=== PATIENT | female | born 1985 | race Caucasian/White ===

== ENCOUNTER → 2017-08-15 07:27 | Outpatient (CLI) | payer BC, SELFPAY ==
[2017-08-15 08:11] LABS: Hemoglobin A1c 5.4 % (4.2-6.3)
[2017-08-15 08:13] LABS: Free T3 2.7 pg/mL (2.18-3.98); T4 Free Direct 1.02 ng/dL (0.76-1.46); Thyroid Stim Hormone (TSH) 2.05 uIU/mL (0.358-3.74)
== END ==
PROVIDERS: Family Provider Preventive Medicine Occupational Medicine; PCP Preventive Medicine Occupational Medicine; Visit Provider Nurse Practitioner
DX: E03.9 Hypothyroidism, unspecified (principal); R53.81 Other malaise; R53.83 Other fatigue
CPT/HCPCS: 36415; 83036; 84439; 84443; 84481

== ENCOUNTER → 2018-05-14 12:39 | Outpatient (CLI) | payer BC, SELFPAY ==
[2018-05-14 12:25] VITALS: BMI 42.2
--- NOTE | 2018-05-14 13:08 | EKG12_ITS ---
Test Reason : HTN Blood Pressure : / mmHG Vent. Rate : 094 BPM Atrial Rate : 094 BPM P-R Int : 152 ms QRS Dur : 078 ms QT Int : 356 ms P-R-T Axes : 079 038 058 degrees QTc Int : 445 ms Normal sinus rhythm Normal ECG Confirmed by RANJITH FIGUEROA, SHAYE ([id number]), industrial editor RONNELL MORRISON ([id number] on 05/15/2018 4:02:26 PM Referred By: Agustina Roberts Confirmed By:SHAYE KASPER MD
[2018-05-14 13:29] LABS: Absolute Lymphocyte Count 1.79 X10^3/ul (0.83-4.51); Absolute Neutrophil Count 8.4 X10^3/uL (2.0-7.7); Basophil# 0.02 X10^3/uL; Basophil% 0.2 % (0-1); Eosinophil# 0.12 X10^3/uL; Eosinophils% 1.1 % (0-5); Hematocrit 38.2 % (37-47); Hemoglobin 12.2 g/dl (12.0-15.0); Lymphocyte # 1.79 X10^3/ul (4.0); Mean Corp Hgb Conc 31.9 g/gl (32-36); Mean Corpuscular Hgb 29.5 pg (27.0-32.0); Mean Corpuscular Volume 92.5 fL (81-99); Mean Platelet Vol. 10.6 fl (6.2-12.0); Neutrophil # 8.36 X10^3/uL (2.7-7.7); Neutrophil % 74.5 % (47-70); POSITIVE COUNT NO; POSITIVE DIFFERENTIAL NO; POSITIVE MORPHOLOGY NO; Platelet Count 303 K/mm3 (150-450); RBC Distribution Width CV 13.6 % (11.6-14.6); RBC Distribution Width SD 46.1 fl (35.1-43.9); Red Blood Count 4.13 M/mm3 (4.2-5.4); White Blood Count 11.2 K/mm3 (4.4-11.0)
[2018-05-14 14:05] LABS: ALB/GLOB Ratio 0.8 RATIO (0.9-2.4); AST(SGOT) 12 U/L (15-37); Alanine Aminotransfer ALT/SGPT 20 U/L (13-56); Albumin, Serum 3.1 g/dL (3.2-5.0); Alkaline Phosphatase 52 U/L (45-117); Anion Gap 10 (5-15); BUN 10 mg/dL (7-18); Calcium,Total 8.7 mg/dL (8.5-10.1); Chloride 106 mmol/L (98-107); Creatinine, Serum 0.56 mg/dL (0.55-1.02); EST Glomerular Filtration Rate 132 mL/min (>60); Est Glom Filt Rate - Afr Amer 160 mL/min (>60); Globulin 3.9 g/dL (2.2-4.2); Glucose 86 mg/dL (74-106); Potassium 3.7 mmol/L (3.5-5.1); Sodium Level 138 mmol/L (136-145); Thyroid Stim Hormone (TSH) 1.11 uIU/mL (0.358-3.74)
[2018-05-17 04:08] LABS: AFP Value-EIA 30.2 ng/mL (.); Comment Report (.); DIA Value-EIA 364.58 pg/mL (.); DSR (By Age) 298 (.); DSR (Second Trimester) 97 (.); Gestat. Age Based On As provided (.); Insulin Dep Diabetes No (.); hCG MoM 1.51 (.); hCG Value 32098 mIU/mL (.)
--- OUTSIDE RECORDS SUMMARY | 2018-07-19 08:50 | XMS RPT_ITS ---
:1985 Author Organization [facility] Care Team Providers Name Role Phone ADILIA FIGUEROA, AISHA Attending Unavailable ADILIA FIGUEROA, AISHA Consulting Unavailable FINESSE WARNER, BRAXTON Monroy Consulting Unavailable JAIME PATEL Consulting Unavailable ADILIA FIGUEROA, AISHA Attending Unavailable ANGELICA WARNER, SANDRO Consulting Unavailable ADILIA FIGUEROA, AISHA Consulting Unavailable Tung Angulo Attending Unavailable Agustina Roberts Attending Unavailable Tung Angulo Referring Unavailable Jamiony, Agustina Attending Unavailable Jamiony, Agustina Referring Unavailable Tung Angulo Primary Care Unavailable Brody Kasper Attending Unavailable Alejandra, Agustina Referring Unavailable Adele, Tung Primary Care Unavailable Jamiony, Agustina Consulting Unavailable Varsha Vargas DRIVER TRAINEE-C Attending Unavailable Varsha Vargas DRIVER TRAINEE-C Referring Unavailable Tung Angulo Primary Care Unavailable Varsha Vargas DRIVER TRAINEE-C Attending Unavailable Tung Angulo Referring Unavailable Tung Angulo Primary Care Unavailable PROBLEMS PROBLEMS DATE TYPE CONDITION / CODE ATTENDING STATUS SOURCE 05/15/2018 Unknown O10.919 - MiltonaxelBrody Active [place] [facility]specified [facility]existing [facility] hypertension Repository complicating , unspecified trimester / O10.919(ICD-10) 05/15/2018 Unknown E03.9 - MiltoncarlosBrody duran Active [place] Hypothyroidism, [facility] unspecified / Hospital E03.9(ICD-10) Repository 05/15/2018 Unknown Z34.90 - Encounter MiltoncarlosBrody duran Active [place] for supervision of [facility] normal , Hospital unspecified, Repository unspecified trimester / Z34.90(ICD-10) 05/15/2018 Unknown O99.210 - Obesity MiltonaxelBrody Active [place] complicating [facility] , Hospital unspecified Repository trimester / O99.210(ICD-10) 05/14/2018 Unknown Z31.83 - Encounter Marcanthveronique, Active [place] for assisted [facility] fertility Repository procedure cycle / Z31.83(ICD-10) 05/14/2018 Unknown O99.212 - Obesity Marcanthony, Active [place] complicating [facility] , second Hospital trimester / Repository O99.212(ICD-10) 05/14/2018 Unknown Z3A.17 - 17 weeks Marcanthony, Active [place] gestation of [facility] / Hospital Z3A.17(ICD-10) Repository 05/14/2018 Unknown O09.90 - Alejandra, Active [place] Supervision of [facility] , Repository unspecified, unspecified trimester / O09.90(ICD-10) PROCEDURES PROCEDURES No Procedure Records FoundRESULTS RESULTS 12 LEAD ELECTROCARDIOGRAM Observed: 05/15/2018 Status: F Source: [place] 4:02 PM [facility] [place] [facility] Cardiovascular Services [address] [place] [address] 12 Lead EKG 05/14/18 1319 MR#: [id number] Acct: [id number] Name: DEREK MARIN Rep #: [id number] : 1985 32 From: Brody Kasper MD Attending Dr: Agustina Roberts MD Status: REG CLI Ordering Dr: Agustina Roberts MD Date: 05/14/18 Location: LAB Sex: F C Admitted: Test Reason : HTN Blood Pressure : / mmHG Vent. Rate : 094 BPM Atrial Rate : 094 BPM P-R Int : 152 ms QRS Dur : 078 ms QT Int : 356 ms P-R-T Axes : 079 038 058 degrees QTc Int : 445 ms Normal sinus rhythm Normal ECG Confirmed by RANJITH FIGUEROA, BRODY ([id number]), purchase request editor RONNELL MORRISON ([id number]) on 05/15/2018 4:02:26 PM Referred By: Agustina Roberts Confirmed By:BRODY KASPER MD 05/15/18 1602 Date Brody Kasper MD CC: Tung Angulo DO; Agustina Roberts MD Signed AFP TETRA QUAD Collected: 05/14/2018 Status: F Source: [facility] SCREEN 12:46 PM [facility] [place] Order Comment: 2 TIGER TOPS Is Patient ? Y Enter Completed Weeks of Gestation: 17.0 Patient's Weight (LBS.): 288 Race: / White Number of Fetuses: 1 Is Patient Insulin-Dependent Diabetic?: N TYPE CODE TESTS RESULT OUT OF REFERENCE UNITS RANGE LAB L3290.110 . 0 TEST RESULTS: High *Screen Positive* LAB L3290.120 . WEEKS 0 GESTATIONAL AGE Normal 17.0 LAB L3290.130 . 0 GEST AGE FROM As Normal provided LAB L3290.140 . yr 1 MATRNL AGE @CARTER Normal 33.0 LAB L3290.150 . 0 RACE Normal LAB L3290.160 . lbs 0 WEIGHT Normal 288 LAB L3290.170 . 0 INS DEP DIABETE No Normal LAB L3290.180 . 0 MULT GESTATION No Normal LAB L3290.190 . ng/mL 0 AFP VALUE-EIA Normal 30.2 LAB L3290.200 . 0 AFP MOM VALUE Normal 1.20 LAB L3290.210 . mIU/mL 0 HCG VALUE Normal 66837 LAB L3290.220 . 0 HCG MOM Normal 1.51 LAB L3290.230 . ng/mL 0 UE3 VALUE Normal 0.79 LAB L3290.240 . 0 UE3 MOM Normal 0.89 LAB L3290.250 . pg/mL 0 MARGARET VALUE-EIA Normal 364.58 LAB L3290.260 . 0 MARGARET MOM VALUE Normal 3.10 LAB L3290.270 . 0 OSBR RISK Normal 6499 LAB L3290.280 . 0 DSR 2ND TRIMEST 97 Normal LAB L3290.290 . 0 DSR (BY AGE) Normal 298 LAB L3290.310 . 0 T18 RISK Normal Not increased LAB L3290.320 . 0 T18 (BY AGE) Normal 1:1162 LAB L3290.330 . 0 INTERPRETATION Normal Comment Result Comment: Interpretation: Screen Positive for Down Syndrome This patient is at increased risk to have a baby with Down Syndrome. The Down Syndrome risk was calculated using the gestational age provided, maternal age, AFP, hCG, uE3 and MARGARET values. Approximately 75-80% of Down Syndrome can be detected by this test. This result is screen negative for open spina bifida. This test can identify up to 80% of open neural tube defects. Closed neural tube defects and some open defects may not be detected by this test. This test can identify approximately 60% of Trisomy 18. Recommendations: 1. Targeted ultrasound to confirm gestational age and rule out anomalies. 2. Do not repeat test. Repeating the test can result in false negatives. 3. Genetic counseling and amniocentesis are appropriate options. Recalculations are not recommended when gestational dating by LMP and ultrasound are within 10 days. Performed By: #### L3290.0100 #### [facility] (refer to report for specific site) refer to report for address and phone number [facility] W/DIFF, AUTOMATED Collected: 05/14/2018 Status: F Source: [place] 12:44 PM [facility] [place] TYPE CODE TESTS RESULT OUT OF RANGE REFERENCE UNITS LAB L100.1000 4.4-11.0 K/mm3 High WBC 11.2 LAB L100.1200 4.2-5.4 M/mm3 Low RBC 4.13 LAB L100.1300 12.0-15.0 g/dl Normal HGB 12.2 LAB L100.1400 37-47 % Normal HCT 38.2 LAB L100.1500 81-99 fL Normal MCV 92.5 LAB L100.1600 27.0-32.0 pg Normal MCH 29.5 LAB L100.1700 32-36 g/gl Low MCHC 31.9 LAB L100.1810 11.6-14.6 % Normal RDW CV 13.6 LAB L100.1820 35.1-43.9 fl High RDW SD 46.1 LAB L100.1900 150-450 K/mm3 Normal PLT 303 LAB L100.2000 6.2-12.0 fl Normal MPV 10.6 LAB L100.2100 47-70 % High NEUT% 74.5 LAB L100.2200 19-41 % Low LY% 16.0 LAB L100.2300 0-10 % Normal MONO% 8.0 LAB L100.2400 0-5 % Normal EO% 1.1 LAB L100.2500 0-1 % Normal BASO% 0.2 LAB L100.2550 0.0-0.9 % Normal IM GRAN % 0.200 Result Comment: IG% - Immature Granulocytes (promyelocytes, myelocytes and metamyelocytes) > 1% indicates that a LEFT SHIFT is Present. LAB L100.2620 2.0-7.7 X10 3/uL High Absolute Neut 8.4 LAB L100.2720 0.83-4.51 X10 3/ul Normal Absolute Lymph 1.79 Performed By: #### L100.0100 #### [facility] [address] [place], [place], [address] COMPREHENSIVE METABOLIC Collected: 05/14/2018 Status: F Source: [facility] 12:44 PM [facility] TYPE CODE TESTS RESULT OUT OF RANGE REFERENCE UNITS LAB L501.0100 74-106 mg/dL Normal GLU 86 Result Comment: Please note revised GLUCOSE reference range effective 2017. LAB L501.1000 7-18 mg/dL Normal BUN 10 LAB L501.1100 0.55-1.02 mg/dL Normal CREAT,SERUM 0.56 Result Comment: The validity of the calculated GFR AND GFRAA in patients over 70 years has not been determined. Clinical correlation is essential. LAB L501.1110 >60 mL/min Normal EST GFR 132 Result Comment: Non- GFR Calc LAB L501.1115 >60 mL/min Normal EST GFR - AA 160 Result Comment: GFR Calc LAB L501.1300 10-20 RATIO Normal BUN/CRE 18.0 LAB L501.1500 6.4-8.2 g/dL T Normal PROT 7.0 LAB L501.1800 3.2-5.0 g/dL Low ALB 3.1 LAB L501.1950 2.2-4.2 g/dL Normal GLOB 3.9 LAB L501.2000 0.9-2.4 RATIO Low A/G 0.8 LAB L501.2200 8.5-10.1 mg/dL CA Normal 8.7 LAB L501.4100 15-37 U/L Low AST 12 LAB L501.4305 45-117 U/L Normal ALK P 52 LAB L501.4405 13-56 U/L Normal ALT 20 LAB L501.4600 0.20-1.00 mg/dL T Normal BILI 0.20 LAB L501.5300 136-145 mmol/L NA Normal 138 LAB L501.5600 3.5-5.1 mmol/L K Normal 3.7 LAB L501.5900 98-107 mmol/L CL Normal 106 LAB L501.6100 21.0-32.0 mmol/L Normal CO2 22.0 LAB L501.6200 5-15 Normal GAP 10 Performed By: #### L500.4050, L501.9520, L506.0400 #### [facility] [address] [place], [address] THYROID STIM HORMONE Collected: 05/14/2018 Status: F Source: SARA (TSH) 12:44 PM [facility] [place] TYPE CODE TESTS RESULT OUT OF RANGE REFERENCE UNITS LAB L501.9520 0.358-3.74 uIU/mL Normal TSH 1.11 Performed By: #### L500.4050, L501.9520, L506.0400 #### [facility] [address] [place], [address] T4 FREE DIRECT Collected: 05/14/2018 Status: F Source: [place] 12:44 PM [facility] TYPE CODE TESTS RESULT OUT OF RANGE REFERENCE UNITS LAB L506.0400 0.76-1.46 ng/dL Normal T4 FREE 1.00 DIRECT Performed By: #### L500.4050, L501.9520, L506.0400 #### [facility] [address] [place], [address] SPIRAL TUBE WINDER OFFICE VISIT Observed: 05/14/2018 Status: F Source: [place] REPORT 12:25 PM [facility] [place] [facility] 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 Required: No Is patient in pain?: No Allergies prednisone Allergy (Mild, Verified 05/14/18 12:00) Other Medications ferrous sulfate 325 mg (65 mg iron) tablet 325 mg PO TID tab 09/18/17 [History Confirmed 05/14/18] loratadine 10 mg tablet 10 mg PO QDAY 09/18/17 [History Confirmed 05/14/18] vitamin,calcium,oartcsoj-sclu-jhfxv acid tablet 1 tab PO QDAY 09/18/17 [History Confirmed 05/14/18] promethazine 12.5 mg tablet 12.5 mg PO QDAY tab 09/18/17 [History Confirmed 05/14/18] aspirin 81 mg chewable tablet 81 mg PO QDAY 09/25/17 [History Confirmed 05/14/18] levothyroxine 75 mcg tablet See Rx Instructions PO .COMPLEX #96 tab 02/11/18 [Rx Confirmed 05/14/18] acetaminophen 325 mg capsule 325 mg PO Q6H PRN 05/14/18 [History Confirmed 05/14/18] diphenhydramine 25 mg capsule 25 mg PO QHS PRN 05/14/18 [History Confirmed 05/14/18] famotidine 40 mg tablet 40 mg PO BID 05/14/18 [History Confirmed 05/14/18] Last Menstral Period: 01/15/18 Zika: Zika virus screening: Negative : No PFSH PFSH Medical History History of hysteroscopy (Acute) History of infertility (Acute) Anemia (Acute) Anxiety disorder (Acute) Back problem (Acute) Chronic headaches (Acute) Depression (Acute) GERD (gastroesophageal reflux disease) (Acute) GI problem (Acute) Gallstones (Acute) IBS (irritable bowel syndrome) (Acute) Polycystic ovarian disease (Acute) Seasonal allergies (Acute) Thyroid disease (Acute) Vision problem (Acute) Surgical History H/O dilation and curettage (Acute) H/O colonoscopy (Acute) Hx of cholecystectomy (Acute) S/P ERCP (Acute) S/P foot surgery, left (Acute) S/P foot surgery, right (Acute) ovarian surgery (Acute) Family History Sister Arthritis Asthma Thyroid disorder Mother Arthritis Heart disease Thyroid disorder Grandfather Diabetes Heart disease Thyroid disorder Cancer Social History Smoking Status: Never smoker second hand exposure: No alcohol intake: never substance use type: does not use caffeine: Yes what type of physical activity do you participate in: walking seatbelt use: always do you feel safe at home: Yes additional social history: [place]- 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 OB Visit CARTER Calculator Estimated Delivery Date 10/22/18 Based on LMP (certain) 01/15/18 Current WG 17w 0d Number 1 Expected Delivery Route/Plan Specific Issue/Plans flu vaccine: declined tdap vaccine: [] rhogam: [] LARC form signed: [] labor support person: [] pain management: [] cut cord/dad catch: [] : [] PP control planned: [] discussed possible routes of delivery and associated risks: [] special requests: [] Initial Weight: Not Recorded Date Weight BP Urine PrFHR FuHt Pres MoCTX DilationFetal StVisit NoProviderComments E ot v te GA G Effac lucose ed Visit Notes Visit Date: 05/14/18 no vb lof some cramping. elevated bps - suspect chronic hypertension Agustina Roberts MD on 05/14/18 Diagnostics Diagnostics Labs Blood Type O POSITIVE 11/26/16 Hct 38.1 % (37-47) 11/26/16 Hgb 12.4 g/dl (12.0-15.0) 11/26/16 VZV IgG Antibody 2887 index (Immune >165) 11/26/16 Rubella IgG Antibody 82.3 IU/mL 11/26/16 Miscellaneous Test 05/31/15 Details: HIV: Urine Culture: Sequential Screen: NIPT Screen: Assessment AND Plan Problems 1. In vitro fertilization Z31.83 boy. nl NIPT. discussed echo if desired. 2. Obesity affecting in second trimester O99.212 nutrition consult 3. Chronic hypertension affecting O10.919 baseline labs, baby asa, labetalol 100mg BID, weekly nsts and growth us q 4 weeks after 32 weeks, deliver at 38 4. 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 AFP ordered. anatomy scan ordered. 5. Supervision of high risk , antepartum O09.90 CARTER 10/22/18 boy Daren 6. Hypothyroidism (acquired) E03.9 check every trimester, mgd by BJ. TSH needs to remain in low normal for . Patient will check her TSH every 6 weeks and continue to adjust as required to keep at 1.00 range. Plan ACOG trimester education reviewed and updated. see problem list details for updated plan management information and see below for orders placed at this visit. GA appropriate handout given. Orders Orders: Coding Level of Care Code OB Routine Diagnoses In vitro fertilization Z31.83 Obesity affecting in second trimester O99.212 Trimester: second trimester Chronic hypertension affecting O10.919 17 weeks gestation of Z3A.17 Weeks of gestation: 17 weeks Supervision of high risk , antepartum O09.90 Hypothyroidism (acquired) E03.9 05/14/18 1225 <Electronically signed by Agustina Roberts MD> Date Agustina Roberts MD Cosigner Signature: Date (if applicable) CC: FINAL SURGICAL Observed: 11/15/2017 Status: F Source: [facility] PATHOLOGY REPORT 3:04 PM FOUNDATION REPOSITORY . Pathology Reports Accession: Collected Date/Time: Received Date/Time: Pathologist: [id number] 11/15/2017 15:04 EDT 11/18/2017 10:20 EDT MD DORA SQUIRES Final Surgical Pathology Report DIAGNOSIS: UTERINE CONTENTS: - FRAGMENTS OF DECIDUALIZED ENDOMETRIUM AND PLACENTAL VILLI DIAGNOSTIC OF PRODUCTS OF CONCEPTION. CLINICAL INFORMATION: _ PROCEDURE: SUCTION DILATION AND CURETTAGE PRE-OP DIAGNOSIS: MISSED POST-OP DIAGNOSIS: SAME SPECIMEN: A POC - PRODUCTS OF CONCEPTION GROSS DESCRIPTION: _Received fresh labeled products of conception is a 3.5 x 3 x 1 cm aggregate of red soft tissue. A statement services representative portion is submitted in transport media for cytogenetics and the remainder is submitted for permanent sections in one cassette. Dictated by Lara HUIZAR (ASCP) MICROSCOPIC DESCRIPTION: Slides reviewed. Electronically Signed by Pathology Report verified by [facility] Electronically signed by DORA SQUIRES MD Sign out Date: 11/19/2017 12:28 Performing Lab: [facility], [address] [place] [address] Performed By: #### SPFR #### [address] [address] MISCNB Collected: 11/15/2017 Status: F Source: [facility] 3:00 PM [facility] REPOSITORY Order Comment: cytogenetics for POC TYPE CODE TESTS RESULT OUT OF REFERENCE UNITS RANGE LAB [id number](LOINC) Misc. lab See Comments Send Out (Non Blood) Result Comment: Complete reference lab report scanned to EMR. Performed By: #### MISCNB #### [place] [address] CBC Collected: 11/15/2017 Status: F Source: [facility] 12:46 PM [facility] REPOSITORY TYPE CODE TESTS RESULT OUT OF REFERENCE UNITS RANGE LAB WBC(LOINC) 4.50-10.80 10 3/mcL WBC 9.10 LAB RBCCT(LOINC 4.10-5.30 10 6/mcL ) RBC 4.14 LAB HGB(LOINC) 12.0-16.0 G/dL Hgb 12.6 LAB HCT(LOINC) 34.0-46.0 % Hct 37.1 LAB MCV(LOINC) 80.0-99.0 fL MCV 89.8 LAB MCH(LOINC) 27.0-33.0 pg MCH 30.5 LAB MCHC(LOINC) 32.0-36.0 G/dL MCHC 33.9 LAB RDW(LOINC) 11.5-15.5 % RDW 13.1 LAB PLT(LOINC) 150-450 10 3/mcL Platelet 292 LAB MPV(LOINC) 6.6-10.5 fL MPV 8.2 Performed By: #### CBC, ADIFF, ANEU, ABORH, ANTIS #### [address] [address] .AUTO DIFF Collected: 11/15/2017 Status: F Source: [facility] 12:46 [facility] REPOSITORY TYPE CODE TESTS RESULT OUT OF REFERENCE UNITS RANGE LAB SAMANTHA(LOINC) 50.0-75.0 % Neutrophil % 61.8 LAB LYM(LOINC) 20.0-40.0 % Lymphocyte % 26.9 LAB MON(LOINC) 2.0-13.0 % Monocyte % 6.3 LAB EO(LOINC) 0.0-6.0 % Eosinophil % 4.0 LAB BAS(LOINC) 0.0-2.5 % Basophil % 1.0 LAB ABLYM(LOIN 0.90-4.32 10 3/mcL C) Lymphocyte, 2.50 Absolute LAB LANRE(LOINC 0.09-1.40 10 3/mcL ) Monocyte, 0.60 Absolute LAB AEOS(LOINC 0.00-0.65 10 3/mcL ) Eosinophil, 0.40 Absolute LAB ABAS(LOINC 0.00-0.27 10 3/mcL ) Basophil, 0.10 Absolute Performed By: #### CBC, ADIFF, ANEU, ABORH, ANTIS #### [place] [address] .NEUABS Collected: 11/15/2017 Status: F Source: [facility] 12:46 PM [facility] REPOSITORY TYPE CODE TESTS RESULT OUT OF REFERENCE UNITS RANGE LAB ANEU(LOINC) 2.25-8.10 10 3/mcL Neutrophil, 5.60 Absolute Performed By: #### CBC, ADIFF, ANEU, ABORH, ANTIS #### [place] [address] TABO Collected: 11/15/2017 Status: F Source: [facility] 12:46 PM [facility] REPOSITORY TYPE CODE TESTS RESULT OUT OF RANGE REFERENCE UNITS LAB ABORH(LOINC ) Unknown ABO/Rh O POS Interp Performed By: #### CBC, ADIFF, ANEU, ABORH, ANTIS #### [place] [address] TABS Collected: 11/15/2017 Status: F Source: [facility] 12:46 PM [facility] REPOSITORY TYPE CODE TESTS RESULT OUT OF REFERENCE UNITS RANGE LAB ANST(LOINC ) Antibody Negative ABSC Screen Tango Performed By: #### CBC, ADIFF, ANEU, ABORH, ANTIS #### [place] [address] OFFICE VISIT REPORT Observed: 11/03/2017 Status: F Source: [place] 8:38 AM [facility] [place] [facility] [place] [address] OFFICE VISIT Date of Service: 09/25/17 MR#: [id number] Acct: [id number] Patient: DEREK MARIN Rep #: [id number] : 1985 Provider: Varsha Vargas NP Age/Sex: 31/F Location: [facility] Status: Signed Intake Vital Signs09/25/17 Height 5 ft 7 in 09/25/17 Weight: 269 lb 8 oz 09/25/17 Body Mass Index (BMI) 42.2 09/25/17 Blood Pressure 146/94 09/25/17 Blood Pressure Location Lt popliteal 09/25/17 Blood Pressure Position Sitting Intake Visit Reasons: 6 M Rough And Truing Machine Operator Required: No Accompanied by: Self Is patient in pain?: No Allergies No Known Allergies Allergy (Unverified 09/25/17 15:27) Medications cholecalciferol (vitamin D3) 2,000 unit capsule 2,000 unit PO QDAY 09/18/17 [History Confirmed 09/18/17] diphenoxylate-atropine 2.5 mg-0.025 mg tablet 1 tab PO Q6H PRN tab 09/18/17 [History Confirmed 09/18/17] ferrous sulfate 325 mg (65 mg iron) tablet 325 mg PO TID tab 09/18/17 [History Confirmed 09/18/17] loratadine 10 mg tablet 10 mg PO QDAY 09/18/17 [History Confirmed 09/18/17] magnesium 30 mg tablet 30 mg PO QDAY 09/18/17 [History Confirmed 09/18/17] milnacipran 100 mg tablet 100 mg PO BID tab 09/18/17 [History Confirmed 09/18/17] naproxen 250 mg tablet 250 mg PO BID-TID PRN 09/18/17 [History Confirmed 09/18/17] naratriptan 2.5 mg tablet 2.5 mg PO ONCE PRN 09/18/17 [History Confirmed 09/18/17] omeprazole magnesium 20 mg tablet,delayed release 20 mg PO QDAY 09/18/17 [History Confirmed 09/18/17] vitamin,calcium,uxlnhojz-cawr-swvhn acid tablet 1 tab PO QDAY 09/18/17 [History Confirmed 09/18/17] promethazine 12.5 mg tablet 12.5 mg PO QDAY tab 09/18/17 [History Confirmed 09/18/17] vitamin B complex tablet 1 tab PO QDAY 09/18/17 [History Confirmed 09/18/17] aspirin 81 mg chewable tablet 81 mg PO QDAY 09/25/17 [History Confirmed 09/25/17] levothyroxine 75 mcg tablet See Label Instructions PO .COMPLEX #96 tab 09/25/17 [Rx Confirmed 09/25/17] Is last menstrual period known: No Post menopausal: No Patient : No PFSH Medical History Anemia (Acute) Anxiety disorder (Acute) Back problem (Acute) Chronic headaches (Acute) Depression (Acute) GERD (gastroesophageal reflux disease) (Acute) GI problem (Acute) Gallstones (Acute) IBS (irritable bowel syndrome) (Acute) Polycystic ovarian disease (Acute) Seasonal allergies (Acute) Thyroid disease (Acute) Vision problem (Acute) Surgical History H/O colonoscopy (Acute) Hx of cholecystectomy (Acute) S/P ERCP (Acute) S/P foot surgery, left (Acute) S/P foot surgery, right (Acute) ovarian surgery (Acute) Family History Sister Arthritis Asthma Thyroid disorder Mother Arthritis Heart disease Thyroid disorder Grandfather Diabetes Heart disease Thyroid disorder Cancer Social History Smoking Status: Never smoker second hand exposure: No alcohol intake: never substance use type: does not use HPI HPI Details: DEREK MARIN, is a 32 F who presents to the office today for follow up of hypothyroidism. She continues on levothyroxine 75 mcg and overall feels fairly good. Is currently doing IVF for . Taking medication as directed. Does not miss any of her doses and knows not to take medication within 4 hours of calcium, iron, vitamins and other medications. Severity, modifying factors, context, and associated signs and symptoms are as follows: Thyroid pain: No Energy: Reasonable Sleep: awakened refreshed Temp: No intolerance GI: Normal bowel Weight: Flucuates Eyes: No change in vision Memory: unchanged Diaphoresis: Not significant Skin: Dry Hair : Unchanged Neuro: No numbness, tingling or tremors At time of visit: -Pt denies symptoms of hypertensive emergency (CP,SOB,JAMES, or blurred vision) and hypotension(dizziness or lightheadedness) -Pt denies symptoms of hypoglycemia ( sweaty, confusion, anxiety, tremor, hunger, palpitations) and hyperglycemia ( polydipsia, polyuria) -Pt denies potential medication adverse effect. Diet 3 meals active ROS Const Constitutional: Positive for chills, fatigue, fever(s) and night sweats; no anorexia, body ache, frequent falls, decreased energy, malaise, weakness, weight change, sleep problems, abnormal sleep pattern, change in appetite, other, headache(s), snoring or excessive sweating Eyes Eyes: No blurry vision, change in vision, double vision, discharge, dry eyes, bulging eyes, floaters, visual disturbances, eye pain, light sensitivity, spots in vision, tunnel vision or other ENT ENT: Positive for nasal congestion and nasal discharge; no abnormal hearing, ear pain, ear discharge, ear pressure, hearing loss, tinnitus, dizziness/vertigo, balance problems, nosebleed/epistaxis, nasal obstruction, nose pain, sinus pressure, sinus pain, post nasal drip, headache(s), facial pain, dental pain, dry mouth, bad breath, hoarseness, lip swelling, mouth lesions, mouth pain, sore throat, tongue swelling, throat swelling, other, difficulty swallowing or neck pain Resp Respiratory: Positive for shortness of breath; no cough, change in phlegm color, chest congestion, excessive phlegm production, hemoptysis, pain on inspiration, pain with cough, snoring, stridor, wheezing or other Cardio Cardiology: No chest pain at rest, chest pain with exertion, leg pain with exertion, excessive sweating, shortness of breath, dyspnea on exertion, generalized swelling, irregular heart rhythm, lightheadedness, orthopnea, radiating jaw, neck or arm pain, fast heart rate, slow heart rate, palpitations or other Gastro GI: Positive for nausea/dyspepsia; no abdominal pain, belching, bloating, change in bowel habits, change in stool character, coffee ground emesis, constipation, cramping, diarrhea, heartburn, difficulty swallowing, feeling full early, excessive flatus, incontinent of stools, Vomiting blood/hematemesis, blood in stool, loose stools, Black,tarry stools, pain with swallowing, vomiting or other Genitourinary-Female: No difficulty urinating, burning urination, painful urination, urinary incontinence, urinary frequency, urinary urgency, urinary hesitancy, urinary retention, blood in urine, Frequent nighttime urination/ nocturia, post void dribbling, suprapubic fullness, side pain, sexual problems, genital lesions, genital itching, hot flashes, abnormal periods, abnormal vaginal bleeding, absent period, painful periods, light periods, heavy periods, difficulty getting , painful intercourse, pelvic pain, vaginal dryness, vaginal odor, Vaginal Itching or other Musc Musculoskeletal: Positive for body aches (bilateral legs); no abnormal walking, joint pain, back pain, deformity, joint swelling, limited range of motion, loss of height, muscle cramps, muscle weakness, decreased muscle mass, neck pain, numbness, radiating pain into limb, stiffness, tingling or other Skin Skin: Positive for hair loss; no acne, change in hair, nail changes, boil, change in skin color, dry skin, redness, excessive hair growth, yellowing of the skin, lesions, itching, rash, skin pain, skin ulcer, sores, skin swelling, wounds or other Breast Breast: No other Neuro Neurology: No frequent falls, weakness, visual disturbances, abnormal hearing, headache(s), abnormal walking, numbness or tingling Psych Psychiatric: No abnormal sleep pattern, No change in appetite Endo Endocrine: Positive for fatigue; no other or excessive sweating Aller/Imm Allergy/Immunologic: No lip swelling, tongue swelling, throat swelling, wheezing or itchy eyes Exam Const General: comfortable, well groomed Nutritional Appearance: well nourished, overweight Orientation: oriented x3 [facility] Head: normal to inspection, atraumatic Ears: hearing grossly normal bilaterally Face and sinus: normal facial exam Mouth: oral mucosae normal, moist mucous membranes Teeth and gingiva: dentition normal Eyes General: appearance normal, both eyes and all related structures Eyelids: eyelids normal Conjunctivae: conjunctivae normal Sclera: sclerae normal Pupils: PERRL Neck Neck: normal visual inspection Neck mass: No Thyroid: thyroid normal Resp Effort AND Inspection: normal respiratory effort, able to speak in complete sentences, symmetric chest movement Auscultation: Bilateral: Clear to Auscultation Cardio Rate: regular rate Rhythm: regular rhythm Heart Sounds: S1 normal, S2 normal, no murmurs GI Inspection: normal to inspection Auscultation: normal bowel sounds Palpation: soft, no guarding Musc Musculoskeletal: No muscle weakness, joint tenderness or joint redness Skin General: no rashes or lesions noted Wounds: no wounds Hair: normal Neuro General: oriented x3 Cranial Nerves: CN's II-XI intact bilaterally Extrem General: full ROM, normal capillary refill Psych Appearance: well kempt Mental Status: mental status grossly normal Mood: congruent mood Affect: normal affect Speech and Movement: speech and movement normal Attitude: cooperative Thought Process: normal Thought Content: normal Judgment: judgment good Assessment AND Plan Problems 1. Hypothyroidism (acquired) E03.9 Plan Labs every 6 weeks and call for reults 2 days after labs done. Orders Orders: Medications New: Coding Level of Care Code Off vis,est,level 3 Diagnoses Hypothyroidism (acquired) E03.9 11/03/17 0838 <Electronically signed by Varsha TUTTLE> Date Varsha TUTTLE Cosigner Signature: Date (if applicable) CC: FINAL SURGICAL Observed: 08/16/2017 Status: F Source: [facility] PATHOLOGY REPORT 1:06 PM FOUNDATION REPOSITORY . Pathology Reports Accession: Collected Date/Time: Received Date/Time: Pathologist: [id number] 08/16/2017 13:06 EDT 08/16/2017 14:24 EDT MD ROBBIN TRAN Final Surgical Pathology Report DIAGNOSIS: ENDOMETRIUM, CURETTAGE: - FRAGMENTS OF ENDOMETRIAL TISSUE WITH GLANDULAR ATROPHY AND STROMAL DECIDUALIZATION SUGGESTING EXOGENOUS HORMONAL EFFECT AND FRAGMENTS OF SUPERFICIAL MYOMETRIUM IDENTIFIED. CLINICAL INFORMATION: Procedure: HYSTEROSCOPY, DILATION AND CURETTAGE Preoperative diagnosis: ENDOMETRIAL HYPERPLASIA Postoperative diagnosis: ENDOMETRIAL HYPERPLASIA SPECIMEN: A EMBX - ENDOMETRIAL CURETTINGS GROSS DESCRIPTION: Received in formalin labeled endometrial curettings is about 0.75 cc of hicks tissue fragments. TS -1 Dictated by LARA HUIZAR ([facility]) MICROSCOPIC DESCRIPTION: Slides reviewed. Electronically Signed by Pathology Report verified by [facility] Electronically signed by ROBBIN TRAN MD Sign out Date: 08/19/2017 14:30 Performing Lab: [facility], [address] [place] [address] States Performed By: #### SPFR #### [place] [address] BMP Collected: 08/16/2017 Status: F Source: [facility] 10:23 AM [facility] REPOSITORY TYPE CODE TESTS RESULT OUT OF REFERENCE UNITS RANGE LAB GLU(LOINC) 70-110 mg/dL Glucose Level 85 LAB NA(LOINC) 136-145 mEq/L Sodium Level 143 LAB K(LOINC) 3.5-5.0 mEq/L Potassium Level 4.2 LAB CL(LOINC) 98-110 mEq/L Chloride 109 LAB CO2(LOINC) 22-32 mEq/L CO2 23 LAB EBAL(LOINC 4.0-15.0 mEq/L ) Electrolyte Balance 11.0 LAB BUN(LOINC) 8.0-22.0 mg/dL BUN 17.0 LAB CRE(LOINC) 0.50-1.20 mg/dL Creatinine Lvl (s) 0.72 LAB BC(LOINC) 10.0-22.0 ratio High BUN/Creatinine 23.6 Ratio LAB CA(LOINC) 8.4-10.1 mg/dL Calcium Lvl 8.9 Performed By: #### BMP, GFR #### [place] [address] .GFR Collected: 08/16/2017 Status: F Source: [facility] 10:23 AM [facility] REPOSITORY TYPE CODE TESTS RESULT OUT OF REFERENCE UNITS RANGE LAB GFRAA(LOINC ml/min/1.73 ) sqm GFR >60 Armenian Result Comment: GFR Population mean for , Non- Americans Ages 20-29 = 116 mL/min/1.73 sq.m. Ages 30-39 = 107 mL/min/1.73 sq.m. Ages 40-49 = 99 mL/min/1.73 sq.m. Ages 50-59 = 93 mL/min/1.73 sq.m. Ages 60-69 = 85 mL/min/1.73 sq.m. Ages 70+ = 75 mL/min/1.73 sq.m. Chronic Kidney Disease: Less than 60 mL/min/1.73 square meters End Stage Renal Disease: Less than 15 mL/min/1.73 square meters LAB GFRNO(LOINC) ml/min/1.73sqm GFR Non- >60 Result Comment: GFR Population mean for , Non- Americans Ages 20-29 = 116 mL/min/1.73 sq.m. Ages 30-39 = 107 mL/min/1.73 sq.m. Ages 40-49 = 99 mL/min/1.73 sq.m. Ages 50-59 = 93 mL/min/1.73 sq.m. Ages 60-69 = 85 mL/min/1.73 sq.m. Ages 70+ = 75 mL/min/1.73 sq.m. Chronic Kidney Disease: Less than 60 mL/min/1.73 square meters End Stage Renal Disease: Less than 15 mL/min/1.73 square meters Performed By: #### BMP, GFR #### [address] [address] HEMOGLOBIN A1C Collected: 08/15/2017 Status: F Source: [place] 7[place] [facility] [place] CODE TESTS RESULT OUT OF RANGE REFERENCE UNITS LAB L501.9985 4.2-6.3 % Normal HGB A1C 5.4 Performed By: #### L501.9985, L501.53489, L501.9520, L506.0400 #### [facility] [address] [facility]. [place], [place], [id number] FREE T3 Collected: 08/15/2017 Status: F Source: [place] 7:[place] [facility] [place] TYPE CODE TESTS RESULT OUT OF RANGE REFERENCE UNITS LAB L501.17966 2.18-3.98 pg/mL Normal FREE T3 2.7 Performed By: #### L501.9985, L501.99589, L501.9520, L506.0400 #### [facility] [address] [facility], [address] THYROID STIM HORMONE Collected: 08/15/2017 Status: F Source: [place] (TSH) 7:[place] [facility] [place] CODE TESTS RESULT OUT OF RANGE REFERENCE UNITS LAB L501.9520 0.358-3.74 uIU/mL Normal TSH 2.05 Performed By: #### L501.9985, L501.44233, L501.9520, L506.0400 #### [facility] [address] [place], [address] T4 FREE DIRECT Collected: 08/15/2017 Status: F Source: [place] 7:[place] [facility] [place] CODE TESTS RESULT OUT OF RANGE REFERENCE UNITS LAB L506.0400 0.76-1.46 ng/dL Normal T4 FREE 1.02 DIRECT Performed By: #### L501.9985, L501.82288, L501.9520, L506.0400 #### [facility] [address] [place], [address] ALLERGIES ALLERGIES DATE TYPE / CODE NAME / CODE REACTION SEVERITY SOURCE 05/14/2018 Drug prednisone/F0 Other MT [facility]4160 [id number] [address] Rep[facility] CT) 09/25/2017 Drug No Known Unknown [facility] Allergy/4160 Allergies/F00 [place] [address](SNOMED [id number](RXNOR Repository CT) M) ENCOUNTERS ENCOUNTERS ADMIT/DISCHARGE ACCOUNT NUMBER ADMITTING ENCOUNTER LOCATION SOURCE CLASS 05/14/2018 [id number] Ambulatory BMSBuilding: [place] BMS..[facility] Repository 05/14/2018 [id number] Ambulatory [facility] ding:LAB Repository 05/14/2018/05/14/19 [id number] Ambulatory BMSBuilding: [place] [address] Repository 04/01/2018 [id number] Ambulatory BMSBuilding: [place] BMS.[facility] Repository 11/15/2017/11/16/19 [id number] Ambulatory ABuilding:[place] 18 URoom: Health 0115Bed: A [facility] Repository 09/25/2017/09/26/19 [id number] Ambulatory BMSBuilding: [place] 18 BMS.[facility] Repository 08/16/2017/08/17/19 [id number] Ambulatory ABuilding:[place] 18 URoom: Health 0104Bed: A [facility] Repository 08/15/2017 [id number] Ambulatory [facility] ding:LAB Repository PAYERS PAYERS ENCOUNTER GUARANTOR PAYER SUBSCRIBER SOURCE 05/14/2018 DAREN Ruiz [id number] Insurance:ANTHEMPolicy LESTERDOB: Community WALKER [place]: [id number] [id number] Repository [address]Wjg: (330) Date:7793-92-98CR [phone] () [id number], [place] [address]QZ: 05/14/2018 Secondary NOT GIVENUNK [place] Insurance:SELF PAY [facility] Number: Effective Repository Date:2018-05-14 05/14/2018 DAREN [id number] Insurance:ANTHEMPolicy LESTERDOB: [facility] Number: [id number], [place] [id number] Repository [address]Aqr: ([phone]) Date:3001-64-73QK [phone] () [id number], [place] [address]JA: 05/14/2018 Secondary NOT GIVENUNK [place] Insurance:SELF PAY [facility] Number: Effective Repository Date:2018-05-14 05/14/2018 DAREN Ruiz [id number] Insurance:ANTHEMPolicy LESTERDOB: [facility] Number: [id number] [place] [id number] Repository [address]Mjf: ([phone]) Date:0086-24-52LL [phone] () [id number], [place] [address]VW: 05/14/2018 Secondary NOT GIVENUNK [place] Insurance:SELF PAY [facility] Number: Effective Repository Date:2018-05-14 04/01/2018 DAREN Ruiz [id number] Insurance:ANTHEMPolicy LESTERDOB: [facility] Number: [id number] [place] [id number] Repository [address]Oct: (330) Date:8171-59-80AK [phone] () [id number] [place] [address]RQ: 04/01/2018 Secondary NOT GIVENUNK [place] Insurance:SELF PAY [facility] Effective Repository Date:2018-04-01 11/15/2017 DEREK Brooks [facility] LESTERDOB: Insurance:ANTHEM BLUE LESTERDOB: [facility] [id number] Repository WALKER Number: DENISE CHURCH [place] [id number] [place], [place] [address]Pxy: (330) Date:2017-11-1214912Flr: (HP) [id number] [phone] Name:[address] BOX ()Tel: [phone]) [phone], [place] 000[address] () [address]DN: 09/25/2017 Daren [facility] Daren [place] [address] Insurance:ANTHEMPolicy LesterDOB: [facility] Number: [id number] [place] [id number] Repository [address]Nol: (330) Date:1735-99-36EN [phone] () [address] [place] [address] [place] [address]XT: 09/25/2017 Secondary NOT GIVENUNK [place] Insurance:SELF PAY [facility]: Effective Repository Date:2017-09-25 08/16/2017 [facility]:ANTHEM BLUE LESTERDOB: [facility] [id number] Repository WALKER Number: DENISE CHURCH [place] [id number] [place], [place] [address]Fxr: ([phone]) Date:2017-05-17 319[address]Swu: (HP) [id number] [phone] Name:BP BOX ()Tel: [phone], [place] [phone] (WP) [address]SV: 08/15/2017 Daren [id number] Insurance:ANTHEMPolicy LesterDOB: [facility] Number: [id number] [place] [id number] Repository [address]Ucn: ([phone]) Date:5353-58-07IY [phone] () [id number], [place] [address]NW: 08/15/2017 Secondary NOT GIVENFEMI Ruiz Insurance:SELF PAY [facility] Number: Effective Repository Date:2017-08-15
== END ==
PROVIDERS: Family Provider Preventive Medicine Occupational Medicine; PCP Preventive Medicine Occupational Medicine; Referring Provider Obstetrics & Gynecology; Visit Provider Obstetrics & Gynecology
DX: O10.919 Unspecified pre-existing hypertension complicating pregnancy, unspecified trimester (principal); O99.280 Endocrine, nutritional and metabolic diseases complicating pregnancy, unspecified trimester; E03.9 Hypothyroidism, unspecified; O99.210 Obesity complicating pregnancy, unspecified trimester; Z3A.00 Weeks of gestation of pregnancy not specified
CPT/HCPCS: 36415; 80053; 82105; 82570; 82677; 84156; 84439; 84443; 84702; 85025; 86336; 93005

== ENCOUNTER → 2018-06-10 18:13 | Outpatient (CLI) | payer BC, SELFPAY ==
[2018-06-10 17:05] VITALS: BMI 42.2
[2018-06-10 19:15] LABS: Protein, Urine (Random) < 6.0 mg/dL (<11.9)
== END ==
PROVIDERS: Family Provider Preventive Medicine Occupational Medicine; PCP Preventive Medicine Occupational Medicine; Referring Provider Obstetrics & Gynecology; Visit Provider Obstetrics & Gynecology
DX: O10.919 Unspecified pre-existing hypertension complicating pregnancy, unspecified trimester (principal); Z3A.00 Weeks of gestation of pregnancy not specified
CPT/HCPCS: 82570; 84156

== ENCOUNTER → 2018-08-02 09:45 | Outpatient (CLI) | payer BC, SELFPAY ==
[2018-07-29 08:44] VITALS: BMI 46.6
[2018-08-02 11:06] LABS: Absolute Lymphocyte Count 1.23 X10^3/ul (0.83-4.51); Absolute Neutrophil Count 8.9 X10^3/uL (2.0-7.7); Basophil# 0.01 X10^3/uL; Basophil% 0.1 % (0-1); Eosinophil# 0.14 X10^3/uL; Eosinophils% 1.3 % (0-5); Hematocrit 32.8 % (37-47); Hemoglobin 10.8 g/dl (12.0-15.0); Lymphocyte # 1.23 X10^3/ul (4.0); Lymphocyte % 11.3 % (19-41); Mean Corp Hgb Conc 32.9 g/gl (32-36); Mean Corpuscular Hgb 29.7 pg (27.0-32.0); Mean Corpuscular Volume 90.1 fL (81-99); Mean Platelet Vol. 10.1 fl (6.2-12.0); Monocyte# 0.64 X10^3/uL; Monocyte% 5.9 % (0-10); Neutrophil # 8.87 X10^3/uL (2.7-7.7); Neutrophil % 81.1 % (47-70); Platelet Count 310 K/mm3 (150-450); RBC Distribution Width SD 44.5 fl (35.1-43.9); Red Blood Count 3.64 M/mm3 (4.2-5.4); White Blood Count 10.9 K/mm3 (4.4-11.0)
[2018-08-02 11:07] LABS: POSITIVE COUNT NO; POSITIVE DIFFERENTIAL NO; POSITIVE MORPHOLOGY NO
[2018-08-02 11:40] LABS: Glucose Challenge Gest 1H 50g 125 mg/dL (70-140); T4 Free Direct 0.82 ng/dL (0.76-1.46); Thyroid Stim Hormone (TSH) 1.17 uIU/mL (0.358-3.74)
== END ==
PROVIDERS: Family Provider Preventive Medicine Occupational Medicine; PCP Preventive Medicine Occupational Medicine; Referring Provider Obstetrics & Gynecology; Visit Provider Obstetrics & Gynecology
DX: O09.90 Supervision of high risk pregnancy, unspecified, unspecified trimester (principal); O99.280 Endocrine, nutritional and metabolic diseases complicating pregnancy, unspecified trimester; E03.9 Hypothyroidism, unspecified; Z3A.00 Weeks of gestation of pregnancy not specified
CPT/HCPCS: 82950; 84439; 84443; 85025; 86850; 86900

== ENCOUNTER → 2018-08-25 08:44 | Outpatient (CLI) | payer BC, SELFPAY ==
[2018-07-29 08:44] VITALS: BMI 46.6
[2018-08-25 08:41] VITALS: BMI 46.6
--- NOTE | 2018-08-25 08:45 | US_ITS ---
STUDY: SECOND AND THIRD TRIMESTER OBSTETRICAL ULTRASOUND - LIMITED REASON FOR EXAM: Female, 32 years old. Routine survey. LMP: January 15, 2018. PRIOR ULTRASOUND: None. TECHNIQUE: Transabdominal and Transvaginal TECHNICAL QUALITY: Adequate. FINDINGS: There is a single intrauterine fetus. The fetus is in a cephalic presentation. There is demonstrated cardiac activity with a heart rate of 152 bpm. There is a normal amniotic fluid volume. The largest amniotic fluid pocket measures 4.4 cm. The amniotic fluid index (JORGE) is 11.0 cm. The placenta is anterior in location and is not low lying. There are Grade 0 placental changes. The cervix measures 3 cm in length. BIOMETRY: BPD: 7.61 cm: 30 weeks, 4 days HC: 28.65 cm: 31 weeks, 4 days AC: 27.28 cm: 31 weeks, 3 days FL: 5.9 cm: 30 weeks, 6 days Age by LMP: 31 weeks, 5 days. CARTER by LMP: October 22, 2018. age by current US: 31 weeks, 1 days. CARTER by current US: October 26, 2018. Estimated weight: 1705 grams, +/- 249 grams, 22 percentile. Gender: Indeterminant US/OB Limited With Biometrics IMPRESSION: Single live intrauterine gestation with a mean gestational age of 31 weeks and 1 day. Electronically Signed: Len Landa, at 14:32 EDT , Service support ,
== END ==
PROVIDERS: Family Provider Preventive Medicine Occupational Medicine; PCP Preventive Medicine Occupational Medicine; Referring Provider Obstetrics & Gynecology; Visit Provider Obstetrics & Gynecology
DX: O09.90 Supervision of high risk pregnancy, unspecified, unspecified trimester (principal); Z3A.00 Weeks of gestation of pregnancy not specified
CPT/HCPCS: 76816

== ENCOUNTER → 2018-09-02 08:29 | Outpatient (CLI) | payer BC, SELFPAY ==
[2018-07-29 08:44] VITALS: BMI 46.6
[2018-09-02 07:54] VITALS: BMI 46.6
--- NOTE | 2018-09-02 08:32 | US_ITS ---
STUDY: SECOND AND THIRD TRIMESTER OBSTETRICAL ULTRASOUND - LIMITED REASON FOR EXAM: Female, 32 years old. Weekly fluid check. LMP: January 15, 2018. PRIOR ULTRASOUND: Comparison is made with prior study dated August 25, 2018. TECHNIQUE: Transabdominal TECHNICAL QUALITY: Adequate. FINDINGS: There is a single intrauterine fetus. The fetus is in a cephalic presentation. There is demonstrated cardiac activity with a heart rate of 145 bpm. There is a normal amniotic fluid volume. The largest amniotic fluid pocket measures 5.5 cm. The amniotic fluid index (JORGE) is 15.3 cm. The placenta is anterior in location and is not low lying. There are Grade 1 placental changes. The cervix measures 3.3 cm in length. Age by LMP: 32 weeks, 6 days. CARTER by LMP: October 22, 2018. age by prior US: 32 weeks, 2 days. CARTER by prior US: October 26, 2018. US/OB Limited (No Biometrics) IMPRESSION: Limited study demonstrating normal amniotic fluid index. Single live intrauterine gestation with a mean gestational age of 32 weeks and 2 days. Electronically Signed: Len Landa, at 15:46 EDT , Service support ,
== END ==
PROVIDERS: Family Provider Preventive Medicine Occupational Medicine; PCP Preventive Medicine Occupational Medicine; Referring Provider Obstetrics & Gynecology; Visit Provider Obstetrics & Gynecology
DX: O10.919 Unspecified pre-existing hypertension complicating pregnancy, unspecified trimester (principal); Z3A.00 Weeks of gestation of pregnancy not specified
CPT/HCPCS: 76815

== ENCOUNTER → 2018-09-09 09:26 | Outpatient (CLI) | payer BC, SELFPAY ==
[2018-07-29 08:44] VITALS: BMI 46.6
[2018-09-09 08:49] VITALS: BMI 46.6
[2018-09-09 10:22] LABS: Absolute Lymphocyte Count 1.32 X10^3/ul (0.83-4.51); Absolute Neutrophil Count 8.3 X10^3/uL (2.0-7.7); Basophil# 0.01 X10^3/uL; Basophil% 0.1 % (0-1); Eosinophil# 0.11 X10^3/uL; Eosinophils% 1.1 % (0-5); Hematocrit 34.6 % (37-47); Hemoglobin 11.1 g/dl (12.0-15.0); Lymphocyte # 1.32 X10^3/ul (4.0); Lymphocyte % 12.6 % (19-41); Mean Corp Hgb Conc 32.1 g/gl (32-36); Mean Corpuscular Hgb 29.1 pg (27.0-32.0); Mean Corpuscular Volume 90.8 fL (81-99); Mean Platelet Vol. 10.6 fl (6.2-12.0); Monocyte# 0.71 X10^3/uL; Monocyte% 6.8 % (0-10); Neutrophil # 8.29 X10^3/uL (2.7-7.7); Neutrophil % 79.2 % (47-70); Platelet Count 270 K/mm3 (150-450); RBC Distribution Width CV 14.1 % (11.6-14.6); RBC Distribution Width SD 45.6 fl (35.1-43.9); Red Blood Count 3.81 M/mm3 (4.2-5.4); White Blood Count 10.5 K/mm3 (4.4-11.0)
[2018-09-09 10:26] LABS: POSITIVE COUNT NO; POSITIVE DIFFERENTIAL NO; POSITIVE MORPHOLOGY NO
[2018-09-09 11:25] LABS: ALB/GLOB Ratio 0.7 RATIO (0.9-2.4); AST(SGOT) 15 U/L (15-37); Alanine Aminotransfer ALT/SGPT 16 U/L (13-56); Albumin, Serum 2.6 g/dL (3.2-5.0); Alkaline Phosphatase 68 U/L (45-117); Anion Gap 8 (5-15); BUN 11 mg/dL (7-18); BUN/Creat Ratio 17.6 RATIO (10-20); Calcium,Total 8.7 mg/dL (8.5-10.1); Chloride 108 mmol/L (98-107); Creatinine, Serum 0.62 mg/dL (0.55-1.02); EST Glomerular Filtration Rate 115 mL/min (>60); Est Glom Filt Rate - Afr Amer 140 mL/min (>60); Globulin 3.9 g/dL (2.2-4.2); Glucose 90 mg/dL (74-106); Potassium 4.2 mmol/L (3.5-5.1); Protein, Total 6.5 g/dL (6.4-8.2); Sodium Level 137 mmol/L (136-145); T4 Free Direct 0.77 ng/dL (0.76-1.46)
--- NOTE | 2018-09-09 12:16 | US_ITS ---
STUDY: SECOND AND THIRD TRIMESTER OBSTETRICAL ULTRASOUND - LIMITED REASON FOR EXAM: Female, 32 years old. Weekly amniotic fluid checks. LMP: January 15, 2018. PRIOR ULTRASOUND: Comparison is made with prior study dated September 02, 2018 and August 25, 2018. TECHNIQUE: Transabdominal TECHNICAL QUALITY: Adequate. FINDINGS: There is a single intrauterine fetus. The fetus is in a cephalic presentation. There is demonstrated cardiac activity with a heart rate of 135 bpm. There is a normal amniotic fluid volume. The largest amniotic fluid pocket measures 4.7 cm. The amniotic fluid index (JORGE) is 14.5 cm. The placenta is anterior in location and is not low lying. There are Grade 1 placental changes. The cervix measures 5.0 cm in length. BIOMETRY: Age by LMP: 33 weeks, 6 days. CARTER by LMP: October 22, 2018. age by prior US: 33 weeks, 2 days. CARTER by prior US: October 26, 2018. US/OB Limited (No Biometrics) IMPRESSION: Normal amniotic fluid. Electronically Signed: Len Landa, at 8:13 EDT , Service support ,
== END ==
PROVIDERS: Family Provider Preventive Medicine Occupational Medicine; PCP Preventive Medicine Occupational Medicine; Referring Provider Obstetrics & Gynecology; Visit Provider Obstetrics & Gynecology
DX: O10.919 Unspecified pre-existing hypertension complicating pregnancy, unspecified trimester (principal); O99.280 Endocrine, nutritional and metabolic diseases complicating pregnancy, unspecified trimester; E03.9 Hypothyroidism, unspecified; Z3A.00 Weeks of gestation of pregnancy not specified
CPT/HCPCS: 36415; 76815; 80053; 84439; 84443; 85025

== ENCOUNTER → 2018-09-16 08:50 | Outpatient (CLI) | payer BC, SELFPAY ==
[2018-07-29 08:44] VITALS: BMI 46.6
[2018-09-16 08:07] VITALS: BMI 46.6
--- NOTE | 2018-09-16 08:52 | US_ITS ---
STUDY: SECOND AND THIRD TRIMESTER OBSTETRICAL ULTRASOUND - LIMITED REASON FOR EXAM: Female, 32 years old. Weekly amniotic fluid check. LMP: January 15, 2018. PRIOR ULTRASOUND: Comparison is made with prior examination dated September 09, 2018 and September 02, 2018. TECHNIQUE: Transabdominal TECHNICAL QUALITY: Adequate. FINDINGS: There is a single intrauterine fetus. The fetus is in a cephalic presentation. There is demonstrated cardiac activity with a heart rate of 153 bpm. There is a normal amniotic fluid volume. The largest amniotic fluid pocket measures 4.8 cm. The amniotic fluid index (JORGE) is 12.8 cm. The placenta is anterior in location and is not low lying. There are Grade 1 placental changes. The cervix measures 4.1 cm in length. Age by LMP: 34 weeks, 6 days. CARTER by LMP: October 22, 2018. age by prior US: 34 weeks, 2 days. CARTER by prior US: October 26, 2018. US/OB Limited With Biometrics IMPRESSION: Normal amniotic fluid. Electronically Signed: Len Landa, at 8:11 EDT , Service support ,
== END ==
PROVIDERS: Family Provider Preventive Medicine Occupational Medicine; PCP Preventive Medicine Occupational Medicine; Referring Provider Obstetrics & Gynecology; Visit Provider Obstetrics & Gynecology
DX: O10.919 Unspecified pre-existing hypertension complicating pregnancy, unspecified trimester (principal); Z3A.00 Weeks of gestation of pregnancy not specified
CPT/HCPCS: 76816

== ENCOUNTER → 2018-09-23 | Outpatient (CLI) | payer BC, SELFPAY ==
[2018-07-29 08:44] VITALS: BMI 46.6
[2018-09-23 08:09] VITALS: BMI 46.6
--- NOTE | 2018-09-23 09:05 | US_ITS ---
STUDY: SECOND AND THIRD TRIMESTER OBSTETRICAL ULTRASOUND - LIMITED REASON FOR EXAM: Female, 32 years old. Routine survey. History of hypertension. LMP: January 15, 2018. PRIOR ULTRASOUND: Comparison is made with prior study September 16, 2018. TECHNIQUE: Transabdominal TECHNICAL QUALITY: Adequate. FINDINGS: There is a single intrauterine fetus. The fetus is in a cephalic presentation. There is demonstrated cardiac activity with a heart rate of 149 bpm. There is a normal amniotic fluid volume. The largest amniotic fluid pocket measures 4.8 cm. The amniotic fluid index (JORGE) is 11.9 cm. The placenta is anterior in location and is not low lying. There are Grade 1 placental changes. The cervix measures 3.4 cm in length. BIOMETRY: BPD: 8.25 cm: 33 weeks, 2 days HC: 31.09 cm: 34 weeks, 6 days AC: 31.57: 35 weeks, 4 days FL: 6.6 cm: 34 weeks, 0 days Age by LMP: 35 weeks, 6 days. CARTER by LMP: October 22, 2018. age by prior US: 35 weeks, 2 days. CARTER by prior US: October 26, 2018. age by current US: 34 weeks, 3 days. CARTER by current US: November 01, 2018. Estimated weight: 2513 grams, +/- 367 grams, 22 percentile. US/OB Limited With Biometrics IMPRESSION: Single live intrauterine gestation with mean gestational age of 35 weeks and 2 days. The measurements obtained today fall within normal expected range. Electronically Signed: Len Landa, at 11:14 EDT , Service support ,
[2018-09-23 10:07] LABS: Absolute Lymphocyte Count 1.33 X10^3/ul (0.83-4.51); Absolute Neutrophil Count 7.9 X10^3/uL (2.0-7.7); Basophil# 0.01 X10^3/uL; Basophil% 0.1 % (0-1); Eosinophil# 0.12 X10^3/uL; Eosinophils% 1.2 % (0-5); Hematocrit 34.4 % (37-47); Hemoglobin 11.3 g/dl (12.0-15.0); Lymphocyte # 1.33 X10^3/ul (4.0); Mean Corp Hgb Conc 32.8 g/gl (32-36); Mean Corpuscular Hgb 29.6 pg (27.0-32.0); Mean Corpuscular Volume 90.1 fL (81-99); Mean Platelet Vol. 10.8 fl (6.2-12.0); Monocyte# 0.85 X10^3/uL; Monocyte% 8.3 % (0-10); Neutrophil # 7.91 X10^3/uL (2.7-7.7); Neutrophil % 77.2 % (47-70); POSITIVE COUNT NO; POSITIVE DIFFERENTIAL NO; POSITIVE MORPHOLOGY NO; Platelet Count 266 K/mm3 (150-450); RBC Distribution Width CV 14.2 % (11.6-14.6); RBC Distribution Width SD 45.4 fl (35.1-43.9); Red Blood Count 3.82 M/mm3 (4.2-5.4); White Blood Count 10.2 K/mm3 (4.4-11.0)
[2018-09-23 10:44] LABS: ALB/GLOB Ratio 0.6 RATIO (0.9-2.4); AST(SGOT) 19 U/L (15-37); Alanine Aminotransfer ALT/SGPT 21 U/L (13-56); Albumin, Serum 2.6 g/dL (3.2-5.0); Alkaline Phosphatase 79 U/L (45-117); Anion Gap 8 (5-15); BUN 13 mg/dL (7-18); BUN/Creat Ratio 18.1 RATIO (10-20); Calcium,Total 9.4 mg/dL (8.5-10.1); Chloride 107 mmol/L (98-107); Creatinine, Serum 0.72 mg/dL (0.55-1.02); EST Glomerular Filtration Rate 99 mL/min (>60); Est Glom Filt Rate - Afr Amer 119 mL/min (>60); Globulin 4.2 g/dL (2.2-4.2); Glucose 86 mg/dL (74-106); Potassium 4.2 mmol/L (3.5-5.1); Protein, Total 6.8 g/dL (6.4-8.2); Sodium Level 139 mmol/L (136-145)
== END | disposition home or self-care (01) ==
PROVIDERS: Family Provider Preventive Medicine Occupational Medicine; PCP Preventive Medicine Occupational Medicine; Referring Provider Obstetrics & Gynecology; Visit Provider Obstetrics & Gynecology
DX: O10.919 Unspecified pre-existing hypertension complicating pregnancy, unspecified trimester (principal); Z3A.00 Weeks of gestation of pregnancy not specified
CPT/HCPCS: 36415; 76816; 80053; 82570; 84156; 85025

== ENCOUNTER 2018-09-29 08:25 | Outpatient (CLI) | payer BC, SELFPAY ==
[2018-09-29 07:58] VITALS: BMI 46.6
[2018-09-29 08:32] LABS: Absolute Lymphocyte Count 1.42 X10^3/ul (0.83-4.51); Absolute Neutrophil Count 8.4 X10^3/uL (2.0-7.7); Basophil# 0.01 X10^3/uL; Basophil% 0.1 % (0-1); Hematocrit 34.5 % (37-47); Hemoglobin 11.3 g/dl (12.0-15.0); Lymphocyte # 1.42 X10^3/ul (4.0); Lymphocyte % 13.5 % (19-41); Mean Corp Hgb Conc 32.8 g/gl (32-36); Mean Corpuscular Hgb 29.7 pg (27.0-32.0); Mean Corpuscular Volume 90.6 fL (81-99); Mean Platelet Vol. 10.5 fl (6.2-12.0); Monocyte# 0.55 X10^3/uL; Monocyte% 5.2 % (0-10); Neutrophil % 80.1 % (47-70); Platelet Count 270 K/mm3 (150-450); RBC Distribution Width CV 14.3 % (11.6-14.6); RBC Distribution Width SD 47.3 fl (35.1-43.9); Red Blood Count 3.81 M/mm3 (4.2-5.4); White Blood Count 10.5 K/mm3 (4.4-11.0)
[2018-09-29 08:36] VITALS: BMI 48.4
[2018-09-29 08:53] LABS: POSITIVE COUNT NO; POSITIVE DIFFERENTIAL NO; POSITIVE MORPHOLOGY NO
[2018-09-29 08:58] LABS: Protein, Urine (Random) 46.9 mg/dL (<11.9); Protein:Creat Ratio 128 mg/g CRE (0-200)
[2018-09-29 09:03] LABS: ALB/GLOB Ratio 0.6 RATIO (0.9-2.4); AST(SGOT) 18 U/L (15-37); Alanine Aminotransfer ALT/SGPT 20 U/L (13-56); Albumin, Serum 2.6 g/dL (3.2-5.0); Alkaline Phosphatase 81 U/L (45-117); Anion Gap 10 (5-15); BUN 15 mg/dL (7-18); BUN/Creat Ratio 20.4 RATIO (10-20); Calcium,Total 8.8 mg/dL (8.5-10.1); Chloride 107 mmol/L (98-107); Creatinine, Serum 0.74 mg/dL (0.55-1.02); EST Glomerular Filtration Rate 96 mL/min (>60); Est Glom Filt Rate - Afr Amer 116 mL/min (>60); Estimated Creatinine Clearance 104.17 ml/min; Glucose 106 mg/dL (74-106); Potassium 4.1 mmol/L (3.5-5.1); Protein, Total 6.6 g/dL (6.4-8.2); Sodium Level 138 mmol/L (136-145)
--- NOTE | 2018-09-30 06:44 | OB.TRI.PN_ITS ---
Progress Notes Date of Service: 09/29/18 Progress Note: pree labs done and monitored fht 140 moderate variability reactive no decelerations category I tracing [place]: regular normal labs normal bps dc home CHTN Laboratory Studies: Laboratory Tests 09/29/18 09/29/18 09/29/18 Range/Units 08:21 08:20 08:20 WBC 10.5 (4.4-11.0) K/mm3 RBC 3.81 L (4.2-5.4) M/mm3 Hgb 11.3 L (12.0-15.0) g/dl Hct 34.5 L (37-47) % MCV 90.6 (81-99) fL MCH 29.7 (27.0-32.0) pg MCHC 32.8 (32-36) g/gl RDW 14.3 (11.6-14.6) % RDW Differential 47.3 H (35.1-43.9) fl Plt Count 270 (150-450) K/mm3 MPV 10.5 (6.2-12.0) fl Immature Gran % (Auto) 0.100 (0.0-0.9) % Neut % (Auto) 80.1 H (47-70) % Lymph % (Auto) 13.5 L (19-41) % Glenn % (Auto) 5.2 (0-10) % Eos % (Auto) 1.0 (0-5) % Baso % (Auto) 0.1 (0-1) % Absolute Neuts (auto) 8.4 H (2.0-7.7) X10^3/uL Absolute Lymphs (auto) 1.42 (0.83-4.51) X10^3/ul Total Counted Not Reportable Sodium 138 (136-145) mmol/L Potassium 4.1 (3.5-5.1) mmol/L Chloride 107 (98-107) mmol/L Carbon Dioxide 21.0 (21.0-32.0) mmol/L Anion Gap 10 (5-15) BUN 15 (7-18) mg/dL Creatinine 0.74 (0.55-1.02) mg/dL Estim Creat Clear Calc 104.17 ml/min Est GFR (MDRD) Af Amer 116 (>60) mL/min Est GFR (MDRD) Non-Af 96 (>60) mL/min BUN/Creatinine Ratio 20.4 H (10-20) RATIO Glucose 106 (74-106) mg/dL Calcium 8.8 (8.5-10.1) mg/dL Total Bilirubin 0.20 (0.20-1.00) mg/dL AST 18 (15-37) U/L ALT 20 (13-56) U/L Alkaline Phosphatase 81 (45-117) U/L Total Protein 6.6 (6.4-8.2) g/dL Albumin 2.6 L (3.2-5.0) g/dL Globulin 4.0 (2.2-4.2) g/dL Albumin/Globulin Ratio 0.6 L (0.9-2.4) RATIO U Random Total Protein 46.9 H (<11.9) mg/dL Urine Creatinine 366.00 (NO RANGE EST.) mg/dL Protein/Creatinin Ratio 128 (0-200) mg/g CRE
== END 2018-09-29 09:40 | disposition home or self-care (01) ==
LOC: LAB 08:28 → WPOUT 08:30 → OBT 08:30
PROVIDERS: Nurse Practitioner Women's Health; Family Provider Preventive Medicine Occupational Medicine; PCP Preventive Medicine Occupational Medicine; Referring Provider Obstetrics & Gynecology; Visit Provider Obstetrics & Gynecology
DX: O10.919 Unspecified pre-existing hypertension complicating pregnancy, unspecified trimester (principal); Z3A.00 Weeks of gestation of pregnancy not specified
CPT/HCPCS: 36415; 59025; 59050; 80053; 82570; 84156; 85025; 87077; 87081; 87186; 99218; G0378

== ENCOUNTER → 2018-09-30 08:43 | Outpatient (CLI) | payer BC, SELFPAY ==
[2018-07-29 08:44] VITALS: BMI 46.6
[2018-09-29 08:36] VITALS: BMI 48.4
--- NOTE | 2018-09-30 08:44 | US_ITS ---
STUDY: SECOND AND THIRD TRIMESTER OBSTETRICAL ULTRASOUND - LIMITED REASON FOR EXAM: Female, 33 years old. Amniotic fluid index. Hypertension. LMP: 01/15/2018. PRIOR ULTRASOUND: 09/23/2018. TECHNIQUE: Transabdominal. TECHNICAL QUALITY: Adequate. FINDINGS: There is a single intrauterine fetus. The fetus is in a cephalic presentation. There is demonstrated cardiac activity with a heart rate of 155 bpm. There is a normal amniotic fluid volume. The largest amniotic fluid pocket measures 5.0 cm. The amniotic fluid index (JORGE) is 12.9 cm. The placenta is anterior not low lying. There are Grade 2 placental changes. BIOMETRY: BPD: 8.5 cm: 34 weeks, 2 days HC: 31.7 cm: 35 weeks, 5 days AC: 32.0 cm: 36 weeks, 0 days FL: 6.9 cm: 35 weeks, 3 days Four calculated biometric ratios are within normal limits. Age by LMP: 36 weeks, 6 days. CARTER by LMP: 10/22/2018. CARTER by prior US: 11/01/2018. age by current US: 35 weeks, 3 days. CARTER by current US: 11/01/2018. Estimated weight: 2706 grams, +/- 395 grams, 22 percentile. US/OB Limited (No Biometrics) IMPRESSION: Single living intrauterine gestation with an estimated gestational age by ultrasound of 35 weeks 3 days. Estimated date of delivery 11/01/2018. Normal amniotic fluid index. Electronically Signed: Víctor Mobley MD at 4:12 EDT , Service support ,
== END ==
PROVIDERS: Family Provider Preventive Medicine Occupational Medicine; PCP Preventive Medicine Occupational Medicine; Referring Provider Obstetrics & Gynecology; Visit Provider Obstetrics & Gynecology
DX: O09.90 Supervision of high risk pregnancy, unspecified, unspecified trimester (principal); Z3A.00 Weeks of gestation of pregnancy not specified
CPT/HCPCS: 76815; 76816

== ENCOUNTER 2018-10-08 19:00 | Inpatient (IN) | payer BC, SELFPAY ==
[2018-09-23 08:09] VITALS: BMI 46.6
[2018-10-07 08:19] VITALS: BMI 48.4
[2018-10-08] MEDS: Lactated Ringers 1,000 ML 50 ML IV (19:40)
[2018-10-08 19:54] LABS: Absolute Neutrophil Count 8.1 X10^3/uL (2.0-7.7); Basophil# 0.02 X10^3/uL; Basophil% 0.2 % (0-1); Hemoglobin 10.5 g/dl (12.0-15.0); Lymphocyte % 13.4 % (19-41); Mean Corp Hgb Conc 32.8 g/gl (32-36); Mean Corpuscular Hgb 29.6 pg (27.0-32.0); Mean Corpuscular Volume 90.1 fL (81-99); Mean Platelet Vol. 10.5 fl (6.2-12.0); Monocyte# 0.78 X10^3/uL; Monocyte% 7.5 % (0-10); Neutrophil % 77.7 % (47-70); POSITIVE COUNT NO; POSITIVE DIFFERENTIAL NO; POSITIVE MORPHOLOGY NO; Platelet Count 254 K/mm3 (150-450); RBC Distribution Width CV 14.1 % (11.6-14.6); RBC Distribution Width SD 46.4 fl (35.1-43.9); Red Blood Count 3.55 M/mm3 (4.2-5.4); White Blood Count 10.4 K/mm3 (4.4-11.0)
[2018-10-08 20:00] VITALS: BMI 48.5
[2018-10-08] MEDS: 0.9% Normal Saline 100 ML IV.SOLN. INTRA-UTER (20:01)
[2018-10-08] MEDS: Oxytocin 30 units/NS 500 ml 30 UNITS/500 ML IV.SOLN IV (20:39)
[2018-10-08] MEDS: Labetalol 200 MG Tablet PO (21:36)
[2018-10-08] MEDS: Citalopram 20 MG Tablet PO (21:44)
[2018-10-08] MEDS: Magnesium Sulfate 20 GM/500 ML BAG IV (22:53)
[2018-10-09] MEDS: Lactated Ringers 1,000 ML 50 ML IV ×2 (01:22→14:06)
[2018-10-09] MEDS: Acetaminophen 325 MG Tablet PO ×4 (02:10→23:17)
[2018-10-09] MEDS: fentaNYL-bupivacaine (epidural) 100 ML BAG EPIDURAL ×4 (05:15→19:47)
[2018-10-09] MEDS: Ondansetron 4 MG/2 ML Vial IV ×3 (05:53→20:14)
--- NOTE | 2018-10-09 07:02 | HP.PCM_ITS ---
- Problem List (1) GBS (group B Streptococcus carrier), +RV culture, currently Status: Acute Comment: treat in labor (2) Depression affecting in third trimester, antepartum Status: Acute Comment: celexa (3) In vitro fertilization Status: Acute Comment: boy. nl NIPT. echo scheduled. Normal echo results (4) Obesity affecting Status: Acute Qualifiers: Comment: nutrition consult (5) Chronic hypertension affecting Status: Chronic Comment: baseline labs, baby asa, labetalol 200mg BID, weekly nsts and growth us q 4 weeks after 32 weeks, deliver at 38 (6) Status: Acute Qualifiers: Comment: carrier and NIPT nl. AFP ordered. anatomy scan ordered. (7) Supervision of high risk , antepartum Status: Acute Comment: CARTER 10/22/18 boy Jonathan (8) Hypothyroidism (acquired) Status: Chronic Comment: check every trimester. TSH needs to remain in low normal for . Patient will check her TSH every 6 weeks and continue to adjust as required to keep at 1.00 range. History Date of Admission: 10/08/18 Final CARTER: 10/22/18 Gestational age: 38 Weeks and 1 Days History of this : This is a 33 year-old, , at 38 weeks gestational age presents at 38 weeks for induction of labor secondary to chronic hypertension. Patient has a history of well-controlled hypertension on 20 mg labetalol twice daily. Upon admission patient had normal to mildly elevated blood pressures in the developed more in the severe range and therefore magnesium was started and IV labetalol was given. Patient remained asymptomatic. Medical History: Medical History (Last Reviewed 10/07/18 @ 08:18 by Liana Galan) Anemia D64.9 Anxiety disorder F41.9 Back problem M53.9 Chronic headaches R51 Depression F32.9 GERD (gastroesophageal reflux disease) K21.9 GI problem R19.8 Gallstones K80.20 History of hysteroscopy Z98.890 History of infertility Z87.42 IBS (irritable bowel syndrome) K58.9 Polycystic ovarian disease E28.2 Seasonal allergies J30.2 Thyroid disease E07.9 Vision problem H54.7 Surgical History: Surgical History (Last Reviewed 10/07/18 @ 08:18 by Liana Galan) H/O colonoscopy Z98.890 H/O dilation and curettage Z98.890 Hx of cholecystectomy Z90.49 S/P ERCP Z98.890 S/P foot surgery, left Z98.890 S/P foot surgery, right Z98.890 ovarian surgery Allergies prednisone Allergy (Mild, Verified 10/08/18 19:52) Other Home Medications: Home Medications ferrous sulfate 325 mg (65 mg iron) tablet 325 mg PO TID tab 09/18/17 loratadine 10 mg tablet 10 mg PO QDAY 09/18/17 vitamin,calcium,vasnmzct-tgpu-admbu acid tablet 1 tab PO QDAY 09/18/17 aspirin 81 mg chewable tablet 81 mg PO QDAY 09/25/17 acetaminophen 325 mg capsule 325 mg PO Q6H PRN 05/14/18 diphenhydramine 25 mg capsule 25 mg PO QHS PRN 05/14/18 promethazine 12.5 mg tablet 12.5 mg PO QDAY 09/29/18 Citalopram [Celexa] 20 mg PO DAILY 10/08/18 Labetalol HCl 200 mg PO BID 10/08/18 Levothyroxine Sodium [Synthroid] See Rx Instructions PO .COMPLEX 10/08/18 Ranitidine HCl 150 mg PO BID 10/08/18 Smoking Status: Never smoker Alcohol: None Number of Fetus(es): 1 Heart Tracin moderate variability reactive no decelerations category I tracing [place]: no regular History Past Pregnancies: Past Pregnancies miscarriage 8 weeks Delivery Date Name GA/Weeks Outcome Route Weight Infant Gender Labor Length Anesthesia Delivery Location Provider FOB Labs: Mom's Labs & Results 10/08/18 10/08/18 19:38 19:38 WBC 10.4 RBC 3.55 L Hgb 10.5 L Hct 32.0 L MCV 90.1 MCH 29.6 MCHC 32.8 RDW 14.1 RDW Differential 46.4 H Plt Count 254 MPV 10.5 Immature Gran % (Auto) 0.200 Neut % (Auto) 77.7 H Lymph % (Auto) 13.4 L Towns % (Auto) 7.5 Eos % (Auto) 1.0 Baso % (Auto) 0.2 Absolute Neuts (auto) 8.1 H Absolute Lymphs (auto) 1.40 Total Counted Not Reportable Blood Type O POSITIVE Antibody Screen NEGATIVE Course Did the patient receive Yes care? Labs Blood Type: O RH: POSITIVE RPR/VDRL/Syphilis Nonreactive Rubella status Immune HbSAg Negative Date Done: 04/01/18 Chlamydia Negative Gonorrhea Negative HIV/AIDS Non-Reactive Group B Strep: Positive Current Obstetrical History Gestational Diabetes No Incompetent Cervix No Infertility Yes IUGR No Macrosomia No Hypertension/Pre-eclampsia Yes: Chronic HTN Placenta Previa/Abruption No PTL/PROM No Uterine anomaly No Oligohydramnios No Polyhydramnios No Multiple gestation No Past Medical History Asthma No Diabetes No Hypertension Yes Heart disease No Mitral valve prolapse No Neurologic/Seizure disorder/ Yes: migraines Migraines Kidney disease No Liver disease No Varicosities No Clotting disorders/Hx of DVT No Thyroid Dysfunction Yes: hypothyroidism Other medical diseases Yes: tachycardia Psychiatric disorders Yes: depression, anxiety Major trauma No Abnormal PAP smear Yes: f/u WNL Sleep apnea No Mammogram in the last 2 years No Medications Taken During Dose/Freq.: [Estradiol] daily Dose/Freq.: [Progesterone] daily Reason for taking medication [ stopped at 12 wks gestation Estradiol] Reason for taking medication [ stopped at 12 wks Progesterone] Social History Marital Status: Alleged father Jonathan Guardado Hx Smoking No Smoking Status Never smoker Expected Delivery Method: Spontaneous Vaginal Review of Systems Constitutional: Denies: Fever, Malaise Eyes: Denies: Blurred vision, Vision Change HEENT: Denies: Head Aches, Visual Changes Cardiovascular: Denies: Chest Pain, Palpitations Respiratory: Denies: Cough, Shortness of Breath, Wheezing Gastrointestinal: Denies: Abdominal Pain, Diarrhea, Nausea, Vomiting Genitourinary: Denies: Dysuria, Hematuria Musculoskeletal: Denies: Joint Pain, Muscle pain Skin: Denies: Lesions, Rash Neurological: Denies: Blurred vision, Focal weakness, Headaches Psychiatric: Denies: Anxiety, Depression Endocrine: Denies: Heat/ Cold Intolerance Hematologic/ Lymphatic: Denies: Easy Bruising, Easy Bleeding Physical Exam General: Alert, Cooperative, No apparent distress HEENT: Atraumatic, Normocephalic. Negative for: Thyromegaly, Lymphadenopathy Cardiovascular: Regular rate Lungs: Normal air movement Abdomen: Soft, Non Tender, Gravid Neurological: Deep Tendon Reflexes 2+/4 and Symmetrical, Neuro grossly intact. Negative for: Clonus PASTE THINNER: Normal external genitalia. Negative for: Vulvar lesions Estimated gestational size: Appropriate for gestational size Presentation: Cephalic Cervix Dilation (cm): 1.5 Station: -2 Effacement (%): 70 Assessment/Plan All Active Problems (Last Reviewed 10/07/18 @ 08:18 by Liana Galan) GBS (group B Streptococcus carrier), +RV culture, currently (Acute) Depression affecting in third trimester, antepartum (Acute) In vitro fertilization (Acute) Obesity affecting (Acute) (Acute) Supervision of high risk , antepartum (Acute) This is a 33 year-old, at 38 weeks gestational age iol chtn Patient presents IOL, plan management for , pitocin/AROM after [place] bulb Pain management: [plans epidural]. GBS positive give penicillin. Management of any complications: Chronic hypertension with superimposed preeclampsia with severe features. Start magnesium and IV labetalol given I have reviewed the PFSH and made any clinically relevant updates.
--- NOTE | 2018-10-09 07:08 | PN_ITS ---
Progress Note fht 120 moderate variability reactive no decelerations category I tracing [place]: regular had decel after epidural but reassuring now resolved and now cat I tracing. continue pit per protocol, check cbc and cmp, may hold morning labetalol if low pressure.
[2018-10-09 08:09] LABS: Hematocrit 35.3 % (37-47); Hemoglobin 11.5 g/dl (12.0-15.0); Mean Corp Hgb Conc 32.6 g/gl (32-36); Mean Corpuscular Hgb 29.4 pg (27.0-32.0); Mean Corpuscular Volume 90.3 fL (81-99); Platelet Count 241 K/mm3 (150-450); RBC Distribution Width CV 14.2 % (11.6-14.6); RBC Distribution Width SD 46.5 fl (35.1-43.9); Red Blood Count 3.91 M/mm3 (4.2-5.4); White Blood Count 14.5 K/mm3 (4.4-11.0)
[2018-10-09 08:11] LABS: Scan Indicated on CBC? Y/N NO
[2018-10-09 08:14] LABS: ALB/GLOB Ratio 0.7 RATIO (0.9-2.4); AST(SGOT) 22 U/L (15-37); Alanine Aminotransfer ALT/SGPT 24 U/L (13-56); Albumin, Serum 2.9 g/dL (3.2-5.0); Alkaline Phosphatase 97 U/L (45-117); Anion Gap 6 (5-15); BUN 13 mg/dL (7-18); BUN/Creat Ratio 17.2 RATIO (10-20); Calcium,Total 8.5 mg/dL (8.5-10.1); Chloride 105 mmol/L (98-107); Creatinine, Serum 0.76 mg/dL (0.55-1.02); EST Glomerular Filtration Rate 93 mL/min (>60); Est Glom Filt Rate - Afr Amer 112 mL/min (>60); Estimated Creatinine Clearance 100.47 ml/min; Globulin 4.2 g/dL (2.2-4.2); Glucose 94 mg/dL (74-106); Potassium 4.2 mmol/L (3.5-5.1); Protein, Total 7.1 g/dL (6.4-8.2); Sodium Level 133 mmol/L (136-145)
[2018-10-09 09:02] LABS: Protein, Urine (Random) 24.8 mg/dL (<11.9); Protein:Creat Ratio 200 mg/g CRE (0-200)
[2018-10-09] MEDS: Labetalol 200 MG Tablet PO ×2 (10:10→18:42)
[2018-10-09] MEDS: Magnesium Sulfate 20 GM/500 ML BAG IV ×2 (10:22→20:14)
[2018-10-09] MEDS: Levothyroxine 75 MCG Tablet PO (10:35)
[2018-10-09] MEDS: Levothyroxine 75 MCG Tablet 37.5 MCG PO (10:35)
[2018-10-09] MEDS: 0.9% Saline Lock 10 ML Syringe IV (12:07)
[2018-10-09] MEDS: Acetaminophen/Butalbital/Caffe 1 Tablet PO (17:33)
[2018-10-09] MEDS: Labetalol 100 MG Tablet PO (18:42)
[2018-10-09] MEDS: Citalopram 20 MG Tablet PO (21:14)
[2018-10-10] VITALS (19 sets, daily range): BP systolic 118–151; BP diastolic 55–75; PULSE 74–96; RESP 14–20; TEMP 36.5–36.9; O2SAT 95–99
[2018-10-10] MEDS: Oxytocin 30 units/NS 500 ml 30 UNITS/500 ML IV.SOLN 334 UNITS IV (00:33)
--- NOTE | 2018-10-10 01:00 | PCM.OPRPT ---
Problem List (1) GBS (group B Streptococcus carrier), +RV culture, currently Status: Acute Comment: treat in labor (2) Depression affecting in third trimester, antepartum Status: Acute Comment: celexa (3) In vitro fertilization Status: Acute Comment: boy. nl NIPT. echo scheduled. Normal echo results (4) Obesity affecting Status: Acute Qualifiers: Comment: nutrition consult (5) Chronic hypertension affecting Status: Chronic Comment: baseline labs, baby asa, labetalol 200mg BID, weekly nsts and growth us q 4 weeks after 32 weeks, deliver at 38 (6) Status: Acute Qualifiers: Comment: carrier and NIPT nl. AFP ordered. anatomy scan ordered. (7) Supervision of high risk , antepartum Status: Acute Comment: CARTER 10/22/18 boy Jonathan (8) Hypothyroidism (acquired) Status: Chronic Comment: check every trimester. TSH needs to remain in low normal for . Patient will check her TSH every 6 weeks and continue to adjust as required to keep at 1.00 range. Vaginal Delivery Maternal Presentation: Active Labor iol chtn Method of Induction: Pitocin, [place] Bulb Amniotic Membrane Rupture Type: Spontaneous Amniotic Fluid Description: Clear Final CARTER: 10/22/18 Gestational age: 38 Weeks and 2 Days Date of Procedure: 10/10/18 Pre-Operative Diagnosis: iol chtn with SI severe preeclampsia Post-Operative Diagnosis: same Surgery/ Procedure Performed: Spontaneous Vaginal Delivery Type of Anesthesia: Epidural Description of Procedure: Patient began pushing and delivered the head in the SHADY presentation. The head was delivered atraumatically. The anterior and posterior shoulders delivered without complication followed by the rest of the infant and the infant was placed on the maternal abdomen. Delayed cord clamping was employed for approximately 60 seconds. Cord was clamped and cut and gentle traction was applied to the cord and the placenta delivered spontaneously immediately following it was noted to be intact with three-vessel cord. The perineum and vagina were inspected and noted to have a first-degree perineal laceration that was repaired in the usual fashion with 3-0 Vicryl repeat. EBL was 300 cc. Patient and tolerated delivery well. Presentation: SHADY Placental Delivery Description: Spontaneous Placenta Disposition: [facility] Cord Vessel Description: 3 Vessels Cord Entanglement: None Estimated Blood Loss: 300 A gender: Male Episiotomy Description: None Laceration: Perineal Extension/lac, 1st degree Medications given after delivery: IV Pitocin Complications: None
[2018-10-10] MEDS: Lactated Ringers 1,000 ML 15 ML IV (01:05)
[2018-10-10] MEDS: Oxytocin 30 units/NS 500 ml 30 UNITS/500 ML IV.SOLN 167 UNITS IV (01:05)
[2018-10-10] MEDS: Levothyroxine 75 MCG Tablet PO (06:33)
[2018-10-10] MEDS: Magnesium Sulfate 20 GM/500 ML BAG IV ×2 (07:07→16:05)
[2018-10-10 07:18] LABS: Hematocrit 29.8 % (37-47); Hemoglobin 9.8 g/dl (12.0-15.0); Mean Corp Hgb Conc 32.9 g/gl (32-36); Mean Corpuscular Hgb 29.6 pg (27.0-32.0); Mean Platelet Vol. 10.5 fl (6.2-12.0); Platelet Count 215 K/mm3 (150-450); RBC Distribution Width CV 14.4 % (11.6-14.6); RBC Distribution Width SD 47.8 fl (35.1-43.9); Red Blood Count 3.31 M/mm3 (4.2-5.4); White Blood Count 17.5 K/mm3 (4.4-11.0)
[2018-10-10 07:25] LABS: International Normalized Ratio 1.1; Prothrombin Time (Protime)PT. 13.8 SECONDS (11.7-14.9)
[2018-10-10 07:26] LABS: Partial Thromboplast Time 31.8 Seconds (24.1-36.2)
[2018-10-10 07:36] LABS: AST(SGOT) 21 U/L (15-37); Alanine Aminotransfer ALT/SGPT 19 U/L (13-56); Creatinine, Serum 0.81 mg/dL (0.55-1.02); EST Glomerular Filtration Rate 85 mL/min (>60); Est Glom Filt Rate - Afr Amer 103 mL/min (>60); Estimated Creatinine Clearance 94.27 ml/min; Uric Acid 6.9 mg/dL (2.6-6.0)
[2018-10-10 07:41] LABS: Scan Indicated on CBC? Y/N NO
[2018-10-10] MEDS: Acetaminophen 500 MG Tablet 1000 MG PO ×2 (09:17→22:25)
[2018-10-10] MEDS: Labetalol 200 MG Tablet PO ×2 (09:21→22:22)
[2018-10-10] MEDS: Naproxen 250 MG Tablet 500 MG PO (16:06)
[2018-10-10] MEDS: Citalopram 20 MG Tablet PO (22:12)
--- NOTE | 2018-10-10 22:41 | NURSING ---
this RN received report from luci at 2200 to take over care of mag pt at this time. will begin assessment as soon as possible.
[2018-10-11] VITALS (9 sets, daily range): BP systolic 104–149; BP diastolic 48–79; PULSE 66–78; RESP 14–18; TEMP 36.3–36.9; O2SAT 95–97
[2018-10-11] MEDS: 0.9% Saline Lock 10 ML Syringe IV (02:43)
--- NOTE | 2018-10-11 03:22 | NURSING ---
this RN encouraged pt to pump multiple times, if this was something she desired to do. hand expression reviewed with mother after she voiced concern with not getting any colostrum with pumping. this RN states that hand expression can be just as effective and swabs can be used to give to . [facility] RN aware of pt not pumping up to this point and states that we will continue to encourage the mother to do so, but will not try to persuade her one way or another. plan at this point is for [facility] RN to have fed the infant at 0200 hour and for mother to go to [facility] at 0500 to feed the baby. will continue to educate mother as needed on pumping and hand expression and encourage her with whatever she chooses to perform.
[2018-10-11] MEDS: Levothyroxine 75 MCG Tablet PO (06:59)
--- NOTE | 2018-10-11 09:16 | PCM.PN.OB ---
Subjective: doing well no complaints pain controlled no CP SOB N V ambulating well tolerating po lochia moderate, going well - Physical Exam General: Alert, Oriented x3 Vital Signs Temp Pulse Resp BP Pulse Ox 97.3 F L 72 16 104/48 L 98 10/11/18 04:41 10/11/18 04:41 10/11/18 04:41 10/11/18 04:41 10/10/18 23:00 Oxygen Delivery Method Room Air Weight: 310 lb Body Mass Index (BMI) 48.5 Intake and Output for Last 24 Hours 10/09/18 10/10/18 10/11/18 23:59 23:59 23:59 Intake Total 1895 / 1895 3043 / 3043 253 / 253 Output Total 425 / 425 3633 / 3633 900 / 900 Balance 1470 / 1470 -590 / -590 -647 / -647 Medical Necessity - Tobacco Use Smoking Status: Never smoker Assessment/Plan All Active Problems (Last Reviewed 10/07/18 @ 08:18 by Liana Galan) GBS (group B Streptococcus carrier), +RV culture, currently (Acute) Depression affecting in third trimester, antepartum (Acute) In vitro fertilization (Acute) Obesity affecting (Acute) (Acute) Supervision of high risk , antepartum (Acute) s/p PPD # 1 1. routine post delivery care 2. breast feeding- support given 3. rh positive 4. rubella immune
[2018-10-11] MEDS: Naproxen 250 MG Tablet 500 MG PO ×2 (10:30→19:43)
[2018-10-11] MEDS: Loratadine 10 MG Tablet PO (10:31)
[2018-10-11] MEDS: Labetalol 200 MG Tablet PO ×2 (10:31→21:27)
--- NOTE | 2018-10-11 18:33 | NURSING ---
1000 Up to the bathroom, voids 500ml clear yellow urine. Lewis care with lewis bottle per pt. Tolerated well and returns to bed. 1045- showered, stacy well. To [facility] ambultaory. States she feels good. 1200 voids 300ml plus (missed speci hat). States she feels like she is emptying her bladder. Instructed she no longer needs to keep track or urinary output. 1400 IV discontinued.
[2018-10-11] MEDS: Citalopram 20 MG Tablet PO (21:27)
[2018-10-12 01:23] VITALS: BP 122/53; PULSE 83; RESP 16; TEMP 36.5; O2SAT 97
[2018-10-12] MEDS: Naproxen 250 MG Tablet 500 MG PO (06:09)
[2018-10-12] MEDS: Levothyroxine 75 MCG Tablet 112.5 MCG PO (06:09)
--- NOTE | 2018-10-12 06:16 | PCM.PN.OB ---
Subjective: doing well no complaints pain controlled no CP SOB N V ambulating well tolerating po lochia moderate, going well but infant not latching well, so also supplementing - Physical Exam General: Alert, Oriented x3 Vital Signs Temp Pulse Resp BP Pulse Ox 97.7 F L 83 16 122/53 H 97 10/12/18 01:23 10/12/18 01:23 10/12/18 01:23 10/12/18 01:23 10/12/18 01:23 Oxygen Delivery Method Room Air Weight: 310 lb Body Mass Index (BMI) 48.5 Intake and Output for Last 24 Hours 10/10/18 10/11/18 10/12/18 23:59 23:59 23:59 Intake Total 3043 / 3043 253 / 253 Output Total 3633 / 3633 1400 / 1400 Balance -590 / -590 -1147 / -1147 Medical Necessity - Tobacco Use Smoking Status: Never smoker Assessment/Plan All Active Problems (Last Reviewed 10/07/18 @ 08:18 by Liana Galan) GBS (group B Streptococcus carrier), +RV culture, currently (Acute) Depression affecting in third trimester, antepartum (Acute) In vitro fertilization (Acute) Obesity affecting (Acute) (Acute) Supervision of high risk , antepartum (Acute) s/p PPD # 2 1. routine post delivery care 2. breast feeding- support given 3. rh positive 4. rubella immune
--- NOTE | 2018-10-12 06:18 | DCINST_ITS ---
Discharge Diet: No Restrictions Discharge Activity: Return to Normal Activity, May not drive while taking narcotic pain medications., May Shower May resume sexual activity in: 4-6 weeks Call your doctor if your incision/area has: Continuous Slow Oozing, Sudden Increased Bleeding, Increased Pain/ Swelling, Increased Redness, Foul Smelling Discharge Additional Instructions: If you experience any of the following, contact your healthcare provider. * Bleeding that soaks a pad every hour for 2 hours * Fever 100.4 or higher * Unrelieved incision or abdominal pain * Swelling, redness, discharge or bleeding from your incision or episiotomy site * Your incision begins to separate * Problems urinating (including inability to urinate or burning while urinating). * Visual changes * Severe headache * Flu-like symptoms * Pain or redness in one of both of your breasts * Pain, warmth, tenderness or swelling in your legs, especially the calf area * Frequent nausea and vomiting * Symptoms of depression or anxiety If you experience any of the following, call 911 or go to the nearest Emergency Room. * Chest pain * Problems breathing * Seizure activity * Partial or complete paralysis of a body part, slurred speech, weakness or drooping of the face, or a sudden inability to walk or hold your balance Allergies/Adverse Reactions: Allergies prednisone Allergy (Mild, Verified 10/08/18 19:52) Other Medications to take at Discharge ferrous sulfate 325 mg (65 mg iron) tablet 325 mg PO TID tab 09/18/17 loratadine 10 mg tablet 10 mg PO QDAY 09/18/17 vitamin,calcium,bmmqibre-twox-omuyc acid tablet 1 tab PO QDAY 09/18/17 aspirin 81 mg chewable tablet 81 mg PO QDAY 09/25/17 acetaminophen 325 mg capsule 325 mg PO Q6H PRN 05/14/18 diphenhydramine 25 mg capsule 25 mg PO QHS PRN 05/14/18 promethazine 12.5 mg tablet 12.5 mg PO QDAY 09/29/18 Citalopram [Celexa] 20 mg PO DAILY 10/08/18 Labetalol HCl 200 mg PO BID 10/08/18 Levothyroxine Sodium [Synthroid] See Rx Instructions PO .COMPLEX 10/08/18 Ranitidine HCl 150 mg PO BID 10/08/18 Please Follow Up With: Agustina Roberts MD - [phone] When: Call to make an appointment with your doctor in 6 weeks. If you had elevated Blood pressure or 4th degree laceration you will need to be seen in 2 weeks. Primary Care Physician: Tung Angulo DO [Primary Care Provider] - Test Results: Test results from this visit will be discussed in further detail at your follow- up appointment, if applicable.
[2018-10-12 08:00] VITALS: BP 152/78; PULSE 63; RESP 16; TEMP 36.6
[2018-10-12] MEDS: Labetalol 200 MG Tablet PO (08:02)
[2018-10-12 14:00] VITALS: BP 153/74; PULSE 71; RESP 16; TEMP 36.9
[2018-10-12 18:00] VITALS: BP 152/74; PULSE 70; RESP 16; TEMP 36.8
[2018-10-12] MEDS: Acetaminophen 500 MG Tablet 1000 MG PO (19:07)
[2018-10-12 19:09] VITALS: BP 152/74; PULSE 70; RESP 16; TEMP 36.8
== END 2018-10-12 19:30 | disposition home or self-care (01) | DRG 807 ==
PROVIDERS: Admitting Provider Obstetrics & Gynecology; Family Provider Preventive Medicine Occupational Medicine; PCP Preventive Medicine Occupational Medicine; Referring Provider Obstetrics & Gynecology; Visit Provider Obstetrics & Gynecology
DX: O11.4 Pre-existing hypertension with pre-eclampsia, complicating childbirth (principal); Z37.0 Single live birth; O99.413 Diseases of the circulatory system complicating pregnancy, third trimester; R00.0 Tachycardia, unspecified; O99.824 Streptococcus B carrier state complicating childbirth; O99.013 Anemia complicating pregnancy, third trimester; D64.9 Anemia, unspecified; O99.213 Obesity complicating pregnancy, third trimester; E66.9 Obesity, unspecified; O70.0 First degree perineal laceration during delivery; O99.613 Diseases of the digestive system complicating pregnancy, third trimester; K21.9 Gastro-esophageal reflux disease without esophagitis; O99.343 Other mental disorders complicating pregnancy, third trimester; F32.9 Major depressive disorder, single episode, unspecified; F41.9 Anxiety disorder, unspecified; O99.353 Diseases of the nervous system complicating pregnancy, third trimester; G43.909 Migraine, unspecified, not intractable, without status migrainosus; O99.283 Endocrine, nutritional and metabolic diseases complicating pregnancy, third trimester; E03.9 Hypothyroidism, unspecified; Z79.82 Long term (current) use of aspirin; Z79.899 Other long term (current) drug therapy; Z3A.38 38 weeks gestation of pregnancy
CPT/HCPCS: 59050; 80053; 82565; 82570; 84156; 84450; 84460; 84550; 85025; 85027; 85610; 85730; 86850; 86900; 99218; J7120; A4216; G0378; J2405

== ENCOUNTER → 2018-11-24 11:49 | Outpatient (CLI) | payer BC, SELFPAY ==
[2018-10-07 08:19] VITALS: BMI 48.4
[2018-11-24 11:49] VITALS: BMI 44.9
[2018-11-24 13:03] LABS: T4 Free Direct 0.88 ng/dL (0.76-1.46); Thyroid Stim Hormone (TSH) 0.82 uIU/mL (0.358-3.74)
== END ==
PROVIDERS: Family Provider Preventive Medicine Occupational Medicine; PCP Preventive Medicine Occupational Medicine; Referring Provider Nurse Practitioner; Visit Provider Nurse Practitioner
DX: E03.9 Hypothyroidism, unspecified (principal)
CPT/HCPCS: 36415; 84439; 84443

== ENCOUNTER → 2019-01-17 08:11 | Outpatient (CLI) | payer BC, SELFPAY ==
[2018-11-24 11:49] VITALS: BMI 44.9
[2019-01-17 10:42] LABS: Free T3 2.6 pg/mL (2.18-3.98); T4 Free Direct 0.98 ng/dL (0.76-1.46); Thyroid Stim Hormone (TSH) 1.65 uIU/mL (0.358-3.74)
== END ==
PROVIDERS: Family Provider Preventive Medicine Occupational Medicine; PCP Preventive Medicine Occupational Medicine; Referring Provider Nurse Practitioner; Visit Provider Nurse Practitioner
DX: E03.9 Hypothyroidism, unspecified (principal)
CPT/HCPCS: 36415; 84439; 84443; 84481

== ENCOUNTER → 2019-02-21 08:03 | Outpatient (CLI) | payer BC, SELFPAY ==
[2018-11-24 11:49] VITALS: BMI 44.9
[2019-02-21 09:26] LABS: Follicle Stimulating Hormone 5.7 mIU/mL
== END ==
PROVIDERS: Family Provider Preventive Medicine Occupational Medicine; PCP Preventive Medicine Occupational Medicine; Referring Provider Obstetrics & Gynecology; Visit Provider Obstetrics & Gynecology
DX: R23.2 Flushing (principal)
CPT/HCPCS: 36415; 82670; 83001

== ENCOUNTER → 2019-03-07 09:57 | Outpatient (CLI) | payer BC, SELFPAY ==
[2018-11-24 11:49] VITALS: BMI 44.9
--- NOTE | 2019-03-07 10:03 | RAD_ITS ---
STUDY: X-RAY - LUMBAR SPINE REASON FOR EXAM: Female, 33 years old. Back pain TECHNIQUE: 4 view(s) of the lumbar spine were obtained. COMPARISON: None FINDINGS: Normal lumbar lordosis. There is no substantial scoliosis. There is a normal alignment of the vertebrae on flexion, extension and neutral views. There is multilevel endplate spondylosis of the lumbar vertebrae. There is loss of disc space at L5-S1 as well as at the thoracolumbar junction. There is no demonstrated fracture. Mild facet arthropathy in the lower lumbar levels. The soft tissue structures are unremarkable. RAD/L/S Spine Bending Flex/Ext IMPRESSION: Mild degenerative disc disease and facet arthropathy. Electronically Signed: Bronson Rosa MD ([place]) at 15:51 EST , Service support ,
== END ==
PROVIDERS: Family Provider Preventive Medicine Occupational Medicine; PCP Preventive Medicine Occupational Medicine; Referring Provider Preventive Medicine Occupational Medicine; Visit Provider Preventive Medicine Occupational Medicine
DX: M51.36 Other intervertebral disc degeneration, lumbar region (principal); M46.96 Unspecified inflammatory spondylopathy, lumbar region
CPT/HCPCS: 72120

== ENCOUNTER → 2019-06-18 07:47 | Outpatient (CLI) | payer BC, SELFPAY ==
[2018-11-24 11:49] VITALS: BMI 44.9
[2019-06-18 08:23] LABS: Absolute Lymphocyte Count 1.99 X10^3/uL (0.83-4.51); Absolute Neutrophil Count 6.9 X10^3/uL (2.0-7.7); Basophil# 0.08 X10^3/uL; Basophil% 0.8 % (0-1); Eosinophil# 0.63 X10^3/uL; Eosinophils% 6.1 % (0-5); Hematocrit 39.7 % (37-47); Hemoglobin 12.8 g/dL (12.0-15.0); Lymphocyte # 1.99 X10^3/ul (4.0); Lymphocyte % 19.3 % (19-41); Mean Corp Hgb Conc 32.2 g/dL (32-36); Mean Corpuscular Hgb 29.8 pg (27.0-32.0); Mean Corpuscular Volume 92.5 fL (81-99); Mean Platelet Vol. 9.6 fl (6.2-12.0); Monocyte# 0.63 X10^3/uL; Monocyte% 6.1 % (0-10); NRBC Flagged by Analyzer 0 % (0-5); Neutrophil # 6.93 X10^3/uL (2.7-7.7); Neutrophil % 67.4 % (47-70); Platelet Count 356 K/mm3 (150-450); RBC Distribution Width CV 12.6 % (11.6-14.6); RBC Distribution Width SD 43.1 fl (35.1-43.9); Red Blood Count 4.29 M/mm3 (4.2-5.4); White Blood Count 10.3 K/mm3 (4.4-11.0)
[2019-06-18 08:40] LABS: hCG Titer Quant., Serum 2 mIU/mL (1-3)
[2019-06-18 08:57] LABS: Ferritin 234 ng/mL (8-252); Free T3 2.3 pg/mL (2.18-3.98); Iron 74 ug/dL (50-170); Iron Binding Capacity,Total 349 ug/dL (250-450); PERCENT IRON SATURATION 21.2 % (15.0-55.0); T4 Free Direct 0.86 ng/dL (0.76-1.46); Thyroid Stim Hormone (TSH) 3.31 uIU/mL (0.358-3.74)
[2019-06-19 12:01] LABS: Transferrin 278 mg/dL (200-370)
== END ==
PROVIDERS: Obstetrics & Gynecology; PCP Preventive Medicine Occupational Medicine; Referring Provider Obstetrics & Gynecology Reproductive Endocrinology; Visit Provider Obstetrics & Gynecology Reproductive Endocrinology
DX: I10 Essential (primary) hypertension (principal); M54.5 Low back pain; M62.830 Muscle spasm of back; R53.83 Other fatigue
CPT/HCPCS: 36415; 82652; 82728; 83540; 83550; 84439; 84443; 84466; 84481; 84702; 85025

== ENCOUNTER → 2019-12-12 09:28 | Outpatient (CLI) | payer BC, SELFPAY ==
[2019-12-07 08:44] VITALS: BMI 44.9
[2019-12-12 10:09] LABS: Cholesterol 180 mg/dL (200); Glucose 104 mg/dL (74-106); High Density Lipoprotein 41 mg/dL; Triglycerides 195 mg/dL; Very Low Density Lipoprotein 39 mg/dL (5-40)
[2019-12-12 10:28] LABS: Vitamin D,25 Hydroxy 38.2 ng/mL
== END ==
PROVIDERS: PCP Preventive Medicine Occupational Medicine; Referring Provider Obstetrics & Gynecology; Visit Provider Obstetrics & Gynecology
DX: Z13.1 Encounter for screening for diabetes mellitus (principal); Z13.220 Encounter for screening for lipoid disorders; Z13.21 Encounter for screening for nutritional disorder
CPT/HCPCS: 36415; 80061; 82306; 82947

== ENCOUNTER → 2020-03-16 10:05 | Outpatient (CLI) | payer BC, SELFPAY ==
[2019-12-07 08:44] VITALS: BMI 44.9
[2020-03-16 17:50] LABS: Free T3 2.2 pg/mL (2.18-3.98); T4 Free Direct 1.12 ng/dL (0.76-1.46); Thyroid Stim Hormone (TSH) 2.13 uIU/mL (0.358-3.74)
== END ==
PROVIDERS: PCP Preventive Medicine Occupational Medicine; Visit Provider Preventive Medicine Occupational Medicine
DX: E03.9 Hypothyroidism, unspecified (principal)
CPT/HCPCS: 36415; 84439; 84443; 84481

== ENCOUNTER → 2020-06-11 08:52 | Outpatient (CLI) | payer BC, SELFPAY ==
[2019-12-07 08:44] VITALS: BMI 44.9
[2020-06-11 10:17] LABS: Microalbumin,Random Urine 64.6 mg/L (NO RANGE EST.); Microalbumin:Creatinine Ratio 15.5 mg/g CRE (<30 mg/g CRE)
[2020-06-11 10:33] LABS: Anion Gap 5 (5-15); BUN 11 mg/dL (7-18); BUN/Creat Ratio 14.4 RATIO (10-20); Calcium,Total 8.6 mg/dL (8.5-10.1); Chloride 107 mmol/L (98-107); Creatinine, Serum 0.76 mg/dL (0.55-1.02); EST Glomerular Filtration Rate 91 mL/min (>60); Est Glom Filt Rate - Afr Amer 110 mL/min (>60); Free T3 2.4 pg/mL (2.18-3.98); Glucose 107 mg/dL (74-106); Potassium 3.8 mmol/L (3.5-5.1); Sodium Level 139 mmol/L (136-145); T4 Free Direct 0.99 ng/dL (0.76-1.46)
== END ==
PROVIDERS: PCP Preventive Medicine Occupational Medicine; Referring Provider Preventive Medicine Occupational Medicine; Visit Provider Preventive Medicine Occupational Medicine
DX: I10 Essential (primary) hypertension (principal); E03.9 Hypothyroidism, unspecified
CPT/HCPCS: 36415; 80048; 82043; 82570; 84439; 84443; 84481

== ENCOUNTER → 2020-10-15 09:38 | Outpatient (CLI) | payer BC, SELFPAY ==
[2019-12-07 08:44] VITALS: BMI 44.9
[2020-10-15 11:00] LABS: Hematocrit 40.5 % (37-47); Hemoglobin 13.1 g/dL (12.0-15.0); Mean Corp Hgb Conc 32.3 g/dL (32-36); Mean Corpuscular Volume 92.7 fL (81-99); Platelet Count 338 K/mm3 (150-450); RBC Distribution Width CV 12.3 % (11.6-14.6); RBC Distribution Width SD 41.8 fl (35.1-43.9); Red Blood Count 4.37 M/mm3 (4.2-5.4); White Blood Count 8.4 K/mm3 (4.4-11.0)
[2020-10-15 11:26] LABS: International Normalized Ratio 1.1; Prothrombin Time (Protime)PT. 13.6 SECONDS (11.7-14.9)
[2020-10-15 11:39] LABS: AST(SGOT) 18 U/L (15-37); Alanine Aminotransfer ALT/SGPT 33 U/L (13-56); Albumin, Serum 3.6 g/dL (3.2-5.0); Alkaline Phosphatase 64 U/L (45-117); Anion Gap 6 (5-15); BUN 12 mg/dL (7-18); BUN/Creat Ratio 14.7 RATIO (10-20); Calcium,Total 8.6 mg/dL (8.5-10.1); Chloride 103 mmol/L (98-107); Creatinine, Serum 0.82 mg/dL (0.55-1.02); EST Glomerular Filtration Rate 84 mL/min (>60); Est Glom Filt Rate - Afr Amer 101 mL/min (>60); Free T3 2.4 pg/mL (2.18-3.98); Globulin 3.7 g/dL (2.2-4.2); Glucose 96 mg/dL (74-106); Iron 78 ug/dL (50-170); Potassium 3.8 mmol/L (3.5-5.1); Protein, Total 7.3 g/dL (6.4-8.2); Sodium Level 139 mmol/L (136-145); T4 Free Direct 1.17 ng/dL (0.76-1.46); Thyroid Stim Hormone (TSH) 0.96 uIU/mL (0.358-3.74)
== END ==
PROVIDERS: PCP Preventive Medicine Occupational Medicine; Referring Provider Preventive Medicine Occupational Medicine; Visit Provider Preventive Medicine Occupational Medicine
DX: I10 Essential (primary) hypertension (principal); D50.9 Iron deficiency anemia, unspecified; R23.8 Other skin changes; E03.9 Hypothyroidism, unspecified
CPT/HCPCS: 36415; 80053; 83540; 84439; 84443; 84481; 85027; 85610

== ENCOUNTER → 2020-12-12 | Outpatient (CLI) | payer BC, SELFPAY ==
[2020-12-12 08:40] VITALS: BMI 44.9
[2020-12-15 14:57] LABS: HPV APTIMA, High Risk Negative (Negative)
== END | disposition home or self-care (01) ==
PROVIDERS: PCP Preventive Medicine Occupational Medicine; Visit Provider Obstetrics & Gynecology
DX: Z12.4 Encounter for screening for malignant neoplasm of cervix (principal)
CPT/HCPCS: 87624; 88175; G0145

== ENCOUNTER → 2020-12-17 08:45 | Outpatient (CLI) | payer BC, SELFPAY ==
[2020-12-12 08:40] VITALS: BMI 44.9
--- NOTE | 2020-12-17 08:46 | US_ITS ---
STUDY: THYROID ULTRASOUND REASON FOR EXAM: Female, 35 years old. Thyromegaly TECHNIQUE: Ultrasound evaluation of the thyroid was performed with real-time and static rodriguez-scale imaging. COMPARISON: None. FINDINGS: RIGHT LOBE: The right lobe of the thyroid gland measures 4.6 x 1.1 x 1.3 cm. There is a homogeneous echotexture. There are no demonstrated solid, cystic or complex lesions. LEFT LOBE: The left lobe of the thyroid gland measures 4.1 x 1.2 x 1.3 cm. There is a homogeneous echotexture. There are no demonstrated solid, cystic or complex lesions. ISTHMUS: The isthmus measures 3 mm . The regional lymph nodes are normal. US/Thyroid IMPRESSION: Normal ultrasound examination of the thyroid. Electronically Signed: Enrike Espinoza MD at 15:58 EDT Tel , Service support ,
== END ==
PROVIDERS: PCP Preventive Medicine Occupational Medicine; Referring Provider Obstetrics & Gynecology; Visit Provider Obstetrics & Gynecology
DX: E01.0 Iodine-deficiency related diffuse (endemic) goiter (principal)
CPT/HCPCS: 76536

== ENCOUNTER → 2021-03-04 10:39 | Outpatient (CLI) | payer BC, SELFPAY ==
[2021-03-12 13:59] LABS: Opiates, Urine Negative (Cutoff=200)
== END ==
PROVIDERS: PCP Preventive Medicine Occupational Medicine
DX: G43.711 Chronic migraine without aura, intractable, with status migrainosus (principal)
CPT/HCPCS: 80307; 80346

== ENCOUNTER 2021-06-03 09:57 | Outpatient (CLI) | payer BC, SELFPAY ==
[2021-06-03 10:46] LABS: T4 Free Direct 0.96 ng/dL (0.76-1.46); Thyroid Stim Hormone (TSH) 1.53 uIU/mL (0.358-3.74)
== END 2021-06-03 23:59 | disposition home or self-care (01) ==
PROVIDERS: PCP Preventive Medicine Occupational Medicine; Referring Provider Obstetrics & Gynecology; Visit Provider Obstetrics & Gynecology
DX: E01.0 Iodine-deficiency related diffuse (endemic) goiter (principal)
CPT/HCPCS: 36415; 84439; 84443

== ENCOUNTER 2021-07-29 09:10 | Outpatient (CLI) | payer BC, SELFPAY ==
[2021-07-29 10:49] LABS: Free T3 2.7 pg/mL (2.18-3.98); T4 Free Direct 0.99 ng/dL (0.76-1.46); Thyroid Stim Hormone (TSH) 1.58 uIU/mL (0.358-3.74)
== END 2021-07-29 23:59 | disposition home or self-care (01) ==
PROVIDERS: PCP Preventive Medicine Occupational Medicine; Referring Provider Preventive Medicine Occupational Medicine; Visit Provider Preventive Medicine Occupational Medicine
DX: E03.9 Hypothyroidism, unspecified (principal)
CPT/HCPCS: 36415; 84439; 84443; 84481

== ENCOUNTER → 2021-10-07 | Outpatient (CLI) | payer BC, SELFPAY ==
[2021-10-07 11:00] LABS: Free T3 2.9 pg/mL (2.18-3.98); T4 Free Direct 1.04 ng/dL (0.76-1.46); Thyroid Stim Hormone (TSH) 1.22 uIU/mL (0.358-3.74)
== END | disposition home or self-care (01) ==
PROVIDERS: PCP Preventive Medicine Occupational Medicine; Visit Provider Preventive Medicine Occupational Medicine
DX: E03.9 Hypothyroidism, unspecified (principal)
CPT/HCPCS: 36415; 84439; 84443; 84481

== ENCOUNTER → 2021-12-18 | Outpatient (CLI) | payer BC, SELFPAY ==
[2021-12-18 10:47] LABS: ALB/GLOB Ratio 0.9 RATIO (0.9-2.4); AST(SGOT) 19 U/L (15-37); Alanine Aminotransfer ALT/SGPT 36 U/L (13-56); Albumin, Serum 3.5 g/dL (3.2-5.0); Alkaline Phosphatase 67 U/L (45-117); Anion Gap 6 (5-15); BUN 13 mg/dL (7-18); BUN/Creat Ratio 15.9 RATIO (10-20); Calcium,Total 9.1 mg/dL (8.5-10.1); Chloride 105 mmol/L (98-107); Cholesterol 188 mg/dL (200); Creatinine, Serum 0.82 mg/dL (0.55-1.02); EST Glomerular Filtration Rate 83 mL/min (>60); Est Glom Filt Rate - Afr Amer 101 mL/min (>60); Globulin 3.8 g/dL (2.2-4.2); Glucose 94 mg/dL (74-106); High Density Lipoprotein 41 mg/dL; Potassium 3.9 mmol/L (3.5-5.1); Protein, Total 7.3 g/dL (6.4-8.2); Sodium Level 139 mmol/L (136-145); T4 Free Direct 1.11 ng/dL (0.76-1.46); Thyroid Stim Hormone (TSH) 1.48 uIU/mL (0.358-3.74); Triglycerides 189 mg/dL; Very Low Density Lipoprotein 38 mg/dL (5-40)
== END | disposition home or self-care (01) ==
LOC: LAB 09:30
PROVIDERS: PCP Preventive Medicine Occupational Medicine; Referring Provider Obstetrics & Gynecology; Visit Provider Obstetrics & Gynecology
DX: E01.0 Iodine-deficiency related diffuse (endemic) goiter (principal); E28.2 Polycystic ovarian syndrome
CPT/HCPCS: 36415; 80053; 80061; 83036; 84439; 84443

== ENCOUNTER → 2022-03-24 | Outpatient (CLI) | payer BC, SELFPAY ==
[2022-03-24 10:09] LABS: Hematocrit 38.6 % (37-47); Hemoglobin 12.7 g/dL (12.0-15.0); Mean Corp Hgb Conc 32.9 g/dL (32-36); Mean Corpuscular Hgb 31.2 pg (27.0-32.0); Mean Corpuscular Volume 94.8 fL (81-99); Platelet Count 292 K/mm3 (150-450); RBC Distribution Width CV 12.5 % (11.6-14.6); RBC Distribution Width SD 43.7 fl (35.1-43.9); Red Blood Count 4.07 M/mm3 (4.2-5.4); White Blood Count 7.4 K/mm3 (4.4-11.0)
[2022-03-24 11:04] LABS: Free T3 2.5 pg/mL (2.18-3.98); Iron 84 ug/dL (50-170); T4 Free Direct 1.11 ng/dL (0.76-1.46); Thyroid Stim Hormone (TSH) 1.48 uIU/mL (0.358-3.74)
== END | disposition home or self-care (01) ==
LOC: LAB 09:29
PROVIDERS: PCP Preventive Medicine Occupational Medicine; Visit Provider Preventive Medicine Occupational Medicine
DX: D50.9 Iron deficiency anemia, unspecified (principal); E03.9 Hypothyroidism, unspecified
CPT/HCPCS: 36415; 83540; 84439; 84443; 84481; 85027

== ENCOUNTER → 2022-07-21 | Outpatient (CLI) | payer BC, SELFPAY ==
[2022-07-21 10:30] LABS: Free T3 2.5 pg/mL (2.18-3.98); T4 Free Direct 1.05 ng/dL (0.76-1.46); Thyroid Stim Hormone (TSH) 1.41 uIU/mL (0.358-3.74)
== END | disposition home or self-care (01) ==
LOC: LAB 09:36
PROVIDERS: PCP Preventive Medicine Occupational Medicine; Visit Provider Preventive Medicine Occupational Medicine
DX: E03.8 Other specified hypothyroidism (principal)
CPT/HCPCS: 36415; 84439; 84443; 84481

== ENCOUNTER 2022-08-01 22:16 | Emergency (ER) | payer BC, SELFPAY ==
[2022-08-01 22:17] VITALS: BP 174/109; PULSE 93; RESP 18; TEMP 36.7; O2SAT 100; BMI 43.8
[2022-08-01 22:58] LABS: Absolute Lymphocyte Count 2.24 X10^3/uL (0.83-4.51); Absolute Neutrophil Count 9.5 X10^3/uL (2.0-7.7); Basophil# 0.04 X10^3/uL; Basophil% 0.3 % (0-1); Eosinophil# 0.61 X10^3/uL; Eosinophils% 4.5 % (0-5); Hematocrit 43.8 % (37-47); Lymphocyte # 2.24 X10^3/ul (0.83-4.51); Lymphocyte % 16.7 % (19-41); Mean Corpuscular Hgb 30.2 pg (27.0-32.0); Mean Corpuscular Volume 94.4 fL (81-99); Mean Platelet Vol. 9.9 fl (6.2-12.0); Monocyte# 0.99 X10^3/uL; Monocyte% 7.4 % (0-10); NRBC Flagged by Analyzer 0 % (0-5); Neutrophil # 9.51 X10^3/uL (2.7-7.7); Neutrophil % 70.7 % (47-70); Platelet Count 300 K/mm3 (150-450); RBC Distribution Width CV 12.5 % (11.6-14.6); RBC Distribution Width SD 43.2 fl (35.1-43.9); Red Blood Count 4.64 M/mm3 (4.2-5.4); White Blood Count 13.4 K/mm3 (4.4-11.0)
[2022-08-01] MEDS: Ondansetron 4 MG/2 ML Vial IM (23:06)
[2022-08-01] MEDS: 0.9% Normal Saline 1,000 ML 999 ML IV (23:06)
[2022-08-01 23:08] LABS: Internal QC Validated? YES +Cl - CLEAR BKGD; Pregnancy, Serum, hCG Quali. NEGATIVE Negative
[2022-08-01 23:16] LABS: ALB/GLOB Ratio 0.9 RATIO (0.9-2.4); AST(SGOT) 16 U/L (15-37); Alanine Aminotransfer ALT/SGPT 35 U/L (13-56); Albumin, Serum 3.7 g/dL (3.2-5.0); Alkaline Phosphatase 60 U/L (45-117); Anion Gap 5 (5-15); BUN 21 mg/dL (7-18); BUN/Creat Ratio 25.5 RATIO (10-20); Calcium,Total 8.9 mg/dL (8.5-10.1); Chloride 105 mmol/L (98-107); Creatinine, Serum 0.82 mg/dL (0.55-1.02); EST Glomerular Filtration Rate 82 mL/min (>60); Est Glom Filt Rate - Afr Amer 99 mL/min (>60); Estimated Creatinine Clearance 90.46 ml/min; Glucose 101 mg/dL (74-106); Lipase 63 U/L (73-393); Potassium 3.6 mmol/L (3.5-5.1); Protein, Total 7.7 g/dL (6.4-8.2); Sodium Level 137 mmol/L (136-145)
--- NOTE | 2022-08-02 00:21 | EDS_ITS ---
HPI HPI - GI History of Present Illness Chief Complaint: Abd Pain Informant: patient Narrative Narrative: Patient is a 36-year-old female presenting with abdominal pain and diarrhea. She states it started in her epigastric region yesterday and then radiates down to her umbilicus area and then around to her lower back. She has had multiple episodes of profuse diarrhea associated with this. She had 1 small episode of vomiting prior to arrival. She is currently on her menstrual cycles is not currently started has had any black or blood in her stool. She has had a prior cholecystectomy and ERCP for suspected choledocholithiasis. She saw GI in May of this year and was prescribed Carafate on top of her Prilosec. She follows with GI through [facility]. Patient is concerned because she cannot really keep anything in and will immediately have diarrhea. She denies any recent antibiotics. Does not currently work in a healthcare setting. Denies any history of C. difficile. No other complaints at this time. [facility] Medical History Anemia Anxiety disorder Back problem Chronic headaches Depression Fibromyalgia Gallstones GERD (gastroesophageal reflux disease) GI problem History of infertility IBS (irritable bowel syndrome) Polycystic ovarian disease Seasonal allergies Thyroid disease Vision problem Home Medications famotidine 40 mg tablet (Pepcid) 40 mg PO BID 12/07/19 [History Last Taken Unknown] labetalol 200 mg tablet 200 mg PO BID 12/07/19 [History Last Taken Unknown] levothyroxine 100 mcg tablet 100 mcg PO DAILY 12/12/20 [History Last Taken Unknown] lorazepam 0.5 mg tablet (Ativan) 0.5 mg PO QD-BID PRN anxiety #30 tabs 12/13/20 [Rx Last Taken Unknown] bupropion HCl 150 mg 24 hr tablet, extended release (Wellbutrin XL) 150 mg PO QAM #90 tabs 12/18/21 [Rx Last Taken Unknown] bupropion HCl 300 mg 24 hr tablet, extended release (Wellbutrin XL) 300 mg PO QAM #90 tabs 12/18/21 [Rx Last Taken Unknown] multivitamin 1 tab PO DAILY 12/18/21 [History Last Taken Unknown] fluconazole 150 mg tablet 150 mg PO ONCE #1 TAB 02/08/22 [Rx Last Taken Unknown] dicyclomine 20 mg tablet 20 mg PO TID PRN abdominal discomfort #20 tabs 08/02/22 [Rx Last Taken Unknown] ondansetron 4 mg disintegrating tablet 4 mg PO Q6H PRN nausea and vomiting #14 tabs 08/02/22 [Rx Last Taken Unknown] Allergy/AdvReac Type Severity Reaction Status Date / Time prednisone Allergy Mild Other Verified 08/01/22 22:19 Family History Sister Arthritis Asthma Thyroid disorder Mother Arthritis Heart disease Thyroid disorder Grandfather Diabetes Heart disease Thyroid disorder Cancer Surgical History H/O colonoscopy H/O dilation and curettage History of hysteroscopy Hx of cholecystectomy ovarian surgery S/P ERCP S/P foot surgery, left S/P foot surgery, right Social History Smoking Status: Never smoker second hand exposure: No alcohol intake: never substance use type: does not use caffeine: Yes what type of physical activity do you participate in: walking seatbelt use: always do you feel safe at home: Yes additional social history: [employer]- Self 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[employer] [facility] ED Constitutional Constitutional ED: Denies chills or fever(s) Cardiovascular Cardiovascular: Denies chest pain Respiratory/Chest Respiratory/Chest: Denies cough or dyspnea Gastrointestinal Gastrointestinal: Reports abdominal pain, diarrhea, nausea and vomiting Genitourinary Genitourinary ED: Denies dysuria or hematuria Musculoskeletal Musculoskeletal: Reports back pain; Denies arthralgias Integumentary Denies rash Neurologic Neurologic: Denies headache(s) or weakness Psychiatric Psychiatric: Denies anxiety Hematologic/Lymphatic Hematologic/Lymphatic: Denies easy bleeding or easy bruising EXAM Physical Exam Const Vital Signs: 08/01/22 22:17 08/02/22 00:33 Temperature 98.0 F Temperature Source Temporal Pulse Rate 93 80 Respiratory Rate 18 17 Blood Pressure 174/109 H 150/85 H Blood Pressure Mean 130 106 Pulse Ox 100 98 Oxygen Delivery Method Room Air Room Air Positive well nourished and well developed General Appearance ED: well developed and NAD HEENT Reports moist mucous membranes normocephalic and atraumatic Eyes PERRL and EOMs intact bilaterally Neck supple and no JVD Resp normal respiratory effort and clear to auscultation bilaterally Cardio regular rate, regular rhythm and no murmurs GI non-tender and non-distended Palpation: soft; Negative for tender, guarding or rigid Extremity full ROM Neuro moves all extremities Sensorium / Orientation: alert Motor Exam: Negative for general weakness Psych mental status grossly normal and thought process normal Skin no wounds Rashes: no rashes MDM MDM MDM Narrative Medical decision making narrative: Patient evaluated for diarrhea. She has diffuse abdominal pain which started in her epigastric region. Abdomen is soft and nontender. She is afebrile. She is a mild leukocytosis 13.4 which is nonspecific. No significant electrolyte abnormalities. We will attempt to obtain a stool sample. Patient is given IV fluids and Zofran in the emergency room. She is given a p.o. challenge and she states that her stomach is rumbling however she is tolerating it so far. We will give a dose of Bentyl. Will start on Zofran and Bentyl. Given the short duration of her symptoms and benign abdominal exam suspect more than likely this is enteritis. Will defer imaging at this time. Patient counseled that if her symptoms persist, worsen or she develops a fever she should return and we will likely order CT at that scan. She verbalizes good understand this plan. Encouraged to call her primary care doctor for further outpatient follow-up. Lab Data Attestation: I reviewed the patient's lab results. Labs: Laboratory Results - last 24 hr 08/01/22 08/01/22 08/01/22 22:41 22:41 22:41 WBC 13.4 H RBC 4.64 Hgb 14.0 Hct 43.8 MCV 94.4 MCH 30.2 MCHC 32.0 RDW Std Deviation 43.2 RDW Coeff of Tatiana 12.5 Plt Count 300 MPV 9.9 Immature Gran % (Auto) 0.400 Neut % (Auto) 70.7 H Lymph % (Auto) 16.7 L [place] % (Auto) 7.4 Eos % (Auto) 4.5 Baso % (Auto) 0.3 Absolute Neuts (auto) 9.5 H Absolute Lymphs (auto) 2.24 Nucleated RBC % 0 Sodium 137 Potassium 3.6 Chloride 105 Carbon Dioxide 27.0 Anion Gap 5 BUN 21 H Creatinine 0.82 Estim Creat Clear Calc 90.46 Est GFR (MDRD) Af Amer 99 Est GFR (MDRD) Non-Af 82 BUN/Creatinine Ratio 25.5 H Glucose 101 Calcium 8.9 Total Bilirubin 0.40 AST 16 ALT 35 Alkaline Phosphatase 60 Total Protein 7.7 Albumin 3.7 Globulin 4.0 Albumin/Globulin Ratio 0.9 Lipase 63 L Serum , Qual NEGATIVE Urine Color Urine Clarity Urine pH Ur Specific [place] Urine Protein Urine Glucose (UA) Urine Ketones Urine Occult Blood Urine Nitrite Urine Bilirubin Urine Urobilinogen Ur Leukocyte Esterase Urine RBC Urine WBC Ur Squamous Epith Cells Urine Bacteria Urine Mucus 08/02/22 00:24 WBC RBC Hgb Hct MCV MCH MCHC RDW Std Deviation RDW Coeff of Tatiana Plt Count MPV Immature Gran % (Auto) Neut % (Auto) Lymph % (Auto) [place] % (Auto) Eos % (Auto) Baso % (Auto) Absolute Neuts (auto) Absolute Lymphs (auto) Nucleated RBC % Sodium Potassium Chloride Carbon Dioxide Anion Gap BUN Creatinine Estim Creat Clear Calc Est GFR (MDRD) Af Amer Est GFR (MDRD) Non-Af BUN/Creatinine Ratio Glucose Calcium Total Bilirubin AST ALT Alkaline Phosphatase Total Protein Albumin Globulin Albumin/Globulin Ratio Lipase Serum , Qual Urine Color Yellow Urine Clarity Clear Urine pH 6.0 Ur Specific [place] 1.010 Urine Protein 15 H Urine Glucose (UA) Normal Urine Ketones Negative Urine Occult Blood 50 H Urine Nitrite Negative Urine Bilirubin Negative Urine Urobilinogen Normal Ur Leukocyte Esterase Negative Urine RBC 0 SEEN Urine WBC 0 SEEN Ur Squamous Epith Cells 0 SEEN Urine Bacteria 1+ Urine Mucus 0 SEEN Discharge Plan Triage Chief Complaint: Abd Pain ED Provider: Lali García Dx/Rx/DC Orders Clinical Impression: Diarrhea, Abdominal pain Instructions: ED Vomiting and Diarrhea ... Prescriptions: New dicyclomine 20 mg tablet 20 mg PO TID PRN (Reason: abdominal discomfort) Qty: 20 0RF ondansetron 4 mg tablet,disintegrating 4 mg PO Q6H PRN (Reason: nausea and vomiting) Qty: 14 0RF No Action labetalol 200 mg tablet 200 mg PO BID famotidine [Pepcid] 40 mg tablet 40 mg PO BID levothyroxine 100 mcg tablet 100 mcg PO DAILY lorazepam [Ativan] 0.5 mg tablet 0.5 mg PO QD-BID PRN (Reason: anxiety) Qty: 30 0RF multivitamin Tablet 1 tab PO DAILY bupropion HCl [Wellbutrin XL] 150 mg tablet extended release 24 hr 150 mg PO QAM Qty: 90 4RF bupropion HCl [Wellbutrin XL] 300 mg tablet extended release 24 hr 300 mg PO QAM Qty: 90 4RF fluconazole 150 mg tablet 150 mg PO ONCE Qty: 1 0RF Rx Instructions: as a single dose Primary Care Provider: Tung Angulo Referrals: Tung Angulo DO [Primary Care Provider] - Disposition Disposition: Home, Self Care Discharge Date/Time: 08/02/22 00:17
[2022-08-02 00:28] LABS: Mucous, Urine 0 SEEN /hpf (<or=2+); Red Blood Cells-Urine 0 SEEN /hpf (0-5); Squamous Epithelial Cells - UA 0 SEEN /hpf (5-10); White Blood Cells 0 SEEN /hpf (0-5)
[2022-08-02 00:29] LABS: Color, Urine Yellow (Yellow); Glucose, Dipstick Normal (Normal); Ketone-Dipstick Negative (Negative); Leukocyte Esterase-Dipstick Negative /ul (Negative); Nitrite-Dipstick Negative (Negative); Occult Blood-Urine 50 /ul (Negative); Protein-Dipstick 15 mg/dl (Negative); Urine Bilirubin Dipstick Negative (Negative); Urine Clarity Clear (Clear); Urine Urobilinogen Normal (Normal)
[2022-08-02 00:33] VITALS: BP 150/85; PULSE 80; RESP 17; O2SAT 98
[2022-08-02 00:34] LABS: Bacteria 1+ /hpf (None Seen)
--- NOTE | 2022-08-02 06:13 | ED.RN ---
Pt d/c during scheduled downtime. See downtime charting.
== END 2022-08-02 00:17 | disposition home or self-care (01) ==
PROVIDERS: Emergency Provider Emergency Medicine; PCP Preventive Medicine Occupational Medicine; Visit Provider Emergency Medicine
DX: R19.7 Diarrhea, unspecified (principal); R10.9 Unspecified abdominal pain
CPT/HCPCS: 80053; 81001; 83690; 84703; 85025; 96372; 99284; J7030; A4216; J2405

== ENCOUNTER → 2022-08-13 | Outpatient (CLI) | payer BC, SELFPAY ==
--- NOTE | 2022-08-13 08:10 | US_ITS ---
INDICATION: Abdominal PAIN EXAMINATION: Ultrasound US Abdomen Limited (quadrant) TECHNIQUE: Alford scale and color doppler imaging was performed of the right upper quadrant. COMPARISON: None. FINDINGS: LIVER: There is mild increased echogenicity. No focal hepatic lesion. There is no free fluid. GALLBLADDER AND BILIARY TREE: The gallbladder is surgically absent. The proximal common bile duct measures 10.2 millimeters. PANCREAS: No focal abnormality is demonstrated in the pancreas. No pancreatic ductal dilatation. RIGHT KIDNEY: There is no hydronephrosis. No discrete mass is visualized. No stones are identified. US/Abdomen Limited IMPRESSION: Fatty infiltration of the liver. Dilated common bile duct. Electronically Signed: Melissa Moctezuma MD at 10:29 EDT ,
== END | disposition home or self-care (01) ==
LOC: US 08:00
PROVIDERS: PCP Preventive Medicine Occupational Medicine; Visit Provider Preventive Medicine Occupational Medicine
DX: K76.0 Fatty (change of) liver, not elsewhere classified (principal); K83.8 Other specified diseases of biliary tract; Z90.49 Acquired absence of other specified parts of digestive tract
CPT/HCPCS: 76705

== ENCOUNTER → 2022-09-13 | Outpatient (CLI) | payer BC, SELFPAY ==
--- NOTE | 2022-09-13 17:33 | MRI_ITS ---
INDICATION: DIALATED BILE DUCT, CHOLEDOCOLITHIASIS -- H/O PRIOR ERCP X 2 EXAMINATION: MRI - MR MRCP and Abdomen W/O Contrast TECHNIQUE: Multiplanar and multisequence MR images of the abdomen were obtained with MRCP sequence. Three-dimensional post-processing reconstructions were performed. IV Contrast Dosage and Agent: None. COMPARISON: Abdominal ultrasound August 13, 2022. FINDINGS: LIVER: Homogeneous parenchyma without discrete mass. Normal morphology. GALLBLADDER AND BILIARY TREE: Absent gallbladder. The CBD measures 8 mm with distal tapering to the ampulla. No choledochal filling defect. PANCREAS: No mass. No pancreatic duct dilation. SPLEEN: Non-enlarged. ADRENAL GLANDS: No nodules. KIDNEYS: Normal renal size and position. No hydronephrosis. No mass. LYMPH NODES: No enlarged periportal or retroperitoneal lymph nodes. PERITONEUM: No ascites or fluid collection. VESSELS: Aorta is non-dilated. LOWER CHEST: No pleural effusion. MUSCULOSKELETAL: Right upper abdominal wall postsurgical changes. No acute osseous finding. MRI/MRCP Abdomen without Contrast IMPRESSION: Common duct within normal limits in size postcholecystectomy with distal tapering. No evidence of choledocholithiasis.. Electronically Signed: Darryn Altman MD at 6:46 EDT ,
== END | disposition home or self-care (01) ==
PROVIDERS: PCP Preventive Medicine Occupational Medicine; Referring Provider Internal Medicine; Visit Provider Internal Medicine
DX: K83.8 Other specified diseases of biliary tract (principal)
CPT/HCPCS: 74181

== ENCOUNTER → 2022-09-25 | Outpatient (CLI) | payer BC, SELFPAY ==
[2022-09-25 09:12] LABS: Thyroid Stim Hormone (TSH) 1.29 uIU/mL (0.358-3.74)
== END | disposition home or self-care (01) ==
LOC: LAB 08:02
PROVIDERS: PCP Preventive Medicine Occupational Medicine; Visit Provider Preventive Medicine Occupational Medicine
DX: E03.8 Other specified hypothyroidism (principal)
CPT/HCPCS: 36415; 84443

== ENCOUNTER → 2022-11-05 | Outpatient (CLI) | payer BC, SELFPAY ==
[2022-11-05 17:04] LABS: Absolute Lymphocyte Count 1.79 X10^3/uL (0.83-4.51); Absolute Neutrophil Count 5.9 X10^3/uL (2.0-7.7); Basophil# 0.05 X10^3/uL; Basophil% 0.6 % (0-1); Eosinophil# 0.12 X10^3/uL; Eosinophils% 1.4 % (0-5); Hematocrit 37.4 % (37-47); Hemoglobin 12.2 g/dL (12.0-15.0); Lymphocyte # 1.79 X10^3/ul (0.83-4.51); Lymphocyte % 21.3 % (19-41); Mean Corp Hgb Conc 32.6 g/dL (32-36); Mean Corpuscular Hgb 30.3 pg (27.0-32.0); Mean Corpuscular Volume 92.8 fL (81-99); Monocyte# 0.55 X10^3/uL; Monocyte% 6.6 % (0-10); NRBC Flagged by Analyzer 0 % (0-5); Neutrophil # 5.85 X10^3/uL (2.7-7.7); Neutrophil % 69.7 % (47-70); Platelet Count 338 K/mm3 (150-450); RBC Distribution Width CV 12.4 % (11.6-14.6); RBC Distribution Width SD 42.5 fl (35.1-43.9); Red Blood Count 4.03 M/mm3 (4.2-5.4); White Blood Count 8.4 K/mm3 (4.4-11.0)
[2022-11-05 17:54] LABS: Estradiol 47.3 pg/mL; Follicle Stimulating Hormone 0.8 mIU/mL
[2022-11-10 15:07] LABS: DHEA Sulfate 76.8 ug/dL (57.3-279.2); Testosterone, % Free 1.62 % (0.50-2.80); Testosterone, Free 0.45 ng/dL (0.10-0.85); Testosterone, Total 28 ng/dL (8-60)
== END | disposition home or self-care (01) ==
LOC: LAB 15:45
PROVIDERS: PCP Preventive Medicine Occupational Medicine; Referring Provider Obstetrics & Gynecology; Visit Provider Obstetrics & Gynecology
DX: N97.8 Female infertility of other origin (principal); E28.2 Polycystic ovarian syndrome; N85.00 Endometrial hyperplasia, unspecified; E01.0 Iodine-deficiency related diffuse (endemic) goiter
CPT/HCPCS: 36415; 82627; 82670; 83001; 84402; 84403; 85025; 82626

== ENCOUNTER → 2022-11-16 | Outpatient (CLI) | payer BC, SELFPAY ==
--- NOTE | 2022-11-16 08:23 | US_ITS ---
STUDY: ULTRASOUND OF THE FEMALE PELVIS - COMPLETE REASON FOR EXAM: Female, 37 years old. Abnormal uterine bleeding LMP: 10/17/2022 TECHNIQUE: Transabdominal and Transvaginal TECHNICAL QUALITY: Adequate. COMPARISON: None. FINDINGS: The uterus is anteverted and is tilted to the left side of the pelvis. The uterus measures 7.2 x 4.5 x 3.8 cm. Normal uterine cervix. The endometrium measures 13 mm in thickness, and is heterogeneous (striated) with associated cysts.. There is no demonstrated endometrial mass. There is no demonstrated myometrial mass. I.U.D. - The patient does not have an I.U.D. The right ovary is visualized. The right ovary measures 3.4 x 3.2 x 2.5 cm. There is no right ovarian cyst or ovarian mass. There is no visualized right adnexal mass or complex lesion. There is normal arterial and normal venous vascularity. The left ovary is visualized. The left ovary measures 4.3 x 4.5 x 3.1 cm. There is a simple 4.3 cm cyst in There is normal arterial and normal venous vascularity. There is no fluid in the cul-de-sac. The bladder is incompletely distended US/Pelvic (Non ) IMPRESSION: Heterogeneous endometrium with tiny cysts, hyperplasia suspected. Simple left ovarian cyst, no specific follow-up needed Electronically Signed: Felix Johnson MD at 14:30 EDT ,
== END | disposition home or self-care (01) ==
LOC: OPUS 08:21
PROVIDERS: PCP Preventive Medicine Occupational Medicine; Referring Provider Obstetrics & Gynecology; Visit Provider Obstetrics & Gynecology
DX: N97.8 Female infertility of other origin (principal); E28.2 Polycystic ovarian syndrome; N85.00 Endometrial hyperplasia, unspecified; E01.0 Iodine-deficiency related diffuse (endemic) goiter
CPT/HCPCS: 76830; 76856

== ENCOUNTER 2022-11-27 13:49 | Day surgery (SDC) | payer BC, SELFPAY ==
[2022-11-27] VITALS (11 sets, daily range): BP systolic 158–179; BP diastolic 79–105; PULSE 82–89; RESP 16–17; TEMP 36.6–36.7; O2SAT 96–99; BMI 42.7
--- NOTE | 2022-11-27 07:17 | HP.PCM_ITS ---
HPI - General HPI Narrative DEREK MARIN, is a 37 F who presents wit persistent AUB history of endometrial hyperplasia, signifciantly thickened lining on US suspcious of hyperplasia again. [facility] Medical History (Updated 11/26/22 @ 08:58 by Eryn Cain) Anemia Anxiety Anxiety disorder Arthritis Back problem Chronic headaches Depression Fibromyalgia Gallstones GERD (gastroesophageal reflux disease) GI problem History of IBS History of infertility History of ulceration Hypertension IBS (irritable bowel syndrome) Polycystic ovarian disease Seasonal allergies Thyroid disease Vision problem Wears glasses Home Medications famotidine 40 mg tablet (Pepcid) 40 mg PO BID PRN acid reflux 12/07/19 [History Last Taken Unknown] labetalol 200 mg tablet 200 mg PO BID 12/07/19 [History Last Taken Unknown] lorazepam 0.5 mg tablet (Ativan) 0.5 mg PO QD-BID PRN anxiety #30 tabs 12/13/20 [Rx Last Taken Unknown] multivitamin 1 tab PO DAILY 12/18/21 [History Last Taken Unknown] dicyclomine 20 mg tablet 20 mg PO TID PRN abdominal discomfort #20 tabs 08/02/22 [Rx Last Taken Unknown] norethindrone acetate 5 mg tablet (Aygestin) 5 mg PO DAILY #45 tabs 11/02/22 [Rx Last Taken Unknown] levothyroxine 100 mcg tablet 150 mcg PO DAILY 11/16/22 [History Last Taken Unknown] meloxicam 15 mg tablet 15 mg PO DAILY 11/16/22 [History Last Taken Unknown] bupropion HCl 300 mg 24 hr tablet, extended release (Wellbutrin XL) 450 mg PO QAM 11/26/22 [History Last Taken Unknown] ferrous sulfate 325 mg (65 mg iron) tablet (Feosol) 975 mg PO DAILY 11/26/22 [History Last Taken Unknown] fexofenadine 180 mg tablet (Anika Allergy) 180 mg PO DAILY 11/26/22 [History Last Taken Unknown] levothyroxine 75 mcg capsule 75 mcg PO .OTHER 11/26/22 [History Last Taken Unknown] milnacipran 50 mg tablet (Savella) 50 mg PO BID 11/26/22 [History Last Taken Unknown] naltrexone 4.5 mg capsule (Naltrex) 8 mg PO BID 11/26/22 [History Last Taken Unknown] omeprazole 20 mg capsule,delayed release 40 mg PO BID 11/26/22 [History Last Taken Unknown] Allergy/AdvReac Type Severity Reaction Status Date / Time prednisone Allergy Mild Other Verified 11/26/22 08:41 Family History (Updated 11/16/22 @ 11:33 by Sanjuana Jurado) Sister Arthritis Asthma Thyroid disorder Mother Arthritis Heart disease Thyroid disorder Grandfather Diabetes Heart disease Thyroid disorder Cancer Hypertension Other Obesity Surgical History H/O colonoscopy H/O dilation and curettage History of hysteroscopy Hx of cholecystectomy ovarian surgery S/P ERCP S/P foot surgery, left S/P foot surgery, right Social History Smoking Status: Never smoker second hand exposure: No alcohol intake: never substance use type: does not use caffeine: Yes what type of physical activity do you participate in: walking seatbelt use: always do you feel safe at home: Yes additional social history: [employer]- Self 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 [employer] Constitutional Constitutional: Reports systems reviewed and no addt'l complaints, except as documented; Denies as per HPI, change in weight, fatigue, fever(s), malaise, weakness or other Eyes Eyes: Reports systems reviewed and no addt'l complaints, except as documented; Denies as per HPI, change in vision or other ENT HEENT: Reports systems reviewed and no addt'l complaints, except as documented Respiratory/Chest Respiratory/Chest: Reports systems reviewed and no addt'l complaints, except as documented Gastrointestinal Gastrointestinal: Reports systems reviewed and no addt'l complaints, except as documented and as per HPI Genitourinary Genitourinary: Reports as per HPI Musculoskeletal Musculoskeletal: Reports systems reviewed and no addt'l complaints, except as documented Neurologic Neurologic: Reports systems reviewed and no addt'l complaints, except as documented Psychiatric Psychiatric: Reports systems reviewed and no addt'l complaints, except as documented Endocrine Endocrinology: Reports systems reviewed and no addt'l complaints, except as documented Hematologic/Lymphatic Hematologic/Lymphatic: Reports systems reviewed and no addt'l complaints, except as documented Physical Exam Const alert, oriented x3 and no apparent distress HEENT normocephalic Head and Scalp: atraumatic Eyes EOMs intact bilaterally and conjunctivae normal Neck full ROM, no lymphadenopathy, supple and thyroid normal General: trachea midline Lymph Lymphatic: no lymphadenopathy noted Resp normal respiratory effort, no retractions, no use of accessory muscles and clear to auscultation bilaterally Cardio regular rhythm GI normal to inspection, nondistended, normoactive bowel sounds, soft to palpation, non-distended and no masses Inspection: Negative for abdominal distention Back/Spine no CVA tenderness Extremity normal to inspection Skin no rashes or lesions noted Neuro moves all extremities and deep tendon reflexes 2+ bilaterally Psych mental status grossly normal Assessment & Plan Assessment/Plan (1) Abnormal uterine bleeding: (2) Endometrial hyperplasia: PLAN: Plan After discussing the patient's diagnosis and treatment plan options, patient wishes to proceed with surgical management. I have discussed with the patient the risks, benefits, and alternatives of the procedure which include but are not limited to risks of anesthesia, bleeding, infection, possible damage to bowel, bladder, or surrounding vasculature which could lead to additional surgery to evaluate any complications. Patient agrees to procedure and wishes to proceed. ACOG/uptodate references given for additional information regarding procedure.
[2022-11-27] MEDS: Lactated Ringers 1,000 ML 15 ML IV (14:45)
[2022-11-27 14:56] LABS: Internal QC Validated? YES +Cl - CLEAR BKGD; Pregnancy, Urine Negative Negative
--- NOTE | 2022-11-27 14:58 | PCM.OPRPT ---
Problems Associated Problem List Diagnoses (1) Endometrial hyperplasia: (2) Abnormal uterine bleeding: Report of Operation Date of Procedure: 11/27/22 Pre-Operative Diagnosis: see problem list Post-Operative Diagnosis: same polyp also Surgery/Procedure Performed:: D&C hysteroscopy polypectomy using symphion Description of Surgical Findings:: thickened lining and polyp on fundal aspect Surgeon: Agustina Roberts card tender: None Type of Anesthesia: Local MAC Special Medications: none Specimen's removed: EMC, polyp Drains: none Estimated Blood Loss (mL): 50 Fluids Replaced: crystalloid Description of Procedure: Patient was prepped and draped in a normal sterile fashion under MAC anesthesia. A weighted speculum was placed in the vagina and the anterior lip of the cervix was grasped with a single-tooth tenaculum. A paracervical block was placed with 1% lidocaine. Cervix was progressively dilated to allow passage of a 5 mm hysteroscope. The lining was fully visualized and noted to have thickened lining with polyp at fundus . Uterine sounded to 8 cm. Using the symphion device, the polyp was progressively removed without complications. Direct visual curettage was performed using the device , and all specimens were sent to pathology. floseal placed inside the uterus after to aid in additional hemostasis All instruments were removed from the vagina and excellent hemostasis was noted. Patient was awoken and taken to recovery in stable condition. Grafts/Implants Used: none Complications none Admit VTE Documentation VTE Present on Admission: No VTE Mechan Device Prophylaxis: SCD's Multi Select Codes Urinary/Genital Urinary/Genital CPT Codes: 78651 Hysteroscopy,EMC, Polypectomy
--- NOTE | 2022-11-27 14:59 | DCINST_ITS ---
Discharge Instructions Diet Discharge Diet: No restrictions Activity Discharge Activity: Return to Normal Activity, May Shower and May Take a Tub Bath (after 1 week) May resume sexual activity in: 1-2 weeks Weight Bearing Status: Weight bearing as tolerated Lifting Restrictions: none Dressing / Incision Call your doctor if you observe: Fever of 101 or Higher, Using more than 1 pad per hour, Shortness of breath and Uncontrolled pain Follow Up Care Please Follow Up With: Agustina Roberts MD When: Call [phone] to schedule appointment. Test Results: Test results from this visit will be discussed in further detail at your follow- up appointment, if applicable. Discharge Plan Admission Attending Provider: Agustina Roberts Primary Care Provider: Tung Angulo Discharge Orders/Prescriptions Prescriptions: No Action labetalol 200 mg tablet 200 mg PO BID famotidine [Pepcid] 40 mg tablet 40 mg PO BID PRN (Reason: acid reflux) lorazepam [Ativan] 0.5 mg tablet 0.5 mg PO QD-BID PRN (Reason: anxiety) Qty: 30 0RF levothyroxine 100 mcg tablet 150 mcg PO DAILY multivitamin Tablet 1 tab PO DAILY meloxicam 15 mg tablet 15 mg PO DAILY dicyclomine 20 mg tablet 20 mg PO TID PRN (Reason: abdominal discomfort) Qty: 20 0RF levothyroxine 75 mcg capsule 75 mcg PO .OTHER Rx Instructions: TAKE IN ADDITION WITH DAILY 150 MCG DOSE ON SATURDAY AND SATURDAY omeprazole 20 mg capsule,delayed release(DR/EC) 40 mg PO BID fexofenadine [Anika Allergy] 180 mg tablet 180 mg PO DAILY Savella 50 mg tablet 50 mg PO BID Naltrex 4.5 mg capsule 8 mg PO BID bupropion HCl [Wellbutrin XL] 300 mg tablet extended release 24 hr 450 mg PO QAM ferrous sulfate [Feosol] 325 mg (65 mg iron) tablet 975 mg PO DAILY norethindrone acetate [Aygestin] 5 mg tablet 5 mg PO DAILY Qty: 45 0RF Rx Instructions: take bid until bleeding stops for at least 3 days then take once daily until gone. Referrals / Follow Up: Tung Angulo DO [Primary Care Provider] - Disposition Disposition (needs filled in before D/C Order can be placed): Home, Self Care
--- NOTE | 2022-11-27 15:25 | EMB_PTH ---
PATIENT: DEREK MARIN LOC: [facility] [place] U#:[id number] AGE/SX: 37/F ROOM: RE11/27/[address]: Dr. Agustina Roberts MD : [id number] BED: DIS: 11/27/2022 SPEC #: [id number] RECD: 11/27/22 16:31 STATUS: [facility]OR #: [id number] [place]: 11/27/22 15:[address]: Agustina Roberts DEPT: SURGICAL PATHOLOGY RECD BY: Traci Kan ENTERED: 11/28/22 09:40 SP TYPE: ENDOM BX/C OTHR DR: Dr. Tung Angulo DO Tissues: Endometrium, NOS Procedures: Surgery Specimen Level IV HEADER OPERATION: Hysteroscopy, D & C Symphion, polypectomy PRE-OP DIAGNOSIS: Abnormal uterine bleeding, endometrial hyperplasia TISSUE SUBMITTED: Endometrial curettings with polyp MICROSCOPIC DIAGNOSIS Endometrial curettings and polyp, biopsy: Polypoid fragments of transition endometrium. Chronic endometritis. Rare fragments of benign superficial endocervix. Benign fragments of myometrial tissue. AM:frances 11/29/2022 MICROSCOPIC DESCRIPTION Slides are reviewed. GROSS DESCRIPTION Received in fixative is one container labeled with the patient's name and designated endometrial curettings. The specimen consists of multiple irregular fragments of hicks soft tissue that in aggregate measure 3.0 x 2.5 x 0.3 cm. The specimen is totally submitted in one cassette. / SJ:frances 11/28/2022 TC:3 CPT: 04231
[2022-11-27] MEDS: Lidocaine 1% (20 ml mdv) 20 ML Vial (15:41)
[2022-11-27 16:46] LABS: Vitamin B12 649 pg/mL (211-911)
[2022-11-27] MEDS: Oxycodone/Apap 5/325 Tablet PO (16:57)
[2022-11-27 17:23] LABS: Ferritin 551 ng/mL (8-252); Iron 52 ug/dL (50-170); Iron Binding Capacity,Total 325 ug/dL (250-450)
== END 2022-11-27 17:55 | disposition home or self-care (01) ==
LOC: SDC 13:53 → AC 13:53
PROVIDERS: PCP Preventive Medicine Occupational Medicine; Referring Provider Obstetrics & Gynecology; Visit Provider Obstetrics & Gynecology
PROC: 0UDB8ZZ Extraction of Endometrium, Via Natural or Artificial Opening Endoscopic (ICD-10-PCS; CPT 58558; principal; 2022-11-27 15:15)
DX: N85.00 Endometrial hyperplasia, unspecified (principal); N93.9 Abnormal uterine and vaginal bleeding, unspecified; D64.9 Anemia, unspecified; I10 Essential (primary) hypertension; E03.9 Hypothyroidism, unspecified; K21.9 Gastro-esophageal reflux disease without esophagitis; Z79.890 Hormone replacement therapy; Z79.899 Other long term (current) drug therapy
CPT/HCPCS: 58558; 00952; 81025; 82607; 82728; 82746; 83540; 83550; 86850; 86900; 86901; 88305; J7120; J2405

== ENCOUNTER → 2023-02-09 | Outpatient (CLI) | payer BC, SELFPAY ==
--- NOTE | 2023-02-09 09:00 | MRI_ITS ---
INDICATION: CALCANEAL NAVICULAR COALITION, SEVERE PAIN IN LEFT FOOT TOP AND SIDE X2YRS, SHARP, THROBBING, BURNING, PREV SX 2011 EXAMINATION: MRI - LEFT MR LE Non Joint W/O Contrast TECHNIQUE: Multiplanar and multisequence MR images of the ankle. IV Contrast Dosage and Agent: None. COMPARISON: None. FINDINGS: BONE: Edema proximal second and third metatarsals consistent with stress fracture less likely bone contusion. JOINT: Articular cartilage intact. Small first MTP joint effusion. Superior medial to the articulation of the navicula with the medial cuneiform there is a fluid collection visualized. This likely represents fluid within the synovial recess or synovial cyst 2.57 cm AP by 1.06 cm craniocaudal by 1.65 cm transverse. LIGAMENTS: The syndesmotic ligaments, lateral collateral ligaments, and medial collateral ligaments are intact. TENDONS: The peroneal tendons, flexor tendons, and extensor tendons are intact. Achilles tendon intact. MUSCLES: Normal bulk and signal. MISCELLANEOUS: Plantar fascia intact. Normal fat in the sinus tarsi. OTHER SOFT TISSUES: Unremarkable. MRI/Lower Ext/No Jt/w/o IMPRESSION: Small first MTP joint effusion. Fluid collection extending superior medially from the articulation of the navicular with the medial cuneiform. This could represent fluid and synovial recess or could represent synovial cyst. Marrow edema base of the second and third metatarsals suspicious for stress fracture. Electronically Signed: Farhat Tony MD at 15:10 EDT ,
--- NOTE | 2023-02-09 09:00 | MRI_ITS ---
INDICATION: SUBTALAR OA, SEVERE PAIN IN LEFT FOOT- TOP AND SIDE X2YRS, SHARP, THROBBING AND BURNING, SURGERY 2011 EXAMINATION: MRI - LEFT MR LE Joint W/O Contrast TECHNIQUE: Multiplanar and multisequence MR images of the ankle. IV Contrast Dosage and Agent: None. COMPARISON: None. FINDINGS: BONE: Talar dome intact. The proximal second metatarsal demonstrates moderate marrow edema. This could represent bone contusion or stress fracture.. No osteochondral lesion. JOINT: Minimal osteoarthritis tibiotalar and subtalar joints. LIGAMENTS: The syndesmotic ligaments, lateral collateral ligaments, and medial collateral ligaments are intact. TENDONS: The distal tibialis posterior demonstrates thickening with intermediate signal intensity on T1-weighted imaging consistent with tendinopathy. The distal flexor digitorum and flexor hallucis tendons are intact. Achilles tendon intact. Mild retrocalcaneal bursitis. The peroneal tendons, and extensor tendons are intact. MUSCLES: Normal bulk and signal. MISCELLANEOUS: Plantar fascia mild proximal plantar fasciitis. Normal fat in the sinus tarsi. OTHER SOFT TISSUES: Unremarkable. MRI/Lower Ext Joint Only (Routine) IMPRESSION: Marrow edema base of second metatarsal which could represent stress fracture or bone contusion. Minimal osteoarthritis tibiotalar and subtalar joints. Tendinopathy of the distal the os posterior. Mild retrocalcaneal bursitis. Proximal plantar fascia height''s. Electronically Signed: Farhat Tony MD at 14:42 EDT ,
== END | disposition home or self-care (01) ==
LOC: MRI 08:59
PROVIDERS: PCP Preventive Medicine Occupational Medicine; Referring Provider Podiatrist Foot & Ankle Surgery; Visit Provider Podiatrist Foot & Ankle Surgery
DX: M89.8X7 Other specified disorders of bone, ankle and foot (principal); M19.072 Primary osteoarthritis, left ankle and foot
CPT/HCPCS: 73718; 73721

== ENCOUNTER → 2023-04-12 | Outpatient (CLI) | payer BC, SELFPAY ==
--- NOTE | 2023-04-12 14:48 | CT_ITS ---
INDICATION: Primary osteoarthritis left foot EXAMINATION: CT Lower Extremity W/O Contrast Injection - Left Foot TECHNIQUE: Helically acquired images were obtained of the left foot. 2D reformatted images were reviewed. A radiation dose optimization technique was used for this scan. IV Contrast dosage and agent: None. COMPARISON: MRI of left foot from 02/09/2023 FINDINGS: There is mild degenerative spurring dorsum of cuneiforms. Small 1 cm fluid collection abutting dorsal articulation of navicular bone and medial cuneiform. Degenerative joint space narrowing and subchondral cysts involving proximal articulation of 2nd and 3rd metatarsal bones. No acute fracture, dislocation or subluxation. Plantar fascial scarring and punctate chronic appearing soft tissue calcification. Small posterior and plantar calcaneal enthesophytes. CT/Extremity Lower without Contra IMPRESSION: 1. Osteoarthritic changes midfoot most prominent at proximal articulation of 2nd and 3rd metatarsal bones. 2. Small synovial fluid collection at navicular cuneiform articulation. 3. Calcaneal spurring with plantar fascial scarring and chronic punctate calcification. Electronically Signed: Farhat Manzano MD at 2:32 EST ,
== END | disposition home or self-care (01) ==
LOC: CT 14:44
PROVIDERS: PCP Preventive Medicine Occupational Medicine; Referring Provider Podiatrist Foot & Ankle Surgery; Visit Provider Podiatrist Foot & Ankle Surgery
DX: M79.672 Pain in left foot (principal); M19.072 Primary osteoarthritis, left ankle and foot; Q66.89 Other specified congenital deformities of feet
CPT/HCPCS: 73700

== ENCOUNTER → 2023-04-23 | Outpatient (CLI) | payer BC, SELFPAY ==
[2023-04-23 08:10] LABS: Hematocrit 36.9 % (37-47); Mean Corp Hgb Conc 32.5 g/dL (32-36); Mean Corpuscular Hgb 30.5 pg (27.0-32.0); Mean Corpuscular Volume 93.9 fL (81-99); Mean Platelet Vol. 10.1 fl (6.2-12.0); Platelet Count 292 K/mm3 (150-450); RBC Distribution Width CV 12.4 % (11.6-14.6); RBC Distribution Width SD 43.2 fl (35.1-43.9); Red Blood Count 3.93 M/mm3 (4.2-5.4); White Blood Count 9.8 K/mm3 (4.4-11.0)
[2023-04-23 08:51] LABS: AST(SGOT) 15 U/L (15-37); Alanine Aminotransfer ALT/SGPT 26 U/L (13-56); Albumin, Serum 3.4 g/dL (3.2-5.0); Alkaline Phosphatase 59 U/L (45-117); Free T3 2.7 pg/mL (2.18-3.98); Globulin 3.2 g/dL (2.2-4.2); Protein, Total 6.6 g/dL (6.4-8.2); T4 Free Direct 1.15 ng/dL (0.76-1.46); Thyroid Stim Hormone (TSH) 0.93 uIU/mL (0.358-3.74)
--- OUTSIDE RECORDS SUMMARY | 2023-04-24 19:23 | XMS RPT_ITS | CCD ---
Author Name Unknown Address [id number] [place] [address] Organization [facility] Care Team Providers [employer] Producer Name Role Phone AISHA PAT Unavailable Unavailable SHARONDA ANGULO Unavailable Unavailable ADILIA, AISHA Unavailable Unavailable RACHEL RÍOS Unavailable Unavailable CHANDRAKANT BANGURA Unavailable Unavailable PAT, AISHA Unavailable Unavailable PAT, AISHA Unavailable Unavailable BRAXTON KILPATRICK Unavailable UnavailJAIME Coleman Unavailable Unavailable PAT, AISHA Unavailable Unavailable SANDRO DOMINGUEZ Unavailable Unavailable PAT, AISHA Unavailable Unavailable JAUN LIU Referring Unavailnahum VOGEL PRIMARY CAREMD Primary Care Unavailable AISHA CHRISTIANSON Attending Unavailable Unavailable Primary Care Provider UnavailYARELI Jones Attending Unavailable SHARONDA ANGULO Primary Care Unavailable Sharonda Angulo DO Primary Care Provider Sharonda Angulo Unavailable Unavailable Unavailable PROVIDER, UNKNOWN Admitting Unavailable PROVIDER, UNKNOWN Attending Unavailable PATIENT, SELF Referring Unavailable Sharonda Angulo DO Primary Care Provider [phone] Marcella Galicia MD Unavailable Unavailable Unavailable Marcella Galicia MD Unavailable Sharonda Angulo DO Primary Care Provider ITZ BHATTI Attending Unavailable SHARONDA ANGULO Primary Care Unavailable DO AXEL COREY Attending Unavailable Dr. Sharonda Angulo Primary Care Unavailable Dr. Sharonda Angulo Referring Unavailable DO AXEL COREY Attending Unavailable Dr. Sharonda Angulo Primary Care Unavailable Dr. Sharonda Angulo Referring Unavailable Dr. Sharonda Angulo Primary Care Unavailable Axel Corey Referring Unavailable Axel Corey Attending Unavailable Sharonda Angulo MD Primary Care Provider AXEL COREY Attending Unavailable SHARONDA ANGULO Primary Care Unavailable Allergies Allergy Classification Reported Allergen(s) Allergy Type Date of Onset Reaction(s) Facility Corticosteroids (3 sources) prednisoLONE; Translations: [PREDNISOLONE] Drug Allergy Unknown [facility] (4 sources) Environmental allergy; Translations: [ENVIRONMENTAL] Propensity to adverse reactions (disorder) 05-23-19 07 [facility] (10 sources) predniSONE; Translations: [PREDNISONE] Drug Allergy 03-12-20 Other: See Comments, Unknown [facility] (1 source) prednisoLONE Drug Allergy Unknown [facility] (1 source) environmental [Other] Propensity to adverse reactions 05-23-19 [facility] Work Phone: (1 source) OTHER; Translations: [OTHER] Propensity to adverse reactions (disorder) 05-23-[address] [place] [address] Repository Medications Current Medications Medication Drug Class(es) Dates Sig (Normalized) Sig (Original) Acetaminophen (3 sources) ACETAMINOPHEN OR AL Take by mouth . 0 Active acetaminophen 300 mg / codeine phosphate 30 mg oral tablet (4 sources) Opioid Agonist Start: 02-22-2021 take 1-2 tablets by mouth every six hours as needed acetaminophen-code ine (Tylenol w/ Codeine #3) 300-30 mg tablet Take 1-2 tablets by mouth every 6 hours if needed. 0 02/22/2021 Active atropine sulfate 0.025 mg / diphenoxylate hydrochloride 2.5 mg oral tablet (4 sources) Anticholinergic, Cholinergic Muscarinic Antagonist, Antidiarrheal take 1 tablet by mouth four times daily as needed for diarrhea diphenoxylate-atro pine (LomotiL) 2.5-0.025 mg tablet Take 1 tablet by mouth 4 times a day as needed for diarrhea. 0 Active 24 hr buPROPion hydrochloride 450 mg extended release oral tablet (17 sources) Aminoketone Start: 02-11-2023 buPROPion XL (Forfivo XL) 450 mg 24 hr tablet Completed/Discontinued Medications Medication Drug Class(es) Dates Sig (Normalized) Sig (Original) amoxicillin 875 mg / clavulanate 125 mg oral tablet (3 sources) Penicillin-class Antibacterial Start: 10-21-2020 take 1 tablet by mouth every twelve hours Amoxicillin-Pot Clavulanate 875-125 MG Oral Tablet take 1 tablet by mouth every 12 hours Quantity: 14 Refills: 0 Ordered: 21-Oct-2020 DO Start : 21-Oct-2020 Complete Bupivacaine (4 sources) Amide Local Anesthetic Start: 12-12-2021 End: 12-12-2021 bupivacaine HCl (MARCAINE) 0.5 % (5 mg/mL) injection 1 mL Problems Active Problems Problem Classification Problem Date Documented Da te Episodic/Chronic Abdominal pain (4 sources) Indigestion; Translations: [Dyspepsia and other specified disorders of function of stomach] Onset: 03-07-2023 Episodic Anxiety disorders (5 sources) Anxiety; Translations: [Anxiety state, unspecified] Chronic Biliary tract disease (8 sources) Cholangiectasis; Translations: [Other specified disorders of biliary tract] Onset: 09-03-2022 Chronic Essential hypertension (6 sources) Hypertensive disorder; Translations: [Essential (primary) hypertension] Onset: 02-14-2021 10-16-2020 Chronic Female infertility (4 sources) Anovulation; Translations: [Female infertility associated with anovulation] Onset: 12-05-2011 02-14-2021 Chronic Gastritis and duodenitis (3 sources) Bile-induced gastritis; Translations: [Other specified gastritis, without mention of hemorrhage] Onset: 03-07-2023 03-07-2023 Episodic Headache; including migraine (10 sources) Refractory migraine without aura; Translations: [Chronic migraine without aura, with intractable migraine, so stated, with status migrainosus] Onset: 03-11-2007 02-14-2021 Chronic Mood disorders (6 sources) Reactive depression (situational); Translations: [Dysthymic disorder] Onset: 03-07-2023 03-07-2023 Chronic Nausea and vomiting (5 sources) Nausea; Translations: [Nausea alone] Episodic Osteoarthritis (9 sources) Arthritis; Translations: [Unspecified osteoarthritis, unspecified site] Onset: 02-14-2021 Chronic Other circulatory disease (5 sources) History of cerebrovascular accident; Translations: [Personal history of transient ischemic attack (TIA), and cerebral infarction without residual deficits] Episodic Other connective tissue disease (2 sources) Pain in left foot; Translations: [Pain in left foot] Episodic Other connective tissue disease (5 sources) H/O: arthritis; Translations: [Personal history of arthritis] Episodic Other endocrine disorders (8 sources) Polycystic ovary syndrome; Translations: [Polycystic ovarian syndrome] Onset: 12-05-2011 Chronic Other gastrointestinal disorders (4 sources) Irritable bowel syndrome; Translations: [Irritable bowel syndrome without diarrhea] Onset: 01-04-2007 02-14-2021 Chronic Other gastrointestinal disorders (1 source) Diarrhea; Translations: [Diarrhea, unspecified] Episodic Other nutritional; endocrine; and metabolic disorders (5 sources) H/O: thyroid disorder; Translations: [Personal history of other endocrine, metabolic, and immunity disorders] Episodic Other screening for suspected conditions (not mental disorders or infectious disease) (1 source) Ultrasonography of abdomen abnormal; Translations: [Abnormal findings on diagnostic imaging of other abdominal regions, including retroperitoneum] Episodic Other upper respiratory disease (4 sources) Allergic rhinitis; Translations: [Allergic rhinitis, unspecified] Onset: 11-26-2006 02-14-2021 Chronic Screening and history of mental health and substance abuse codes (5 sources) H/O: depression; Translations: [Personal history of other mental disorders] Episodic Thyroid disorders (4 sources) Acquired hypothyroidism; Translations: [Hypothyroidism, unspecified] Onset: 10-10-2015 02-14-2021 Chronic Past or Other Problems Problem Classification Problem Date Documented Date Episodic/Chronic Cancer of cervix (4 sources) Low grade squamous intraepithelial lesion on cervical Papanicolaou smear; Translations: [Low grade squamous intraepithelial lesion on cytologic smear of cervix (LGSIL)] Onset: 10-28-2015 02-14-2021 Episodic Deficiency and other anemia (6 sources) Anemia; Translations: [Anemia, unspecified] Onset: 02-14-2021 10-16-2020 Episodic Headache; including migraine (6 sources) Headache; Translations: [Headache] Onset: 02-14-2021 10-16-2020 Episodic Spondylosis; intervertebral disc disorders; other back problems (17 sources) Back problem; Translations: [Dorsopathy, unspecified] Onset: 02-14-2021 Episodic Thyroid disorders (7 sources) Disorder of thyroid gland; Translations: [Disorder of thyroid, unspecified] Onset: 02-14-2021 Episodic Varicose veins of lower extremity (6 sources) Varicose veins of lower extremity; Translations: [Asymptomatic varicose veins of unspecified lower extremity] Onset: 02-14-2021 10-16-2020 Episodic Results Test Name Value Interpretation Reference Range Facil ity Vital Signs Date Time Vital Sign Value Performing Clinician Facility 03-07-2023 14:04-0500 Body mass index (BMI) [Ratio] 41.97 kg/m2 Axel Corey DO Work Phone: [facility] 03-07-2023 14:04-0500 Body weight 121.56 kg Axel Corey DO Work Phone: [facility] 03-07-2023 14:04-0500 Diastolic blood pressure 80 mm[Hg] Axel Corey DO Work Phone: [facility] 03-07-2023 14:04-0500 Systolic blood pressure 136 mm[Hg] Axel Corey DO Work Phone: [facility] 08-27-2022 13:47-0400 Body height 170.18 cm Sharonda Angulo Work Phone: [facility] Work Phone: 08-27-2022 13:47-0400 Body mass index (BMI) [Ratio] 44.25 kg/m2 Sharonda Clementey Work Phone: [facility] Work Phone: 08-27-2022 13:47-0400 Body surface area Derived from formula 2.34 m2 Sharonda Clementey Work Phone: [facility] Work Phone: 08-27-2022 13:47-0400 Body weight 128.14 kg Sharonda Aldanasay Work Phone: [facility] Work Phone: 08-20-2022 14:14-0400 Body height 170.2 cm Itz Bhatti MD Work Phone: [facility] 08-20-2022 14:14-0400 Body temperature 97.81 [degF] Itz Bhatti MD Work Phone: [facility] 08-20-2022 14:14-0400 Body weight 129.37 kg Itz Bhatti MD Work Phone: [facility] 08-20-2022 14:14-0400 Diastolic blood pressure 84 mm[Hg] Itz Bhatti MD Work Phone: [facility] 08-20-2022 14:14-0400 Heart rate 95 /min Itz Bhatti MD Work Phone: [facility] 08-20-2022 14:14-0400 SaO2% (BldA) [Mass fraction] 97 % Itz Bhatti MD Work Phone: [facility] 08-20-2022 14:14-0400 Systolic blood pressure 138 mm[Hg] Itz Bhatti MD Work Phone: [facility] 06-18-2022 09:43-0500 Body height 170.18 cm Sharonda Angulo Work Phone: [facility] Work Phone: 06-18-2022 09:43-0500 Body mass index (BMI) [Ratio] 43.85 kg/m2 Sharonda Angulo Work Phone: [facility] Work Phone: 06-18-2022 09:43-0500 Body surface area Derived from formula 2.33 m2 Sharonda Angulo Work Phone: [facility] Work Phone: 06-18-2022 09:43-0500 Body weight 127.01 kg Sharonda Clementey Work Phone: [facility] Work Phone: 06-18-2022 09:43-0500 Diastolic blood pressure 70 mm[Hg] Sharonda Angulo Work Phone: [facility] Work Phone: 06-18-2022 09:43-0500 Systolic blood pressure 130 mm[Hg] Sharonda Angulo Work Phone: [facility] Work Phone: 12-12-2021 08:52-0400 Body temperature 98.2 [degF] Yareli Houck DPM Work Phone: [facility] 12-12-2021 08:52-0400 Diastolic blood pressure 74 mm[Hg] Yareli Houck DPM Work Phone: [facility] 12-12-2021 08:52-0400 Heart rate 82 /min Yareli Houck DPM Work Phone: [facility] 12-12-2021 08:52-0400 Systolic blood pressure 110 mm[Hg] Yareli Houck DPM Work Phone: [facility] 02-22-2021 11:27-0400 Body temperature 96.4 [degF] Sharonda Angulo Work Phone: [facility] DO Work Phone: 02-22-2021 11:27-0400 Diastolic blood pressure 94 mm[Hg] Sharonda Angulo Work Phone: [facility] DO Work Phone: 02-22-2021 11:27-0400 Heart rate 88 /min Sharonda Angulo Work Phone: [facility] DO Work Phone: 02-22-2021 11:27-0400 Respiratory rate 16 /min Sharonda Angulo Work Phone: [facility] DO Work Phone: 02-22-2021 11:27-0400 Systolic blood pressure 160 mm[Hg] Sharonda Angulo Work Phone: [facility] DO Work Phone: 10-24-2020 08:40-0400 Body height 170.2 cm Yareli Houck DPM Work Phone: [facility] 10-24-2020 08:40-0400 Body mass index (BMI) [Ratio] 43.07 kg/m2 Yareli Houck DPM Work Phone: [facility] 10-24-2020 08:40-0400 Body temperature 97 [degF] Yareli Houck DPM Work Phone: [facility] 10-24-2020 08:40-0400 Body weight 124.74 kg Yareli Houck DPM Work Phone: [facility] 10-24-2020 08:40-0400 Diastolic blood pressure 101 mm[Hg] Yareli Corie DPM Work Phone: [facility] 10-24-2020 08:40-0400 Heart rate 104 /min Yareli Houck DPM Work Phone: [facility] 10-24-2020 08:40-0400 Systolic blood pressure 159 mm[Hg] Yareli Houck DPM Work Phone: [facility] 07-25-2020 15:24-0400 Body height 170.2 cm Yareli Houck DPM Work Phone: [facility] 07-25-2020 15:24-0400 Body mass index (BMI) [Ratio] 43.07 kg/m2 Yareli Houck DPM Work Phone: [facility] 07-25-2020 15:24-0400 Body weight 124.74 kg Yareli Houck DPM Work Phone: [facility] 01-25-2020 15:25-0400 Diastolic blood pressure 86 mm[Hg] Yareli Houck DPM Work Phone: [facility] 01-25-2020 15:25-0400 Systolic blood pressure 141 mm[Hg] Yareli Corie DPM Work Phone: [facility] Encounters Encounter Date Encounter Type Care Provider Facility Start: 04-14-2023 Letter encounter Marcella goldberg MD Work Phone: [facility] Start: 03-07-2023 End: 03-07-2023 ambulatory AXEL Pringle WARDADOLFO [facility] Start: 03-07-2023 End: 03-07-2023 Office outpatient visit 25 minutes Axel Corey DO Work Phone: [facility] Procedures Date Procedure Procedure Detail Performing Clinician Cholecystectomy Sharonda allen Work Phone: Plan of Treatment Date Care Activity Detail Author Start: 10-01-2033 Shingles (RZV) Vacci ne (1 of 2) Shingles (RZV) Vaccine (1 of 2) [facility] Start: 10-01-2033 Zoster Vaccines (1 of 2) Zoste r Vaccines (1 of 2) [facility] Start: 07-29-2028 DTaP/Tdap/Td Vaccine s (3 - Td or Tdap) DTaP/Tdap/Td Vaccines (3 - Td or Tdap) [facility] Start: 07-29-2028 Tetanus vaccination [facility] Start: 03-07-2023 End: 03-07-2024 CBC panel - Blood by Automated count CBC Lab Routine Dilated bile duct Expected: 03/07/2023 (Approximate), Expires: 03/07/2024 [facility] Work Phone: Immunizations Immunization Date Immunization Notes Care Provider Fa cility 07-29-2018 diphtheria, tetanus toxoids and acellular pertussis vaccine, unspecified formulation Marcella Galicia MD Work Phone: [facility] 07-29-2018 tetanus toxoid, redu ozzie diphtheria toxoid, and acellular pertussis vaccine, adsorbed Marcella Galicia MD Work Phone: [facility] 04-29-2000 diphtheria and tetan us toxoids, adsorbed for pediatric use Marcella Galicia MD Work Phone: [facility] Payers Date Payer Category Payer Unknown [id number] 2018 Unknown [employer] AGUSTIN/PRAMOD/HMO/PPO [id number] 2018-Present [id number] 2018 Unknown 2016 Unknown [id number] 1983 Unknown [id number] 1983 Unknown [id number] 1983 Unknown [id number] 1983 Unknown [id number] 1983 Unknown [id number] 1983 Unknown [id number] 1983 Unknown [id number] Social History Date Type Detail Facility Start: 10-16-2020 End: 02-14-2021 Tobacco smoking status WAIS Never smoker [facility] Start: 10-16-2020 End: 03-07-2023 Alcohol intake Lifetime non-drinker (finding) [facility] Start: 1985 [facility] Start: 10-24-2020 End: 02-14-2021 Tobacco use and exposure Never used [facility] Start: 12-01-2021 End: 03-07-2023 Exposure to SARS-CoV-2 (event) Not sure [facility] Start: 03-07-2023 No alcohol use No alcohol use Darian Santiago 170 DO Work Phone: Start: 04-24-2023 Alcohol intake Current drinke r of alcohol (finding) [facility] Start: 1985 Sex Assigned At Female C [facility] Start: 03-07-2023 Tobacco use panel [facility] Work Phone: Clinical Notes 10-24-2020 to 03-07-2023 Citlalli Enriquez LPN - 03/07/2023 1:45 PM Lynnette Corey DO - 03/07/2023 1:45 PM Dora Bhatti MD - 08/20/2022 2:35 PM Aleja Hutton LPN - 08/20/2022 2:21 PM EDT Note Date & Type Note Facility 03-07-2023 History of Present illness Narrative foll Subjective Patient ID: Larisa Guardado is a 37 y.o. female who presents for Follow-up (6 MO FUV). HPI Larisa is seen today in follow-up. Continues to have intermittent right upper quadrant pain reminiscent of gallstones. Patient did have remote cholecystectomy appendectomy 1996 did have gallstones and ERCP with stent in 2010 for choledocholithiasis. She admits she continues to have intermittent pain in her right upper quadrant feels crampy radiates to her right shoulder cannot identify no particular food trigger. We reviewed her MRI that was done back in September revealing smooth tapering to the distal common bile duct. Common bile duct itself is markedly dilated. 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 She was unable to have lab work done with last episode to track transaminases. We discussed therapeutic sphincterotomy and ERCP at this time she is considering it. Would prefer to have done in [place]. I did contact [facility], they do not perform ERCP at this time. Recommend [place] or [place]. Review of Systems Constitutional: Negative. HENT: Negative. Eyes: Negative. Respiratory: Negative. Cardiovascular: Negative. Endocrine: Negative. Genitourinary: Negative. Neurological: Negative. Hematological: Negative. Objective Physical Exam Vitals and nursing note reviewed. Constitutional: Appearance: Normal appearance. HENT: Head: Normocephalic. Mouth/Throat: Mouth: Mucous membranes are moist. Pharynx: Oropharynx is clear. Eyes: Conjunctiva/sclera: Conjunctivae normal. Pupils: Pupils are equal, round, and reactive to light. Cardiovascular: Pulses: Normal pulses. Heart sounds: Normal heart sounds. Pulmonary: Effort: Pulmonary effort is normal. Breath sounds: Normal breath sounds. Abdominal: General: Abdomen is flat. Bowel sounds are normal. Palpations: Abdomen is soft. Musculoskeletal: Cervical back: Normal range of motion and neck supple. Skin: General: Skin is warm and dry. Neurological: General: No focal deficit present. Mental Status: She is alert and oriented to person, place, and time. Psychiatric: Behavior: Behavior normal. 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 Author Type: Physician Type: Progress Notes Filed: 08/20/2022 2:45 PM Note Text: HISTORY AND PHYSICAL Larisa Guardado 1985 REFERRING PHYSICIAN: Sharonda Angulo DO CHIEF COMPLAINT: Consult (Abdominal pain) HPI: The patient is a 36 year old female with a complaint of Abnormal ultrasound of abdomen (primary encounter diagnosis) Diarrhea, unspecified type Epigastric pain . Patient was seen in [facility] emergency department on 08/02/2022. She was having epigastric abdominal pain and diarrhea. Stated that the pain radiated down to her umbilicus and went through her to her back. She had multiple episodes of her profuse diarrhea associated with this. And she had 1 episode of vomiting. Patient states that she had a cholecystectomy at age 9 and then had recurrent choledocholithiasis at age 23. She had an ERCP with a sphincterotomy and stent placement. She has had chronic indigestion since that time taking Prilosec 20 mg twice daily and Pepcid as needed for breakthrough heartburn. Actually saw her network project manager in May of this year with similar complaints. The patient is being seen by me today at the request of Dr. Sharonda Angulo DO for my opinion and advice regarding Abnormal ultrasound of abdomen (primary encounter diagnosis) Diarrhea, unspecified type Epigastric pain. PAST MEDICAL HISTORY Diagnosis Date Abdominal pain, unspecified site Abnormal glandular Papanicolaou smear of cervix Abn. Pap smear (cervix) Enteritis due to Hawthorne virus 08/25/06 Esophageal reflux Gastroesophageal reflux PMH - PAST MEDICAL HISTORY OF HEAVY LONG PERIODS Tachycardia - pulse PAST SURGICAL HISTORY Procedure Laterality Date CHOLECYSTECTOMY 1995 Cholecystectomy COLPOSCOPY CERVIX UPPER/ADJACENT VAGINA 08/09/2006 Colposcopy COLPOSCOPY CERVIX UPPER/ADJACENT VAGINA 10/22/2007 Colposcopy ERCP 03/2011, 05/2011 x 2 - [facility], ERUPTED TOOTH OR EXPOSED ROOT (ELEVATION AND/OR FORCEPS REMOVAL) wisdom teeth x 3 FASCIECTOMY PLANTAR FASCIA; RADICAL 08/31/2011 PAST SURGICAL HISTORY OF sinus surgery PAST SURGICAL HISTORY OF 12/2011 ovarian drilling for PCOS - Dr Hector Alcaraz Current Outpatient Medications Medication Sig fexofenadine (PAZ) 180 mg tablet Take 180 mg by mouth once daily. buPROPion SR (ZYBAN SR; WELLBUTRIN SR) 150 mg 12 hr tablet Take 450 mg by mouth once daily. progesterone micronized (PROMETRIUM) 200 mg capsule Take 1 capsule by mouth daily at bedtime. letrozole (FEMARA) 2.5 mg tablet Take 2 tablets by mouth once daily. letrozole (FEMARA) 2.5 mg tablet Take 2 tablets by mouth once daily for 5 days. doxycycline (VIBRA-TABS) 100 mg tablet Take as directed estradiol (ESTRACE) 2 mg tablet Take 3 tablets (6mg) as directed famotidine (PEPCID) 40 mg tablet Take 40 mg by mouth twice daily. labetalol (TRANDATE) 100 mg tablet Take 100 mg by mouth once daily. labetalol (TRANDATE) 200 mg tablet Take 200 mg by mouth twice daily. LORazepam (ATIVAN) 0.5 mg tab Take 0.5 mg by mouth as needed. levothyroxine (SYNTHROID) 75 mcg tablet 100 mcg. Additional 1/2 tablet on 4x weekly naproxen-diphenhydramine 220-25 mg tab Take by mouth. loratadine (CLARITIN) 10 mg tablet Take 10 mg by mouth once daily. naratriptan (AMERGE) 2.5 mg tablet Take 2.5 mg by mouth as needed. 2.5 mg at onset of headache, may repeat in 4 hours if needed FERROUS SULFATE ORAL Take by mouth three times daily. vitamins/fe sulf/fa( MULTIVITAMIN WITH IRON 27 MG-0.8 MG TAB) Take one(1) tablet daily. No current facility-administered medications for this visit. ALLERGIES: Environmental [Other] and Prednisone PERSONAL HISTORY: Social History Tobacco Use Smoking status: Never Smokeless tobacco: Never Vaping Use Vaping Use: Never used Substance Use Topics Alcohol use: Yes Comment: rarely Drug use: No FAMILY HISTORY: FAMILY HISTORY Problem Relation Age of Onset Arthritis Mother other (Hypothyroidism) Mother Cancer Maternal Grandmother lung-SMOKER Colon Cancer Maternal Grandfather Diabetes Paternal Grandfather Heart Paternal Grandfather CHF Diabetes Sister Cervical Cancer Sister paternal cousin other (excessive menstruaton) Sister hysterectomy @ 24yrs of age REVIEW OF SYMPTOMS: The review of systems data was entered by the nurse and reviewed by mn Nursing Notes: Mariah Hutton LPN 08/20/2022 2:27 PM Signed REVIEW OF SYSTEMS: General: The patient NOTES fatigue, denies weight loss, NOTES weight gain, NOTES feeling hot, and NOTES feelings of cold. Eyes: The patient denies glaucoma, denies eye injury/surgery, wears glasses or contacts. Ear/Nose/Throat: The patient NOTES allergies, denies hayfever, denies ear infections, and denies bloody noses. Cardiovascular: The patient denies chest pain, denies heart disease, NOTES high blood pressure,denies cardiac sten (more content not included)... [facility] 08-20-2022 History of Present illness Narrative HISTORY AND PHYSICAL Larisa Guardado 1985 REFERRING PHYSICIAN: Sharonda Angulo DO CHIEF COMPLAINT: Consult (Abdominal pain) HPI: The patient is a 36 year old female with a complaint of Abnormal ultrasound of abdomen (primary encounter diagnosis) Diarrhea, unspecified type Epigastric pain . Patient was seen in [facility] emergency department on 08/02/2022. She was having epigastric abdominal pain and diarrhea. Stated that the pain radiated down to her umbilicus and went through her to her back. She had multiple episodes of her profuse diarrhea associated with this. And she had 1 episode of vomiting. Patient states that she had a cholecystectomy at age 9 and then had recurrent choledocholithiasis at age 23. She had an ERCP with a sphincterotomy and stent placement. She has had chronic indigestion since that time taking Prilosec 20 mg twice daily and Pepcid as needed for breakthrough heartburn. Actually saw her network project manager in May of this year with similar complaints. The patient is being seen by me today at the request of Dr. Sharonda Angulo DO for my opinion and advice regarding Abnormal ultrasound of abdomen (primary encounter diagnosis) Diarrhea, unspecified type Epigastric pain. PAST MEDICAL HISTORY Diagnosis Date Abdominal pain, unspecified site Abnormal glandular Papanicolaou smear of cervix Abn. Pap smear (cervix) Enteritis due to Hawthorne virus 08/25/06 Esophageal reflux Gastroesophageal reflux PMH - PAST MEDICAL HISTORY OF HEAVY LONG PERIODS Tachycardia - pulse PAST SURGICAL HISTORY Procedure Laterality Date CHOLECYSTECTOMY 1995 Cholecystectomy COLPOSCOPY CERVIX UPPER/ADJACENT VAGINA 08/09/2006 Colposcopy COLPOSCOPY CERVIX UPPER/ADJACENT VAGINA 10/22/2007 Colposcopy ERCP 03/2011, 05/2011 x 2 - [facility], ERUPTED TOOTH OR EXPOSED ROOT (ELEVATION AND/OR FORCEPS REMOVAL) wisdom teeth x 3 FASCIECTOMY PLANTAR FASCIA; RADICAL 08/31/2011 PAST SURGICAL HISTORY OF sinus surgery PAST SURGICAL HISTORY OF 12/2011 ovarian drilling for PCOS - Dr Hector Alcaraz Current Outpatient Medications Medication Sig fexofenadine (PAZ) 180 mg tablet Take 180 mg by mouth once daily. buPROPion SR (ZYBAN SR; WELLBUTRIN SR) 150 mg 12 hr tablet Take 450 mg by mouth once daily. progesterone micronized (PROMETRIUM) 200 mg capsule Take 1 capsule by mouth daily at bedtime. letrozole (FEMARA) 2.5 mg tablet Take 2 tablets by mouth once daily. letrozole (FEMARA) 2.5 mg tablet Take 2 tablets by mouth once daily for 5 days. doxycycline (VIBRA-TABS) 100 mg tablet Take as directed estradiol (ESTRACE) 2 mg tablet Take 3 tablets (6mg) as directed famotidine (PEPCID) 40 mg tablet Take 40 mg by mouth twice daily. labetalol (TRANDATE) 100 mg tablet Take 100 mg by mouth once daily. labetalol (TRANDATE) 200 mg tablet Take 200 mg by mouth twice daily. LORazepam (ATIVAN) 0.5 mg tab Take 0.5 mg by mouth as needed. levothyroxine (SYNTHROID) 75 mcg tablet 100 mcg. Additional 1/2 tablet on 4x weekly naproxen-diphenhydramine 220-25 mg tab Take by mouth. loratadine (CLARITIN) 10 mg tablet Take 10 mg by mouth once daily. naratriptan (AMERGE) 2.5 mg tablet Take 2.5 mg by mouth as needed. 2.5 mg at onset of headache, may repeat in 4 hours if needed FERROUS SULFATE ORAL Take by mouth three times daily. vitamins/fe sulf/fa( MULTIVITAMIN WITH IRON 27 MG-0.8 MG TAB) Take one(1) tablet daily. No current facility-administered medications for this visit. ALLERGIES: Environmental [Other] and Prednisone PERSONAL HISTORY: Social History Tobacco Use Smoking status: Never Smokeless tobacco: Never Vaping Use Vaping Use: Never used Substance Use Topics Alcohol use: Yes Comment: rarely Drug use: No FAMILY HISTORY: FAMILY HISTORY Problem Relation Age of Onset Arthritis Mother other (Hypothyroidism) Mother Cancer Maternal Grandmother lung-SMOKER Colon Cancer Maternal Grandfather Diabetes Paternal Grandfather Heart Paternal Grandfather CHF Diabetes Sister Cervical Cancer Sister paternal cousin other (excessive menstruaton) Sister hysterectomy @ 24yrs of age REVIEW OF SYMPTOMS: The review of systems data was entered by the nurse and reviewed by mn Nursing Notes: Mariah Hutton LPN 08/20/2022 2:27 PM Signed REVIEW OF SYSTEMS: General: The patient NOTES fatigue, denies weight loss, NOTES weight gain, NOTES feeling hot, and NOTES feelings of cold. Eyes: The patient denies glaucoma, denies eye injury/surgery, wears glasses or contacts. Ear/Nose/Throat: The patient NOTES allergies, denies hayfever, denies ear infections, and denies bloody noses. Cardiovascular: The patient denies chest pain, denies heart disease, NOTES high blood pressure,denies cardiac stent, denies prior heart attack, denies irregular heart beat, denies high cholesterol, denies poor circulation, denies heart failure, other cardiac issues, denies claudication, denies cold feet, denies peripheral arterial stent. Respiratory: The patient denies tuberculosis, denies pneumonia, denies frequent cough, denies pulmonary embolism, denies shortness of breath, and denies coughing up blood. Gastrointestinal: The patient denies difficulty swallowing, NOTES acid reflux, NOTES ulcers, denies vomiting, denies jaundice/hepatitis, NOTES gallbladder problems, denies black or tarry stools, denies hemorrhoids, denies bleeding from rectum, denies diverticulitis, denies constipation, NOTES diarrhea, denies loss of stool control, and denies hernias. Kidney/Bladder: The patient denies kidney stones, denies urine infections, and denies bloody urine. Skin: The patient denies a history of skin cancer, denies bleeding/changing moles, and denies a history of skin rash. Neurologic: The patient denies a history of epilepsy/convulsions, NOTES headaches, denies head/spinal injuries, and denies stroke/TIA. Psychiatric: The patient denies psychiatric medications, NOTES depression, and denies voices, denies substance abuse. Endocrine: The patient NOTES thyroid disorders, denies diabetes, and NOTES hormonal problems. Hematologic: The patient denies a history of bruising, denies bleeding, and denies anemia, denies blood clots. Infections: The patient denies a history of measles and mumps, denies rheumatic fever, and denies sexually transmitted diseases. Musculoskeletal: The patient NOTES back pain/injury, denies back problems, denies sciatica, NOTES knee/foot trouble, NOTES arthritis, or denies gout. When was patient's last Mammogram screening? N/A Last Colonoscopy: 01/2016 Mariah Hutton LPN PHYSICAL EXAMINATION: General: The patient is 36 year old female, well nourished, well hydrated in no acute distress. The patient is oriented to time, place, and person. VITALS: Blood pressure 138/84, pulse 95, temperature 36.6 C (97.8 F), height 170.2 cm (5' 7 ), weight 129.4 kg (285 lb 3.2 oz), last menstrual period 02/17/2021, SpO2 97 %. HEENT: Normal cephalic, ataumatic, pupils are equally round, sclera are anicteric, mucous membranes are moist, oropharynx is clear. Neck has no masses, asymmetry or lymphadenopathy. Thyroid is unremarkable. Respiratory: Clear to auscultation and percussion. Normal respiratory excursion and pattern. Cardiac: Examination is regular rate and rhythm. Abdominal exam: Soft, nontender, with no palpable masses. No hepatosplenomegaly. No palpable hernias. Rectal exam: exam deferred Extremities: no clubbing, cyanosis or edema. No adenopathy. Other: LABORATORY VALUES: As Noted RADIOLOGIC STUDIES: As Noted Assessment IMPRESSION: Abnormal ultrasound of abdomen (primary encounter diagnosis) Diarrhea, unspecified type Epigastric pain PLAN: At this point reviewing the data from the emergency department I do not think were missing an obvious blockage in her common bile duct. 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 I do not think there is anything surgical for me to do here at this time. Diagnoses: (R93.5) Abnormal ultrasound of abdomen (primary encounter diagnosis) (R19.7) Diarrhea, unspecified type (R10.13) Epigastric pain A letter was sent to Dr. Sharonda Angulo DO indicating the above finding for this patient. Return to Clinic: The patient is instructed to follow-up with me as needed. Itz Bhatti III, MD documented in this encounter [facility] 08-20-2022 Nurse Note REVIEW OF SYSTEMS: General: The patient NOTES fatigue, denies weight loss, NOTES weight gain, NOTES feeling hot, and NOTES feelings of cold. Eyes: The patient denies glaucoma, denies eye injury/surgery, wears glasses or contacts. Ear/Nose/Throat: The patient NOTES allergies, denies hayfever, denies ear infections, and denies bloody noses. Cardiovascular: The patient denies chest pain, denies heart disease, NOTES high blood pressure,denies cardiac stent, denies prior heart attack, denies irregular heart beat, denies high cholesterol, denies poor circulation, denies heart failure, other cardiac issues, denies claudication, denies cold feet, denies peripheral arterial stent. Respiratory: The patient denies tuberculosis, denies pneumonia, denies frequent cough, denies pulmonary embolism, denies shortness of breath, and denies coughing up blood. Gastrointestinal: The patient denies difficulty swallowing, NOTES acid reflux, NOTES ulcers, denies vomiting, denies jaundice/hepatitis, NOTES gallbladder problems, denies black or tarry stools, denies hemorrhoids, denies bleeding from rectum, denies diverticulitis, denies constipation, NOTES diarrhea, denies loss of stool control, and denies hernias. Kidney/Bladder: The patient denies kidney stones, denies urine infections, and denies bloody urine. Skin: The patient denies a history of skin cancer, denies bleeding/changing moles, and denies a history of skin rash. Neurologic: The patient denies a history of epilepsy/convulsions, NOTES headaches, denies head/spinal injuries, and denies stroke/TIA. Psychiatric: The patient denies psychiatric medications, NOTES depression, and denies voices, denies substance abuse. Endocrine: The patient NOTES thyroid disorders, denies diabetes, and NOTES hormonal problems. Hematologic: The patient denies a history of bruising, denies bleeding, and denies anemia, denies blood clots. Infections: The patient denies a history of measles and mumps, denies rheumatic fever, and denies sexually transmitted diseases. Musculoskeletal: The patient NOTES back pain/injury, denies back problems, denies sciatica, NOTES knee/foot trouble, NOTES arthritis, or denies gout. When was patient's last Mammogram screening? N/A Last Colonoscopy: 01/2016 Mariah Hutton LPN documented in this encounter [facility] 07-10-2022 History of Present illness Narrative Larisa is seen today in follow-up. Initially Carafate seem to help symptoms she was having less abdominal discomfort and no reflux. Several weeks ago developed severe epigastric pain beginning in her mid sternum radiating directly into her intrascapular region and around her gallbladder area. She became quite diaphoretic and dizzy with this then developed diarrhea followed by vomiting. She was taken that time to the ER where they diagnosed her with infectious gastroenteritis although no stool culture was done. She was told she had norovirus and went home on a soft diet for 3 days.She continues to feel epigastric discomfort which is not relieved by Carafate. An ultrasound her abdomen was done at that time revealing dilated common bile duct. She has had choledocholithiasis in the past which occurred 16 years after her cholecystectomy. She states these pains are similar in pattern to that event. [facility] [place] [address] Work Phone: 12-12-2021 History of Present illness Narrative Images from the original note were not included. Established Patient Visit Yareli Fontenot DPM Patient Name: Larisa Guardado. . Date of : 1985, 36 y.o.. Gender: female. Subjective: Patient is a pleasant 36-year-old female who presented to clinic for painful left foot pain at the dorsal aspect of the left foot. Patient received a steroid injection last year for arthritis of the tarsometatarsal joints. She states that the injection did help her. Patient states that she is going on vacation and would like another injection to help alleviate pain and discomfort with ambulation. No other pedal complaints at this time. Denies fevers, chills, nausea, vomiting, chest pain, shortness of breath, or any other constitutional symptoms. Physical Examination: BP 110/74 (BP Location: Left arm, Patient Position: Sitting, BP Cuff Size: Adult) Pulse 82 Temp 98.2 F (36.8 C) (Infrared) LMP 11/26/2021 (Exact Date) General Appearance: Alert, cooperative, no distress, appears stated age. Podiatric Exam Vascular: DP and PT pulses are palpable 2/4 bilaterally. Capillary refill time is brisk to distal digits. No appreciable edema noted bilaterally. Hair growth present. Skin temperature is warm to warm from proximal tibial tuberosity to distal digits. Neuro: Gross sensation intact to bilateral lower extremities. Dermatologic: Nails 1 through 10 are within normal limits. No open lesions or ulcerations noted. Interdigital spaces are clean dry and intact. Musculoskeletal: Pain on palpation over the dorsal aspect of the left foot at the second and third tarsometatarsal joints, left worse than right. Ankle joint range of motion is intact without pain or crepitus. Muscle strength is 5/5 to all plantar flexors, dorsiflexors, inverters and everters. Compartments are soft and compressible. No calf pain. Assessment: 1. Arthritis of left foot 2. Left foot pain Plan: Patient was seen and evaluated. Discussed all clinical and radiographic findings. Patient has arthritis of her midfoot joints, especially at the second and third tarsometatarsal joints, left worse than right. Patient understands to continue conservative measures including supportive stiff shoes, offloading, anti-inflammatories Recommended a steroid injection today to help alleviate pain and discomfort. Patient was agreeable to proceed accordingly. PROCEDURE: Verbal consent was obtained prior to injecting 2 cc of Kenalog 40 mg and 0.5% Marcaine plain into the second and third tarsometatarsal joints of the left foot. Patient expressed pain relief on the procedure. Discussed with patient that meloxicam should be taken once daily for 30 days and not as needed. If patient wishes to take medication as needed, I recommend that patient takes ibuprofen 600 mg. All questions were answered to patient satisfaction. Patient understands to call with any questions or concerns. Patient has elected to follow-up as needed. Yareli Fontenot DPM, MS Podiatric Physician & Surgeon documented in this encounter [facility] 06-01-2021 Note HNO ID: [id number] Author: Catrina Bob PA-C Service: ? Author Type: Physician Co Founder And Chairman Type: Progress Notes Filed: 06/01/2021 3:37 PM Note Text: AMBULATORY TELEPHONE VISIT Larisa Guardado has consented to this telephone encounter. Persons Present: patient Chief Complaint/Reason: next plan HPI: Without OI meds, pt's cycles are 21-24 days. While on Let 5, pt's cycle is 30 days. In February, she took Let 5#1 and had + OPK on cd 15. In April, she Let 5 #2 and had + OPK on cd 19 and then a 30 day cycle. Given the luteal phase is borderline length, offered Prometrium. Instructions provided. Data Reviewed: Most recent encounters Assessment: Fertility planning Plan: Let 5 #3/OPK/TI and Prometrium. Total Time Spent: 10 minutes Catrina Bob PA-C June 01, 2021 3:20 PM [facility] 02-23-2021 History of Present illness Narrative Experiencing 15-20 migraines per month. Will treat with naproxen or Tylenol many times. Not very effective.5-10 of these days are debiliating but pushes through and does not miss work.Migraines have been the worst they have been in her life since COVID infection . More intense and severe. coreg/bystolicMigraine occurs across forehead and behind eyes.Associate light and noise sensitivity. new nausea.Aura of visual disturbance- sees spots in field of vision.Triggers are weather and hormones.Nurtec and Rizatriptan both effective for migraine .Recently noted that Rizatriptan raises blood pressure. Last was 1-2 weeks ago. Guys weird and checked BP and was increased. Baseline HTN as well. Started adding Labetolol 100mg when BP elevated. Has been taking extra 100mg daily for last week.Sometimes takes 4-5 hours for Nurtec or Rizatriptan to work. Has not repeated Rizatriptan. Sometime will take both in same day if one or the other doesn't work.Not preventing currently. Would like another child. Did IVF for last child born 2018. felt better until covid.Sleeping well, 7-8 hours per night.Endorses depression.States not new. 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 [facility] 170 DO Work Phone: 10-24-2020 History of Present illness Narrative Images from the original note were not included. Established Patient Visit Yareli Fontenot DPM Patient Name: Larisa Guardado. . Date of : 1985, 35 y.o.. Gender: female. Subjective: Patient is a pleasant 34-year-old female who presented to clinic for follow-up on her left foot pain at the dorsal aspect of the left foot. Patient received a steroid injection at the last clinic visit for arthritis of the tarsometatarsal joints. She states that the injection did help for 2 months. She states that she continues to be in good supportive shoes. No other pedal complaints at this time. Denies fevers, chills, nausea, vomiting, chest pain, shortness of breath, or any other constitutional symptoms. Physical Examination: BP (!) 159/101 (BP Location: Right arm) Pulse (!) 104 Temp 97 F (36.1 C) (Infrared) Ht 5' 7 Wt 124.7 kg (275 lb) BMI 43.07 kg/m General Appearance: Alert, cooperative, no distress, appears stated age. Podiatric Exam Vascular: DP and PT pulses are palpable 2/4 bilaterally. Capillary refill time is brisk to distal digits. No appreciable edema noted bilaterally. Hair growth present. Skin temperature is warm to warm from proximal tibial tuberosity to distal digits. Neuro: Gross sensation intact to bilateral lower extremities. Dermatologic: Nails 1 through 10 are within normal limits. No open lesions or ulcerations noted. Interdigital spaces are clean dry and intact. Musculoskeletal: Pain on palpation over the dorsal aspect of the left foot at the second and third tarsometatarsal joints, left worse than right. Ankle joint range of motion is intact without pain or crepitus. Muscle strength is 5/5 to all plantar flexors, dorsiflexors, inverters and everters. Compartments are soft and compressible. No calf pain. Assessment: 1. Arthritis of left foot 2. Left foot pain Plan: Patient was seen and evaluated. Discussed all clinical and radiographic findings. Patient has arthritis of her midfoot joints, especially at the second and third tarsometatarsal joints, left worse than right. Patient understands to continue conservative measures including supportive stiff shoes, offloading, anti-inflammatories Recommended a steroid injection today to help alleviate pain and discomfort. Patient was agreeable to proceed accordingly. PROCEDURE: Verbal consent was obtained prior to injecting 2 cc of Kenalog 40 mg and 0.5% Marcaine plain into the second and third tarsometatarsal joints of the left foot. Patient expressed pain relief on the procedure. All questions were answered to patient satisfaction. Patient understands to call with any questions or concerns. Follow-up in 2 months for evaluation Yareli Fontenot DPM, MS Podiatric Physician & Surgeon documented in this encounter [facility] Chief complaint Narrative - Reported Neurologic Evaluation.Follow up migraine management [id number] 170 DO Work Phone: Chief complaint Narrative - Reported Neurologic Evaluation.Follow up migraine management [id number] 170 DO Work Phone: Chief complaint Narrative - Reported Neurologic Evaluation.Follow up migraine management [id number] 170 DO Work Phone: [facility] Arthritis of left foot- Primary Left foot pain Pain in soft tissues of limb [facility] Diagnosis Arthritis of left foot- Primary Left foot pain Pain in soft tissues of limb [facility] Diagnosis Abnormal ultrasound of abdomen- Primary Nonspecific (abnormal) findings on radiological and other examination of abdominal area, including retroperitoneum Diarrhea, unspecified type Epigastric pain Abdominal pain, epigastric [facility] Dilated bile duct- Primary 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 Will treat with naproxen or Tylenol many times. Not very effective. * 5-10 of these days are debiliating but pushes through and does not miss work. * Migraines have been the worst they have been in her life since COVID infection . More intense and severe. coreg/bystolic * Migraine occurs across forehead and behind eyes. * Associate light and noise sensitivity. new nausea. * Aura of visual disturbance- sees spots in field of vision. * Triggers are weather and hormones. * Nurtec and Rizatriptan both effective for migraine . * Recently noted that Rizatriptan raises blood pressure. Last was 1-2 weeks ago. Guys weird and checked BP and was increased. Baseline HTN as well. Started adding Labetolol 100mg when BP elevated. Has been taking extra 100mg daily for last week. * Sometimes takes 4-5 hours for Nurtec or Rizatriptan to work. Has not repeated Rizatriptan. Sometimewill take both in same day if one or the other doesn't work. * Not preventing currently. Would like another child. Did IVF for last child born 2019. felt better until covid. * Sleeping well, 7-8 hours per night. * Endorses depression.States not new. Most stress related. 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 [facility] 170 DO Work Phone: History of Present illness Narrative* Experiencing 15- 20 migraines per month. Will treat with naproxen or Tylenol many times. Not very effective. * 5-10 of these days are debiliating but pushes through and does not miss work. * Migraines have been the worst they have been in her life since COVID infection -2019. More intense and severe. coreg/bystolic * Migraine occurs across forehead and behind eyes. * Associate light and noise sensitivity. new nausea. * Aura of visual disturbance- sees spots in field of vision. * Triggers are weather and hormones. * Nurtec and Rizatriptan both effective for migraine . * Recently noted that Rizatriptan raises blood pressure. Last was 1-2 weeks ago. Guys weird and checked BP and was increased. Baseline HTN as well. Started adding Labetolol 100mg when BP elevated. Has been taking extra 100mg daily for last week. * Sometimes takes 4-5 hours for Nurtec or Rizatriptan to work. Has not repeated Rizatriptan. Sometimewill take both in same day if one or the other doesn't work. * Not preventing currently. Would like another child. Did IVF for last child born 2019. felt better until covid. * Sleeping well, 7-8 hours per night. * Endorses depression.States not new. Most stress related. 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 [facility] 170 DO Work Phone: History of Present illness NarrativeLarisa is a pleasant 36-year-old white female I have known for years. She had cholecystectomy at age9 and then had recurrent to choledocholithiasis age 23 had ERCP with sphincterotomy and stent placement. She has had chronic indigestion since that time currently taking Prilosec 20 mg twice daily and Pepcid as needed for breakthrough heartburn. She feels an uneasy feeling in her epigastrium radiating to her back is now better since taking Prilosec twice daily. She identified no particular food trigger denies any diarrhea pain is not reminiscent of her choledocholithiasis.[facility] [address] Work Phone: Reason for referral (narrative)* Consultation (Routine) - Authorized Specialty Diagnoses / Procedures Referred By Peng sykes Referred To Contact Gastroenterology Diagnoses Dilated bile duct Sphincter of Oddi dysfunction Axel Corey DO [address] [facility], [address] [place] [address] Gonzalo Sanderson DO [address] [facility] [address] [place] [address] Referral ID Status Reason Start Date Expiration Date Visits Requested Visits Authorized [id number] Authorized Specialty Services Required 03/07/2023 03/06/2024 1 1 [facility] Work Phone: Summary Purpose Family History Unknown Family Member Name Dates Details Family history of fibromyalg ia: Mother, Sister(V17.89, Z82.69) Status:Active Family history of rheumatoid arthritis: Mother(V17.7, Z82.61) Status:Active Family history of thyroid di sease: Mother, Sister, Paternal Grandfather(V18.19, Z83.49) Status:Active Family history of depression : Mother, Sister, Paternal Grandfather(V17.0, Z81.8) Status:Active Family history of migraine h eadaches: Mother, Sister(V17.2, Z82.0) Status:Active Unknown Family Member Name Dates Details Family history of fibromyalg ia: Mother, Sister(V17.89, Z82.69) Status:Active Family history of rheumatoid arthritis: Mother(V17.7, Z82.61) Status:Active Family history of thyroid di sease: Mother, Sister, Paternal Grandfather(V18.19, Z83.49) Status:Active Family history of depression : Mother, Sister, Paternal Grandfather(V17.0, Z81.8) Status:Active Family history of migraine h eadaches: Mother, Sister(V17.2, Z82.0) Status:Active Unknown Family Member Name Dates Details Family history of fibromyalg ia: Mother, Sister(V17.89, Z82.69) Status:Active Family history of rheumatoid arthritis: Mother(V17.7, Z82.61) Status:Active Family history of thyroid di sease: Mother, Sister, Paternal Grandfather(V18.19, Z83.49) Status:Active Family history of depression : Mother, Sister, Paternal Grandfather(V17.0, Z81.8) Status:Active Family history of migraine h eadaches: Mother, Sister(V17.2, Z82.0) Status:Active Unknown Family Member Name Dates Details Family history of fibromyalg ia: Mother, Sister(V17.89, Z82.69) Status:Active Family history of rheumatoid arthritis: Mother(V17.7, Z82.61) Status:Active Family history of thyroid di sease: Mother, Sister, Paternal Grandfather(V18.19, Z83.49) Status:Active Family history of depression : Mother, Sister, Paternal Grandfather(V17.0, Z81.8) Status:Active Family history of migraine h eadaches: Mother, Sister(V17.2, Z82.0) Status:Active Unknown Family Member Name Dates Details Family history of fibromyalg ia: Mother, Sister(V17.89, Z82.69) Status:Active Family history of rheumatoid arthritis: Mother(V17.7, Z82.61) Status:Active Family history of thyroid di sease: Mother, Sister, Paternal Grandfather(V18.19, Z83.49) Status:Active Family history of depression : Mother, Sister, Paternal Grandfather(V17.0, Z81.8) Status:Active Family history of migraine h eadaches: Mother, Sister(V17.2, Z82.0) Status:Active Advance Directives Documents on File Type Date Recorded Patient Kiln Stacker Expl anation Advance Directives and Livin g Will 10/08/2020 12:00 AM Documents on File Type Date Recorded Patient Kiln Stacker Expl anation Advance Directives and Living Will Chief Complaint NPV in office today for epigastric pain for awhile, is on a PPI has tried Pepcid and is now on Prilosec. Prior cholecystectomy. Prior ERCP for stones in common bile duct.[facility]UV in office today for dyspepsia. Carafate helped some, Beginning of July had some severe diarrhea, one episode of vomiting with epigastric pain- ended up in the ER- told norovirus. Patient had US done at [facility]- dilated bile duct. Additional Source Comments INFORMATION SOURCE (unrecogn ized section and content) DATE CREATED AUTHOR AUTHOR'S ORGANIZ ATION 06/18/2018 [facility] DATE CREATED AUTHOR AUTHOR'S ORGANIZ ATION 05/25/2019 [facility] DATE CREATED AUTHOR AUTHOR'S ORGANIZ ATION 10/24/2020 [facility] DATE CREATED AUTHOR AUTHOR'S ORGANIZ ATION 06/05/2021 [facility] DATE CREATED AUTHOR AUTHOR'S ORGANIZ ATION 06/06/2021 [facility] DATE CREATED AUTHOR AUTHOR'S ORGANIZ ATION 08/22/2022 [facility] DATE CREATED AUTHOR AUTHOR'S ORGANIZ ATION 08/28/2022 [facility] DATE CREATED AUTHOR AUTHOR'S ORGANIZ ATION 08/28/2022 [employer] DATE CREATED AUTHOR AUTHOR'S ORGANIZ ATION 09/01/2022 [facility] DATE CREATED AUTHOR AUTHOR'S ORGANIZ ATION 03/09/2023 [facility] Reason for Visit (unrecogniz ed section and content) Reason Comments Follow-up Follow up left foot arthritis. Taking meloxicam as needed. Has been worse over the last month. Has been a year since last cortisone injection. She will be going on vacation and would like to be able to walk. Calluses Right foot callus. Reason Comments Consult Abdominal pain Reason Comments Follow-up 6 MO [facility] Care Teams (unrecognized sec tion and content) [employer] Pro[employer] Relationship Specialty Start Date End Date Marcella Galicia MD [facility] [place] [address] Physician Rheumatology 03/03/21 [employer] Company Producer Relationship Specialty Start Date End Date Sharonda Angulo DO PCP - General Family Medicine 06/28/16 [employer] Pro[employer] Relationship Specialty Start Date End Date Sharonda Angulo MD [address] [place] [address] PCP - General 04/29/19 [employer] Company Producer Relationship Specialty Start Date End Date Marcella Galicia MD [address] [place] [address] Physician Rheumatology 03/03/21 Source Comments (unrecognize d section and content) In the event this informatio n is protected by the Federal Confidentiality of Alcohol and Drug Abuse Patient Records regulations: The Federal rules restrict any use of the information to criminally investigate or prosecute any alcohol or drug abuse patient.[facility] FOR RECORDS PERTAINING TO PATIENTS WHO ARE OR HAVE BEEN ENROLLED IN A CHEMICAL DEPENDENCY/SUBSTANCEABUSE PROGRAM, SOME INFORMATION MAY BE OMITTED. This clinical summary was aggregated from multiple sources. Caution should be exercised in using it in the provision of clinical care. This summary normalizes information from multiple sources, and as a consequence, information in this document may materially change the coding, format and clinical context of patient data. In addition, data may be omitted in some cases. CLINICAL DECISIONS SHOULD BE BASED ON THE PRIMARY CLINICAL RECORDS. [employer] provides no warranty or guarantee of the accuracy or completeness of information in this document.
== END | disposition home or self-care (01) ==
LOC: LAB 07:40
PROVIDERS: PCP Preventive Medicine Occupational Medicine; Referring Provider Preventive Medicine Occupational Medicine; Visit Provider Preventive Medicine Occupational Medicine
DX: E03.8 Other specified hypothyroidism (principal); K83.8 Other specified diseases of biliary tract
CPT/HCPCS: 36415; 80076; 84439; 84443; 84481; 85027

== ENCOUNTER → 2023-08-03 | Outpatient (CLI) | payer BC, SELFPAY ==
[2023-08-03 10:06] LABS: Absolute Lymphocyte Count 1.97 X10^3/uL (0.83-4.51); Absolute Neutrophil Count 4.1 X10^3/uL (2.0-7.7); Basophil# 0.05 X10^3/uL; Basophil% 0.7 % (0-1); Eosinophils% 2.9 % (0-5); Hemoglobin 11.8 g/dL (12.0-15.0); Lymphocyte # 1.97 X10^3/ul (0.83-4.51); Lymphocyte % 28.4 % (19-41); Mean Corp Hgb Conc 32.8 g/dL (32-36); Mean Corpuscular Hgb 30.2 pg (27.0-32.0); Mean Corpuscular Volume 92.1 fL (81-99); Mean Platelet Vol. 9.9 fl (6.2-12.0); Monocyte# 0.58 X10^3/uL; Monocyte% 8.4 % (0-10); NRBC Flagged by Analyzer 0 % (0-5); Neutrophil # 4.13 X10^3/uL (2.7-7.7); Neutrophil % 59.5 % (47-70); Platelet Count 266 K/mm3 (150-450); RBC Distribution Width CV 12.3 % (11.6-14.6); RBC Distribution Width SD 41.3 fl (35.1-43.9); Red Blood Count 3.91 M/mm3 (4.2-5.4); White Blood Count 6.9 K/mm3 (4.4-11.0)
[2023-08-03 10:40] LABS: Estradiol 151.5 pg/mL; Follicle Stimulating Hormone 3.5 mIU/mL; Thyroid Stim Hormone (TSH) 0.88 uIU/mL (0.358-3.74)
[2023-08-08 14:09] LABS: 17-Hydroxyprogesterone 34 ng/dL (.)
[2023-08-09 02:08] LABS: DHEA Sulfate 74.9 ug/dL (57.3-279.2); Testosterone Free 1.8 pg/mL (0.0-4.2)
== END | disposition home or self-care (01) ==
LOC: LAB 09:28
PROVIDERS: PCP Preventive Medicine Occupational Medicine; Referring Provider Obstetrics & Gynecology; Visit Provider Obstetrics & Gynecology
DX: E28.2 Polycystic ovarian syndrome (principal); E03.9 Hypothyroidism, unspecified; N93.9 Abnormal uterine and vaginal bleeding, unspecified; N97.8 Female infertility of other origin
CPT/HCPCS: 36415; 82627; 82670; 83001; 83498; 84402; 84443; 85025; 82626

== ENCOUNTER → 2023-08-08 | Outpatient (CLI) | payer BC, SELFPAY ==
[2023-08-08 16:06] LABS: Platelet Count 297 K/mm3 (150-450); RET-HE 34.6 pg (30-35); Reticulocyte Count 1.55 % (0.5-1.5)
[2023-08-08 16:43] LABS: Ferritin 470 ng/mL (8-252); Iron 73 ug/dL (50-170)
[2023-08-08 17:24] LABS: Vitamin B12 884 pg/mL (211-911)
== END | disposition home or self-care (01) ==
LOC: LAB 15:33
PROVIDERS: PCP Preventive Medicine Occupational Medicine; Visit Provider Preventive Medicine Occupational Medicine
DX: D50.9 Iron deficiency anemia, unspecified (principal)
CPT/HCPCS: 36415; 82607; 82728; 83540; 85045

== ENCOUNTER → 2023-08-13 | Outpatient (CLI) | payer BC, SELFPAY ==
--- NOTE | 2023-08-13 12:49 | US_ITS ---
HISTORY: amenorrhea, PCOS. TECHNIQUE: Transvaginal pelvic ultrasound was performed with rodriguez scale and color Doppler evaluation. 87 images. COMPARISON: None. FINDINGS: UTERUS: 7.1 x 4.7 x 4.4 cm. Anteverted and anteflexed. 3 mm submucosal echogenic focus. Nabothian cysts present. ENDOMETRIAL THICKNESS: 4 mm. RIGHT OVARY: 2.6 x 2.6 x 3.6 cm for a volume of 13 cc. No adnexal masses. LEFT OVARY: 2.9 x 4.8 x 4.7 cm for a volume of 35 cc. 2.5 x 3.7 x 3.8 cm cyst. No adnexal masses FREE FLUID: Trace. URINARY BLADDER: Nearly empty at 13 cc. US/Transvaginal Non- IMPRESSION: Possible small calcified submucosal leiomyoma. 3.8 cm left ovarian cyst. Trace free fluid in the pelvis. Increased ovarian volume bilaterally, compatible with the history of polycystic ovarian syndrome. Electronically Signed: Amy Brewer MD at 10:50 EDT ,
== END | disposition home or self-care (01) ==
LOC: US 12:48
PROVIDERS: PCP Preventive Medicine Occupational Medicine; Referring Provider Obstetrics & Gynecology; Visit Provider Obstetrics & Gynecology
DX: N91.2 Amenorrhea, unspecified (principal)
CPT/HCPCS: 76830

== ENCOUNTER → 2024-01-18 | Outpatient (CLI) | payer BC, SELFPAY ==
[2024-01-18 11:17] LABS: Free T3 2.4 pg/mL (2.18-3.98); T4 Free Direct 1.02 ng/dL (0.76-1.46); Thyroid Stim Hormone (TSH) 0.912 uIU/mL (0.358-3.740)
== END | disposition home or self-care (01) ==
LOC: LAB 09:40
PROVIDERS: PCP Preventive Medicine Occupational Medicine; Referring Provider Preventive Medicine Occupational Medicine; Visit Provider Preventive Medicine Occupational Medicine
DX: E03.9 Hypothyroidism, unspecified (principal)
CPT/HCPCS: 36415; 84439; 84443; 84481

== ENCOUNTER → 2024-02-24 | Outpatient (CLI) | payer BC, SELFPAY ==
[2024-02-24 13:37] LABS: Hematocrit 36.9 % (37-47); Mean Corp Hgb Conc 32.5 g/dL (32-36); Mean Corpuscular Hgb 30.3 pg (27.0-32.0); Mean Corpuscular Volume 93.2 fL (81-99); Mean Platelet Vol. 10.3 fl (6.2-12.0); Platelet Count 337 K/mm3 (150-450); RBC Distribution Width CV 12.5 % (11.6-14.6); RBC Distribution Width SD 43.1 fl (35.1-43.9); Red Blood Count 3.96 M/mm3 (4.2-5.4); White Blood Count 10.6 K/mm3 (4.4-11.0)
[2024-02-24 14:31] LABS: AST(SGOT) 16 U/L (15-37); Alanine Aminotransfer ALT/SGPT 27 U/L (13-56); Albumin, Serum 3.4 g/dL (3.2-5.0); Alkaline Phosphatase 64 U/L (45-117); Bilirubin, Direct 0.09 mg/dL (0.00-0.30); Globulin 3.7 g/dL (2.2-4.2); Protein, Total 7.1 g/dL (6.4-8.2)
--- OUTSIDE RECORDS SUMMARY | 2024-02-24 15:39 | XMS RPT_ITS | CCD ---
Author Organization [facility] Care Team Providers Care Lead Cook Name Role Phone AISHA PAT Unavailable Unavailable [...] Unavailable Sharonda Angulo DO Primary Care Provider [phone] Sharonda Angulo Unavailable Unavailable Unavailable PROVIDER, UNKNOWN Admitting Unavailable PROVIDER, UNKNOWN Attending Unavailable PATIENT, SELF Referring Unavailable Sharonda Angulo DO Primary Care Provider [phone] Marcella Galicia MD Unavailable Unavailable Unavailable Marcella Galicia MD Unavailable Sharonda Angulo DO Primary Care Provider DO SHELBY COREY Attending Unavailable Dr. Sharonda Angulo Primary Care Unavailable Dr. Sharonda Angulo Referring Unavailable DO SHELBY COREY Attending Unavailable Dr. Sharonda Angulo Primary Care Unavailable Dr. Sharonda Angulo Referring Unavailable Dr. Sharonda Angulo Primary Care Unavailable Shelby Corey Referring Unavailable Shelby Corey Attending Unavailable Sharonda Angulo MD Primary Care Provider [phone] Sharonda Angulo MD Primary Care Provider SHELBY COREY Attending Unavailable SHELBY COREY Referring Unavailable SHARONDA ANGULO Primary Care Unavailable SHELBY COREY Attending Unavailable SHARONDA ANGULO Primary Care Unavailable SHELBY COREY Attending Unavailable SHARONDA ANGULO Primary Care Unavailable ITZ BHATTI Attending Unavailable SHARONDA ANGULO Primary Care Unavailable Allergies Allergy Classification Reported Allergen(s) Allergy Type Date of Onset Reaction(s) Facility Corticosteroids (3 sources) prednisoLONE; Translations: [PREDNISOLONE] Drug Allergy Unknown [facility] (4 sources) Environmental allergy; Translations: [ENVIRONMENTAL] Propensity to adverse reactions (disorder) 05-23-19 [facility] (13 sources) predniSONE; Translations: [PREDNISONE] Drug Allergy 03-12-20 Other: See Comments, Unknown [facility] prednisoLONE Drug Allergy Unknown [facility] (1 source) environmental [Other] Propensity to adverse reactions 05-23-[address] [place] [address] Work Phone: (1 source) OTHER; Translations: [OTHER] Propensity to adverse reactions (disorder) 05-23-[address] [place] [address] Repository Medications Current Medications Medication Drug Class(es) Dates Sig (Normalized) Sig (Original) Acetaminophen (3 sources) ACETAMINOPHEN OR AL Take by mouth . 0 Active atropine sulfate 0.025 mg / diphenoxylate hydrochloride 2.5 mg oral tablet (6 sources) Anticholinergic, Cholinergic Muscarinic Antagonist, Antidiarrheal take 1 tablet by mouth four times daily as needed for diarrhea diphenoxylate-atro pine (LomotiL) 2.5-0.025 mg tablet Take 1 tablet by mouth 4 times a day as needed for diarrhea. Active 24 hr buPROPion hydrochloride 450 mg extended release oral tablet (20 sources) Aminoketone Start: 02-11-2023 buPROPion XL (Forfivo XL) 450 mg 24 hr tablet 02/11/2023 Active Start: 10-11-2022 End: 06-27-2023 buPROPion XL (Wellbutrin XL) 150 mg 24 hr tablet Start: 10-28-2014 End: 06-27-2023 take 1 tablet by mouth once daily buPROPion XL (Wellbutrin XL) 300 mg 24 hr tablet Take 1 tablet (300 mg) by mouth once daily. 0 10/28/2014 06/27/2023 Discontinued (Duplicate order) take 1 tablet by kristie th every twenty-four hours buPROPion HCl ER (XL) 150 MG Oral Tablet Extended Release 24 Hour Quantity: 0 Refills: 0 Ordered: 18-Jun-2022 DO Active take 1 tablet by kristie th once daily buPROPion SR (ZYBAN SR; WELLBUTRIN SR) 150 mg 12 hr tablet Take 450 mg by mouth once daily. 0 Active Comment on above: Take 450 mg by mouth once daily. cholecalciferol 0.05 mg oral capsule (8 sources) Vitamin D take 1 capsule by mouth once daily cholecalciferol (Vitamin D-3) 50 mcg (2,000 unit) capsule Take 1 capsule (50 mcg) by mouth once daily. Active take 1 capsule by mouth once david ly cholecalciferol (Vitamin D-3) 50 mcg (2,000 unit) capsule Take 1 capsule (2,000 Units) by mouth once daily. 0 Active dicyclomine hydrochloride 20 mg oral tablet (4 sources) Anticholinergic Start: 01-09-2023 dicyclomine (B entyl) 20 mg tablet 01/09/2023 Active Start: 08-10-2022 Dicyclomine HC l - 20 MG Oral Tablet Quantity: 90 Refills: 0 Ordered: 10-Aug-2022 DO Start : 10-Aug-2022 Active diphenhydrAMINE hydrochloride 25 mg / naproxen sodium 220 mg oral tablet (4 sources) Histamine-1 Receptor Antagonist, Nonsteroidal Anti-inflammatory Drug Naproxen Sod-diphenhydrAMINE 220-25 MG TABS Take by mouth. 0 Active Comment on above: Take by mouth. famotidine 40 mg oral tablet (12 sources) Histamine-2 Receptor Antagonist Start: 2018 take 1 tablet by mouth twice daily famotidine (Pepcid) 40 mg tablet Take 1 tablet (40 mg) by mouth 2 times a day. 02/22/2021 Active Comment on above: Take 40 mg by mouth twice daily. fexofenadine hydrochloride 180 mg oral tablet (3 sources) Histamine-1 Receptor Antagonist take 1 tablet by mouth once daily fexofenadine (Anika) 180 mg tablet Take 1 tablet (180 mg) by mouth once daily. Active Comment on above: Take 180 mg by mouth once daily. fluconazole 150 mg oral tablet (3 sources) Azole Antifungal Start: 2022 fluconazole (Diflucan) 150 mg tablet 12/20/2022 Active labetalol hydrochloride 300 mg oral tablet (20 sources) beta-Adrenergic Harshad Start: 2022 take 1 tablet by mouth twice daily labetalol (Normodyne) 300 mg tablet Take 1 tablet (300 mg) by mouth 2 times a day. 04/01/2023 Active Start: 03-03-2019 End: 06-27-2023 take 1 tablet by mouth once daily in the morning labetalol (Normodyne) 100 mg tablet Take 1 tablet (100 mg) by mouth once daily in the morning. 0 02/22/2021 06/27/2023 Discontinued (Duplicate order) Start: 01-26-2019 End: 06-27-2023 labetalol (NORMODYNE) 200 MG tablet Comment on above: Take 100 mg by mouth once daily. Take 200 mg by mouth twice daily. letrozole 2.5 mg oral tablet (5 sources) Aromatase Inhibitor Start: 07-27-2019 letrozole (FEMARA) 2.5 MG tablet Take 5 mg by mouth. 0 07/27/2019 Active Comment on above: Take 2 tablets by mo ut once daily for 5 days. Take 2 tablets by mo uth once daily. levothyroxine sodium 0.15 mg oral tablet (19 sources) l-Thyroxine Start: 01-08-2023 levothyroxine (Synthroid, Levoxyl) 150 mcg tablet 01/08/2023 Active Start: 07-17-2022 End: 06-27-2023 levothyroxine (Synthroid, Le voxyl) 112 mcg tablet Start: 11-13-2016 levothyroxine (SYNTHROID) 75 mcg tablet 100 mcg. Additional 1/2 tablet on 4x weekly 1 11/13/2016 Active Start: 04-11-2016 End: 07-10-2024 levothyroxine (Synthroid, Le voxyl) 100 mcg tablet Levothyroxine Sodium 100 MCG Oral Tablet Refills: 0 Start : 11-Apr-2016 Active 0 04/11/2016 06/27/2023 Discontinued (Duplicate order) Start: 04-11-2016 Levothyroxine Sodium 100 MCG Oral Tablet Quantity: 0 Refills: 0 Ordered: 10-May-2016 DO Start : 11-Apr-2016 Active Levothyroxine So dium 112 MCG Oral Tablet Quantity: 0 Refills: 0 Ordered: 18-Jun-2022 DO Active take 1 capsule by [facility] once daily levothyroxine 75 mcg cap Take 75 mcg by mouth daily . 0 Active Comment on above: 100 mcg. Additional 1/2 tablet on 4x weekly LORazepam 0.5 mg oral tablet (12 sources) Benzodiazepine Start: 12-13-2020 LORazepam 0.5 MG Oral Tablet Quantity: 30 Refills: 0 Ordered: 13-Dec-2020 DO Start : 13-Dec-2020 Active Start: 12-28-2018 LORazepam (Ati van) 0.5 mg tablet LORazepam 0.5 MG Oral Tablet Quantity: 30 Refills: 0 Start : 13-Dec-2020 Active 12/13/2020 Active Comment on above: Take 0.5 mg by mouth as needed. losartan potassium 50 mg oral tablet (2 sources) Angiotensin 2 Receptor Harshad take 1 tablet by mouth once daily losartan (Cozaar) 50 mg tablet Take 1 tablet (50 mg) by mouth once daily. Active medroxyPROGESTERone acetate 10 mg oral tablet (3 sources) Progestin Start : 05-11 medroxyPROGESTERone (PROVERA) 10 MG tablet Take 10 mg by mouth. 0 05/11/2019 Active meloxicam 15 mg oral tablet (14 sources) Nonsteroidal Anti-inflammatory Drug take 1 tablet by mouth once daily in the evening meloxicam (Mobic) 15 mg tablet Take 1 tablet (15 mg) by mouth once daily in the evening. Active milnacipran hydrochloride 50 mg oral tablet (11 sources) Serotonin and Norepinephrine Reuptake Inhibitor Start : 01-15 Savella 50 mg tablet 01/15/2023 Active Start: 02-22-2021 End: 02-23-2021 take 1 tablet by mouth twice daily Savella 100 MG Oral Tablet Take 1 tablet twice daily Quantity: 180 Refills: 0 Ordered: 22-Feb-2021 Lissette Mcdonald MD Start : 22-Feb-2021 End : 23-Feb-2021 Complete naltrexone hydrochloride 50 mg oral tablet (3 sources) Opioid Antagonist take 3 tablets by mouth once daily naltrexone (Depade) 50 mg tablet Take 8 mg by mouth once daily. 3 pills daily. Active naproxen sodium 220 mg oral tablet (11 sources) Nonsteroidal Anti-inflammatory Drug take 2 tablets by mouth every twelve hours naproxen sodium (Aleve) 220 mg tablet Take 2 tablets (440 mg) by mouth every 12 hours if needed. Active take 2 tablets by mo uth every twelve hours Aleve 220 MG Oral Tablet TAKE 2 TABLET Every twelve hours PRN Quantity: 0 Refills: 0 Ordered: 19-Dec-2015 DO Active NAPROXEN ORAL Ta ke by mouth . 0 Active omeprazole 20 mg delayed release oral capsule (5 sources) Proton Pump Inhibitor Start: 01-09-2023 omeprazo le (PriLOSEC) [address] capsule 01/09/2023 Active PriLOSEC 20 MG C PDR Quantity: 0 Refills: 0 Ordered: 18-Jun-2022 DO Active ondansetron 4 mg disintegrating oral tablet (3 sources) Serotonin-3 Receptor Antagonist Start: 08-02-2022 take 1 tablet by mouth every six hours as needed ondansetron ODT (Zofran-ODT) 4 mg disintegrating tablet Take 1 tablet (4 mg) by mouth every 6 hours if needed for nausea or vomiting. 08/02/2022 Active PNV no.95/ferrous fum/folic ac ( MULTIVITAMINS ORAL) (3 sources) take 1 tablet by mouth once daily before mealtime PNV no.95/ferrous fum/folic ac ( MULTIVITAMINS ORAL) Take 1 tablet by mouth daily . 0 Active Vit-Fe Fumarate-FA ( Vitamin) 27-0.8 MG TABS (3 sources) Vit-Fe Fumarate-FA ( Vitamin) 27-0.8 MG TABS Take by mouth. 0 Active vitamin, iron-folic, ( Vitamin) 27 mg iron-800 mcg folic acid tablet (3 sources) take 1 tablet by mouth once daily vitamin, iron-folic, ( Vitamin) 27 mg iron-800 mcg folic acid tablet Take 1 tablet by mouth once daily. Active take 1 tablet by mouth once brandi y vitamin, iron-folic, ( Vitamin) 27 mg iron-800 mcg folic acid tablet Take 1 tablet by mouth once daily. 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 60 capsule 0 06/01/2021 Active Comment on above: Take 1 capsule by mo uth daily at bedtime. rimegepant 75 mg disintegrating oral tablet (11 sources) Start: 07-21-19 21 take 1 tablet by mouth every twenty-four hours as needed rimegepant (Nurtec ODT) 75 mg tablet,disintegrating Take 1 tablet (75 mg) by mouth once daily as needed. 07/20/2020 Active tiZANidine 4 mg oral tablet (8 sources) Central alpha-2 Adrenergic Agonist Start: 10-03-19 17 tiZANidine (Zanaflex) 4 mg tablet Take by mouth. i pil at night increase by half a pill evry 3 days as needed until max of 3. 2016 Active vitamin b12 1 mg oral tablet (11 sources) Vitamin B12 take 1 tablet by mouth once daily cyanocobalamin (Vitamin B-12) 1,000 mcg tablet Take 1 tablet (1,000 mcg) by mouth once daily. Active Cyanocobalamin 1 000 MCG CAPS Take by mouth. 0 Active Completed/Discontinued Medications Medication Drug Class(es) Dates Sig (Normalized) Sig (Original) acetaminophen 300 mg / codeine phosphate 30 mg oral tablet (5 sources) Opioid Agonist Start: 02-22-2021 End: 06-27-2023 take 1-2 tablets by mouth every six hours as needed acetaminophen-code ine (Tylenol w/ Codeine #3) 300-30 mg tablet Take 1-2 tablets by mouth every 6 hours if needed. 0 02/22/2021 06/27/2023 Discontinued (Med List Cleanup) amoxicillin 875 mg / clavulanate 125 mg oral tablet (3 sources) Penicillin-class Antibacterial Start: 10-21-2020 take 1 tablet by mouth every twelve hours Amoxicillin-Pot Clavulanate 875-125 MG Oral Tablet take 1 tablet by mouth every 12 hours Quantity: 14 Refills: 0 Ordered: 21-Oct-2020 DO Start : 25-Carter-2021 Complete benzocaine 140 mg/ml / butamben 20 mg/ml / tetracaine 20 mg/ml mucosal spray (1 source) Fanny Local Anesthetic, Standardized Chemical Allergen Start: 07-02-2023 End: 07-02-2023 butamben-tetracain e-benzocaine (Cetacaine) spray Bupivacaine (4 sources) Amide Local Anesthetic Start: 12-12-2021 End: 12-12-2021 bupivacaine HCl (MARCAINE) 0.5 % (5 mg/mL) injection 1 mL Start: 10-24-2020 End: 10-24-2020 bupivacaine HCl (MARCAINE) 0 .5 % (5 mg/mL) injection 1 mL calcium chloride 0.0014 meq/ml / potassium chloride 0.004 meq/ml / sodium chloride 0.103 meq/ml / sodium lactate 0.028 meq/ml injectable solution (1 source) Start: 07-02-2023 End: 07-03-2023 lactated Ringer's infusion celecoxib 400 mg oral capsule (2 sources) Nonsteroidal Anti-inflammatory Drug Start: 03-04-2023 End: 06-27-2023 celecoxib (CeleBREX) 400 mg capsule doxycycline monohydrate 100 mg oral capsule (3 sources) Tetracycline-class Drug Start: 11-29-2022 End: 06-27-2023 take 1 capsule by mouth twice daily doxycycline (Monodox) 100 mg capsule Take 1 capsule (100 mg) by mouth 2 times a day. 0 11/29/2022 06/27/2023 Discontinued (Med List Cleanup) Start: 04-06-2019 doxycycline (V IBRA-TABS) 100 mg tablet Take as directed 8 tablet 1 04/06/2019 Active Comment on above: Take as directed estradiol 2 mg oral tablet (1 source) Estrogen Start: 04-06-2019 estradiol (ESTRACE) 2 mg tablet Take 3 tablets (6mg) as directed 90 tablet 3 04/06/2019 Active Comment on above: Take 3 tablets (6mg) as directed 1 ml fentaNYL 0.05 mg/ml injection (2 sources) Opioid Agonist Start: 07-02-2023 End: 07-02-2023 fentaNYL PF (Sublimaze) injection ferrous sulfate 325 mg oral tablet (16 sources) Start: 08-06-2014 End: 06-27-2023 take 3 tablets by mouth once daily ferrous sulfate 325 (65 Fe) MG tablet Take 3 tablets (975 mg) by mouth once daily. 0 08/06/2014 06/27/2023 Discontinued (Med List Cleanup) Start: 08-06-2014 take 3 tablets by [facility] once daily Ferrous Sulfate 325 (65 Fe) MG Oral Tablet TAKE 3 TABLET Daily Quantity: 90 Refills: 0 Ordered: 09-Feb-2015 DO Start : 06-Aug-2014 Active take 325 mg by mouth three times daily FERROUS SULFATE ORAL Take 325 mg by mouth 3 times a day. Active FERROUS SULFATE ORAL Take by mouth three times daily. 0 Active Comment on above: Take by mouth three times daily. hydroCHLOROthiazide 12.5 mg / lisinopril 10 mg oral tablet (5 sources) Thiazide Diuretic, Angiotensin Converting Enzyme Inhibitor Start: End: take 1 tablet by mouth once daily lisinopriL-hydrochl orothiazide 10-12.5 mg tablet Take 1 tablet by mouth once daily. 0 02/22/2021 06/27/2023 Discontinued (Med List Cleanup) ibuprofen 600 mg oral tablet (3 sources) Nonsteroidal Anti-inflammatory Drug Start: take 1 tablet by mouth four times daily as needed for pain Ibuprofen 600 MG Oral Tablet take 1 tablet by mouth four times a day NEEDED FOR PAIN Quantity: 20 Refills: 0 Ordered: 05-Jun-2020 DO Start : 04-Jun-2020 Complete loratadine 10 mg oral tablet (17 sources) Start: End: take 1 tablet by mouth once daily loratadine (Claritin) 10 mg tablet Take 1 tablet (10 mg) by mouth once daily. 0 06/04/2020 06/27/2023 Discontinued (Med List Cleanup) End: 02-22-2021 take 1 tablet by mouth once daily Claritin Reditabs 10 MG Oral Tablet Disintegrating TAKE 1 TABLET DAILY DIRECTED. Quantity: 0 Refills: 0 Ordered: 22-Feb-2021 DO End : 22-Feb-2021 Complete Comment on above: Take 10 mg by mouth once daily. 2 ml midazolam 5 mg/ml injection (5 sources) Benzodiazepine Start: 07-02-19 End: 07-02-19 midazolam PF (Versed) injection naratriptan 2.5 mg oral tablet (4 sources) Serotonin-1b and Serotonin-1d Receptor Agonist Start: 01-15-20 15 End: 02-23-20 21 take 1 tablet by mouth every four hours Naratriptan HCl - 2.5 MG Oral Tablet TAKE 1 TABLET AT ONSET OF HEADACHE, MAY REPEAT ONCE IN 4 HOURS Quantity: 9 Refills: 6 Ordered: 21-Jan-2015 DO Start : 14-Jan-2015 End : 22-Feb-2021 Complete Comment on above: Take 2.5 mg by mouth as needed. 2.5 mg at onset of headache, may repeat in 4 hours if needed norethindrone acetate 5 mg oral tablet (2 sources) Start: 12-16-19 End: 06-27-19 24 take 1 tablet by mouth twice daily norethindrone (Aygestin) 5 mg tablet Take 1 tablet (5 mg) by mouth 2 times a day. until bleeding stops for at le... (REFER TO PRESCRIPTION NOTES). 0 12/15/2022 06/27/2023 Discontinued (Med List Cleanup) Vitamins 28-0.8 MG Oral Tablet (5 sources) take 1 tablet by mouth once daily Vitamins 28-0.8 MG Oral Tablet TAKE 1 TABLET DAILY. Quantity: 0 Refills: 0 Ordered: 19-Dec-2015 DO Active vitamins/fe sulf/fa( MULTIVITAMIN WITH IRON 27 MG-0.8 MG TAB) (1 source) Start: 09-01-19 vitamins/fe sulf/fa( MULTIVITAMIN WITH IRON 27 MG-0.8 MG TAB) Take one(1) tablet daily. 0 08/31/2008 Active Comment on above: Take one(1) tablet d aily. promethazine hydrochloride 12.5 mg oral tablet (10 sources) Phenothiazine End: 06-27-19 take 1 tablet by mouth every four to six hours as needed for nausea promethazine (Phenergan) 12.5 mg tablet Take 1 tablet (12.5 mg) by mouth if needed for nausea (EVERY 4 TO 6 HOURS NEEDED). 0 06/27/2023 Discontinued (Med List Cleanup) rizatriptan 10 mg oral tablet (10 sources) Serotonin-1b and Serotonin-1d Receptor Agonist Start: 07-21-19 End: 06-27-19 24 rizatriptan (Maxalt) 10 mg tablet Take 1 tablet (10 mg) by mouth 1 time if needed (AT ONSET OF HEADACHE. MAY REPEAT EVERY 2 HOURS NEEDED. MAXIMUM 3 TABLETS IN 24 HOURS.). 0 07/20/2020 06/27/2023 Discontinued (Med List Cleanup) Start: 07-20-2020 take 1 tablet by kristie th every two hours as needed, then take 3 tablets by mouth every twenty-four hours as needed Rizatriptan Benzoate 10 MG Oral Tablet TAKE 1 TABLET AT ONSET OF HEADACHE. MAY REPEAT EVERY 2 HOURS NEEDED. MAXIMUM 3 TABLETS IN 24 HOURS. Quantity: 9 Refills: 5 Ordered: 20-Jul-2020 Sixto BED RUBBER-CHEMICAL HANDLER, Lung Start : 20-Jul-2020 Active take 1 tablet by kristie th every two hours as needed rizatriptan (Maxalt) 5 MG tablet Take 5 mg by mouth as needed for Migraine. May repeat in 2 hours in needed 0 Active sucralfate 1000 mg oral tablet (4 sources) Aluminum Complex Start: 06-18-2022 End: 06-27-2023 sucralfate (Carafate) 1 gram tablet tobramycin 3 mg/ml ophthalmic solution (2 sources) Aminoglycoside Antibacterial Start: 02-08-2023 End: 06-27-2023 tobramycin (Tobrex) 0.3 % ophthalmic solution 1 ml triamcinolone acetonide 40 mg/ml injection (4 sources) Corticosteroid Start: 12-12-2021 End: 12-12-2021 triamcinolone acetonide (KENALOG-40) injection 40 mg Start: 12-12-2021 End: 12-12-2021 triamcinolone acetonide (JACOB ALOG-40) injection 40 mg Start: 10-24-2020 End: 10-24-2020 triamcinolone acetonide (JACOB ALOG-40) injection 40 mg Start: 10-24-2020 End: 10-24-2020 triamcinolone acetonide (JACOB ALOG-40) injection 40 mg Problems Active Problems Problem Classification Problem Date Documented Da te Episodic/Chronic Anxiety disorders (5 sources) Anxiety; Translations: [Anxiety state, unspecified] Chronic Biliary tract disease (12 sources) Cholangiectasis; Translations: [Other specified disorders of biliary tract] Onset: 09-03-2022 Chronic Essential hypertension (6 sources) Hypertensive disorder; Translations: [Essential (primary) hypertension] Onset: 02-14-2021 10-16-2020 Chronic Female infertility (4 sources) Anovulation; Translations: [Female infertility associated with anovulation] Onset: 12-05-2011 02-14-2021 Chronic Gastritis and duodenitis (6 sources) Bile-induced gastritis; Translations: [Other specified gastritis, without mention of hemorrhage] Onset: 03-07-2023 03-07-2023 Episodic Headache; including migraine (12 sources) Refractory migraine without aura; Translations: [Chronic migraine without aura, with intractable migraine, so stated, with status migrainosus] Onset: 03-11-2007 02-14-2021 Chronic Mood disorders (8 sources) Reactive depression (situational); Translations: [Dysthymic disorder] Onset: 03-07-2023 03-07-2023 Chronic Nausea and vomiting (7 sources) Nausea; Translations: [Nausea alone] Onset: 08-29-2023 Episodic Osteoarthritis (9 sources) Arthritis; Translations: [Unspecified [...] endocrine, metabolic, and immunity disorders] Episodic Other upper respiratory disease (4 sources) Allergic rhinitis; Translations: [Allergic rhinitis, unspecified] Onset: 11-26-2006 02-14-2021 Chronic Screening and history of mental health and substance abuse codes (5 sources) H/O: depression; Translations: [Personal history of other mental disorders] Episodic Thyroid disorders (4 sources) Acquired hypothyroidism; Translations: [Hypothyroidism, unspecified] Onset: 10-10-2015 02-14-2021 Chronic Past or Other Problems Problem Classification Problem Date Documented Da te Episodic/Chronic Abdominal pain (11 sources) Indigestion; Translations: [Dyspepsia and other specified disorders of function of stomach] Onset: 08-20-2022 Episodic Cancer of cervix (4 sources) Low grade squamous intraepithelial lesion on cervical Papanicolaou smear; Translations: [Low grade squamous intraepithelial lesion on cytologic smear of cervix (LGSIL)] Onset: 10-28-2015 02-14-2021 Episodic Deficiency and other anemia (6 sources) Anemia; Translations: [Anemia, unspecified] Onset: 02-14-2021 10-16-2020 Episodic Headache; including migraine (6 sources) Headache; Translations: [Headache] Onset: 02-14-2021 10-16-2020 Episodic Other gastrointestinal disorders (1 source) Diarrhea, unspecified; Translations: [Diarrhea, unspecified type] Onset: 08-20-2022 Episodic Other screening for suspected conditions (not mental disorders or infectious disease) (2 sources) Ultrasonography of abdomen abnormal; Translations: [Abnormal findings on diagnostic imaging of other abdominal regions, including retroperitoneum] Onset: 08-20-2022 Episodic Spondylosis; intervertebral disc disorders; other back [...] Results Test Name Value Interpretation Reference Range [facility] Esophagogastroduodenosco py Table formatting from the original result was not included. [facility] EGD Study observation Narrat sandhya 07-02-2023 Table formatting fro m the original result was not included. Impression Mild abnormal mucosa, consistent with gastritis in the prepyloric region; performed cold forceps biopsy Performed forceps biopsies in the duodenal bulb and 2nd part of the duodenum to rule out celiac disease Normal. Performed random biopsy to rule out Thakkar's esophagus. Findings Mild, patchy edematous mucosa with erosion in the prepyloric region, consistent with gastritis; no bleeding was identified; performed cold forceps biopsy; Performed forceps biopsies in the duodenal bulb and 2nd part of the duodenum to rule out celiac disease Z-line Z-line is 38 cm from the incisors. Performed random biopsy using biopsy forceps to rule out Thakkar's esophagus. Recommendation Follow up with me in clinic Indication Dyspepsia, Epigastric abdominal pain Staff Staff Role No Staff Documented Medications oorapakq-ynjrxomuql-ggsi ocaine (Cetacaine) spray 2 spray midazolam PF (Versed) injection 10 mg fentaNYL PF (Sublimaze) injection 100 mcg (Totals for administrations occurring from 0746 to 0807 on 07/02/23) Preprocedure A history and physical has been performed, and patient medication allergies have been reviewed. The patient's tolerance of previous anesthesia has been reviewed. The risks and benefits of the procedure and the sedation options and risks were discussed with the patient. All questions were answered and informed consent obtained. Details of the Procedure The patient underwent moderate sedation, which was administered by the procedural nurse. The patient's blood pressure, ECG, ETCO2, heart rate, level of consciousness, oxygen and respirations were monitored throughout the procedure. The scope was introduced through the mouth and advanced to the second part of the duodenum. Retroflexion was performed in the cardia. The patient experienced no blood loss. The procedure was not difficult. The patient tolerated the procedure well. There were no apparent adverse events. Events Procedure Events Event Event Time ENDO SCOPE IN TIME 07/02/2023 7:57 AM ENDO SCOPE OUT TIME 07/02/2023 8:03 AM Specimens ID Type Source Tests Collected by Time 1 : BX DUODENUM Tissue DUODENUM SECOND PART BIOPSY SURGICAL PATHOLOGY EXAM Kalie Block MA 07/02/2023 0800 2 : BX ANTRUM Tissue STOMACH ANTRUM BIOPSY SURGICAL PATHOLOGY EXAM Kalie Block MA 07/02/2023 0801 3 : BX DISTAL ESOPHAGUS Tissue ESOPHAGUS DISTAL BIOPSY SURGICAL PATHOLOGY EXAM Kalie Block MA 07/02/2023 0801 Procedure Location [address] [address] Referring Provider Shelby Corey DO [address] [facility], [address] [place] [address] Procedure Provider Shelby Corey DO [facility] Work Phone: [facility] Work Phone: Radiology Study observation (narrative) [facility] Work Phone: Surgical pathology studyon 0 07-02-2023 Surgical pathology study Pathology repor t.total SEE COMMENT Surgical Pathology Case: [id number] Authorizing Provider: Shelby Corey DO Collected: 07/02/2023 0800 Ordering Location: [facility] Received: 07/02/[address] [place] [address] Pathologist: Joselin Sepulveda MD Specimens: A) - DUODENUM SECOND PART BIOPSY, BX DUODENUM B) - STOMACH ANTRUM BIOPSY, BX ANTRUM C) - ESOPHAGUS DISTAL BIOPSY, BX DISTAL ESOPHAGUS Path report.final diagnosis SEE COMMENT A. DUODENUM SECOND PART, BIOPSY: Duodenal mucosa with focal hemosiderin pigmented macrophages in the lamina propria. Comment: The mucosal villous architecture appears intact. There is focal lymphoid aggregate, and focal hemosiderin pigmented macrophages in the lamina propria suggestive of prior mucosal injury. No active inflammation or granulomas identified. B. STOMACH ANTRUM, BIOPSY: Gastric oxyntic type mucosa with mild chronic gastritis. Comment: No Helicobacter pylori-like organisms identified on routine H&E stained sections. No intestinal metaplasia or dysplasia identified. C. ESOPHAGUS DISTAL, BIOPSY: Squamous mucosa with no diagnostic changes seen. No intestinal metaplasia identified. No increased intraepithelial eosinophils identified. Laboratory comment By the signature on this report, the individual or group listed as making the Final Interpretation/Diagnosis certifies that they have reviewed this case. Path report.gross observation SEE COMMENT A: Received in formalin, labeled with the patient's name and hospital number and duodenum 2 BX , are multiple fragments of hicks, soft tissue aggregating to 0.5 x 0.2 x 0.2 cm. The specimen is submitted in toto in one cassette. LMP B: Received in formalin, labeled with the patient's name and hospital number and st an BX , is a fragment of hicks, soft tissue measuring 0.7 x 0.2 x 0.1 cm. The specimen is submitted in toto in one cassette. LMP C: Received in formalin, labeled with the patient's name and hospital number and esophagus distal BX , are 2 fragments of hicks, soft tissue aggregating to 0.5 x 0.2 x 0.1 cm. The specimen is submitted in toto in one cassette. [facility] CNPLeandra 05-10-2023 CNPN Telephone (AGGENS3) -------- LARISA MARIN ([id number]) 1985 F Date Time Provider Department 05/10/23 Yancy CURRIE AGGENS3 During your visit today, we recorded the following information about you: Vin Ortega 05/10/2023 2:56 PM Signed Referral received from Dr. Gipson for ERCP. Spoke with patient and she wishes to hold off on appointment until she makes a decision. She will call when she is ready to schedule. Vin Ortega Allergies As of Date: 05/10/2023 Noted Allergy Reaction environmental [Other] 05/23/2006 PREDNISONE 03/12/2019 14 - Other: See Comments Comments: migraines Date Reviewed: 08/20/2022 Reviewed by: Mariah Hutton LPN - Fully Assessed Reason for Visit: Referral Request [124] Prescriptions as of 05/10/2023 - fexofenadine (ANIKA) 180 mg tablet Take 180 mg by mouth once daily. - progesterone micronized (PROMETRIUM) 200 mg capsule Take 1 capsule by mouth daily at bedtime. - letrozole (FEMARA) 2.5 mg tablet Take 2 tablets by mouth once daily. - letrozole (FEMARA) 2.5 mg tablet Take 2 tablets by mouth once daily for 5 days. - doxycycline (VIBRA-TABS) 100 mg tablet Take as directed - estradiol (ESTRACE) 2 mg tablet Take 3 tablets (6mg) as directed - famotidine (PEPCID) 40 mg tablet Take 40 mg by mouth twice daily. - labetalol (TRANDATE) 100 mg tablet Take 100 mg by mouth once daily. - labetalol (TRANDATE) 200 mg tablet Take 200 mg by mouth twice daily. - LORazepam (ATIVAN) 0.5 mg tab Take 0.5 mg by mouth as needed. - levothyroxine (SYNTHROID) 75 mcg tablet 100 mcg. Additional 1/2 tablet on 4x weekly - naproxen-diphenhydramine 220-25 mg tab Take by mouth. - loratadine (CLARITIN) 10 mg tablet Take 10 mg by mouth once daily. - buPROPion SR (ZYBAN SR; WELLBUTRIN SR) 150 mg 12 hr tablet Take 450 mg by mouth once daily. - naratriptan (AMERGE) 2.5 mg tablet Take 2.5 mg by mouth as needed. 2.5 mg at onset of headache, may repeat in 4 hours if needed - FERROUS SULFATE ORAL Take by mouth three times daily. - vitamins/fe sulf/fa( MULTIVITAMIN WITH IRON 27 MG-0.8 MG TAB) Take one(1) tablet daily. Meds Comments as of 09/17/2007: All medications reviewed today/September 17, 2007 Amberly Wahl [facility] Problem List As Of Date 05/10/2023 Noted Resolved ALLERGIC RHINITIS NOS [J30.9] 11/26/2006 IRRITABLE COLON [K58.9] 01/04/2007 COMMON MIGRAINE W/O MENTN INTRACT [G43.009] 03/11/2007 PCOS (polycystic ovarian syndrome) [E28.2] 12/05/2011 Anovulation [N97.0] 12/05/2011 Acquired hypothyroidism [E03.9] 10/10/2015 Low grade squamous intraepithelial lesion (LGSI*10/28/2015 Encounter Status:Closed by VIN ORTEGA on 05/10/23 [facility] Established Visit (Gastroent erology)on 08-27-2022 Established Visit (Gastroenterology) Diagnoses/Problems Assessed 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 : No Is the patient or breast feeding? : No What are the patient's signs and symptoms? : Choledocolithiasis, Dilated Bile duct Provider Impressions Recommend MRCP given her history of choledocholithiasis and dilated common bile duct with symptoms being reminiscent of prior common impacted bile duct stone. Chief Complaint FUV in office today for dyspepsia. Carafate helped some, Beginning of July had some severe diarrhea, one episode of vomiting with epigastric pain- ended up in the ER- told norovirus. Patient had US done at [facility]- dilated bile duct. History of Present IllnessAmber is seen today in follow-up. Initially Carafate [...] home on a soft diet for 3 days. She continues to feel epigastric discomfort which is not relieved by Carafate. An ultrasound her abdomen was done at that time revealing dilated common bile duct. She has had choledocholithiasis in the past which occurred 16 years after her cholecystectomy. She states these pains are similar in pattern to that event. Review of Systems Constitutional: no fever, no chills, not feeling tired and no recent weight loss. ENT: no lymphadenopathy. Cardiovascular: no shortness of breath and no chest pain. Respiratory: no cough. Gastrointestinal: as noted in HPI. Musculoskeletal: no joint swelling. Integumentary: no rashes, no skin lesions and was no jaundiced. All other systems have been reviewed and are negative for complaint. 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) Cervical pain (neck) (723.1) (M54.2) Cervicalgia of vivzypiu-kjcqbym-tisfz region (723.1) (M54.2) Chronic migraine without aura, with intractable migraine, so stated, with status migrainosus (346.73) (G43.711) Depression, reactive (300.4) (F32.9) Dyspepsia (536.8) (R10.13) Nausea (787.02) (R11.0) Past Medical History Problems History of Anxiety (300.00) (F41.9) History of arthritis (V13.4) (Z87.39) History of depression (V11.8) (Z86.59) History of stroke (V12.54) (Z86.73) History of thyroid disease (V12.29) (Z86.39) Surgical History Problems History of Cholecystectomy 1995 History of Endoscopic Retrograde Cholangiopancreatography (ERCP) History of Foot Surgery Family History Mother Family history of depression (V17.0) (Z81.8) Family history of fibromyalgia (V17.89) (Z82.69) Family history of migraine headaches (V17.2) (Z82.0) Family history of rheumatoid arthritis (V17.7) (Z82.61) Family history of thyroid disease (V18.19) (Z83.49) Sister Family history of depression (V17.0) (Z81.8) Family history of fibromyalgia (V17.89) (Z82.69) Family history of migraine headaches (V17.2) (Z82.0) Family history of thyroid disease (V18.19) (Z83.49) Paternal Grandfather Family history of depression (V17.0) (Z81.8) Family history of thyroid disease (V18.19) (Z83.49) Social History Problems Daily caffeine consumption, 1 serving a day Never a smoker No alcohol use Non-smoker (V49.89) (Z78.9) Allergies Medication predniSONE Adverse Reaction; Recorded By: Amanda Leos; 06/18/2022 9:45:12 AM Current Meds Medication NameInstruction Aleve 220 MG Oral TabletTAKE 2 TABLET Every twelve hours PRN buPROPion HCl ER (XL) 150 MG Oral Tablet Extended Release 24 Hour buPROPion HCl ER (XL) 300 MG Oral Tablet Extended Release 24 HourTAKE 1 TABLET DAILY. Dicyclomine HCl - 20 MG Oral Tablet Ferrous Sulfate 325 (65 Fe) MG Oral TabletTAKE 3 TABLET Daily Labetalol HCl - 200 MG Oral TabletTAKE 1 TABLET Bedtime Levothyroxine Sodium 112 MCG Oral Tablet Loratadine 10 MG Oral Tablettake 1 tablet by mouth once daily LORazepam 0.5 MG Oral Tablet Meloxicam 15 MG Oral TabletTAKE 1 TABLET DAILY. prn Nurtec 75 MG Oral Tablet Disintegrating1 po qd prn Pepcid 40 MG Oral TabletTAKE 1 TABLET TWICE DAILY am and hs. Vitamins 28-0.8 MG Oral Ta (more content not included)... 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) Dyspepsia (536.8) (R10.13) Orders Bile reflux gastritis, Dyspepsia Start: Sucralfate 1 GM Oral Tablet; TAKE 1 TABLET EVERY 12 HOURS DAILY Rx By: Shelby Corey; Dispense: 30 Days ; #:60 Tablet; Refill: 5;For: Bile reflux gastritis, Dyspepsia; JANELLE = N; Verified Transmission to [facility]; Last Updated By: Benny Mendoza; 06/18/2022 10:14:13 AM Provider Impressions I have advised Larisa that this most likely is bile reflux gastritis we will begin Carafate 1 g twice daily continue Prilosec twice daily dosing if there is no improvement in the next 2 to 4 weeks would recommend endoscopy for further evaluation. Chief Complaint NPV in office today for epigastric pain for awhile, is on a PPI has tried Pepcid and is now on Prilosec. Prior cholecystectomy. Prior ERCP for stones in common bile duct. History of Present IllnessAmber is a pleasant 36-year-old white female I have known for years. She had cholecystectomy at age 9 and then had recurrent to choledocholithiasis age [...] diarrhea pain is not reminiscent of her choledocholithiasis. Review of Systems Constitutional: no fever, no chills, not feeling tired and no recent weight loss. ENT: no lymphadenopathy. Cardiovascular: no shortness of breath and no chest pain. Respiratory: no cough. Gastrointestinal: as noted in HPI. Musculoskeletal: no joint swelling. Integumentary: no rashes, no skin lesions and was no jaundiced. All other systems have been reviewed and are negative for complaint. Active Problems Problems Cervical pain (neck) (723.1) (M54.2) Cervicalgia of soqcjqyn-oagzawn-jamnb region (723.1) (M54.2) Chronic migraine without aura, with intractable migraine, so stated, with status migrainosus (346.73) (G43.711) Depression, reactive (300.4) (F32.9) Nausea (787.02) (R11.0) Past Medical History Problems History of Anxiety (300.00) (F41.9) History of arthritis (V13.4) (Z87.39) History of depression (V11.8) (Z86.59) History of stroke (V12.54) (Z86.73) History of thyroid disease (V12.29) (Z86.39) Surgical History Problems History of Cholecystectomy 1995 History of Endoscopic Retrograde Cholangiopancreatography (ERCP) 2010,1012 History of Foot Surgery 2000,2011 Family History Mother Family history of depression (V17.0) (Z81.8) Family history of fibromyalgia (V17.89) (Z82.69) Family history of migraine headaches (V17.2) (Z82.0) Family history of rheumatoid arthritis (V17.7) (Z82.61) Family history of thyroid disease (V18.19) (Z83.49) Sister Family history of depression (V17.0) (Z81.8) Family history of fibromyalgia (V17.89) (Z82.69) Family history of migraine headaches (V17.2) (Z82.0) Family history of thyroid disease (V18.19) (Z83.49) Paternal Grandfather Family history of depression (V17.0) (Z81.8) Family history of thyroid disease (V18.19) (Z83.49) Social History Problems Daily caffeine consumption, 1 serving a day Never a smoker No alcohol use Non-smoker (V49.89) (Z78.9) Allergies Medication predniSONE Adverse Reaction; Recorded By: Amanda Leos; 06/18/2022 9:45:12 AM Current Meds Medication NameInstruction Aleve 220 MG Oral TabletTAKE 2 TABLET Every twelve hours PRN buPROPion HCl ER (XL) 150 MG Oral Tablet Extended Release 24 Hour buPROPion HCl ER (XL) 300 MG Oral Tablet Extended Release 24 HourTAKE 1 TABLET DAILY. Ferrous Sulfate 325 (65 Fe) MG Oral TabletTAKE 3 TABLET Daily Labetalol HCl - 200 MG Oral TabletTAKE 1 TABLET Bedtime Levothyroxine Sodium 112 MCG Oral Tablet Loratadine 10 MG Oral Tablettake 1 tablet by mouth once daily LORazepam 0.5 MG Oral Tablet Meloxicam 15 MG Oral TabletTAKE 1 TABLET DAILY. prn Nurtec 75 MG Oral Tablet Disintegrating1 po qd prn Pepcid 40 MG Oral TabletTAKE 1 TABLET TWICE DAILY am and hs. Vitamins 28-0.8 MG Oral TabletTAKE 1 TABLET DAILY. PriLOSEC 20 MG CPDR Promethazine HCl - 12.5 MG Oral TabletTAKE 1 TABLET EVERY 4 TO 6 HOURS NEEDED FOR NAUSEA. Rizatriptan Benzoate 10 MG Oral TabletTAKE 1 TABLET AT ONSET OF HEADACHE. MAY REPEAT EVERY 2 HOURS NEEDED. MAXIMUM 3 TABLETS IN 24 HOURS. tiZANidine HCl - 4 MG Oral Tableti pil at night increase by half a pill evry 3 days as needed until max of 3. Vitamin B-12 1000 MCG Oral TabletTAKE 1 TABLET DAILY DIRECTED. Vitamin D3 50 MCG (1999 UT) Oral CapsuleTAKE 1 CAPSULE Daily Vitals Vital Signs Recorded: 18Jun2022 09:43AM Nwutejqu173 Pyokoeelc58 Height5 ft 7 in Akgpiv685 lb BMI Ihklbgnvaq52.85 kg/m2 BSA Calculated2.33 Physical Exam (more content not included)... Normal [facility] Respirationon 02-22-2021 Heart Rate Regular -Neurology -[place] [facility] DO Work Phone: Respiration Normal MP-Neurology -[place] [facility] DO Work Phone: CYCLIC CITRULLINATED PEPTIDE ,*on 02-14-2021 CYCLIC CITRULL. PEPTIDE AB, IGG 0.5 U/mL Normal <3.0 [employer] Comment on above: Order Comment: Refer ence Range: Negative: < 3.0 U/mL Positive: > or = 3.0 U/mL NOTE: New Reference Range and Unit of Measure in use effective 08/28/2017. Performed By: #### C CP #### [facility] [address] [place], [address] Progress Noteson 02-14-2021 [employer] Authentication Interface Message Text New Rheumatology Note CC: joint pains Referred by: Patient HPI: Larisa Marin is a 35 year old female here for evaluation of above complaint FMS x 10 years Lots of joint pains down legs- lateral hips. Walking a lot brings it on. +pain but no numbness/tingling. Side sleeper. Going to stand from sit feels it tenderness and stiffness. Left arm hurting since September. Running down the arm. On and off bad and good. RHD. Started in elbow and radiating up and down from elbow. 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 Not a lot swelling. Work day not bothersome. Reaching up and pulling may exacerbation. 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 Joint pain hands, knees; not very stiff on waking. Overdoing it exacbertes the pains. Pips are the worse. Thinks spares the mcps. Midfoot arthritis, plans for eventual fusion/plate. mobic prn, not daily. Daily migraines. Takes maxalt or nurtec. +aura. Seeing neuro next week FMS: on and off savella. Helps. Tizanadine helps but groggy in AM. Never on neris/lyrica. Was on tramadol in the past. Exercise: not schedule, active life. Sleeps for destress. Sleeps for fun. Anxiety/depression fairly well controlled, rare ativan. Had to do IVF bc of PCOS. Migraines improved w . Covid last fall, chronic headache since then, more intense since then. Dr [facility] [place] Actively planning second . Lower back pain- on and off over years. L5 was bad in the past. Laying on stomach too long can make it worse. During the day not too much of a problem. 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 * rizatriptan (Maxalt) 5 MG tablet Take 5 mg by mouth as needed for Migraine. May repeat in 2 hours in needed * promethazine (PHENERGAN) 12.5 MG tablet Take 12.5 mg by mouth every 6 hours as needed for Nausea. * Naproxen Sod-diphenhydrAMINE 220-25 MG TABS Take by mouth. * Vit-Fe Fumarate-FA ( Vitamin) 27-0.8 MG TABS Take by mouth. * Nurtec 75 MG TBDP * letrozole (FEMARA) 2.5 MG tablet Take 5 mg by mouth. * levothyroxine (SYNTHROID) 100 MCG tablet Take by mouth. * loratadine (CLARITIN) 10 MG tablet Take 10 mg by mouth. * LORazepam (ATIVAN) 0.5 MG tablet * meloxicam (MOBIC) 15 MG tablet Take 15 mg by mouth. * medroxyPROGESTERone (PROVERA) 10 MG tablet Take 10 mg by mouth. * Milnacipran HCl 100 MG TABS Take 100 mg by mouth. * buPROPion ER (WELLBUTRIN XL) 300 MG XL tablet Take 300 mg by mouth. * Cyanocobalamin 1000 MCG CAPS Take by mouth. * ferrous sulfate 325 (65 Fe) MG tablet Take 325 mg by mouth. * labetalol (NORMODYNE) 200 MG tablet * labetalol (NORMODYNE) 100 MG tablet Take 100 mg by mouth. No current facility-administered medications for this visit. ROS: all ten systems are reviewed and negative except for pertinent positive and negative stated in the HPI Physical Exam Constitutional: General: She is not in acute distress. HENT: Head: Normocephalic and atraumatic. Eyes: Conjunctiva/sclera: Conjunctivae normal. Cardiovascular: Rate and Rhythm: Normal rate and regular rhythm. Heart sounds: Normal heart sounds. No murmur heard. No friction rub. No gallop. Pulmonary: Effort: Pulmonary effort is normal. Breath sounds: Normal breath sounds. Abdominal: General: Bowel sounds are normal. Palpations: Abdomen is soft. Tenderness: There is no abdominal tenderness. Musculoskeletal: Right shoulder: Normal. Left shoulder: Normal. Right elbow: Normal range of motion. Tenderness present in lateral epicondyle. Left elbow: Normal. Right wrist: Normal. Left wrist: Normal. Right hand: Normal. Left hand: Normal. Cervical back: Normal range of motion. Lumbar back: Normal. Right hip: Normal. Left hip: Normal. Right knee: Normal. Left knee: Normal. Right ankle: Normal. Left ankle: Normal. Right foot: Normal. Left foot: Normal. Lymphadenopathy: Cervical: No cervical adenopathy. Skin: General: Skin is warm and dry. Findings: No rash. Neurological: Mental Status: She is alert and oriented to person, place, and time. Gait: Gait is intact. Psychiatric: Mood and Affect: Mood and affect normal. Cognition and Memory: Memory normal. Assessment/Plan: Larisa Marin is a 35 year old female with family history of deforming rheumatoid arthritis; also joint pains in hands (Pips) without inflammatory arthritis component; also elbow pain, hip pains, chronic back pain #FMS, family history of rheumatoid arthritis, PIP joint pains -doubt RA -check RF, CCP for completion -savella for now, consider adding topomax/gabapentin for pain if needed but currently actively trying to conceive #elbow left pain -ddx favor lateral ep (more content not included)... Normal [employer] Authentication Interface Message Text 10:58 AM Patient was identified by name and date of . Melissa Samanta Patient at risk for falls:No Falls Risk protocol implemented: No Normal [employer] [facility] RHEUMATOID FACTORon 02-15-20 21 RHEUMATOID FACTOR < 7 Normal <10 [employer] Comment on above: Performed By: #### R A #### [facility] [address] [place] [address], [phone] Estradiolon 05-11-2019 Estradiol 110.54 pg/ml Normal [facility] Comment on above: Result Comment: The drug fulvestrant(Faslodex) may cause FALSELY elevated estradiol results with this assay. If the patient is taking fulvestrant, confirmation by Liquid Chromatography-Mass Spectrometry(LC-MS)is required. Female: Follicular 19.5 to 144.2 Midcycle 63.9 to 356.7 Luteal 55.8 to 214.2 Postmenopausal None Detected to 32.2 Males: None Detected to 39.8 Performed By: #### E ST4 #### [place] [address] Progesteroneon 05-11-2019 Progesterone < 0.21 Normal [facility] Comment on above: Result Comment: Foll icular 0.15 to 1.40 Luteal 3.34 to 25.56 Mid Luteal 4.44 to 28.03 Postmenopausal 0.00 to 0.73 Males: 0.28 to 1.22 Performed By: #### P ROG3 #### [place] [address] Final Surgical Pathology Rep [facility] 11-19-2017 Final Surgical Pathology Report . Pathology ReportsAccession: Collected Date/Time: Received Date/Time: Pathologist:[id number] 11/15/2017 15:04 EDT 11/18/2017 10:20 EDT MD DORA SQUIRES Final Surgical Pathology ReportDIAGNOSIS:UTERINE CONTENTS: - FRAGMENTS OF DECIDUALIZED ENDOMETRIUM AND PLACENTAL VILLI DIAGNOSTIC OF PRODUCTS OF CONCEPTION.CLINICAL INFORMATION:_PROCEDURE: SUCTION DILATION AND CURETTAGEPRE-OP DIAGNOSIS: MISSED ABORTIONPOST-OP DIAGNOSIS: SAMESPECIMEN:A POC - PRODUCTS OF CONCEPTIONGROSS DESCRIPTION:_Received fresh labeled products of conception is a 3.5 x 3 x 1 cm aggregate of red soft tissue. A teleservices representative portion is submitted in transport media for cytogenetics and the remainder is submitted for permanent sections in one cassette.Dictated by Forest HUIZAR ([facility])MICROSCOPIC DESCRIPTION:Slides reviewed.Electronically Signed byPathology Report verified by [facility] HospitalElectronically signed by DORA JOHNSTONign out Date: 11/19/2017 12:28Performing Lab: [facility], [address] [place] [address] ([place]) Comment on above: Performed By: #### C BC, ADIFF, ANEU, BMP, GFR ####[place] [address] Discharge Summaryon 11-19-19 18 Discharge Summary Normal [facility] ([place]) Operative Noteon 11-18-2017 Operative Note Normal [facility] ([place] Procedure Noteon 11-16-2017 Procedure Note Normal [facility] ([place] .Auto Diffon 11-15-2017 Basophils Auto #/vol (Bld) 0.10 10 3/mcL Normal 0.00-0.27 [facility] ([place] Comment on above: Performed By: #### C BC, ADIFF, ANEU, BMP, GFR ####[address] [address] Basophils/100 WBC Auto (Bld) 1.0 % Normal 0.0-2.5 [facility] ([place] Comment on above: Performed By: #### C BC, ADIFF, ANEU, BMP, GFR ####[address] [address] Eosinophils 0.40 10 3/mcL Normal 0.00-0.65 [facility] ([place]) Comment on above: Performed By: #### C BC, ADIFF, ANEU, BMP, GFR ####[address] [address] Eosinophils/100 leukocytes 4.0 % Normal 0.0-6.0 [facility] ([place]) Comment on above: Performed By: #### C BC, ADIFF, ANEU, BMP, GFR ####[address] [address] Lymphocytes 2.50 10 3/mcL Normal 0.90-4.32 [facility] ([place]) Comment on above: Performed By: #### C BC, ADIFF, ANEU, BMP, GFR ####[address] [address] Lymphocytes/100 leukocytes 26.9 % Normal 20.0-40.0 [facility] ([place]) Comment on above: Performed By: #### C BC, ADIFF, ANEU, BMP, GFR ####[address] [address] Monocytes 0.60 10 3/mcL Normal 0.09-1.40 [facility] ([place]) Comment on above: Performed By: #### C BC, ADIFF, ANEU, BMP, GFR ####[address] [address] Monocytes/100 leukocytes 6.3 % Normal 2.0-13.0 [facility] ([place]) Comment on above: Performed By: #### C BC, ADIFF, ANEU, BMP, GFR ####[address] [address] Neutrophils/100 WBC Auto (Bld) 61.8 % Normal 50.0-75.0 [facility] ([place]) Comment on above: Performed By: #### C BC, ADIFF, ANEU, BMP, GFR ####[place] [address] .NEUABSon 11-15-2017 Neutrophil, Absolute 5.60 10 3/mcL Normal 2.25-8.10 [facility] ([place]) Comment on above: Performed By: #### C BC, ADIFF, ANEU, BMP, GFR ####[place] [address] Anesthesiology Consultationo n 11-15-2017 Anesthesiology Consultation Normal [facility] ([place]) Anesthesiology Consultation Normal [facility] ([place]) CBCon 11-15-2017 Erythrocyte distribution width Auto Ratio (RBC) 13.1 % Normal 11.5-15.5 [facility] ([place]) Comment on above: Performed By: #### C BC, ADIFF, ANEU, BMP, GFR ####[place] [address] Erythrocytes (RBC) 4.14 10 6/mcL Normal 4.10-5.30 [facility] ([place]) Comment on above: Performed By: #### C BC, ADIFF, ANEU, BMP, GFR ####[place] [address] Hematocrit (HCT) 37.1 % Normal 34.0-46.0 [facility] ([place] Comment on above: Performed By: #### C BC, ADIFF, ANEU, BMP, GFR ####[place] [address] Hemoglobin mass conc (Bld) 12.6 G/dL Normal 12.0-16.0 [facility] ([place]) Comment on above: Performed By: #### C BC, ADIFF, ANEU, BMP, GFR ####[address] [address] MCH 30.5 pg Normal 27.0-33.0 [facility] ([place]) Comment on above: Performed By: #### C BC, ADIFF, ANEU, BMP, GFR ####[place] [address] MCHC mass conc (RBC) 33.9 G/dL Normal 32.0-36.0 [facility] ([place]) Comment on above: Performed By: #### C BC, ADIFF, ANEU, BMP, GFR ####[place] [address] MCV 89.8 fL Normal 80.0-99.0 [facility] ([place]) Comment on above: Performed By: #### C BC, ADIFF, ANEU, BMP, GFR ####[place] [address] Platelet mean volume (PMV) 8.2 fL Normal 6.6-10.5 [facility] ([place]) Comment on above: Performed By: #### C BC, ADIFF, ANEU, BMP, GFR ####[address] [address] Platelets 292 10 3/mcL Normal 150-450 [facility] ([place]) Comment on above: Performed By: #### C BC, ADIFF, ANEU, BMP, GFR ####[place] [address] WBC (Leukocytes) 9.10 10 3/mcL Normal 4.50-10.80 [facility] ([place]) Comment on above: Performed By: #### C BC, ADIFF, ANEU, BMP, GFR ####[place] [address] Depart Summaryon 11-15-2017 Depart Summary Normal [facility] ([place]) Main OR Intraop Recordon Main OR Intraop Record Normal [facility] ([place]) Outpatient Patient Summaryon 11-15-2017 Outpatient Patient Summary Normal [facility] ([place]) TABOon 11-15-2017 ABO/Rh Interp Positive Invalid Interpretation Code [facility] ([place]) Comment on above: Performed By: #### C BC, ADIFF, ANEU, BMP, GFR ####[facility] [place] [address] TABSon 11-15-2017 Antibody Screen Tango Negative Normal [facility] ([place]) Comment on above: Performed By: #### C BC, ADIFF, ANEU, BMP, GFR ####[facility] [place] [address] Main Pretest Recordon 2017 Main Pretest Record Normal [facility] ([place]) Final Surgical Pathology Rep [facility] 08-19-2017 Final Surgical Pathology Report . Pathology ReportsAccession: Collected Date/Time: Received Date/Time: Pathologist:[id number] 08/16/2017 13:06 EDT 08/16/2017 14:24 EDT MD ITZ TRAN Final Surgical Pathology ReportDIAGNOSIS:ENDOMETR IUM, CURETTAGE: - FRAGMENTS OF ENDOMETRIAL TISSUE WITH GLANDULAR ATROPHY AND STROMAL DECIDUALIZATION SUGGESTING EXOGENOUS HORMONAL EFFECT AND FRAGMENTS OF SUPERFICIAL MYOMETRIUM IDENTIFIED.CLINICAL INFORMATION:Procedure: HYSTEROSCOPY, DILATION AND CURETTAGEPreoperative diagnosis: ENDOMETRIAL HYPERPLASIAPostoperative diagnosis: ENDOMETRIAL HYPERPLASIASPECIMEN:A EMBX - ENDOMETRIAL CURETTINGSGROSS DESCRIPTION:Received in formalin labeled endometrial curettings is about 0.75 cc of hicks tissue fragments. TS -1Dictated by FOREST HUIZAR ([facility])MICROSCOPIC DESCRIPTION:Slides reviewed.Electronically Signed byPathology Report verified by [facility] HospitalElectronically signed by ITZ TRAN MDSign out Date: 08/19/2017 14:30Performing Lab: [facility], [address] [place] [address] [facility] Normal [facility] ([place]) Comment on above: Performed By: #### C BC, ADIFF, ANEU, BMP, GFR ####[facility] [place] [address] .GFRon 08-16-2017 GFR >60 Normal [facility] ([place]) Comment on above: Result Comment: GFR Population mean for , Non- Americans Ages 20-29 = 116 mL/min/1.73 sq.m. Ages 30-39 = 107 mL/min/1.73 sq.m. Ages 40-49 = 99 mL/min/1.73 sq.m. Ages 50-59 = 93 mL/min/1.73 sq.m. Ages 60-69 = 85 mL/min/1.73 sq.m. Ages 70+ = 75 mL/min/1.73 sq.m.Chronic Kidney Disease: Less than 60 mL/min/1.73 square metersEnd Stage Renal Disease: Less than 15 mL/min/1.73 square meters Performed By: #### C BC, ADIFF, ANEU, BMP, GFR ####[address] [address] GFR Non- >60 Normal [facility] ([place]) Comment on above: Result Comment: GFR Population mean for , Non- Americans Ages 20-29 = 116 mL/min/1.73 sq.m. Ages 30-39 = 107 mL/min/1.73 sq.m. Ages 40-49 = 99 mL/min/1.73 sq.m. Ages 50-59 = 93 mL/min/1.73 sq.m. Ages 60-69 = 85 mL/min/1.73 sq.m. Ages 70+ = 75 mL/min/1.73 sq.m.Chronic Kidney Disease: Less than 60 mL/min/1.73 square metersEnd Stage Renal Disease: Less than 15 mL/min/1.73 square meters Performed By: #### C BC, ADIFF, ANEU, BMP, GFR ####[address] [address] Anesthesiology Consultationo n 08-16-2017 Anesthesiology Consultation Normal [facility] ([place]) BMPon 08-16-2017 BUN/Creatinine Ratio 23.6 ratio High 10.0-22.0 [facility] ([place]) Comment on above: Performed By: #### C BC, ADIFF, ANEU, BMP, GFR ####[address] [address] Calcium 8.9 mg/dL Normal 8.4-10.1 [facility] ([place]) Comment on above: Performed By: #### C BC, ADIFF, ANEU, BMP, GFR ####[place] [address] Chloride 109 mmol/L Normal 98-110 [facility] ([place]) Comment on above: Performed By: #### C BC, ADIFF, ANEU, BMP, GFR ####[address] [address] CO2 23 mmol/L Normal 22-32 [facility] ([place]) Comment on above: Performed By: #### C BC, ADIFF, ANEU, BMP, GFR ####[address] [address] Creatinine 0.72 mg/dL Normal 0.50-1.20 [facility] ([place]) Comment on above: Performed By: #### C BC, ADIFF, ANEU, BMP, GFR ####[place] [address] Electrolyte Balance 11.0 mEq/L Normal 4.0-15.0 [facility] ([place]) Comment on above: Performed By: #### C BC, ADIFF, ANEU, BMP, GFR ####[place] [address] Glucose mass conc 85 mg/dL Normal 70-110 [facility] ([place]) Comment on above: Performed By: #### C BC, ADIFF, ANEU, BMP, GFR ####[place] [address] Potassium molar conc 4.2 mmol/L Normal 3.5-5.0 [facility] ([place]) Comment on above: Performed By: #### C BC, ADIFF, ANEU, BMP, GFR ####[place] [address] Sodium 143 mmol/L Normal 136-145 [facility] ([place]) Comment on above: Performed By: #### C BC, ADIFF, ANEU, BMP, GFR ####[place] [address] Urea nitrogen 17.0 mg/dL Normal 8.0-22.0 [facility] ([place]) Comment on above: Performed By: #### C BC, ADIFF, ANEU, BMP, GFR ####[place] [address] [place] [address] Depart Summaryon 08-16-2017 Depart Summary Normal [facility] ([place]) Main OR Intraop Recordon Main OR Intraop Record Normal [facility] ([place]) Operative Noteon 08-16-2017 Operative Note Normal [facility] ([place]) Outpatient Patient Summaryon 08-16-2017 Outpatient Patient Summary Normal [facility] ([place]) Pat Eduon 08-16-2017 Pat Edu Normal [facility] ([place]) Procedure Noteon 08-16-2017 Procedure Note Normal [facility] ([place]) Main Pretest Recordon 2017 Main Pretest Record Normal [facility] ([place]) Operative Noteon 05-09-2017 Operative Note Normal [facility] ([place]) Final Surgical Pathology Rep bassam 05-07-2017 Final Surgical Pathology Report . Pathology ReportsAccession: Collected Date/Time: Received Date/Time: Pathologist:[id number] 05/03/2017 14:12 EST 05/06/2017 07:13 DO VIOLET BARRERA Final Surgical Pathology ReportDIAGNOSIS:ENDOMETR IUM: - FRAGMENTS OF SECRETORY ENDOMETRIUM, FRAGMENTS OF POLYPS WITH FOCAL SIMPLE TO COMPLEX HYPERPLASIA WITHOUT ATYPIA AND SQUAMOUS MORULES, ENDOCERVICAL POLYPS AND SUPERFICIAL MYOMETRIUM. - NEGATIVE FOR MALIGNANCY.CLINICAL INFORMATION:PROCEDURE: HYSTEROSCOPY / POLYPECTOMIES WITH MYOSUREPRE-OP DIAGNOSIS: ENDOMETRIAL POLYPS.POST-OP DIAGNOSIS: SAMESPECIMEN:A EMBX - ENDOMETRIAL AND ENDOCERVICAL TISSUEGROSS DESCRIPTION:_Received in formalin labeled endometrial and endocervical is about 0.75 cc of dark red blood clot and hicks-white soft tissue fragments. A S -1Dictated by FOREST HUIZAR ([facility])MICROSCOPIC DESCRIPTION:Slides reviewed.Electronically Signed byPathology Report verified by [facility] HospitalElectronically signed by VIOLET Becerra out Date: 05/07/2017 09:50Performing Lab: [facility], [address] [place] [address] Normal [facility] ([place]) Comment on above: Performed By: #### C BC, ADIFF, ANEU, BMP, GFR ####[address] [address] .Auto Diffon 05-03-2017 Basophils Auto #/vol (Bld) 0.10 10 3/mcL Normal 0.00-0.27 [facility] ([place]) Comment on above: Performed By: #### C BC, ADIFF, ANEU, BMP, GFR ####[address] [address] Basophils/100 WBC Auto (Bld) 0.6 % Normal 0.0-2.5 [facility] ([place]) Comment on above: Performed By: #### C BC, ADIFF, ANEU, BMP, GFR ####[address] [address] Eosinophils 0.10 10 3/mcL Normal 0.00-0.65 [facility] ([place]) Comment on above: Performed By: #### C BC, ADIFF, ANEU, BMP, GFR ####[address] [address] Eosinophils/100 leukocytes 0.9 % Normal 0.0-6.0 [facility] ([place]) Comment on above: Performed By: #### C BC, ADIFF, ANEU, BMP, GFR ####[address] [address] Lymphocytes 2.20 10 3/mcL Normal 0.90-4.32 [facility] ([place]) Comment on above: Performed By: #### C BC, ADIFF, ANEU, BMP, GFR ####[address] [address] Lymphocytes/100 leukocytes 21.3 % Normal 20.0-40.0 [facility] ([place]) Comment on above: Performed By: #### C BC, ADIFF, ANEU, BMP, GFR ####[address] [address] Monocytes 0.60 10 3/mcL Normal 0.09-1.40 [facility] ([place]) Comment on above: Performed By: #### C BC, ADIFF, ANEU, BMP, GFR ####[address] [address] Monocytes/100 leukocytes 6.4 % Normal 2.0-13.0 [facility] ([place]) Comment on above: Performed By: #### C BC, ADIFF, ANEU, BMP, GFR ####[address] [address] Neutrophils/100 WBC Auto (Bld) 70.8 % Normal 50.0-75.0 [facility] ([place]) Comment on above: Performed By: #### C BC, ADIFF, ANEU, BMP, GFR ####[address] [address] .GFRon 05-03-2017 GFR Non- >60 Normal [facility] ([place]) Comment on above: Result Comment: GFR Population mean for , Non- Americans Ages 20-29 = 116 mL/min/1.73 sq.m. Ages 30-39 = 107 mL/min/1.73 sq.m. Ages 40-49 = 99 mL/min/1.73 sq.m. Ages 50-59 = 93 mL/min/1.73 sq.m. Ages 60-69 = 85 mL/min/1.73 sq.m. Ages 70+ = 75 mL/min/1.73 sq.m.Chronic Kidney Disease: Less than 60 mL/min/1.73 square metersEnd Stage Renal Disease: Less than 15 mL/min/1.73 square meters Performed By: #### C BC, ADIFF, ANEU, BMP, GFR ####[address] [address] GFR >60 Normal [facility] ([place]) Comment on above: Result Comment: GFR Population mean for , Non- Americans Ages 20-29 = 116 mL/min/1.73 sq.m. Ages 30-39 = 107 mL/min/1.73 sq.m. Ages 40-49 = 99 mL/min/1.73 sq.m. Ages 50-59 = 93 mL/min/1.73 sq.m. Ages 60-69 = 85 mL/min/1.73 sq.m. Ages 70+ = 75 mL/min/1.73 sq.m.Chronic Kidney Disease: Less than 60 mL/min/1.73 square metersEnd Stage Renal Disease: Less than 15 mL/min/1.73 square meters Performed By: #### C BC, ADIFF, ANEU, BMP, GFR ####[place] [address] .NEUABSon 05-03-2017 Neutrophil, Absolute 7.20 10 3/mcL Normal 2.25-8.10 [facility] ([place]) Comment on above: Performed By: #### C BC, ADIFF, ANEU, BMP, GFR ####[place] [address] BMPon 05-03-2017 BUN/Creatinine Ratio 22.2 ratio High 10.0-22.0 [facility] ([place]) Comment on above: Performed By: #### C BC, ADIFF, ANEU, BMP, GFR ####[place] [address] Creatinine 0.72 mg/dL Normal 0.50-1.20 [facility] ([place]) Comment on above: Performed By: #### C BC, ADIFF, ANEU, BMP, GFR ####[place] [address] Calcium 8.8 mg/dL Normal 8.4-10.1 [facility] ([place]) Comment on above: Performed By: #### C BC, ADIFF, ANEU, BMP, GFR ####[place] [address] Chloride 106 mmol/L Normal 98-110 [facility] ([place]) Comment on above: Performed By: #### C BC, ADIFF, ANEU, BMP, GFR ####[place] [address] CO2 24 mmol/L Normal 22-32 [facility] ([place]) Comment on above: Performed By: #### C BC, ADIFF, ANEU, BMP, GFR ####[place] [address] Electrolyte Balance 11.0 mEq/L Normal 4.0-15.0 [facility] ([place]) Comment on above: Performed By: #### C BC, ADIFF, ANEU, BMP, GFR ####[place] [address] Glucose mass conc 85 mg/dL Normal 70-110 [facility] ([place]) Comment on above: Performed By: #### C BC, ADIFF, ANEU, BMP, GFR ####[place] [address] Potassium molar conc 4.3 mmol/L Normal 3.5-5.0 [facility] ([place]) Comment on above: Performed By: #### C BC, ADIFF, ANEU, BMP, GFR ####[place] [address] Sodium 141 mmol/L Normal 136-145 [facility] ([place]) Comment on above: Performed By: #### C BC, ADIFF, ANEU, BMP, GFR ####[place] [address] Urea nitrogen 16.0 mg/dL Normal 8.0-22.0 [facility] ([place]) Comment on above: Performed By: #### C BC, ADIFF, ANEU, BMP, GFR ####[place] [address] CBCon 05-03-2017 Erythrocyte distribution width Auto Ratio (RBC) 12.7 % Normal 11.5-15.5 [facility] ([place]) Comment on above: Performed By: #### C BC, ADIFF, ANEU, BMP, GFR ####[place] [address] Erythrocytes (RBC) 4.03 10 6/mcL Low 4.10-5.30 [facility] ([place]) Comment on above: Performed By: #### C BC, ADIFF, ANEU, BMP, GFR ####[place] [address] Hematocrit (HCT) 36.4 % Normal 34.0-46.0 [facility] ([place]) Comment on above: Performed By: #### C BC, ADIFF, ANEU, BMP, GFR ####[place] [address] Hemoglobin mass conc (Bld) 12.4 G/dL Normal 12.0-16.0 [facility] ([place]) Comment on above: Performed By: #### C BC, ADIFF, ANEU, BMP, GFR ####[place] [address] MCH 30.8 pg Normal 27.0-33.0 [facility] ([place]) Comment on above: Performed By: #### C BC, ADIFF, ANEU, BMP, GFR ####[place] [address] MCHC mass conc (RBC) 34.0 G/dL Normal 32.0-36.0 [facility] ([place]) Comment on above: Performed By: #### C BC, ADIFF, ANEU, BMP, GFR ####[place] [address] MCV 90.4 fL Normal 80.0-99.0 [facility] ([place]) Comment on above: Performed By: #### C BC, ADIFF, ANEU, BMP, GFR ####[place] [address] Platelet mean volume (PMV) 8.4 fL Normal 6.6-10.5 [facility] ([place]) Comment on above: Performed By: #### C BC, ADIFF, ANEU, BMP, GFR ####[place] [address] Platelets 260 10 3/mcL Normal 150-450 [facility] ([place]) Comment on above: Performed By: #### C BC, ADIFF, ANEU, BMP, GFR ####[place] [address] WBC (Leukocytes) 10.10 10 3/mcL Normal 4.50-10.80 [facility] ([place]) Comment on above: Performed By: #### C BC, ADIFF, ANEU, BMP, GFR ####[place] [address] Depart Summaryon 05-03-2017 Depart Summary Normal [facility] ([place]) Discharge Summaryon 05-03-19 18 Discharge Summary Normal Replaced by [facility]) Main OR Intraop Recordon Main OR Intraop Record Normal [facility] ([place]) Outpatient Patient Summaryon 05-03-2017 Outpatient Patient Summary Normal Replaced by [facility]) Procedure Noteon 05-03-2017 Procedure Note Normal [facility] ([place]) Progress Note-Nurseon 2017 Progress Note-Nurse Normal [facility] ([place]) Vital Signs Date Time Vital Sign Value Performing Clinician Facility 08-29-2023 15:47-0400 Body mass index (BMI) [Ratio] 39.94 kg/m2 Shelby Thomae DO Work Phone: [facility] 08-29-2023 15:47-0400 Body weight 115.67 kg Shelby Thomae DO Work Phone: 2(101)[phone] [place] [address] 07-02-2023 08:50-0500 Diastolic blood pressure 82 mm[Hg] Shelby Thomae DO Work Phone: 5(976)[phone] [place] [address] 07-02-2023 08:50-0500 Heart rate 74 /min Shelby Thomae DO Work Phone: 8(425)[phone] [place] [address] 07-02-2023 08:50-0500 Respiratory rate 16 /min Shelby Thomae DO Work Phone: [facility] 07-02-2023 08:50-0500 SaO2% (BldA) [Mass fraction] 95 % Shelby Thomae DO Work Phone: [facility] 07-02-2023 08:50-0500 Systolic blood pressure 135 mm[Hg] Shelby Thomae DO Work Phone: [facility] 07-02-2023 08:08-0500 Body temperature 97.3 [degF] Shelby Thomae DO Work Phone: [facility] 07-02-2023 07:28-0500 Body mass index (BMI) [Ratio] 40.06 kg/m2 Shelby Thomae DO Work Phone: [facility] 07-02-2023 07:28-0500 Body weight 116.03 kg Shelby Thomae DO Work Phone: [facility] 03-07-2023 14:04-0500 Body mass index (BMI) [Ratio] 41.97 kg/m2 Shelby Hernandezae DO Work Phone: [facility] 03-07-2023 14:04-0500 Body weight 121.56 kg Shelby Hernandezae DO Work Phone: [facility] 03-07-2023 14:04-0500 Diastolic blood pressure 80 mm[Hg] Shelby Hernandezae DO Work Phone: [facility] 03-07-2023 14:04-0500 Systolic blood pressure 136 mm[Hg] Shelby Hernandezae DO Work Phone: [facility] 08-27-2022 13:47-0400 Body height 170.18 cm Sharonda Angulo Work Phone: [facility] Work Phone: 08-27-2022 13:47-0400 Body mass index (BMI) [Ratio] 44.25 kg/m2 Sharonda Angulo Work Phone: [facility] Work Phone: 08-27-2022 13:47-0400 Body surface area Derived from formula 2.34 m2 Sharonda Angulo Work Phone: [facility] Work Phone: 08-27-2022 13:47-0400 Body weight 128.14 kg Sharonda Angulo Work Phone: [facility] Work Phone: 08-20-2022 14:14-0400 Body height 170.2 cm Itz Bhatti MD Work Phone: [facility] 08-20-2022 14:14-0400 Body temperature 97.81 [degF] Itz Bhatti MD Work Phone: [facility] 08-20-2022 14:14-0400 Body weight 129.37 kg Itz Bhatti MD Work Phone: [facility] 08-20-2022 14:14-0400 Diastolic blood pressure 84 mm[Hg] Itz Bhatti MD Work Phone: [facility] 08-20-2022 14:14-0400 Heart rate 95 /min Itz Bhatti MD Work Phone: [facility] 08-20-2022 14:14-0400 SaO2% (BldA) [Mass fraction] 97 % Itz Bhatti MD Work Phone: [facility] 08-20-2022 14:14-0400 Systolic blood pressure 138 mm[Hg] Itz Bhatti MD Work Phone: [facility] 06-18-2022 09:43-0500 Body height 170.18 cm Sharonda Clementey Work Phone: [facility] Work Phone: 06-18-2022 09:43-0500 Body mass index (BMI) [Ratio] 43.85 kg/m2 Sharonda Clementey Work Phone: [facility] Work Phone: 06-18-2022 09:43-0500 Body surface area Derived from formula 2.33 m2 Sharonda Angulo Work Phone: [facility] Work Phone: 06-18-2022 09:43-0500 Body weight 127.01 kg Sharonda Clementey Work Phone: [facility] Work Phone: 06-18-2022 09:43-0500 Diastolic blood pressure 70 mm[Hg] Sharonda Aldanasay Work Phone: [facility] Work Phone: 06-18-2022 09:43-0500 Systolic blood pressure 130 mm[Hg] Sharonda Aldanasay Work Phone: [facility] Work Phone: 12-12-2021 08:52-0400 Body temperature 98.2 [degF] Yareli [place] DPM Work Phone: [facility] 12-12-2021 08:52-0400 Diastolic blood pressure 74 mm[Hg] Yareli Corie DPM Work Phone: [facility] 12-12-2021 08:52-0400 Heart rate 82 /min Yareli [place] DPM Work Phone: [facility] 12-12-2021 08:52-0400 Systolic blood pressure 110 mm[Hg] Yareli [place] DPM Work Phone: [facility] 02-22-2021 11:27-0400 Body temperature 96.4 [degF] Sharonda Angulo Work Phone: [facility] DO Work Phone: 02-22-2021 11:27-0400 Diastolic blood pressure 94 mm[Hg] Sharonda Angulo Work Phone: [facility] DO Work Phone: 02-22-2021 11:27-0400 Heart rate 88 /min Sharonda Angulo Work Phone: [facility]d [facility] DO Work Phone: 02-22-2021 11:27-0400 Respiratory rate 16 /min Sharonda Angulo Work Phone: [facility] DO Work Phone: 02-22-2021 11:27-0400 Systolic blood pressure 160 mm[Hg] Sharonda Angulo Work Phone: [facility]Npfnahicb[facility]Ajuzfl [address] DO Work Phone: 10-24-2020 08:40-0400 Body height 170.2 cm Yareli Corie DPM Work Phone: [facility] 10-24-2020 08:40-0400 Body mass index (BMI) [Ratio] 43.07 kg/m2 Yareli [place] DPM Work Phone: [facility] 10-24-2020 08:40-0400 Body temperature 97 [degF] Yareli Corie DPM Work Phone: [facility] 10-24-2020 08:40-0400 Body weight 124.74 kg Yareli Corie DPM Work Phone: [facility] 10-24-2020 08:40-0400 Diastolic blood pressure 101 mm[Hg] Yareli [place] DPM Work Phone: [facility] 10-24-2020 08:40-0400 Heart rate 104 /min Yareli [place] DPM Work Phone: [facility] 10-24-2020 08:40-0400 Systolic blood pressure 159 mm[Hg] Yareli Corie DPM Work Phone: [facility] 07-25-2020 15:24-0400 Body height 170.2 cm Yareli [place] DPM Work Phone: [facility] 07-25-2020 15:24-0400 Body mass index (BMI) [Ratio] 43.07 kg/m2 Yareli Corie DPM Work Phone: [facility] 07-25-2020 15:24-0400 Body weight 124.74 kg Yareli Corie DPM Work Phone: [facility] 01-25-2020 15:25-0400 Diastolic blood pressure 86 mm[Hg] Yareli Corie DPM Work Phone: [facility] 01-25-2020 15:25-0400 Systolic blood pressure 141 mm[Hg] Yareli Corie DPM Work Phone: [facility] Encounters Encounter Date Encounter Type Care Provider Facility Start: 08-29-2023 End: 08-29-2023 ambulatory [facility]ulatory Start: 08-29-2023 End: 08-29-2023 Office outpatient visit 25 minutes Shelby Corey DO Work Phone: [facility] Comment on above: Sphincter of Oddi dy sfunction (Primary Dx); Bile reflux gastritis Start: 07-02-2023 End: 07-03-2023 ambulatory [facility] Start: 07-02-2023 End: 07-02-2023 Subsequent hospital visit by physician Shelby Corey DO Work Phone: [facility] Comment on above: Dyspepsia (Primary D x); Epigastric abdominal pain Start: 04-14-2023 Letter encounter Marcella goldberg MD Work Phone: [facility] Start: 03-07-2023 End: 03-07-2023 ambulatory [facility] Start: 03-07-2023 End: 03-07-2023 Office outpatient visit 25 minutes Shelby Corey DO Work Phone: [facility] Comment on above: Dilated bile duct (P rimary Dx); Sphincter of Oddi dysfunction Start: 09-03-[address] Sharonda Angulo Facodell lity:[phone] Start: 08-27-2022 Office outpatient vi sit 15 minutes Sharonda Angulo Work Phone: [facility] 966 Work Phone: Start: 08-27-2022 ambulatory DO SHELBY Yary BERTO Facili ty:[id number] Start: 08-20-2022 End: 08-20-2022 Patient encounter procedure Itz Bhatti MD Work Phone: General Surgery Comment on above: Abnormal ultrasound of abdomen (Primary Dx); Diarrhea, unspecified type; Epigastric pain Start: 08-20-2022 End: 08-20-2022 ambulatory ITZ BHATTI Facility:[facility] Start: 07-12-2022 Letter encounter Marcella goldberg MD Work Phone: [facility] Start: 06-18-2022 Office outpatient ne w 30 minutes Sharonda Angulo Work Phone: [facility] Work Phone: Start: 06-18-2022 ambulatory DO SHELBY Lopezi ty:[id number] Start: 04-10-2022 Letter encounter Marcella goldberg MD Work Phone: [facility] Start: 12-12-2021 End: 12-12-2021 Office outpatient visit 15 minutes Yareli Bob DPM Work Phone: [facility] Comment on above: Arthritis of left fo ot (Primary Dx); Left foot pain Start: 02-22-2021 Office outpatient vi sit 40 minutes Sharonda Angulo Work Phone: [id number] DO Work Phone: Start: 02-22-2021 Patient encounter procedure Sharonda Aldanasay Work Phone: [id number] DO Work Phone: Start: 02-14-2021 End: 02-14-2021 ambulatory UNKNOWN PROVIDER Facility:[facility] Start: 10-24-2020 End: 10-24-2020 ambulatory YARELI BOB [facility] Start: 10-24-2020 End: 10-24-2020 Patient encounter procedure Yareli Bob DPM Work Phone: [facility] Comment on above: Arthritis of left fo ot (Primary Dx); Left foot pain Start: 10-16-2020 End: 10-16-2020 Chart abstracting Yareli Bob DPM Work Phone: [facility] Comment on above: Arthritis; Back problem; PCOS (polycystic ovarian syndrome); Thyroid disorder Start: 06-06-2018 Patient encounter procedure JAUN LIU [facility] Start: 11-15-2017 End: 11-15-2017 Patient encounter AISHA PAT Facility:A Start: 08-16-2017 End: 08-16-2017 Patient encounter AISHA PAT Facility:A Start: 05-03-2017 End: 05-03-2017 Patient encounter AISHA PAT Facility:A Procedures Date Procedure Procedure Detail Performing Clinician Start: 08-29-2023 Follow-up visit Follow-up SHELBY COREY Start: 07-02-2023 DISCHARGE PATIENT SHELBY COREY Start: 07-02-2023 Esophagogastroduodenoscopy SHELBY COREY Start: 07-02-2023 SURGICAL PATHOLOGY EXAM SHELBY COREY Start: 07-02-2023 PLACE IN OUTPATIENT/HOSPITAL AMBULATORY SURGERY SHELBY COREY Start: 07-02-2023 Egd transoral biopsy single/multiple Shelby R Davidradu DO Work Phone: Cholecystectomy Sharonda allen Work Phone: Comment on above: 1995; Endoscopic retrograd e cholangiopancreatography [ERCP] Sharonda Angulo Work Phone: Comment on above: ; Foot Surgery Sharonda Angulo Work Phone: Comment on above: 2000,2011; Plan of Treatment Date Care Activity Detail Author Start: 10-01-2033 Shingles (RZV) Vacci ne (1 of 2) Shingles (RZV) Vaccine (1 of 2) [facility] Start: 10-01-2033 Zoster Vaccines (1 of 2) Zoste r Vaccines (1 of 2) [facility] Start: 07-29-2028 DTaP/Tdap/Td Vaccine s (3 - Td or Tdap) DTaP/Tdap/Td Vaccines (3 - Td or Tdap) [facility] Start: 07-29-2028 Tetanus vaccination [facility] Start: 03-05-2024 End: 03-05-2024 Patient encounter procedure 03/05/2024 3:00 PM EST Office Visit [facility] [address] [place] [id number] Shelby Corey DO [address] [facility], [address] [place] [address] [facility] Start: 12-29-2023 Influenza vaccination Influenz a Vaccine (Season Ended) [facility] Start: 03-07-2023 End: 03-07-2024 CBC panel - Blood by Automated count CBC Lab Routine Dilated bile duct Expected: 03/07/2023 (Approximate), Expires: 03/07/2024 [facility] Work Phone: Comment on above: Expected: 03/07/2023 (Approximate), Expires: 03/07/2024 Start: 03-07-2023 End: 03-07-2024 Hepatic function 2000 panel - Serum or Plasma Hepatic Function Panel Lab Routine Dilated bile duct Expected: 03/07/2023 (Approximate), Expires: 03/07/2024 [facility] Service Area Work Phone: Comment on above: Expected: 03/07/2023 (Approximate), Expires: 03/07/2024 Start: 12-28-2022 COVID-19 Vaccine ( season) COVID-19 Vaccine ( season) [facility] Start: 12-28-2022 Influenza vaccination [facility] Start: 09-20-2022 FUV, Provider: Shelby Corey, Status: Pen, Time: 9:00 AM FUV, Provider: Shelby Corey, Status: Pen, Time: 9:00 AM -[facility] Work Phone: Start: 04-29-2022 DEPRESSION ASSESSMENT DEPRESSION ASS ESSMENT [facility] Start: 01-27-2022 Influenza vaccination Influenza Vacc ine (#1) [facility] Start: 12-28-2021 Influenza vaccination Sequenti al Influenza Vaccine (#1) [facility] Start: 10-24-2021 HPV TESTING HPV TESTING [facility] Start: 10-24-2021 PAP TESTING PAP TESTING [facility] Start: 12-28-2020 Influenza vaccination Sequenti al Influenza Vaccine (Season Ended) [facility] Start: 12-19-2020 End: 12-19-2020 Patient encounter procedure 12/19/2020 Office Visit Podiatry Yareli Bob DPM [address] [place] [address] [phone] [facility] Start: 10-24-2020 End: 10-24-2020 Patient encounter procedure 10/24/2020 Office Visit Podiatry Yareli Bob, RIOS [address] [id number] [facility] Start: 10-01-2010 HPV Vaccine (optiona l start 27-45 years) HPV Vaccine (optional start 27-45 years) [facility] Start: 04-29-2010 Urine microalbumin profile DTAP,TDAP,TD (2 - Tdap) [facility] Start: 10-01-2004 Screening for malign ant neoplasm of cervix [facility] Start: 10-01-2002 Hepatitis B Vaccines (1 of 3 - 19+ 3-dose series) Hepatitis B Vaccines (1 of 3 - 19+ 3-dose series) [facility] Start: 10-01-2001 ANNUAL PCP TEAM STAMP 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 CLERK KATHYA DISEASE VISIT ANNUAL PCP TEAM CHRONIC DISEASE VISIT [facility] Start: 10-01-2001 Diabetes mellitus screening Diabetes Screening [facility] Start: 10-01-2001 Hepatitis C screening [facility] Start: 10-01-1998 HIV screening HIV Screening [facility] Start: 10-01-1996 Varicella vaccination Varicell a Vaccines (1 of 2 - 13+ 2-dose series) [facility] Start: 1995 COVID-19 Vaccine (1) COVID-19 Vaccin e (1) [facility] Start: 1995 Depression screening using PHQ-9 (Patient Health Questionnaire 9) score [facility] Start: 10-01-1986 History and physical examination, annual for health maintenance Wellness Visit [facility] Start: 10-01-1984 MMR Vaccines (1 of 1 - Standard series) MMR Vaccines (1 of 1 - Standard series) [facility] Start: 10-01-1984 Varicella vaccination Varicell a Vaccines (1 of 2 - 2-dose childhood series) [facility] Start: 04-02-1984 COVID-19 Vaccine (#1) COVID-19 Vacci ne (#1) [facility] Start: 1983 Basic metabolic 2000 panel - Serum or Plasma Basic Metabolic Panel [facility] Start: 1983 Creatinine measurement Basic Metabol ic Panel [facility] Start: 1983 HEPATITIS B (1 of 3 - 3-dose series) HEPATITIS B (1 of 3 - 3-dose series) [facility] Start: 1983 Hepatitis B Vaccines (1 of 3 - 3-dose series) Hepatitis B Vaccines (1 of 3 - 3-dose series) [facility] Start: 1983 HIV screening HIV Screening [facility] Start: 1983 Lipid panel Lipid Panel [facility] Start: 1983 Screening for malign ant neoplasm of breast Mammography shared decision making (35 through 39 years) [facility] Start: 1983 Screening for malign ant neoplasm of cervix Pap Smear [facility] Start: 1983 Tetanus vaccination Tetanus: Every 1 0yrs [facility] Start: 1983 Thyroid stimulating hormone measurement [facility] Start: 1983 Yearly Adult Physical Yearly Adult P [facility] Surgical pathology study [facility] Service Area Work Phone: Comment on above: Release Upon Orderin g for 1 Occurrences starting 07/02/2023 Immunizations Immunization Date Immunization Notes Care Provider Fa cility 07-29-2018 diphtheria, tetanus toxoids and acellular pertussis vaccine, unspecified formulation Marcella Galicia MD Work Phone: [facility] 07-29-2018 tetanus toxoid, redu ozzie diphtheria toxoid, and acellular pertussis vaccine, adsorbed Marcella Galicia MD Work Phone: [facility] 04-29-2000 diphtheria and tetan us toxoids, adsorbed for pediatric use Marcella Galicia MD Work Phone: [facility] Payers Date Payer Category Payer Unknown [employer]/PRAMOD/HMO/PPO [id number] 2018-Present [id number] 2018 Unknown 2018 Unknown [id number] 2016 Unknown [id number] 1983 Unknown [id number] 1983 Unknown [id number] 1983 Unknown [id number] 1983 Unknown [id number] 1983 Unknown [id number] 1983 Unknown [id number] 1983 Unknown [id number] 1983 Unknown [id number] 1983 Unknown [id number] Social History Date Type Detail Facility Start: 10-16-2020 End: 03-07-2023 Tobacco smoking status NVIS Never smoker [facility] Start: 10-16-2020 End: 07-02-2023 Alcohol intake Lifetime non-drinker (finding) [facility] Start: 1985 Sex Assigned At Not on file [facility] Start: 10-24-2020 End: 03-07-2023 Tobacco use and exposure Never used [facility] Start: 12-01-2021 End: 08-29-2023 Exposure to SARS-CoV-2 (event) Not sure [facility] Start: 03-07-2023 End: 07-02-2023 No alcohol use No alcohol use [id number] DO Work Phone: Start: 08-20-2022 Alcohol intake Current drinke r of alcohol (finding) [facility] Start: 1985 Sex Assigned At Female [facility] Start: 03-07-2023 End: 07-02-2023 Tobacco use panel [facility] Work Phone: Clinical Notes 10-24-2020 to 08-29-2023 Shelby Corey DO - 08/29/2023 3:45 PM EDTDischarge InstructionsShelby Corey, - 07/02/2023 8:00 AM Lynnette Corey, - 07/02/2023 8:00 AM Agata Enriquez INTERVENTION MANAGER - 03/07/2023 1:45 PM EST Note Date & Type Note Facility 08-29-2023 History of Present illness Narrative Subjective Patient ID: Larisa Marin is a 37 y.o. female who presents for Follow-up (Had EGD in June for dyspepsia, epigastric pain. ) and Nausea (Occasionally/). HPI Larisa is seen today in follow-up. He is doing well with medications Bentyl is helping bowel spasm. Typically will get discomfort if she eats acidic foods for more than 2 days in a row is having no GI symptoms at this time. Review of Systems Constitutional: Negative. HENT: Negative. Eyes: Negative. Respiratory: Negative. Cardiovascular: Negative. Endocrine: Negative. Genitourinary: Negative. Neurological: Negative. Hematological: Negative. Objective Physical Exam Vitals and nursing note reviewed. Constitutional: Appearance: Normal appearance. HENT: Head: Normocephalic. Mouth/Throat: Mouth: Mucous membranes are moist. Pharynx: Oropharynx is clear. Eyes: Conjunctiva/sclera: Conjunctivae normal. Pupils: Pupils are equal, round, and reactive to light. Cardiovascular: Rate and Rhythm: Normal rate and regular rhythm. Heart sounds: Normal heart sounds. Pulmonary: Effort: Pulmonary effort is normal. Breath sounds: Normal breath sounds. Abdominal: General: Abdomen is flat. Bowel sounds are normal. Palpations: Abdomen is soft. Musculoskeletal: General: Normal range of motion. Cervical back: Normal range of motion and neck supple. Skin: General: Skin is warm and dry. Neurological: General: No focal deficit present. Mental Status: She is alert and oriented to person, place, and time. Psychiatric: Behavior: Behavior normal. 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 This feeling should slowly wear off. Carefully read and follow the instructions. You received sedation today: - Do not drive or operate any machinery or power tools of any kind. - No alcoholic beverages today, not even beer or wine. - Do not make any important decisions or sign any legal documents. - No over the counter medications that contain alcohol or that may cause drowsiness. - Do not make any important decisions or sign any legal documents. While it is common to experience mild to moderate abdominal distention, gas, or belching after your procedure, if any of these symptoms occur following discharge from the GI Lab or within one week of having your procedure, call the [facility] to be advised whether a visit to your nearest Urgent Care or Emergency Department is indicated. Take this paper with you if you go. - If you develop an allergic reaction to the medications that were given during your procedure such as difficulty breathing, rash, hives, severe nausea, vomiting or lightheadedness.- If you experience chest pain, shortness of breath, severe abdominal pain, fevers and chills. -If you develop signs and symptoms of bleeding such as blood in your spit, if your stools turn black, tarry, or bloody - If you have not urinated within 8 hours following your procedure.- If your IV site becomes painful, red, inflamed, or looks infected. documented in this encounter [facility] Work Phone: 07-02-2023 History and physical note History Of Present Illness Larisa Mairn is a 37 y.o. female presenting with chronic epigastric abdominal pain and GERD presents for EGD. Past Medical History Past Medical History: Diagnosis Date Anemia Anxiety Anxiety disorder, unspecified 12/19/2015 Anxiety Depression Fibromyalgia, primary GERD (gastroesophageal reflux disease) Hypertension Hyperthyroidism Personal history of other diseases of the musculoskeletal system and connective tissue 12/19/2015 History of arthritis Personal history of other endocrine, nutritional and metabolic disease 12/19/2015 History of thyroid disease Personal history of other mental and behavioral disorders 12/19/2015 History of depression Surgical History Past Surgical History: Procedure Laterality Date CHOLECYSTECTOMY 12/19/2015 Cholecystectomy DILATION AND CURETTAGE OF UTERUS 11/2022 FOOT SURGERY 12/19/2015 Foot Surgery OTHER SURGICAL HISTORY 12/19/2015 Endoscopic Retrograde Cholangiopancreatography (ERCP) OTHER SURGICAL HISTORY in vitro fertilization Social History She reports that she has never smoked. She has never used smokeless tobacco. She reports that she does not drink alcohol and does not use drugs. Family History Family History Problem Relation Name Age of Onset Depression Mother Fibromyalgia Mother Migraines Mother Rheum arthritis Mother Thyroid disease Mother Depression Sister Fibromyalgia Sister Migraines Sister Thyroid disease Sister Depression Paternal Grandfather Thyroid disease Paternal Grandfather Allergies Allergies Allergen Reactions Prednisone Unknown Review of Systems Pre-sedation Evaluation: ASA Classification - ASA 2 - Patient with mild systemic disease with no functional limitations Mallampati Score - II (hard and soft palate, upper portion of tonsils anduvula visible) Physical Exam Vitals and nursing note reviewed. Constitutional: Appearance: Normal appearance. HENT: Head: Normocephalic. Mouth/Throat: Mouth: Mucous membranes are moist. Pharynx: Oropharynx is clear. Eyes: Conjunctiva/sclera: Conjunctivae normal. Pupils: Pupils are equal, round, and reactive to light. Cardiovascular: Rate and Rhythm: Normal rate and regular rhythm. Pulses: Normal pulses. Heart sounds: Normal heart [...] place, and time. Psychiatric: Behavior: Behavior normal. Last Recorded Vitals Last menstrual period 05/01/2023. 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 cyanocobalamin (Vitamin B-12) 1,000 mcg tablet Take 1 tablet (1,000 mcg) by mouth once daily. dicyclomine (Bentyl) 20 mg tablet famotidine (Pepcid) 40 mg tablet Take 1 tablet (40 mg) by mouth 2 times a day. FERROUS SULFATE ORAL Take 325 mg by mouth 3 times a day. fexofenadine (Anika) 180 mg tablet Take 1 tablet (180 mg) by mouth once daily. labetalol (Normodyne) 300 mg tablet Take 1 tablet (300 mg) by mouth 2 times a day. levothyroxine (Synthroid, Levoxyl) 150 mcg tablet LORazepam (Ativan) 0.5 mg tablet LORazepam 0.5 MG Oral Tablet Quantity: 30 Refills: 0 Start : 13-Dec-2020 Active losartan (Cozaar) 50 mg tablet Take 1 tablet (50 mg) by mouth once daily. meloxicam (Mobic) 15 mg tablet Take 1 tablet (15 mg) by mouth once daily in the evening. naltrexone (Depade) 50 mg tablet Take 8 mg by mouth once daily. 3 pills daily. omeprazole (PriLOSEC) [address] capsule ondansetron ODT (Zofran-ODT) 4 mg disintegrating tablet Take 1 tablet (4 mg) by mouth every 6 hours if needed for nausea or vomiting. vitamin, iron-folic, ( Vitamin) 27 mg iron-800 mcg folic acid tablet Take 1 tablet by mouth once daily. progesterone (Prometrium) 100 mg capsule rimegepant (Nurtec ODT) 75 mg tablet,disintegrating Take 1 tablet (75 mg) by mouth once daily as needed. Savella 50 mg tablet tiZANidine (Zanaflex) 4 mg tablet Take by mouth. i pil at night increase by half a pill evry 3 days as needed until max of 3. diphenoxylate-atropine (LomotiL) 2.5-0.025 mg tablet Take 1 tablet by mouth 4 times a day as needed for diarrhea. fluconazole (Diflucan) 150 mg tablet naproxen sodium (Aleve) 220 mg tablet Take 2 tablets (440 mg) by mouth every 12 hours if needed. No current facility-administered medications for this encounter. Shelby Corey DO [facility] Work Phone: 07-02-2023 History and physical note History Of Present Illness Larisa Marin is a 37 y.o. female presenting with chronic epigastric abdominal pain and GERD presents for EGD. Past Medical History Past Medical History: Diagnosis Date Anemia Anxiety Anxiety disorder, unspecified 12/19/2015 Anxiety Depression Fibromyalgia, primary GERD (gastroesophageal reflux disease) Hypertension Hyperthyroidism Personal history of other diseases of the musculoskeletal system and connective tissue 12/19/2015 History of arthritis Personal history of other endocrine, nutritional and metabolic disease 12/19/2015 History of thyroid disease Personal history of other mental and behavioral disorders 12/19/2015 History of depression Surgical History Past Surgical History: Procedure Laterality Date CHOLECYSTECTOMY 12/19/2015 Cholecystectomy DILATION AND CURETTAGE OF UTERUS 11/2022 FOOT SURGERY 12/19/2015 Foot Surgery OTHER SURGICAL HISTORY 12/19/2015 Endoscopic Retrograde Cholangiopancreatography (ERCP) OTHER SURGICAL HISTORY in vitro fertilization Social History She reports that she has never smoked. She has never used smokeless tobacco. She reports that she does not drink alcohol and does not use drugs. Family History Family History Problem Relation Name Age of Onset Depression Mother Fibromyalgia Mother Migraines Mother Rheum arthritis Mother Thyroid disease Mother Depression Sister Fibromyalgia Sister Migraines Sister Thyroid disease Sister Depression Paternal Grandfather Thyroid disease Paternal Grandfather Allergies Allergies Allergen Reactions Prednisone Unknown Review of Systems Pre-sedation Evaluation: ASA Classification - ASA 2 - Patient with mild systemic disease with no functional limitations Mallampati Score - II (hard and soft palate, upper portion of tonsils anduvula visible) Physical Exam Vitals and nursing note reviewed. Constitutional: Appearance: Normal appearance. HENT: Head: Normocephalic. Mouth/Throat: Mouth: Mucous membranes are moist. Pharynx: Oropharynx is clear. Eyes: Conjunctiva/sclera: Conjunctivae normal. Pupils: Pupils are equal, round, and reactive to light. Cardiovascular: Rate and Rhythm: Normal rate and regular rhythm. Pulses: Normal pulses. Heart sounds: Normal heart [...] place, and time. Psychiatric: Behavior: Behavior normal. Last Recorded Vitals Last menstrual period 05/01/2023. 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 cyanocobalamin (Vitamin B-12) 1,000 mcg tablet Take 1 tablet (1,000 mcg) by mouth once daily. dicyclomine (Bentyl) 20 mg tablet famotidine (Pepcid) 40 mg tablet Take 1 tablet (40 mg) by mouth 2 times a day. FERROUS SULFATE ORAL Take 325 mg by mouth 3 times a day. fexofenadine (Anika) 180 mg tablet Take 1 tablet (180 mg) by mouth once daily. labetalol (Normodyne) 300 mg tablet Take 1 tablet (300 mg) by mouth 2 times a day. levothyroxine (Synthroid, Levoxyl) 150 mcg tablet LORazepam (Ativan) 0.5 mg tablet LORazepam 0.5 MG Oral Tablet Quantity: 30 Refills: 0 Start : 13-Dec-2020 Active losartan (Cozaar) 50 mg tablet Take 1 tablet (50 mg) by mouth once daily. meloxicam (Mobic) 15 mg tablet Take 1 tablet (15 mg) by mouth once daily in the evening. naltrexone (Depade) 50 mg tablet Take 8 mg by mouth once daily. 3 pills daily. omeprazole (PriLOSEC) [address] capsule ondansetron ODT (Zofran-ODT) 4 mg disintegrating tablet Take 1 tablet (4 mg) by mouth every 6 hours if needed for nausea or vomiting. vitamin, iron-folic, ( Vitamin) 27 mg iron-800 mcg folic acid tablet Take 1 tablet by mouth once daily. progesterone (Prometrium) 100 mg capsule rimegepant (Nurtec ODT) 75 mg tablet,disintegrating Take 1 tablet (75 mg) by mouth once daily as needed. Savella 50 mg tablet tiZANidine (Zanaflex) 4 mg tablet Take by mouth. i pil at night increase by half a pill evry 3 days as needed until max of 3. diphenoxylate-atropine (LomotiL) 2.5-0.025 mg tablet Take 1 tablet by mouth 4 times a day as needed for diarrhea. fluconazole (Diflucan) 150 mg tablet naproxen sodium (Aleve) 220 mg tablet Take 2 tablets (440 mg) by mouth every 12 hours if needed. No current facility-administered medications for this encounter. Shelby Corey DO documented in this encounter [facility] Work Phone: 03-07-2023 History of Present illness Narrative foll Subjective Patient ID: Larisa Marin is a 37 y.o. female who presents [...] it. Would prefer to have done in [place]. I did contact [facility], they do not perform ERCP at this time. Recommend [place] or [place]. Review of Systems Constitutional: Negative. HENT: Negative. [...] Orders Referral to Gastroenterology Referred Gonzalo to [facility] for sphincter of Oddi dysfunction documented in this encounter [facility] Work Phone: 08-20-2022 History of Present illness Narrative HISTORY AND PHYSICAL Larisa Marin 1985 REFERRING PHYSICIAN: Sharonda Angulo DO CHIEF COMPLAINT: Consult (Abdominal pain) HPI: The patient is a 36 year old female with a complaint of Abnormal ultrasound of abdomen (primary encounter diagnosis) Diarrhea, unspecified type Epigastric pain . Patient was seen in [place] emergency department on 08/02/2022. She was having [...] needed for breakthrough heartburn. Actually saw her incident response consultant in May of this year with similar [...] Abn. 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 08/25/06 Esophageal reflux Gastroesophageal reflux PMH - PAST MEDICAL HISTORY OF HEAVY LONG PERIODS Tachycardia - pulse PAST SURGICAL HISTORY Procedure Laterality Date CHOLECYSTECTOMY 1995 Cholecystectomy COLPOSCOPY CERVIX UPPER/ADJACENT VAGINA 08/09/2006 Colposcopy COLPOSCOPY CERVIX UPPER/ADJACENT VAGINA 10/22/2007 Colposcopy ERCP 03/2011, 05/2011 x 2 - [facility] EXTRACTION, ERUPTED TOOTH OR EXPOSED ROOT (ELEVATION AND/OR FORCEPS REMOVAL) wisdom teeth x 3 FASCIECTOMY PLANTAR FASCIA; RADICAL 08/31/2011 PAST SURGICAL HISTORY OF sinus surgery PAST SURGICAL HISTORY OF 12/2011 ovarian drilling for PCOS - Dr Hector Alcaraz Current Outpatient Medications Medication Sig fexofenadine (ANIKA) 180 mg tablet Take 180 mg by [...] entered by the nurse and reviewed by ca Nursing Notes: Mariah Hutton LPN 08/20/2022 2:27 [...] best that she get back to her incident response consultant for further evaluation and a possible EGD. [...] Bhatti III, MD documented in this encounter [facility] 08-20-2022 Nurse Note REVIEW OF SYSTEMS: General: [...] Mariah Hutton LPN documented in this encounter [facility] 07-10-2022 History of Present illness Narrative Larisa [...] are similar in pattern to that event. [facility] Work Phone: 12-12-2021 History of Present illness Narrative Images from the original note were not included. Established Patient Visit Yareli Bob DPM Patient Name: Larisa Marin. . Date of : 1985, 36 y.o.. [...] has elected to follow-up as needed. Yareli Bob DPM, MS Podiatric Physician & Surgeon documented in this encounter [facility] 02-23-2021 History of Present illness Narrative Experiencing [...] blood pressure. Last was 1-2 weeks ago. [place] weird and checked BP and was increased. 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 [facility] 170 DO Work Phone: 10-24-2020 History of Present illness Narrative Images from the original note were not included. Established Patient Visit Yareli Bob DPM Patient Name: Larisa Marin. . Date of : 1985, 35 y.o.. [...] Follow-up in 2 months for evaluation Yareli Bob DPM, MS Podiatric Physician & Surgeon documented in this encounter [facility] Chief complaint Narrative - Reported Neurologic Evaluation.Follow up migraine management [facility] 170 DO Work Phone: Chief complaint Narrative - Reported Neurologic Evaluation.Follow up migraine management [facility] 170 DO Work Phone: Chief complaint Narrative - Reported Neurologic Evaluation.Follow up migraine management [facility]Hqxgtrskn[facility]Fuhevq 170 DO Work Phone: Evaluation note Diagnosis Arthritis Unspecified arthropathy, site unspecified Back problem Other unspecified back disorder PCOS (polycystic ovarian syndrome) Polycystic ovaries Thyroid disorder Unspecified disorder of thyroid [facility] Diagnosis Arthritis of left foot- Primary Left foot pain Pain in soft tissues of limb [facility] Diagnosis Arthritis of left foot- Primary Left foot pain Pain in soft tissues of limb [facility]* Diagnosis Abnormal ultrasound of abdomen- Primary Nonspecific (abnormal) findings on radiological and other examination of abdominal area, including retroperitoneum Diarrhea, unspecified type Epigastric pain Abdominal pain, epigastric [facility] Dilated bile duct- Primary 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 documented in this encounter [facility] Work Phone: Evaluation note* Diagnosis Dyspepsia- Primary Dyspepsia and other specified disorders of function of stomach Epigastric abdominal pain Abdominal pain, epigastric documented in this encounter [facility] Work Phone: Evaluation note* Diagnosis Sphincter of Oddi dysfunction- Primary 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 Other specified gastritis without mention of hemorrhage documented in this encounter [facility] Work Phone: History of Present [...] blood pressure. Last was 1-2 weeks ago. [place] weird and checked BP and was increased. 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 [facility] 170 DO Work Phone: History of Present [...] blood pressure. Last was 1-2 weeks ago. [place] weird and checked BP and was increased. [...] last child born 2018. felt better until covid. * Sleeping well, 7-8 hours per night. * Endorses depression.States not new. Most stress related. 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 [facility] 170 DO Work Phone: History of Present illness NarrativeAmber is a pleasant 36-year-old white female I [...] diarrhea pain is not reminiscent of her choledocholithiasis.-[facility] Work Phone: Reason for referral (narrative)* Consultation (Routine) - Authorized Specialty Diagnoses / Procedures Referred By Peng sykes Referred To Contact Gastroenterology Diagnoses Dilated bile duct Sphincter of Oddi dysfunction Shelby Corey, DO [address] [facility] [place] [address] Gonzalo Sanderson DO [address] [facility] [address] [place] [address] Referral ID Status Reason Start Date Expiration Date Visits Requested Visits Authorized [id number] Authorized Specialty Services Required 03/07/2023 03/06/2024 1 1 [facility] Work Phone: Summary Purpose Family History No Family History Records FoundUnknown Family Member Name Dates Details Family history [...] eadaches: Mother, Sister(V17.2, Z82.0) Status:Active Advance Directives No Advanced Directives Records FoundDocuments on File Type Date Recorded Patient Manager In Training Expl anation Advance Directives and Livin g Will 10/08/2020 12:00 AM Documents on File Type Date Recorded Patient Manager In Training Expl anation Advance Directives and Living Will [...] told norovirus. Patient had US done at [facility]- dilated bile duct. Reason for Referral Specialty Diagnoses / Procedures Referred By Contact Referred To Contact Gastroenterology Diagnoses Dyspepsia Epigastric abdominal pain Procedures EGD RI ESOPHAGOGASTRODUODENOSCOPY TRANSORAL DIAGNOSTIC RI EGD TRANSORAL BIOPSY SINGLE/MULTIPLE Shelby Corey, [address] [facility], [address] [place] [id number] Referral ID Status Reason Start Date Expiration Date V isits Requested Visits Authorized [id number] Authorized 05/29/2023 05/28/2024 1 1 Additional Source Comments INFORMATION SOURCE (unrecogn ized section and content) DATE CREATED AUTHOR 11/24/2017 [facility] ([place]) DATE CREATED AUTHOR AUTHOR'S ORGANIZ ATION 06/18/2018 [facility] DATE CREATED AUTHOR AUTHOR'S ORGANIZ ATION 05/25/2019 [facility] DATE CREATED AUTHOR AUTHOR'S ORGANIZ ATION 10/24/2020 [facility] DATE CREATED AUTHOR AUTHOR'S ORGANIZ ATION 06/06/2021 [facility] DATE CREATED AUTHOR AUTHOR'S ORGANIZ ATION 08/28/2022 [facility] DATE CREATED AUTHOR AUTHOR'S ORGANIZ ATION 08/28/2022 [facility] DATE CREATED AUTHOR AUTHOR'S ORGANIZ ATION 09/01/2022 [facility] DATE CREATED AUTHOR AUTHOR'S ORGANIZ ATION 05/11/2023 [facility] DATE CREATED AUTHOR AUTHOR'S ORGANIZ ATION 07/13/2023 [facility] DATE CREATED AUTHOR AUTHOR'S ORGANIZ ATION 08/31/[address] [facility] DATE CREATED AUTHOR AUTHOR'S ORGANIZ ATION 09/28/2023 [facility] Reason for Visit (unrecogniz ed section and content) Reason Comments Follow-up L foot pain - inject ion in june did help Reason Comments Follow-up Follow up left foot arthritis. Taking meloxicam as needed. Has been worse over the last month. Has been a year since last cortisone injection. She will be going on vacation and would like to be able to walk. Calluses Right foot callus. Reason Comments Consult Abdominal pain Reason Comments Follow-up 6 MO [facility] Specialty Diagnoses / Procedures Referred By Peng sykes Referred To Contact Diagnoses Epigastric pain Procedures RI ESOPHAGOGASTRODUODENOSCOPY TRANSORAL DIAGNOSTIC RI EGD TRANSORAL BIOPSY SINGLE/MULTIPLE Ant [id number] [address] [place] [address] [phone] Referral ID Status Reason Start Date Expiration Date Visits Re quested Visits Authorized [id number] 1 1 Reason Comments Follow-up Had EGD in June for dyspepsia, epigastric pain. Nausea Occasionally Care Teams (unrecognized sec tion and content) Lead Cook Relationship Specialty Start Date End Date Sharonda Angulo DO [address] [place] [address] PCP - General Endocrinology/Metabolism 10/24/20 Lead Cook Relationship Specialty Start Date End Date Marcella Galicia MD [address] [place] [address] Physician Rheumatology 03/03/21 Lead Cook Relationship Specialty Start Date End Date Sharonda Angulo DO PCP - General Family Medicine 06/28/16 Lead Cook Relationship Specialty Start Date End Date Sharonda Angulo MD [address] [place] [address] PCP - General 04/29/19 Lead Cook Relationship Specialty Start Date End Date Marcella Galicia MD [address] [place] [address] Physician Rheumatology 03/03/21 Lead Cook Relationship Specialty Start Date End Date Sharonda Angulo MD [address] [place] [address] PCP - General 04/29/19 Lead Cook Relationship Specialty Start Date End Date Sharonda Angulo MD [address] [place] [address] PCP - General 04/29/19 Source Comments (unrecognize d section and content) In the event this informatio n is protected by the Federal Confidentiality of Alcohol and Drug Abuse Patient Records regulations: The Federal rules restrict any use of the information to criminally investigate or prosecute any alcohol or drug abuse patient.[facility] FOR RECORDS PERTAINING TO PATIENTS WHO ARE [...] BE BASED ON THE PRIMARY CLINICAL RECORDS. [employer] [facility]. provides no warranty or guarantee of the accuracy or completeness of information in this document.
== END | disposition home or self-care (01) ==
LOC: LAB 12:57
PROVIDERS: PCP Preventive Medicine Occupational Medicine; Referring Provider Internal Medicine; Visit Provider Internal Medicine
DX: K83.8 Other specified diseases of biliary tract (principal)
CPT/HCPCS: 36415; 80076; 85027

== ENCOUNTER → 2024-05-16 | Outpatient (CLI) | payer BC, SELFPAY ==
[2024-05-16 10:13] LABS: Hematocrit 38.1 % (37-47); Hemoglobin 12.4 g/dL (12.0-15.0); Mean Corp Hgb Conc 32.5 g/dL (32-36); Mean Platelet Vol. 9.9 fl (6.2-12.0); Platelet Count 284 K/mm3 (150-450); RBC Distribution Width CV 12.2 % (11.6-14.6); RBC Distribution Width SD 41.1 fl (35.1-43.9); Red Blood Count 4.14 M/mm3 (4.2-5.4)
[2024-05-16 12:34] LABS: ALB/GLOB Ratio 1.1 RATIO (0.9-2.4); AST(SGOT) 12 U/L (15-37); Alanine Aminotransfer ALT/SGPT 25 U/L (13-56); Albumin, Serum 3.7 g/dL (3.2-5.0); Alkaline Phosphatase 57 U/L (45-117); Anion Gap 4 (5-15); BUN 18 mg/dL (7-18); BUN/Creat Ratio 22.8 RATIO (10-20); Calcium,Total 8.9 mg/dL (8.5-10.1); Chloride 106 mmol/L (98-107); Creatinine, Serum 0.79 mg/dL (0.55-1.02); EST Glomerular Filtration Rate 85 mL/min (>60); Est Glom Filt Rate - Afr Amer 103 mL/min (>60); Estradiol 32.2 pg/mL; Ferritin 503 ng/mL (8-252); Follicle Stimulating Hormone 4.6 mIU/mL; Globulin 3.5 g/dL (2.2-4.2); Glucose 96 mg/dL (74-106); Iron 95 ug/dL (50-170); Iron Binding Capacity,Total 302 ug/dL (250-450); PERCENT IRON SATURATION 31.5 % (15.0-55.0); Potassium 3.9 mmol/L (3.5-5.1); Protein, Total 7.2 g/dL (6.4-8.2); Sodium Level 138 mmol/L (136-145)
[2024-05-18 09:57] LABS: Vitamin B12 895 pg/mL (211-911)
[2024-05-21 01:07] LABS: Anti-Mullerian Hormone,Serum 1.49 ng/mL (.); DHEA Sulfate 66.9 ug/dL (57.3-279.2); Insulin Level 24.5 uIU/mL (2.6-24.9); PROLACTIN 8.3 ng/mL (4.8-33.4)
== END | disposition home or self-care (01) ==
LOC: LAB 09:58
PROVIDERS: PCP Preventive Medicine Occupational Medicine; Referring Provider Obstetrics & Gynecology Reproductive Endocrinology; Visit Provider Obstetrics & Gynecology Reproductive Endocrinology
DX: N91.1 Secondary amenorrhea (principal)

== ENCOUNTER → 2024-06-15 | Outpatient (CLI) | payer BC, SELFPAY ==
--- NOTE | 2024-06-15 09:57 | BI_ITS ---
PROCEDURE: SCRN MAMM (CAD)W/HENRIETTA BILAT REASON FOR EXAM: F, Age 38 y/o, baseline examination. TECHNIQUE: Bilateral screening digital breast tomosynthesis with 2D and 3D images. Computer aided detection. COMPARISON: None. This is a baseline mammogram. FINDINGS: There are scattered areas of fibroglandular density. Small bilateral axillary lymph nodes. No suspicious masses, areas of developing architectural distortion, or suspicious calcifications. BI/SCRN MAMM (CAD)W/HENRIETTA BILAT IMPRESSION: BI-RADS 2: BENIGN. RECOMMEND ANNUAL MAMMOGRAPHIC SCREENING. Follow-up code: Routine Follow-up The patient will be notified of the results by letter. Reading Location: [facility]
== END | disposition home or self-care (01) ==
LOC: OPBI 09:57
PROVIDERS: PCP Preventive Medicine Occupational Medicine; Referring Provider Obstetrics & Gynecology; Visit Provider Obstetrics & Gynecology
DX: Z12.31 Encounter for screening mammogram for malignant neoplasm of breast (principal)
CPT/HCPCS: 77063; 77067

== ENCOUNTER → 2024-12-19 | Outpatient (CLI) | payer BC, SELFPAY ==
--- OUTSIDE RECORDS SUMMARY | 2024-12-19 09:25 | XMS RPT_ITS | CCD ---
Author Organization [facility] Care Team Providers Care Red Mud Thickener Operator Name Role Phone RICK PAT Unavailable Unavailable SHARONDA FAJARDO Unavailable Unavailable PAT, RICK Unavailable Unavailable RACHEL RÍOS Unavailable Unavailable CHANDRAKANT BANGURA Unavailable Unavailable PAT, RICK Unavailable Unavailable PAT, RICK Unavailable Unavailable BRAXTON KILPATRICK Unavailable UnavailJAIME Coleman Unavailable Unavailable PAT, RICK Unavailable Unavailable SANDRO DOMINGUEZ Unavailable Unavailable ADILIA, RICK Unavailable Unavailable AGUSTINA LIU Referring Unavailnahum VOGEL PRIMARY CAREMD Primary Care Unavailable RICK CHRISTIANSON Attending Unavailable Unavailable Primary Care Provider UnavailYARELI Jones Attending Unavailable SHARONDA FAJARDO Primary Care Unavailable Sharonda Fajardo DO Primary Care Provider [phone] Sharonda Fajardo Unavailable Unavailable Unavailable PROVIDER, UNKNOWN Admitting Unavailable PROVIDER, UNKNOWN Attending Unavailable PATIENT, SELF Referring Unavailable Sharonda Fajardo DO Primary Care Provider Dr. Sharonda Fajardo Primary Care Provider Dr. Sharonda Fajardo Referring Provider Dr. Agustina Liu Attending Provider [phone] Dr. Sharonda Fajardo Primary Care Provider Dr. Sharonda Fajardo Referring Provider [phone] Dr. Agustina Liu Attending Provider [phone] Marcella Galicia MD Unavailable Unavailable Unavailable Marcella Galicia MD Unavailable Sharonda Fajardo DO Primary Care Provider [phone] DO SHELBY COREY Attending Unavailable Adele, Dr. Ruby Primary Care Unavailable Adele, Dr. Ruby Referring Unavailable DO SHELBY COREY Attending Unavailable Adele, Dr. Ruby Primary Care Unavailable Adele, Dr. Ruby Referring Unavailable Adele, Dr. Ruby Primary Care Unavailable Shelby Corey Referring Unavailable Shelby Corey Attending Unavailable Adele, Dr. Ruby Primary Care Provider Dr. Sharonda Fajardo Referring Provider [phone] Dr. Agustina Liu Attending Provider [phone] Dr. Agustina Liu Referring Provider [phone] Dr. Agustina Liu Other Provider [phone] Sharonda Fajardo MD Primary Care Provider [phone] Dr. Sharonda Fajardo Primary Care Provider Dr. Sharonda Fajardo Referring Provider [phone] Dr. Agustina Liu Attending Provider [phone] Dr. Sharonda Fajardo Primary Care Provider Dr. Sharonda Fajardo Referring Provider [phone] Dr. Agustina Liu Attending Provider [phone] Sharonda Fajardo MD Primary Care Provider SHELBY COREY Attending Unavailable SHELBY COREY Referring Unavailable SHARONDA FAJARDO Primary Care Unavailable Dr. Sharonda Fajardo Primary Care Provider Dr. Sharonda Fajardo Referring Provider [phone] Dr. Agustina Liu Attending Provider [phone] ITZ JIMENEZ Attending Unavailable SHARONDA FAJARDO Primary Care Unavailable Shaornda Fajardo MD Primary Care Provider SHELBY COREY Attending Unavailable SHARONDA FAJARDO Primary Care Unavailable SHELBY COREY R Attending Unavailable SHARONDA FAJARDO Primary Care Unavailable Shelby Corey Attending Unavailable Shelby Corey Referring Unavailable Sharonda Fajardo Primary Care Unavailable AdeleSharonda garcia Primary Care Unavailable Agustina Liu Attending Unavailable Agustina Liu Referring Unavailable Rick Pat Attending Unavailable Sharonda Fajardo Primary Care Unavailable Rick Pat Referring Unavailable AdeleSharonda garcia Primary Care Unavailable SALVADOR LEIVA Attending Unavailable Sharonda Fajardo Referring Unavailable AdeleSharonda garcia Primary Care Unavailable Agustina Liu Attending Unavailable Sharonda Fajardo Referring Unavailable Agustina Liu Attending Unavailable Sharonda Fajardo Primary Care Unavailable Sharonda Fajardo Attending Unavailable Adele Sharonda Referring Unavailable Adele, Sharonda Primary Care Unavailable Allergies Allergy Classification Reported Allergen(s) Allergy Type Date of Onset Reaction(s) Facility Corticosteroids (3 sources) prednisoLONE; Translations: [PREDNISOLONE] Drug Allergy Unknown [facility] (5 sources) Environmental allergy; Translations: [ENVIRONMENTAL] Propensity to adverse reactions (disorder) [facility] predniSONE; Translations: [PREDNISONE] Drug Allergy 03-12-20 Other: See Comments, Unknown [facility] prednisoLONE Drug Allergy Unknown [facility] (1 source) environmental [Other] Propensity to adverse reactions 05-23-19 [facility] Work Phone: (1 source) OTHER; Translations: [OTHER] Propensity to adverse reactions (disorder) 05-23-19 [facility] Repository Medications Current Medications Medication Drug Class(es) Dates Sig (Normalized) Sig (Original) 24 hr buPROPion hydrochloride 450 mg extended release oral tablet (20 sources) Aminoketone Start: 02-11-2023 buPROPion XL (Forfivo XL) 450 mg 24 hr tablet 02/11/2023 Active Start: 01-10-2023 End: 03-20-2023 take 450 mg by mouth once daily in the morning Bupropion Hcl Active 450 MG PO EVERY MORNING March 20, 2023 3:26pm Start: 11-26-2022 End: 01-10-2023 Bupropion Hcl (Wellbutrin Xl ) 300 mg tablet extended release 24 hr Discontinued 450 MG PO EVERY MORNING November 26, 2022 12:00am January 10, 2023 6:20am Start: 10-11-2022 End: 06-27-2023 buPROPion XL (Wellbutrin XL) 150 mg 24 hr tablet Start: 12-18-2021 take 1 tablet by kristie th once daily in the morning Bupropion Hcl (Wellbutrin Xl) 150 mg tablet extended release 24 hr Active 150 MG PO EVERY MORNING December 18, 2021 12:00am Start: 10-28-2014 End: 06-27-2023 take 1 tablet by mouth once daily in the morning Bupropion Hcl (Wellbutrin Xl) 300 mg tablet extended release 24 hr Discontinued 300 MG PO EVERY MORNING February 27, 2021 8:39am December 18, 2021 8:57am take 1 tablet by kristie th every [...] Take 450 mg by mouth once daily. dexlansoprazole 60 mg delayed release oral capsule (1 source) Proton Pump Inhibitor Start: 025 End: 026 take 1 capsule by mouth once daily dexlansoprazole (Dexilant) [address] capsule Indications: Bile reflux gastritis Take 1 capsule (60 mg) by mouth once daily. Do not crush or chew. 90 capsule 3 10/15/2024 10/15/2025 Active dicyclomine hydrochloride 20 mg oral tablet (16 sources) Anticholinergic Start: 023 Dicyclomine HCl - 20 MG Oral Tablet Quantity: 90 Refills: 0 Ordered: 10-Aug-2022 DO Start : 10-Aug-2022 Active Start: 08-02-2022 dicyclomine (B entyl) 20 mg tablet 01/09/2023 Active diphenhydrAMINE hydrochloride 25 mg / naproxen sodium 220 mg oral tablet (5 sources) Histamine-1 Receptor Antagonist, Nonsteroidal Anti-inflammatory Drug Naproxen Sod-diphenhydrAMINE 220-25 MG TABS Take by mouth. Active Comment on above: Take by mouth. doxycycline monohydrate 100 mg oral capsule (9 sources) Tetracycline-class Drug Start: 2022 End: 2023 take 100 mg by mouth twice daily Doxycycline Monohydrate Active 100 MG PO TWICE A DAY November 29, 2022 12:00am Start: 04-06-2019 doxycycline (V IBRA-TABS) 100 mg tablet Take as directed 8 tablet 1 04/06/2019 Active Comment on above: Take as directed famotidine 40 mg oral tablet (20 sources) Histamine-2 Receptor Antagonist Start: 01-26-2019 take 1 tablet by mouth twice daily famotidine (Pepcid) 40 mg tablet Take 1 tablet (40 mg) by mouth 2 times a day. 02/22/2021 Active Start: 05-14-2018 End: 06-10-2018 take 1 tablet by mouth twice daily Famotidine (Pepcid) 40 mg tablet Discontinued 40 MG PO TWICE A DAY May 14, 2018 1:00am June 10, 2018 5:58pm Comment on above: Take 40 mg by mouth twice daily. ferrous sulfate 325 mg oral tablet (20 sources) Start: 11-26-2022 take 1 tablet by mouth once daily Ferrous Sulfate (Feosol) 325 mg (65 mg iron) tablet Active 975 MG PO DAILY November 26, 2022 12:00am Start: 12-07-2019 End: 12-18-2021 take 325 mg by mouth three times daily Ferrous Sulfate Discontinued 325 MG PO THREE TIMES A DAY December 07, 2019 12:00am December 18, 2021 8:48am Start: 09-18-2017 End: 11-24-2018 take 325 mg by mouth three times daily Ferrous Sulfate Discontinued 325 MG PO THREE TIMES A DAY September 18, 2017 12:00am November 24, 2018 11:23am Start: 08-06-2014 End: 06-27-2023 take 3 tablets by mouth once daily ferrous sulfate 325 (65 Fe) MG tablet Take 3 tablets (975 mg) by mouth once daily. 0 08/06/2014 06/27/2023 Discontinued (Med List Cleanup) Start: 08-06-2014 take 3 tablets by mo [facility] once daily Ferrous Sulfate 325 (65 Fe) MG Oral Tablet TAKE 3 TABLET Daily Quantity: 90 Refills: 0 Ordered: 09-Feb-2015 DO Start : 06-Aug-2014 Active FERROUS SULFATE ORAL Take by mouth three times daily. 0 Active Comment on above: Take by mouth three times daily. fexofenadine hydrochloride 180 mg oral tablet (12 sources) Histamine-1 Receptor Antagonist Start: take 1 tablet by mouth once daily Fexofenadine (Anika Allergy) 180 mg tablet Active 180 MG PO DAILY November 26, 2022 12:00am Comment on above: Take 180 mg by mouth once daily. fluconazole 150 mg oral tablet (20 sources) Azole Antifungal Start: fluconazole (Diflucan) 150 mg tablet 12/20/2022 Active Start: 12-20-2022 take 1 tablet by mouth once Fl uconazole (Diflucan) 150 mg tablet Active 150 MG PO ONCE December 20, 2022 12:00am Start: 02-08-2022 End: 11-16-2022 take 150 mg by mouth once Fluconazole Discontinued 150 MG PO ONCE February 08, 2022 12:00am November 16, 2022 11:23am as a single dose Start: 09-05-2021 End: 12-18-2021 Fluconazole (Diflucan) 150 m g tablet Discontinued 150 MG PO .COMPLEX 2 September 05, 2021 8:45am December 18, 2021 8:48am 150 mg PO 1 now and repeat 3 days; Take 1 tab now and repeat 3 days Start: 01-05-2021 End: 09-05-2021 take 1 tablet by mouth once Fluconazole (Diflucan) 150 mg tablet Discontinued 150 MG PO ONCE January 05, 2021 12:00am September 05, 2021 8:46am as a single dose Start: 06-16-2020 End: 12-12-2020 Fluconazole (Diflucan) 150 m g tablet Discontinued 150 MG PO Every 3 Days 2 June 16, 2020 1:00am December 12, 2020 8:37am Start: 03-19-2019 End: 12-07-2019 Fluconazole Discontinued 150 MG PO .COMPLEX 2 March 19, 2019 1:00am December 07, 2019 8:41am 150 mg PO take one po now and repeat in 3 days labetalol hydrochloride 200 mg oral tablet (20 sources) beta-Adrenergic Harshad Start: 05-01-2023 take 300 mg by mouth twice daily Labetalol Active 300 MG PO TWICE A DAY May 01, 2023 12:15pm Start: 04-01-2023 take 1 tablet by [facility] twice daily labetalol (Normodyne) 300 mg tablet Take 1 tablet (300 mg) by mouth 2 times a day. 04/01/2023 Active Start: 03-03-2019 End: 12-12-2020 labetalol (NORMODYNE) 100 MG tablet Take 100 mg by mouth. 03/03/2019 Active Start: 03-03-2019 End: 06-27-2023 take 1 tablet by mouth once daily in the morning labetalol (Normodyne) 100 mg tablet Take 1 tablet (100 mg) by mouth once daily in the morning. 0 02/22/2021 06/27/2023 Discontinued (Duplicate order) Start: 10-27-2018 End: 12-07-2019 take 300 mg by mouth twice daily Labetalol Discontinued 300 MG PO TWICE A DAY October 27, 2018 12:00am December 07, 2019 8:41am Start: 06-04-2018 End: 06-27-2023 labetalol (NORMODYNE) 200 MG tablet 01/12/2021 Active Start: 05-14-2018 End: 06-04-2018 take 100 mg by mouth twice daily Labetalol Discontinued 100 MG PO TWICE A DAY 60 May 14, 2018 1:00am June 04, 2018 11:59am Comment on above: Take 100 mg by mouth once daily. Take 200 mg by mouth twice daily. letrozole 2.5 mg oral tablet (6 sources) Aromatase Inhibitor Start: 07-27-2019 letrozole (FEMARA) 2.5 MG tablet Take 5 mg by mouth. 07/27/2019 Active Comment on above: Take 2 tablets by [facility] once daily for 5 days. Take 2 tablets by [facility] once daily. levothyroxine sodium 0.15 mg oral tablet (20 sources) l-Thyroxine Start: 01-08-2023 levothyroxine (Synthroid, Levoxyl) 150 mcg tablet 01/08/2023 Active Start: 11-26-2022 take 150 ug by mouth once brandi y Levothyroxine Active 75 MCG PO .OTHER November 26, 2022 12:00am TAKE IN ADDITION WITH DAILY 150 MCG DOSE ON SATURDAY AND SATURDAY Start: 11-16-2022 take 150 ug by mouth once brandi y Levothyroxine Active 150 MCG PO DAILY November 16, 2022 11:23am Start: 07-17-2022 End: 06-27-2023 levothyroxine (Synthroid, Le voxyl) 112 mcg tablet Start: 09-18-2017 End: 12-12-2020 take 1 tablet by mouth once daily, then take 1.5 tablets by mouth once Levothyroxine Discontinued 0 PO .COMPLEX 96 February 11, 2018 7:55am October 08, 2018 7:59pm 1 tab q day except 1.5 tabs q Saturday and PO Start: 11-13-2016 levothyroxine (SYNTHROID) 75 mcg tablet 100 mcg. Additional 1/2 tablet on 4x weekly 1 11/13/2016 Active Start: 04-11-2016 End: 07-10-2024 take 100 ug by mouth once daily Levothyroxine Disconti nued 100 MCG PO DAILY December 12, 2020 12:00am November 16, 2022 11:26am Start: 04-11-2016 Levothyroxine Sodium 100 MCG Oral Tablet Quantity: 0 Refills: 0 Ordered: 10-May-2016 DO Start : 11-Apr-2016 Active Levothyroxine So dium 112 MCG Oral Tablet Quantity: 0 Refills: 0 Ordered: 18-Jun-2022 DO Active take 1 capsule by [facility] once daily levothyroxine 75 mcg cap Take 75 mcg by mouth daily . 0 Active Comment on above: 100 mcg. Additional 1/2 tablet on 4x weekly lisdexamfetamine dimesylate 50 mg oral capsule (1 source) Central Nervous System Stimulant Start: 09-29-19 take 1 capsule by mouth once daily in the morning Vyvanse 50 mg capsule Take 1 capsule (50 mg) by mouth once daily in the morning. 09/28/2024 Active LORazepam 0.5 mg oral tablet (20 sources) Benzodiazepine Start: 12-14-19 LORazepam (Ativan) 0.5 mg tablet LORazepam 0.5 MG Oral Tablet Quantity: 30 Refills: 0 Start : 13-Dec-2020 Active 12/13/2020 Active Start: 12-13-2020 LORazepam 0.5 MG Oral Tablet Quantity: 30 Refills: 0 Ordered: 13-Dec-2020 DO Start : 13-Dec-2020 Active Start: 12-27-2018 End: 01-10-2019 take 0.5 mg by mouth three times daily as needed Lorazepam Discontinued 0.5 MG PO 3 TIMES DAILY NEEDED December 27, 2018 12:00am January 10, 2019 12:08am Start: 12-26-2018 End: 04-25-2023 Lorazepam (Ativan) 0.5 mg ta blet Discontinued 0.5 MG PO 1 to 2 times per day December 13, 2020 10:34am April 25, 2023 6:46pm Comment on above: Take 0.5 mg by mouth as needed. losartan potassium 100 mg oral tablet (10 sources) Angiotensin 2 Receptor Harshad Start: 05-06-2023 take 80 mg by mouth once daily Losartan Active 80 MG PO DAILY May 06, 2023 2:54pm Start: 05-01-2023 End: 05-06-2023 take 100 mg by mouth once daily Losartan Discontinued 100 MG PO DAILY May 01, 2023 1:00am May 06, 2023 2:55pm take 1 tablet by kristie once daily losartan (Cozaar) 50 mg tablet Take 1 tablet (50 mg) by mouth once daily. Active medroxyPROGESTERone acetate 10 mg oral tablet (20 sources) Progestin Start: 02-23-2019 End: 12-18-2021 take 1 tablet by mouth once daily Medroxyprogesterone (Provera) 10 mg tablet Active 10 MG PO daily August 02, 2023 12:00am meloxicam 15 mg oral tablet (20 sources) Nonsteroidal Anti-inflammatory Drug Start: 11-16-2022 take 15 mg by mouth once daily Meloxicam Active 15 MG PO DAILY November 16, 2022 12:00am milnacipran hydrochloride 50 mg oral tablet (20 sources) Serotonin and Norepinephrine Reuptake Inhibitor Start: 11-26-2022 Savella 50 mg tablet 01/15/2023 Active Start: 02-22-2021 End: 02-23-2021 take 1 tablet by mouth twice daily Savella 100 MG Oral Tablet Take 1 tablet twice daily Quantity: 180 Refills: 0 Ordered: 22-Feb-2021 Lissette Mcdonald MD Start : 22-Feb-2021 End : 23-Feb-2021 Complete Start: 12-12-2020 End: 12-18-2021 take 1 tablet by mouth once daily Milnacipran (Savella) 100 mg tablet Discontinued 100 MG PO DAILY December 12, 2020 12:00am December 18, 2021 8:48am Start: 11-24-2018 End: 12-07-2019 take 1 tablet by mouth once daily Milnacipran (Savella) 100 mg tablet Discontinued 100 MG PO DAILY November 24, 2018 12:00am December 07, 2019 8:42am Start: 09-18-2017 End: 05-14-2018 take 1 tablet by mouth twice daily Milnacipran (Savella) 100 mg tablet Discontinued 100 MG PO TWICE A DAY September 18, 2017 12:00am May 14, 2018 12:56pm Multivitamin preparation (13 sources) Start: 12-18-2021 take 1 tablet by mouth once daily Multivitamin Active 1 TABLET PO DAILY December 17, 2021 11:00pm Start: 12-18-2021 take 1 tablet by kristie th once daily Multivitamin Active 1 TABLET PO DAILY December 18, 2021 12:00am norethindrone 0.35 mg oral tablet (20 sources) Start: 05-06-2023 Norethindrone (Contraceptive) Active 0.35 MG PO DAILY May 06, 2023 1:00am start day 1 of menstrual cycle Start: 11-02-2022 End: 06-27-2023 take 1 tablet by mouth twice daily, then take 1 tablet by mouth once daily Norethindrone Acetate (Aygestin) 5 mg tablet Discontinued 5 MG PO DAILY 45 December 13, 2022 4:56pm May 06, 2023 3:03pm take bid until bleeding stops for at least 3 days then take once daily until gone. ondansetron 4 mg oral tablet (20 sources) Serotonin-3 Receptor Antagonist Start: 12-20-2022 take 4 mg by mouth every four hours Ondansetron Hcl Active 4 MG PO Q4H 60 December 20, 2022 12:00am Start: 08-02-2022 End: 11-16-2022 take 1 tablet by mouth every six hours as needed ondansetron ODT (Zofran-ODT) 4 mg disintegrating tablet Dissolve 1 tablet (4 mg) in the mouth every 6 hours if needed for nausea or vomiting. 08/02/2022 Active PNV no.95/ferrous fum/folic ac ( MULTIVITAMINS ORAL) (3 sources) take 1 tablet by mouth once daily before mealtime PNV no.95/ferrous fum/folic ac ( MULTIVITAMINS ORAL) Take 1 tablet by mouth daily . 0 Active Prenat.Vits,Jitendra,Min-Iron-F olic (15 sources) Start: 09-18-2017 take 1 tablet by mouth once daily Prenat.Vits,Jitendra,Min-Iron- Folic Active 1 TABLET PO daily September 18, 2017 2:29pm Start: 09-18-2017 End: 12-18-2021 take 1 tablet by mouth once daily Prenat.Vits,Jitendra,Ota-Fzym-Vmosn Discontin ued 1 TABLET PO daily September 17, 2017 11:00pm December 18, 2021 7:48am Start: 09-18-2017 End: 12-18-2021 take 1 tablet by mouth once daily Prenat.Vits,Jitendra,Vfs-Lhye-Gsefm Discontin ued 1 TABLET PO daily September 18, 2017 12:00am December 18, 2021 8:48am Start: 09-18-2017 take 1 tablet by kristie th once daily Prenat.Vits,Jitendra,Ozb-Czuc-Lpvia Active 1 TABLET PO daily September 18, 2017 12:00am Vit-Fe Fumarate-FA ( Vitamin) 27-0.8 MG TABS (4 sources) Vit-Fe Fumarate-FA ( Vitamin) 27-0.8 MG TABS Take by mouth. Active Vit-Fe Fumarate-FA ( Vitamin) 27-0.8 MG TABS Take by mouth. 0 Active vitamin, iron-folic , ( Vitamin) 27 mg iron-800 mcg folic acid tablet (5 sources) take 1 tablet by kristie th once daily vitamin, iron-folic, ( Vitamin) 27 mg iron-800 mcg folic acid tablet Take 1 tablet by mouth once daily. Active take 1 tablet by mouth once brandi y vitamin, iron-folic, ( Vitamin) 27 mg iron-800 mcg folic acid tablet Take 1 tablet by mouth once daily. 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 60 capsule 0 06/01/2021 Active Comment on above: Take 1 capsule by [facility] daily at bedtime. rimegepant 75 mg disintegrating oral tablet (14 sources) Start: 07-21-19 21 take 1 tablet by mouth every twenty-four hours as needed rimegepant (Nurtec ODT) 75 mg tablet,disintegrating Dissolve 1 tablet (75 mg) in the mouth once daily as needed. 07/20/2020 Active tiZANidine 4 mg oral tablet (10 sources) Central alpha-2 Adrenergic Agonist Start: 10-03-19 17 tiZANidine (Zanaflex) 4 mg tablet Take by mouth. i pil at night increase by half a pill evry 3 days as needed until max of 3. 2016 Active vitamin b12 1 mg oral tablet (14 sources) Vitamin B12 take 1 tablet by mouth once daily cyanocobalamin (Vitamin B-12) 1,000 mcg tablet Take 1 tablet (1,000 mcg) by mouth once daily. Active Cyanocobalamin 1 000 MCG CAPS Take by mouth. Active Completed/Discontinued Medications Medication Drug Class(es) Dates Sig (Normalized) Sig (Original) acetaminophen 325 mg oral capsule (18 sources) Start: 05-14-2018 End: 11-24-2018 take 1 capsule by mouth every six hours Acetaminophen (Tylenol) 325 mg capsule Discontinued 325 MG PO EVERY 6 HOURS May 14, 2018 1:00am November 24, 2018 11:22am ACETAMINOPHEN OR AL Take by mouth . 0 Active acetaminophen 300 mg / codeine phosphate 30 mg oral tablet (5 sources) Opioid Agonist Start: 02-22-2021 End: 06-27-2023 take 1-2 tablets by mouth every six hours as needed acetaminophen-codeine (Tylenol w/ Codeine #3) 300-30 mg tablet [...] Ordered: 21-Oct-2020 DO Start : 21-Oct-2020 Complete aspirin 81 mg chewable tablet (15 sources) Platelet Aggregation Inhibitor, Nonsteroidal Anti-inflammatory Drug Start: 09-25-2017 End: 10-27-2018 take 81 mg by mouth once daily Aspirin Discontinued 81 MG PO daily September 25, 2017 12:00am October 27, 2018 1:36pm atropine sulfate 0.025 mg / diphenoxylate hydrochloride 2.5 mg oral tablet (20 sources) Anticholinergic, Cholinergic Muscarinic Antagonist, Antidiarrheal Start: 09-18-2017 End: 05-14-2018 take 1 tablet by mouth every six hours Diphenoxylate-Atropine (Lomotil) 2.5-0.025 mg tablet Discontinued 1 TABLET PO EVERY 6 HOURS September 18, 2017 12:00am May 14, 2018 12:55pm take 1 tablet by kristie four times daily as needed for diarrhea diphenoxylate-atropine (LomotiL) 2.5-0.0 25 mg tablet Take 1 tablet by mouth 4 times a day as needed for diarrhea. Active benzocaine 140 mg/ml / butamben 20 mg/ml / tetracaine 20 mg/ml mucosal spray (1 source) Fanny Local Anesthetic, Standardized Chemical Allergen Start: 07-02-2023 End: 07-02-2023 [id number] ne (Cetacaine) spray Bupivacaine (4 sources) Amide Local Anesthetic Start: 12-12-2021 End: 12-12-2021 bupivacaine HCl (MARCAINE) 0 .5 % (5 mg/mL) injection 1 mL Start: [...] End: 06-27-2023 celecoxib (CeleBREX) 400 mg capsule cholecalciferol 0.05 mg oral capsule (20 sources) Vitamin D Start: 09-18-2017 End: 05-14-2018 take 2000 [IU] by mouth once daily Cholecalciferol (Vitamin D3) Discontinued 2000 UNIT PO daily September 18, 2017 12:00am May 14, 2018 12:55pm take 1 capsule by mouth once david ly cholecalciferol (Vitamin D-3) 50 mcg (2,000 unit) capsule Take 1 capsule (50 mcg) by mouth once daily. Active citalopram 40 mg oral tablet (20 sources) Serotonin Reuptake Inhibitor Start: 12-03-2018 End: 12-12-2020 take 40 mg by mouth once daily Citalopram Discontinued 40 MG PO DAILY April 13, 2019 5:41pm December 12, 2020 8:37am Start: 11-28-2018 End: 12-03-2018 take 40 mg by mouth once daily Citalopram Discontinued 40 MG PO DAILY November 28, 2018 4:28pm December 03, 2018 12:59pm Start: 09-02-2018 End: 11-28-2018 take 20 mg by mouth once daily Citalopram Discontinued 20 MG PO DAILY October 08, 2018 7:59pm November 28, 2018 4:29pm diphenhydrAMINE hydrochloride 25 mg oral capsule (15 sources) Histamine-1 Receptor Antagonist Start: 05-14-2018 End: 10-27-2018 take 1 capsule by mouth at bedtime Diphenhydramine Hcl (Benadryl) 25 mg capsule Discontinued 25 MG PO AT BEDTIME May 14, 2018 1:00am October 27, 2018 1:37pm estradiol 2 mg oral tablet (1 source) Estrogen Start: 04-06-2019 estradiol (ESTRACE) 2 mg tablet Take 3 tablets (6mg) as directed 90 tablet 3 04/06/2019 Active Comment on above: Take 3 tablets (6mg) as directed 1 ml fentaNYL 0.05 mg/ml injection (2 sources) Opioid Agonist Start: 07-02-2023 End: 07-02-2023 fentaNYL PF (Sublimaze) injection hydroCHLOROthiazide 12.5 mg / lisinopril 10 mg oral tablet (5 sources) Thiazide Diuretic, Angiotensin Converting Enzyme Inhibitor Start: 02-22-2021 End: 06-27-2023 take 1 tablet by mouth once daily lisinopriL-hydrochl orothiazide 10-12.5 mg tablet Take 1 tablet by mouth once daily. 0 02/22/2021 06/27/2023 Discontinued (Med List Cleanup) ibuprofen 600 mg oral tablet (3 sources) Nonsteroidal Anti-inflammatory Drug Start: 06-04-2020 take 1 tablet by mouth four times daily as needed for pain Ibuprofen 600 MG Oral Tablet take 1 tablet by mouth four times a day NEEDED FOR PAIN Quantity: 20 Refills: 0 Ordered: 05-Jun-2020 DO Start : 04-Jun-2020 Complete loratadine 10 mg oral tablet (20 sources) Start: 09-18-2017 End: 06-27-2023 take 1 tablet by mouth once daily Loratadine (Claritin) 10 mg tablet Discontinued 10 MG PO DAILY December 07, 2019 12:00am December 18, 2021 8:48am End: 02-22-2021 take 1 tablet by mouth once daily Claritin Reditabs 10 MG Oral Tablet Disintegrating TAKE 1 TABLET DAILY DIRECTED. Quantity: 0 Refills: 0 Ordered: 22-Feb-2021 DO End : 22-Feb-2021 Complete Comment on above: Take 10 mg by mouth once daily. magnesium gluconate 550 mg oral tablet (15 sources) Start: 09-19-19 18 End: 05-14-19 19 take 30 mg by mouth once daily Magnesium Discontinued 30 MG PO daily September 18, 2017 12:00am May 14, 2018 12:56pm 2 ml midazolam 5 mg/ml injection (5 sources) Benzodiazepine Start: 07-02-19 End: 07-02-19 midazolam PF (Versed) injection Naltrexone (20 sources) Opioid Antagonist Start: 02-27-20 23 End: 05-06-19 24 take 1 capsule by mouth in the morning, then take 2 capsules by mouth in the evening Naltrexone (Naltrex) 4.5 mg capsule Discontinued 8 MG PO As Directed 54 February 26, 2023 4:41pm May 06, 2023 3:01pm 1 cap in am, 2 cap in pm Start: 02-26-2023 take 1 capsule by [facility] in the morning, then take 2 capsules by mouth in the evening Naltrexone (Naltrex) 4.5 mg capsule Active 8 MG PO As Directed 54 February 26, 2023 3:41pm 1 cap in am, 2 cap in pm Start: 02-26-2023 End: 02-26-2023 take 1 capsule by mouth in the morning, then take 2 capsules by mouth in the evening Naltrexone (Naltrex) 4.5 mg capsule Discontinued 8 MG PO As Directed February 26, 2023 4:35pm February 26, 2023 4:42pm 1 cap in am, 2 cap in pm Start: 02-26-2023 End: 02-26-2023 take 1 capsule by mouth in the morning, then take 2 capsules by mouth in the evening Naltrexone (Naltrex) 4.5 mg capsule Discontinued 8 MG PO As Directed February 26, 2023 3:35pm February 26, 2023 3:42pm 1 cap in am, 2 cap in pm Start: 11-26-2022 End: 02-26-2023 take 1 capsule by mouth twice daily Naltrexone (Naltrex) 4.5 mg capsule Discontinued 8 MG PO TWICE A DAY November 26, 2022 12:00am February 26, 2023 4:37pm Start: 11-26-2022 End: 02-26-2023 take 1 capsule by mouth twice daily Naltrexone (Naltrex) 4.5 mg capsule Discontinued 8 MG PO TWICE A DAY November 25, 2022 11:00pm February 26, 2023 3:37pm Start: 11-26-2022 take 1 capsule by [facility] twice daily Naltrexone (Naltrex) 4.5 mg capsule Active 8 MG PO TWICE A DAY November 26, 2022 12:00am take 3 tablets by mo [facility] once daily naltrexone (Depade) 50 mg tablet Take 8 mg by mouth once daily. 3 pills daily. Active naproxen 250 mg oral tablet (20 sources) Nonsteroidal Anti-inflammatory Drug Start: 09-18-2017 End: 05-14-2018 Naproxen Discontinued 250 MG PO 2 to 3 times per day September 18, 2017 12:00am May 14, 2018 12:56pm take 2 tablets by mo ut every twelve hours naproxen sodium (Aleve) 220 mg tablet Ta ke 2 tablets (440 mg) by mouth every 12 hours if needed. Active take 2 tablets by mo uth every twelve hours Aleve 220 MG Oral Tablet TAKE 2 TABLET Every twelve hours PRN Quantity: 0 Refills: 0 Ordered: 19-Dec-2015 DO Active NAPROXEN ORAL Ta ke by mouth . 0 Active naratriptan 2.5 mg oral tablet (19 sources) Serotonin-1b and Serotonin-1d Receptor Agonist Start: 09-18-2017 End: 05-14-2018 take 1 tablet by mouth once Naratriptan (Amerge) 2.5 mg tablet Discontinued 2.5 MG PO ONCE September 18, 2017 12:00am May 14, 2018 12:56pm Start: 01-14-2015 End: 02-22-2021 take 1 tablet by mouth every four [...] may repeat in 4 hours if needed Lingle (15 sources) Start: 09-29-2018 End: 10-27-2018 take 12.5 mg by mouth once daily Lingle Discontinued 12.5 MG PO daily September 29, 2018 7:46am October 27, 2018 12:36pm Start: 09-29-2018 End: 10-27-2018 take 12.5 mg by mouth once daily Lingle Discontinued 12.5 MG PO daily September 29, 2018 8:46am October 27, 2018 1:36pm omeprazole 20 mg delayed release oral capsule (20 sources) Proton Pump Inhibitor Start: 01-09-2023 End: 10-15-2024 omeprazole (PriLOSEC) [address] capsule 01/09/2023 10/15/2024 Discontinued (Other) Start: 11-26-2022 take 40 mg by mouth twice brandi y Omeprazole Active 40 MG PO TWICE A DAY November 26, 2022 12:00am Start: 09-18-2017 End: 05-14-2018 take 1 tablet by mouth once daily Omeprazole Magnesium (Prilosec Otc) 20 mg tablet,delayed release (DR/EC) Discontinued 20 MG PO daily September 18, 2017 12:00am May 14, 2018 12:56pm PriLOSEC 20 MG C PDR Quantity: 0 Refills: 0 Ordered: 18-Jun-2022 DO Active Vitamins 28-0.8 MG Oral Tablet (5 sources) [...] aily. promethazine hydrochloride 12.5 mg oral tablet (20 sources) Phenothiazine Start: 09-19-19 18 End: 09-30-19 19 take 1 tablet by mouth once daily promethazine 12.5 mg tablet Discontinued 12.5 MG PO daily 60 May 14, 2018 1:44pm September 29, 2018 8:46am End: 06-27-2023 take 1 tablet by mouth every six hours as needed for nausea promethazine (PHENERGAN) 12.5 MG tablet Take 12.5 mg by mouth every 6 hours as needed for Nausea. Active raNITIdine 150 mg oral tablet (20 sources) Histamine-2 Receptor Antagonist Start: 06-10-2018 End: 10-27-2018 take 150 mg by mouth twice daily Ranitidine Hcl Discontinued 150 MG PO TWICE A DAY October 08, 2018 7:59pm October 27, 2018 1:36pm rizatriptan 10 mg oral tablet (11 sources) Serotonin-1b and Serotonin-1d Receptor Agonist Start: 07-20-2020 End: 06-27-2023 rizatriptan (Maxalt) 10 mg tablet Take 1 [...] 24 HOURS. Quantity: 9 Refills: 5 Ordered: 24-Mar-2021 Sixto [employer]ERTER-INDUSTRIAL METHODS CONSULTANT, Lung Start : 20-Jul-2020 Active take 1 tablet by kristie th every two hours as needed rizatriptan (Maxalt) 5 MG tablet Take 5 mg by mouth as needed for Migraine. May repeat in 2 hours in needed Active sucralfate 1000 mg oral tablet (4 [...] triamcinolone acetonide (JACOB ALOG-40) injection 40 mg Vitamin B Complex (B Complex-Vitamin B12) tablet (15 sources) Start: 09-18-2017 End: 05-14-2018 take 1 tablet by mouth once daily Vitamin B Complex (B Complex-Vitamin B12) tablet Discontinued 1 TABLET PO daily September 18, 2017 2:29pm May 14, 2018 12:56pm Start: 09-18-2017 End: 05-14-2018 take 1 tablet by mouth once daily Vitamin B Complex (B Complex-Vitamin B12) tablet Discontinued 1 TABLET PO daily September 17, 2017 11:00pm May 14, 2018 11:56am Start: 09-18-2017 End: 05-14-2018 take 1 tablet by mouth once daily Vitamin B Complex (B Complex-Vitamin B12) tablet Discontinued 1 TABLET PO daily September 18, 2017 12:00am May 14, 2018 12:56pm Problems Active Problems Problem Classification Problem Date Documented Da te Episodic/Chronic Anxiety disorders (5 sources) Anxiety; Translations: [Anxiety state, unspecified] Chronic Biliary tract disease (20 sources) Cholangiectasis; Translations: [Other specified disorders of biliary tract] Onset: 09-03-2022 Chronic Contraceptive and procreative management (15 sources) Patient encounter status; Translations: [Encounter for assisted reproductive fertility procedure cycle] 12-07-2019 Episodic Deficiency and other anemia (1 source) Iron deficiency anemia, unspecified; Translations: [Iron deficiency anemia, unspecified] Onset: 12-14-2024 Episodic Essential hypertension (20 sources) Hypertensive disorder; Translations: [Essential (primary) hypertension] Onset: 02-14-2021 10-16-2020 Chronic Female infertility (20 sources) 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; Translations: [Female infertility of other origin] Onset: 12-05-2011 Chronic Gastritis and duodenitis (10 sources) Bile-induced gastritis; Translations: [Other specified gastritis, without mention of hemorrhage] Onset: 03-07-2023 03-07-2023 Episodic Headache; including migraine (15 sources) Refractory migraine without aura; Translations: [Chronic migraine without aura, with intractable migraine, so stated, with status migrainosus] Onset: 03-11-2007 02-14-2021 Chronic Hypertension complicating ; childbirth and the puerperium (15 sources) Chronic hypertension complicating AND/OR reason for care during ; Translations: [Unspecified pre-existing hypertension complicating , unspecified trimester] 12-07-2019 Chronic Malaise and fatigue (15 sources) Fatigue; Translations: [Other fatigue] 12-07-2019 Episodic Menstrual disorders (1 source) Secondary amenorrhea; Translations: [Secondary amenorrhea] Onset: 06-03-2024 Chronic Mood disorders (20 sources) Reactive depression (situational); Translations: [Dysthymic disorder] Onset: 03-07-2023 Chronic Nausea and vomiting (5 sources) Nausea; Translations: [Nausea alone] Episodic Osteoarthritis (10 sources) Arthritis; Translations: [Unspecified osteoarthritis, unspecified site] Onset: 02-14-2021 Chronic Other circulatory disease (5 sources) History of cerebrovascular accident; Translations: [Personal history of transient ischemic attack (TIA), and cerebral infarction without residual deficits] Episodic Other complications of (15 sources) Maternal obesity complicating , childbirth and the puerperium, antepartum; Translations: [Obesity complicating , unspecified trimester] 12-07-2019 Chronic Other complications of (15 sources) High risk ; Translations: [Supervision of high risk , unspecified, unspecified trimester] 12-07-2019 Episodic Other complications of (15 sources) Depressive disorder; Translations: [Other mental disorders complicating , third trimester] 12-07-2019 Episodic Other complications of (15 sources) Group B Streptococcus carrier; Translations: [Streptococcus B carrier state complicating ] 12-07-2019 Episodic Other connective tissue disease (2 sources) Pain in left foot; Translations: [Pain in left foot] Episodic Other connective tissue disease (5 sources) H/O: arthritis; Translations: [Personal history of arthritis] Episodic Other endocrine disorders (20 sources) Polycystic ovary syndrome; Translations: [Polycystic ovarian syndrome] Onset: 12-05-2011 Chronic Other endocrine disorders (16 sources) Polycystic ovarian syndrome; Translations: [Polycystic ovaries] Chronic Other female genital disorders (13 sources) Endometrial hyperplasia; Translations: [Endometrial hyperplasia, unspecified] 12-18-2021 Chronic Other female genital disorders (6 sources) Endometrial hyperplasia, unspecified; Translations: [Endometrial hyperplasia, unspecified] Chronic Other female genital disorders (7 sources) Abnormal uterine bleeding; Translations: [Abnormal uterine and vaginal bleeding, unspecified] 11-16-2022 Chronic Other female genital disorders (12 sources) Abnormal uterine and vaginal bleeding, unspecified; Translations: [Unspecified disorders of menstruation and other abnormal bleeding from female genital tract] 11-16-2022 Chronic Other gastrointestinal disorders (5 sources) Irritable bowel syndrome; Translations: [Irritable bowel syndrome without diarrhea] Onset: 01-04-2007 02-14-2021 Chronic Other gastrointestinal disorders (11 sources) Diarrhea; Translations: [Diarrhea, unspecified] 08-10-2022 Episodic Other nutritional; endocrine; and metabolic disorders (7 sources) Obesity; Translations: [Other obesity] 11-16-2022 Chronic Other nutritional; endocrine; and metabolic disorders (7 sources) Body mass index 40+ - severely obese; Translations: [Body mass index (BMI) 40.0-44.9, adult] 11-16-2022 Chronic Other nutritional; endocrine; and metabolic disorders (14 sources) Body mass index (BMI) 40.0-44.9, adult; Translations: [Body Mass Index 40.0-44.9, adult] 11-16-2022 Chronic Other nutritional; endocrine; and metabolic disorders (14 sources) Other obesity; Translations: [Obesity, unspecified] 11-16-2022 Chronic Other nutritional; endocrine; and metabolic disorders (5 sources) H/O: thyroid disorder; Translations: [Personal history of other endocrine, metabolic, and immunity disorders] Episodic Other and delivery including normal (15 sources) ; Translations: [Encounter for supervision of normal , unspecified, unspecified trimester] 12-07-2019 Episodic Other screening for suspected conditions (not mental disorders or infectious disease) (4 sources) Ultrasonography of abdomen abnormal; Translations: [Abnormal findings on diagnostic imaging of other abdominal regions, including retroperitoneum] Onset: 08-20-2022 Episodic Other upper respiratory disease (5 sources) Allergic rhinitis; Translations: [Allergic rhinitis, unspecified] Onset: 11-26-2006 02-14-2021 Chronic Screening and history of mental health and substance abuse codes (5 sources) H/O: depression; Translations: [Personal history of other mental disorders] Episodic Thyroid disorders (20 sources) Goiter; Translations: [Iodine-deficiency related diffuse (endemic) goiter] Onset: 10-10-2015 Chronic Past or Other Problems Problem Classification Problem Date Documented Da te Episodic/Chronic Abdominal pain (20 sources) Indigestion; Translations: [Dyspepsia and other specified disorders of function of stomach] Onset: 08-20-2022 08-10-2022 Episodic Cancer of cervix (5 sources) Low grade squamous intraepithelial lesion on cervical Papanicolaou smear; Translations: [Low grade squamous intraepithelial lesion on cytologic smear of cervix (LGSIL)] Onset: 10-28-2015 02-14-2021 Episodic Deficiency and other anemia (7 sources) Anemia; Translations: [Anemia, unspecified] Onset: 02-14-2021 10-16-2020 Episodic Headache; including migraine (7 sources) Headache; Translations: [Headache] Onset: 02-14-2021 10-16-2020 Episodic Other gastrointestinal disorders (1 source) Diarrhea, unspecified; Translations: [Diarrhea, unspecified type] Onset: 08-20-2022 Episodic Spondylosis; intervertebral disc disorders; other back problems (18 sources) Back problem; Translations: [Dorsopathy, unspecified] Onset: 02-14-2021 Episodic Thyroid disorders (8 sources) Disorder of thyroid gland; Translations: [Disorder of thyroid, unspecified] Onset: 02-14-2021 Episodic Unclassified (13 sources) ovarian surgery 11-26-2021 Varicose veins of lower extremity (7 sources) Varicose veins of lower extremity; Translations: [Asymptomatic varicose veins of unspecified lower extremity] Onset: 02-14-2021 10-16-2020 Episodic Results Test Name Value Interpretation Reference Range Facility SCRN MAMM (CAD)W/HENRIETTA BILATo n 06-15-2024 SCRN MAMM (CAD)W/HENRIETTA BILAT [facility] Imaging Services [address] [place] [address] SCRN MAMM (CAD)W/HENRIETTA BILAT MR#: [id number] Acct: [id number] Name: LARISA MARIN Rep #: [id number] : 1985 F 38 From: Len vasquez MD PCP: Dr. Sharonda Fajardo DO Status: [facility] Study: SCRN MAMM (CAD)W/HENRIETTA BILAT Date of Exam: 05/30 11/20 Exam# [id number] Ordering Dr: Agustina Liu PROCEDURE: SCRN MAMM (CAD)W/HENRIETTA BILAT REASON FOR EXAM: F, Age 38 y/o, baseline examination. TECHNIQUE: Bilateral screening digital breast tomosynthesis with 2D and 3D images. Computer aided detection. COMPARISON: None. This is a baseline mammogram. FINDINGS: There are scattered areas of fibroglandular density. Small bilateral axillary lymph nodes. No suspicious masses, areas of developing architectural distortion, or suspicious calcifications. BI/SCRN MAMM (CAD)W/HENRIETTA BILAT IMPRESSION: BI-RADS 2: BENIGN. RECOMMEND ANNUAL MAMMOGRAPHIC SCREENING. Follow-up code: Routine Follow-up The patient will be notified of the results by letter. Reading Location: [id number] CC: Dr. Sharonda Fajardo DO; Dr. Agustina Liu MD [employer]: Signed Normal [facility] Antimullerian Hormone, Serum on 05-21-2024 AMH, SERUM 1.49 ng/mL Normal . [facility] Comment on above: Order Comment: N Result Comment: For assays employing antibodies, the possibility exists for interference by heterophile antibodies in the samples.1 1.Amberly Kuo Interferences in Immunoassays - still a threat. Clin. Chem. 2000; 46: 0434-4727. This test was developed and its performance characteristics determined by [employer]. It has not been cleared or approved by the Food and Drug Administration. Reference Range: Females 36 - 40y: 0.42 - 8.34 Median 1.69 AMH concentrations of >= 1.06 ng/mL is correlated with a better response to ovarian stimulation, produced more retrievable oocytes and higher odds of live according to Rosana et al. Fertility and Sterility. 2010: 94:7551-8598. The current AMH test method correlates with the study method with a slope of 0.94. Females at risk of ovarian hyperstimulation syndrome or polycystic ovarian syndrome (PCOS) may exhibit elevated serum AMH concentrations. AMH levels from PCOS patients may be 2 to 5 fold higher than age-appropriate reference interval values. Granulosa cell tumors of the ovary may secrete AMH along with other tumor markers. Elevated AMH is not specific for malignancy, and the assay should not be used exclusively to diagnose or exclude an AMH-secreting ovarian tumor. Performed By: #### L 100.0500, L500.3400 #### [facility] [address] [place], [address] DHEA Sulfateon 05-21-2024 DHEA SULFATE 66.9 ug/dL Normal 57.3-279.2 [facility] Comment on above: Order Comment: N Performed By: #### L 100.0500, L500.3400 #### [facility] [address] [place], [place], [id number] Insulin Levelon 05-21-2024 INSULIN,FASTING 24.5 uIU/mL Normal 2.6-24.9 [facility] Comment on above: Order Comment: N Result Comment: Perf ormed at: [facility] [address] [place] [id number] Industrial Insulator: Colby Vargas MD, Phone: [phone] Performed at: [facility] [address] [id number] Industrial Insulator: Yobani Kirby PhD, Phone: [phone] Performed By: #### L 100.0500, L500.3400 #### [facility] [address] [place], [address] PROLACTIN 4465on 05-21-2024 PROLACTIN 8.3 ng/mL Normal 4.8-33.4 [facility] Comment on above: Order Comment: N Performed By: #### L 100.0500, L500.3400 #### [facility] [address] [place], [address] Testosterone, Serum Totalon 05-18-2024 Testosterone [Mass/Vol] 21.64 ng/dL Normal [facility] Comment on above: Result Comment: CENT RAL 90% REFERENCE RANGES MALE AGE <50 197.44 - 669.58 ng/dL MALE AGE > or = 50 187.72 - 684.19 ng/dL FEMALE AGE <50 8.38 - 35.01 ng/dL FEMALE AGE > or = 50 <7.00 - 35.92 ng/dL Effective as of 11/22/20 Performed By: #### L 100.0500, L500.3400 #### [facility] [address] [place], [address] Vitamin B12on 05-18-2024 Cobalamin (Vitamin B12) [Mass/Vol] 895 pg/mL Normal 211-911 [facility] Comment on above: Performed By: #### L 100.0500, L500.3400 #### [facility] [address] [place], [address] CBC-Complete Blood Cnt No Di ffon 05-16-2024 Erythrocyte distribution width (RBC) [Ratio] 12.2 % Normal 11.6-14.6 [facility] Comment on above: Performed By: #### L 100.0500, L506.0250, L3300.3500, L3300.1500, L3300.1750, L509.3000, L503.6030, L503.6550, L803.3000, L3100.5170, L503.0105, L3100.5400, L500.4050, L3100.5125 #### [facility] [address] [place], [address] Hematocrit (Bld) [Volume fraction] 38.1 % Normal 37-47 [facility] Comment on above: Performed By: #### L 100.0500, L506.0250, L3300.3500, L3300.1500, L3300.1750, L509.3000, L503.6030, L503.6550, L803.3000, L3100.5170, L503.0105, L3100.5400, L500.4050, L3100.5125 #### [facility] [address] [place], [place], [id number] (879) Hemoglobin (Bld) [Mass/Vol] 12.4 g/dL Normal 12.0-15.0 [facility] Comment on above: Performed By: #### L 100.0500, L506.0250, L3300.3500, L3300.1500, L3300.1750, L509.3000, L503.6030, L503.6550, L803.3000, L3100.5170, L503.0105, L3100.5400, L500.4050, L3100.5125 #### [facility] [address] [place], [address] MCH (RBC) [Entitic mass] 30.0 pg Normal 27.0-32.0 [facility] Comment on above: Performed By: #### L 100.0500, L506.0250, L3300.3500, L3300.1500, L3300.1750, L509.3000, L503.6030, L503.6550, L803.3000, L3100.5170, L503.0105, L3100.5400, L500.4050, L3100.5125 #### [facility] [address] [place], [address] MCHC (RBC) [Mass/Vol] 32.5 g/dL Normal 32-36 [facility] Comment on above: Performed By: #### L 100.0500, L506.0250, L3300.3500, L3300.1500, L3300.1750, L509.3000, L503.6030, L503.6550, L803.3000, L3100.5170, L503.0105, L3100.5400, L500.4050, L3100.5125 #### [facility] [address] [place], [address] MCV (RBC) [Entitic vol] 92.0 fL Normal 81-99 [facility] Comment on above: Performed By: #### L 100.0500, L506.0250, L3300.3500, L3300.1500, L3300.1750, L509.3000, L503.6030, L503.6550, L803.3000, L3100.5170, L503.0105, L3100.5400, L500.4050, L3100.5125 #### [facility] [address] [place], [address] Platelet mean volume (Bld) [Entitic vol] 9.9 fL Normal 6.2-12.0 [facility] Comment on above: Performed By: #### L 100.0500, L506.0250, L3300.3500, L3300.1500, L3300.1750, L509.3000, L503.6030, L503.6550, L803.3000, L3100.5170, L503.0105, L3100.5400, L500.4050, L3100.5125 #### [facility] [address] [place], [address] Platelets (Bld) [#/Vol] 284 10*3/uL Normal 150-450 [facility] Comment on above: Performed By: #### L 100.0500, L506.0250, L3300.3500, L3300.1500, L3300.1750, L509.3000, L503.6030, L503.6550, L803.3000, L3100.5170, L503.0105, L3100.5400, L500.4050, L3100.5125 #### [facility] [address] [place], [address] RBC (Bld) [#/Vol] 4.14 10*6/uL Low 4.2-5.4 [facility] Comment on above: Performed By: #### L 100.0500, L506.0250, L3300.3500, L3300.1500, L3300.1750, L509.3000, L503.6030, L503.6550, L803.3000, L3100.5170, L503.0105, L3100.5400, L500.4050, L3100.5125 #### [facility] [address] [place], [address] RDW SD 41.1 fl Normal 35.1-43.9 [facility] Comment on above: Performed By: #### L 100.0500, L506.0250, L3300.3500, L3300.1500, L3300.1750, L509.3000, L503.6030, L503.6550, L803.3000, L3100.5170, L503.0105, L3100.5400, L500.4050, L3100.5125 #### [facility] [address] [place], [address] WBC (Bld) [#/Vol] 7.0 10*3/uL Normal 4.4-11.0 [facility] Comment on above: Performed By: #### L 100.0500, L506.0250, L3300.3500, L3300.1500, L3300.1750, L509.3000, L503.6030, L503.6550, L803.3000, L3100.5170, L503.0105, L3100.5400, L500.4050, L3100.5125 #### [facility] [address] [place], [place], [id number] Comprehensive Metabolic Prof [facility] 05-16-2024 Albumin [Mass/Vol] 3.7 g/dL Normal 3.2-5.0 [facility] Comment on above: Order Comment: N Performed By: #### L 100.0500, L506.0250, L3300.3500, L3300.1500, L3300.1750, L509.3000, L503.6030, L503.6550, L803.3000, L3100.5170, L503.0105, L3100.5400, L500.4050, L3100.5125 #### [facility] [address] [place], [address] Albumin/Globulin [Mass ratio] 1.1 {ratio} Normal 0.9-2.4 [facility] Comment on above: Order Comment: N Performed By: #### L 100.0500, L506.0250, L3300.3500, L3300.1500, L3300.1750, L509.3000, L503.6030, L503.6550, L803.3000, L3100.5170, L503.0105, L3100.5400, L500.4050, L3100.5125 #### [facility] [address] [place], [address] ALK P 57 U/L Normal 45-117 [facility] Comment on above: Order Comment: N Performed By: #### L 100.0500, L506.0250, L3300.3500, L3300.1500, L3300.1750, L509.3000, L503.6030, L503.6550, L803.3000, L3100.5170, L503.0105, L3100.5400, L500.4050, L3100.5125 #### [facility] [address] [place], [address] ALT [Catalytic activity/Vol] 25 U/L Normal 13-56 [facility] Comment on above: Order Comment: N Performed By: #### L 100.0500, L506.0250, L3300.3500, L3300.1500, L3300.1750, L509.3000, L503.6030, L503.6550, L803.3000, L3100.5170, L503.0105, L3100.5400, L500.4050, L3100.5125 #### [facility] [address] [place], [address] AST [Catalytic activity/Vol] 12 U/L Low 15-37 [facility] Comment on above: Order Comment: N Performed By: #### L 100.0500, L506.0250, L3300.3500, L3300.1500, L3300.1750, L509.3000, L503.6030, L503.6550, L803.3000, L3100.5170, L503.0105, L3100.5400, L500.4050, L3100.5125 #### [facility] [address], [address] Bilirubin [Mass/Vol] 0.40 mg/dL Normal 0.20-1.00 [facility] Comment on above: Order Comment: N Result Comment: For patients on eltrombopag therapy, use of Dimension [place] TBIL is not recommended. Performed By: #### L 100.0500, L506.0250, L3300.3500, L3300.1500, L3300.1750, L509.3000, L503.6030, L503.6550, L803.3000, L3100.5170, L503.0105, L3100.5400, L500.4050, L3100.5125 #### [facility] [address] [place], [address] BUN/CRE 22.8 RATIO High 10-20 [facility] Comment on above: Order Comment: N Performed By: #### L 100.0500, L506.0250, L3300.3500, L3300.1500, L3300.1750, L509.3000, L503.6030, L503.6550, L803.3000, L3100.5170, L503.0105, L3100.5400, L500.4050, L3100.5125 #### [facility] [address] [place], [place], [phone] (126 CA,Total 8.9 mg/dL Normal 8.5-10.1 [facility] Comment on above: Order Comment: N Performed By: #### L 100.0500, L506.0250, L3300.3500, L3300.1500, L3300.1750, L509.3000, L503.6030, L503.6550, L803.3000, L3100.5170, L503.0105, L3100.5400, L500.4050, L3100.5125 #### [facility] [address] [place], [address] Chloride [Moles/Vol] 106 mmol/L Normal 98-107 [facility] Comment on above: Order Comment: N Performed By: #### L 100.0500, L506.0250, L3300.3500, L3300.1500, L3300.1750, L509.3000, L503.6030, L503.6550, L803.3000, L3100.5170, L503.0105, L3100.5400, L500.4050, L3100.5125 #### [facility] [address] [place], [address] CO2 [Moles/Vol] 29.0 mmol/L Normal 21.0-32.0 [facility] Comment on above: Order Comment: N Performed By: #### L 100.0500, L506.0250, L3300.3500, L3300.1500, L3300.1750, L509.3000, L503.6030, L503.6550, L803.3000, L3100.5170, L503.0105, L3100.5400, L500.4050, L3100.5125 #### [facility] [address] [place], [address] Creatinine [Mass/Vol] 0.79 mg/dL Normal 0.55-1.02 [facility] Comment on above: Order Comment: N Result Comment: The validity of the calculated GFR GFRAA in patients over 70 years has not been determined. Clinical correlation is essential. Performed By: #### L 100.0500, L506.0250, L3300.3500, L3300.1500, L3300.1750, L509.3000, L503.6030, L503.6550, L803.3000, L3100.5170, L503.0105, L3100.5400, L500.4050, L3100.5125 #### [facility] [address] [place], [address] EST GFR - AA 103 mL/min Normal >60 [facility] Comment on above: Order Comment: N Result Comment: Afri can Nigerien GFR Calc Performed By: #### L 100.0500, L506.0250, L3300.3500, L3300.1500, L3300.1750, L509.3000, L503.6030, L503.6550, L803.3000, L3100.5170, L503.0105, L3100.5400, L500.4050, L3100.5125 #### [facility] [address] [place], [address] GAP 4 Low 5-15 [facility] Comment on above: Order Comment: N Performed By: #### L 100.0500, L506.0250, L3300.3500, L3300.1500, L3300.1750, L509.3000, L503.6030, L503.6550, L803.3000, L3100.5170, L503.0105, L3100.5400, L500.4050, L3100.5125 #### [facility] [address] [place], [place], [phone] (037) GFR/1.73 sq M.predicted among non-blacks MDRD (S/P/Bld) [Vol rate/Area] 85 mL/min/{1.73_m2} Normal >60 [facility] Comment on above: Order Comment: N Result Comment: Non- GFR Calc Performed By: #### L 100.0500, L506.0250, L3300.3500, L3300.1500, L3300.1750, L509.3000, L503.6030, L503.6550, L803.3000, L3100.5170, L503.0105, L3100.5400, L500.4050, L3100.5125 #### [facility] [address] [place], [address] (642) Globulin (S) [Mass/Vol] 3.5 g/dL Normal 2.2-4.2 [facility] Comment on above: Order Comment: N Performed By: #### L 100.0500, L506.0250, L3300.3500, L3300.1500, L3300.1750, L509.3000, L503.6030, L503.6550, L803.3000, L3100.5170, L503.0105, L3100.5400, L500.4050, L3100.5125 #### [facility] [address] [place], [address] (761) Glucose [Mass/Vol] 96 mg/dL Normal 74-106 [facility] Comment on above: Order Comment: N Performed By: #### L 100.0500, L506.0250, L3300.3500, L3300.1500, L3300.1750, L509.3000, L503.6030, L503.6550, L803.3000, L3100.5170, L503.0105, L3100.5400, L500.4050, L3100.5125 #### [facility] [address] [place], [address] Potassium [Moles/Vol] 3.9 mmol/L Normal 3.5-5.1 [facility] Comment on above: Order Comment: N Performed By: #### L 100.0500, L506.0250, L3300.3500, L3300.1500, L3300.1750, L509.3000, L503.6030, L503.6550, L803.3000, L3100.5170, L503.0105, L3100.5400, L500.4050, L3100.5125 #### [facility] [address] [place], [place], [phone] (146) Sodium [Moles/Vol] 138 mmol/L Normal 136-145 [facility] Comment on above: Order Comment: N Performed By: #### L 100.0500, L506.0250, L3300.3500, L3300.1500, L3300.1750, L509.3000, L503.6030, L503.6550, L803.3000, L3100.5170, L503.0105, L3100.5400, L500.4050, L3100.5125 #### [facility] [address] [place], [place], [phone] (128) T PROT 7.2 g/dL Normal 6.4-8.2 [facility] Comment on above: Order Comment: N Performed By: #### L 100.0500, L506.0250, L3300.3500, L3300.1500, L3300.1750, L509.3000, L503.6030, L503.6550, L803.3000, L3100.5170, L503.0105, L3100.5400, L500.4050, L3100.5125 #### [facility] [address] [place], [place], [phone] Urea nitrogen [Mass/Vol] 18 mg/dL Normal 7-18 [facility] Comment on above: Order Comment: N Performed By: #### L 100.0500, L506.0250, L3300.3500, L3300.1500, L3300.1750, L509.3000, L503.6030, L503.6550, L803.3000, L3100.5170, L503.0105, L3100.5400, L500.4050, L3100.5125 #### [facility] [address] [place], [address] Estradiolon 05-16-2024 ESTRADIOL 32.2 pg/mL Normal [facility] Comment on above: Order Comment: N Result Comment: NORM AL REFERENCE RANGES FEMALE FOLLICULAR 21.4 - 164.8 pg/mL MID-CYCLE PEAK 49.9 - 367.2 pg/mL LUTEAL 40.2 - 259.0 pg/mL POST-MENOPAUSAL ON MHT <11.0 - 462.1 pg/mL NOT ON MHT <11.0 - 58.3 pg/mL MALE <11.0 - 52.5 pg/mL NOTE: [facility] HAS CONFIRMED THE DRUG FULVETRANT (FASLODEX) MAY CAUSE FALSELY ELEVATED ESTRADIOL RESULTS WHEN USING THIS TEST METHOD. IF PATIENT IS TAKING FULVESTRANT AN ALTERNATIVE METHOD SHOULD BE USED TO DETERMINE ESTRADIOL CONCENTRATION. Performed By: #### L 100.0500, L506.0250, L3300.3500, L3300.1500, L3300.1750, L509.3000, L503.6030, L503.6550, L803.3000, L3100.5170, L503.0105, L3100.5400, L500.4050, L3100.5125 #### [facility] [address] [place], [place], [phone] Ferritinon 05-16-2024 Ferritin [Mass/Vol] 503 ng/mL High 8-252 [facility] Comment on above: Order Comment: N Performed By: #### L 100.0500, L506.0250, L3300.3500, L3300.1500, L3300.1750, L509.3000, L503.6030, L503.6550, L803.3000, L3100.5170, L503.0105, L3100.5400, L500.4050, L3100.5125 #### [facility] [address] [place], [address] (742) Folates, (Folic Acid)on 04-29 FOLATES 11.00 ng/mL Normal 3.1-55.4 [facility] Comment on above: Order Comment: N Performed By: #### L 100.0500, L506.0250, L3300.3500, L3300.1500, L3300.1750, L509.3000, L503.6030, L503.6550, L803.3000, L3100.5170, L503.0105, L3100.5400, L500.4050, L3100.5125 #### [facility] [address] [place], [address] Follicle Stimulating Hormone on 05-16-2024 FSH 4.6 mIU/mL Normal [facility] Comment on above: Order Comment: N Result Comment: NORMAL REFERENCE RANGES FEMALE FOLLICULAR 2.3 - 12.6 mIU/mL MID-CYCLE PEAK 5.2 - 17.5 mIU/mL LUTEAL 1.7 - 12.9 mIU/mL POST-MENOPAUSAL ON MHT 5.9 - 72.8 mIU/mL NOT ON MHT 12.7 - 132.2 mlU/mL MALE 0.7 - 10.8 mIU/mL Performed By: #### L 100.0500, L506.0250, L3300.3500, L3300.1500, L3300.1750, L509.3000, L503.6030, L503.6550, L803.3000, L3100.5170, L503.0105, L3100.5400, L500.4050, L3100.5125 #### [facility] [address] [place], [address] Iron+Iron Binding Capacityon 05-16-2024 Iron [Mass/Vol] 95 ug/dL Normal 50-170 [facility] Comment on above: Order Comment: N Performed By: #### L 100.0500, L506.0250, L3300.3500, L3300.1500, L3300.1750, L509.3000, L503.6030, L503.6550, L803.3000, L3100.5170, L503.0105, L3100.5400, L500.4050, L3100.5125 #### [facility] [address] [place], [address] IRON SATURATION 31.5 Normal 15.0-55.0 [facility] Comment on above: Order Comment: N Performed By: #### L 100.0500, L506.0250, L3300.3500, L3300.1500, L3300.1750, L509.3000, L503.6030, L503.6550, L803.3000, L3100.5170, L503.0105, L3100.5400, L500.4050, L3100.5125 #### [facility] [address] [place], [address] TIBC 302 ug/dL Normal 250-450 [facility] Comment on above: Order Comment: N Performed By: #### L 100.0500, L506.0250, L3300.3500, L3300.1500, L3300.1750, L509.3000, L503.6030, L503.6550, L803.3000, L3100.5170, L503.0105, L3100.5400, L500.4050, L3100.5125 #### [facility] [address] [place], [address] Luteinizing Hormoneon 4 LH 4.0 mIU/mL Normal [facility] Comment on above: Order Comment: N Result Comment: NORMAL REFERENCE RANGES FEMALE FOLLICULAR 1.9 - 26.2 mIU/mL MID-CYCLE PEAK 22.8 - 76.1 mIU/mL LUTEAL 0.6 - 16.6 mIU/mL POST-MENOPAUSAL ON MHT 1.1 - 52.4 mIU/mL NOT ON MHT 8.6 - 61.8 mIU/mL MALE 1.2 - 10.6 mIU/mL Performed By: #### L 100.0500, L506.0250, L3300.3500, L3300.1500, L3300.1750, L509.3000, L503.6030, L503.6550, L803.3000, L3100.5170, L503.0105, L3100.5400, L500.4050, L3100.5125 #### [facility] [address] [place], [address] CBC-Complete Blood Cnt No Di ffon 02-24-2024 Erythrocyte distribution width (RBC) [Ratio] 12.5 % Normal 11.6-14.6 [facility] Comment on above: Performed By: #### L 100.0500, L500.3400 #### [facility] [address] [place], [address] Hematocrit (Bld) [Volume fraction] 36.9 % Low 37-47 [facility] Comment on above: Performed By: #### L 100.0500, L500.3400 #### [facility] [address] [place], [address] Hemoglobin (Bld) [Mass/Vol] 12.0 g/dL Normal 12.0-15.0 [facility] Comment on above: Performed By: #### L 100.0500, L500.3400 #### [facility] [address] [place], [address] MCH (RBC) [Entitic mass] 30.3 pg Normal 27.0-32.0 [facility] Comment on above: Performed By: #### L 100.0500, L500.3400 #### [facility] [address] [place], [address] MCHC (RBC) [Mass/Vol] 32.5 g/dL Normal 32-36 [facility] Comment on above: Performed By: #### L 100.0500, L500.3400 #### [facility] [address] [place], [address] MCV (RBC) [Entitic vol] 93.2 fL Normal 81-99 [facility] Comment on above: Performed By: #### L 100.0500, L500.3400 #### [facility] [address] [place], [address] Platelet mean volume (Bld) [Entitic vol] 10.3 fL Normal 6.2-12.0 [facility] Comment on above: Performed By: #### L 100.0500, L500.3400 #### [facility] [address] [place], [address] Platelets (Bld) [#/Vol] 337 10*3/uL Normal 150-450 [facility] Comment on above: Performed By: #### L 100.0500, L500.3400 #### [facility] [address] [place], [address] RBC (Bld) [#/Vol] 3.96 10*6/uL Low 4.2-5.4 [facility] Comment on above: Performed By: #### L 100.0500, L500.3400 #### [facility] [address] [place], [address] RDW SD 43.1 fl Normal 35.1-43.9 [facility] Comment on above: Performed By: #### L 100.0500, L500.3400 #### [facility] [address] [place], [address] WBC (Bld) [#/Vol] 10.6 10*3/uL Normal 4.4-11.0 [facility] Comment on above: Performed By: #### L 100.0500, L500.3400 #### [facility] [address] [place], [address] Liver Profileon 02-24-2024 Albumin [Mass/Vol] 3.4 g/dL Normal 3.2-5.0 [facility] Comment on above: Performed By: #### L 100.0500, L500.3400 #### [facility] [address] [place], [address] ALK P 64 U/L Normal 45-117 [facility] Comment on above: Performed By: #### L 100.0500, L500.3400 #### [facility] [address] [place], [address] ALT [Catalytic activity/Vol] 27 U/L Normal 13-56 [facility] Comment on above: Performed By: #### L 100.0500, L500.3400 #### [facility] [address] [place], [address] AST [Catalytic activity/Vol] 16 U/L Normal 15-37 [facility] Comment on above: Performed By: #### L 100.0500, L500.3400 #### [facility] [address] [place], [address] Bilirubin [Mass/Vol] 0.20 mg/dL Normal 0.20-1.00 [facility] Comment on above: Result Comment: For patients on eltrombopag therapy, use of Dimension [place] TBIL is not recommended. Performed By: #### L 100.0500, L500.3400 #### [facility] [address] [place], [address] Bilirubin.direct [Mass/Vol] 0.09 mg/dL Normal 0.00-0.30 [facility] Comment on above: Performed By: #### L 100.0500, L500.3400 #### [facility] [address] [place], [address] Globulin (S) [Mass/Vol] 3.7 g/dL Normal 2.2-4.2 [facility] Comment on above: Performed By: #### L 100.0500, L500.3400 #### [facility] [address] [place], [address] T PROT 7.1 g/dL Normal 6.4-8.2 [facility] Comment on above: Performed By: #### L 100.0500, L500.3400 #### [facility] [address] [place], [address] Free T3on 01-18-2024 Free T3 [Mass/Vol] 2.4 pg/mL Normal 2.18-3.98 [facility] Comment on above: Performed By: #### L 100.0500, L500.3400 #### [facility] [address] [place], [address] T4 Free Directon 01-18-2024 T4 FREE DIRECT 1.02 ng/dL Normal 0.76-1.46 [facility] Comment on above: Performed By: #### L 100.0500, L506.0250, L3300.3500, L3300.1500, L3300.1750, L509.3000, L503.6030, L503.6550, L803.3000, L3100.5170, L503.0105, L3100.5400, L500.4050, L3100.5125 #### [facility] [address] [place], [address] Thyroid Stim Hormone (TSH)on 01-18-2024 TSH 0.912 uIU/mL Normal 0.358-3.74 0 [facility] Comment on above: Performed By: #### L 100.0500, L500.3400 #### [facility] [address] [place], [address] Beater Tender Office Visit Reporton 12-20-2023 Beater Tender Office Visit Report [facility] [address], [address] [place] [address] OFFICE VISIT Date of Service: 12/20/23 MR#: [id number] Acct: [id number] Name: LARISA MARIN Rep #: [id number] : 1985 Provider: Dr. 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 Is patient in pain?: No Allergies prednisone Allergy (Mild, Verified 12/20/23 13:52) Other Medications ???Medication ???Instructions ???Recorded ???Confirmed ???Type famotidine 40 mg tablet (Pepcid) 40 mg PO BID PRN acid reflux 12/07/19 12/20/23 History multivitamin 1 tab PO DAILY 12/18/21 12/20/23 History dicyclomine 20 mg tablet 20 mg PO TID PRN abdominal 08/02/22 12/20/23 Rx discomfort #20 tabs levothyroxine 100 mcg tablet 150 mcg PO DAILY 11/16/22 12/20/23 History meloxicam 15 mg tablet 15 mg PO DAILY 11/16/22 12/20/23 History ferrous sulfate 325 mg (65 mg 975 mg PO DAILY 11/26/22 12/20/23 History iron) tablet (Feosol) fexofenadine 180 mg tablet 180 mg PO DAILY 11/26/22 12/20/23 History (Anika Allergy) levothyroxine 75 mcg capsule 75 mcg PO .OTHER 11/26/22 12/20/23 History milnacipran 50 mg tablet (Savella) 50 mg PO BID 11/26/22 12/20/23 History omeprazole 20 mg capsule,delayed 40 mg PO BID 11/26/22 12/20/23 History release ondansetron HCl 4 mg tablet 4 mg PO Q4H #60 tabs 12/20/22 12/20/23 Rx bupropion HCl 450 mg 24 hr tablet, 450 mg PO QAM #90 tabs 03/20/23 12/20/23 Rx extended release lorazepam 0.5 mg tablet (Ativan) 0.5 mg PO QD-BID PRN anxiety #30 04/25/23 12/20/23 Rx tabs labetalol 200 mg tablet 300 mg PO BID 05/01/23 12/20/23 History amlodipine 5 mg tablet 5 mg PO DAILY 12/20/23 12/20/23 History progesterone micronized 100 mg 100 mg PO QPM #10 caps 12/20/23 12/20/23 Rx capsule (Prometrium) Is last menstrual period known: Yes Post menopausal: No Patient : No : No PFSH Medical History Wears glasses Anxiety Arthritis History of ulceration History of IBS Hypertension Fibromyalgia History of infertility Vision problem Polycystic ovarian disease Chronic headaches IBS (irritable bowel syndrome) GI problem Gallstones Back problem Seasonal allergies Thyroid disease GERD (gastroesophageal reflux disease) Depression Anxiety disorder Anemia Surgical History (Updated 12/20/23 @ 14:03 by Sanjuana Jurado) H/O endoscopy H/O dilation and curettage History of hysteroscopy H/O colonoscopy ovarian surgery S/P ERCP S/P foot surgery, left S/P foot surgery, right Hx of cholecystectomy Family History Sister Arthritis Asthma Thyroid disorder Mother Arthritis Heart disease Thyroid disorder Grandfather Diabetes Heart disease Thyroid disorder Cancer Hypertension Other Obesity Social History Smoking Status: Never smoker second hand exposure: No alcohol intake: never substance use type: does not use caffeine: Yes what type of physical activity do you participate in: walking seatbelt use: always do you feel safe at home: Yes additional social history: [employer]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 Date Name GA/Weeks Outcome Route Bth Weight Infant Gen Labor Lgth Anesthesia Del Locatn Provider FOB 10/10/18 Donaldo 38 live - full term Male epidural H SE M Delivery Date: 10/10/18 Last Updated by: Dafne Wood HPI Encounter for routine gynecological examination Details: LARISA MARIN is a 38 year old who presents for annual exam. still irregular menses Last PAP: 2020 History of abnormal PAP: Last mammogram: due 1st one History of abnormal mammogram: Colon cancer screening: due at 43 Other preventative health care screenings: Vicky, does not screening labs with PCP Female Reproductive History Cycle Length: >35 Bleeding Duration: 5 Questions: metorrhagia: No, sexually active: Yes, dyspareunia: No and PCB: No Menopausal Symptoms: No hot flashes, No night sweats, No weight change, No mood changes, No difficulty concentrating, No sleep problems and No change in libido ROS Const Constitutional: Reports as per HPI; Denies fatigue, increased appetite, (more content not included)... Normal [facility] Hemoglobin in reticulocytes (mass per reticulocyte)Ordered By: Sharonda Fajardo on 08-08-2023 Hemoglobin (Reticulocytes) [Entitic mass] 34.6 pg 30-35 [facility] Iron measurement (mass/mass) Ordered By: Sharonda Fajardo on 08-08-2023 Iron (Unsp spec) [Mass/Mass] 73 ug/dL 50-170 [facility] Laboratory - Chemistry and C hemistry - challengeOrdered By: Sharonda Fajardo on 08-08-2023 Cobalamin (Vitamin B12) [Mass/Vol] 884 pg/mL 211-911 [facility] Ferritin [Mass/Vol] 470 ng/mL 8-252 [facility] No Panel InformationOrdered By: Sharonda Fajardo on 08-08-2023 Immature Reticulocyte Fraction 7.00 % 3.00-15.90 [facility] Reticulocytes Auto (Bld) [#/ Vol]Ordered By: Sharonda Fajardo on 08-08-2023 Reticulocytes/100 RBC (Bld) 1.55 % 0.5-1.5 [facility] Absolute lymphocyte countOrd ered By: Agustina Liu on 08-03-2023 Lymphocytes Auto (Unsp spec) [#/Vol] 1.97 10*3/uL 0.83-4.51 [facility] Automated lymphocyte count a s percentage of total leukocytesOrdered By: Agustina Liu on 08-03-2023 Lymphocytes/100 WBC Auto (Unsp spec) 28.4 % 19-41 [facility] Basophil percentageOrdered B y: Agustina Liu on 08-03-2023 Basophils/100 WBC (Bld) 0.7 % 0-1 [facility] Eosinophils/100 WBC (Bld) 2.9 % 0-5 [facility] Hemoglobin (Bld) [Mass/Vol] 11.8 g/dL 12.0-15.0 [facility] Monocytes/100 WBC (Bld) 8.4 % 0-10 [facility] Neutrophils (Bld) [#/Vol] 4.1 10*3/uL 2.0-7.7 [facility] Neutrophils/100 WBC (Bld) 59.5 % 47-70 [facility] WBC (Bld) [#/Vol] 6.9 10*3/uL 4.4-11.0 [facility] Determination of erythrocyte mean corpuscular volume (MCV)Ordered By: Agustina Liu on 08-03-2023 MCV (RBC) [Entitic vol] 92.1 fL 81-99 [facility] Erythrocyte distribution wid th ratioOrdered By: Agustina Liu on 08-03-2023 Erythrocyte distribution width (RBC) [Ratio] 12.3 % 11.6-14.6 [facility] Erythrocyte distribution wid th standard deviationOrdered By: Agustina Liu on 08-03-2023 Erythrocyte distribution width (RBC) [Entitic vol] 41.3 fL 35.1-43.9 [facility] Hematocrit Auto (Bld) [Volum e fraction]Ordered By: Agustina Liu on 08-03-2023 Hematocrit (Bld) [Volume fraction] 36.0 % 37-47 [facility] Immature granulocytes/100 WB C Auto (Bld)Ordered By: Agustina Liu on 08-03-2023 Immature granulocytes/100 WBC (Bld) 0.100 % 0.0-0.9 [facility] Comment on above: IG% - Immature Granu locytes (promyelocytes, myelocytes and metamyelocytes) > 1% indicates that a LEFT SHIFT is Present. Laboratory - Hematology and Cell countsOrdered By: Agustina Liu on 08-03-2023 MCH (RBC) [Entitic mass] 30.2 pg 27.0-32.0 [facility] MCHC (RBC) [Mass/Vol] 32.8 g/dL 32-36 [facility] Nucleated RBC/100 WBC (Bld) [Ratio] 0 % 0-5 [facility] Platelet mean volume (Bld) [Entitic vol] 9.9 fL 6.2-12.0 [facility] Platelets (Bld) [#/Vol] 266 10*3/uL 150-450 [facility] No Panel InformationOrdered By: Agustina Liu on 08-03-2023 Dehydroepiandrosterone Sulfate 74.9 ug/dL 57.3-279.2 [facility] Estradiol (E2) Level 151.5 pg/mL [facility] Comment on above: NORMAL REFERENCE RAN [facility] FEMALE FOLLICULAR 21.4 - 164.8 pg/mL MID-CYCLE PEAK 49.9 - 367.2 pg/mL LUTEAL 40.2 - 259.0 pg/mL POST-MENOPAUSAL ON MHT <11.0 - 462.1 pg/mL NOT ON MHT <11.0 - 58.3 pg/mL MALE <11.0 - 52.5 pg/mL NOTE:[employer] HAS CONFIRMED THE DRUG FULVETRANT (FASLODEX) MAY CAUSE FALSELY ELEVATED ESTRADIOL RESULTS WHEN USING THIS TEST METHOD. IF PATIENT IS TAKING FULVESTRANT AN ALTERNATIVE METHOD SHOULD BE USED TO DETERMINE ESTRADIOL CONCENTRATION. Follicle Stimulating Hormone 3.5 mIU/mL [facility] Comment on above: NORMAL REFERENCE RAN [facility] FEMALE FOLLICULAR 2.3 - 12.6 mIU/mL MID-CYCLE PEAK 5.2 - 17.5 mIU/mL LUTEAL 1.7 - 12.9 mIU/mL POST-MENOPAUSAL ON MHT 5.9 - 72.8 mIU/mL NOT ON MHT 12.7 - 132.2 mlU/mL MALE 0.7 - 10.8 mIU/mL RBC Auto (Bld) [#/Vol]Ordere d By: Agustina Liu on 08-03-2023 RBC (Bld) [#/Vol] 3.91 10*6/uL 4.2-5.4 [facility] Serum or plasma 17-hydroxypr ogesterone measurement (mass/volume)Ordered By: Agustina Liu on 08-03-2023 17-Hydroxyprogesterone [Mass/Vol] 34 ng/dL . [facility] Comment on above: Adult Female Follicu lar 15 - 70 Luteal 35 - 290Performed at: [facility] [address] [id number] Director: Raina Shelton MD, Phone: [phone] Serum or plasma testosterone free measurement (mass/volume)Ordered By: Agustina Liu on 08-03-2023 Testosterone Free [Mass/Vol] 1.8 pg/mL 0.0-4.2 [facility] Comment on above: Performed at: [address] [id number] Director: Yobani Kirby PhD, Phone: [phone] at: [facility] [address] [id number] Director: Raina Shelton MD, Phone: [phone] Serum or plasma thyroid stim ulating hormone (TSH) measurement (units/volume)Ordered By: Agustina Liu on 08-03-2023 TSH Qn 0.88 uIU/mL 0.358-3.74 [facility] EGDon 07-02-2023 Esophagogastroduodenosco py Table formatting from the original result was not included. [facility] EGD Study observation Narrat iveon 07-02-2023 Table formatting fro m the original [...] Staff Staff Role No Staff Documented Medications ofsvliyx-pggxjkeiux-kmvx ocaine (Cetacaine) spray 2 spray midazolam PF [...] Kalie Block MA 07/02/2023 0801 Procedure Location [facility] [address] [address] [facility] [id number] Referring Provider Shelby Corey DO [address] [facility], [facility] [address] [place] [address] Procedure Provider Shelby Corey DO [facility] Work Phone: [facility] Work Phone: Radiology Study observation (narrative) [facility] Work Phone: Surgical pathology studyon 0 07-02-2023 Surgical pathology study Pathology repor t.total SEE COMMENT Surgical Pathology Case: [id number] Authorizing Provider: Shelby Corey DO Collected: 07/02/2023 0800 Ordering Location: [facility] Received: 07/02/[address] [place] [address] Pathologist: Joselin Sepulveda MD Specimens: A) - [...] name and hospital number and duodenum 2 BX, are multiple fragments of hicks, soft tissue aggregating to 0.5 x 0.2 x 0.2 cm. The specimen is submitted in toto in one cassette. LMP B: Received in formalin, labeled with the patient's name and hospital number and st an BX, is a fragment of hicks, soft tissue measuring 0.7 x 0.2 x 0.1 cm. The specimen is submitted in toto in one cassette. LMP C: Received in formalin, labeled with the patient's name and hospital number and esophagus distal BX, are 2 fragments of hicks, soft tissue aggregating to 0.5 x 0.2 x 0.1 cm. The specimen is submitted in toto in one cassette. 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 Protein [Mass/Vol] 6.6 g/dL 6.4-8.2 [facility] WBC (Bld) [#/Vol] 9.8 10*3/uL 4.4-11.0 [facility] Blood erythrocytes count (nu mber/volume)Ordered By: Sharonda Fajardo on 04-23-2023 RBC (Bld) [#/Vol] 3.93 10*6/uL 4.2-5.4 [facility] Blood hemoglobin measurement (mass/volume)Ordered By: Sharonda Fajardo on 04-23-2023 Hemoglobin (Bld) [Mass/Vol] 12.0 g/dL 12.0-15.0 [facility] Blood platelet mean volumeOr dered By: Sharonda Fajardo on 04-23-2023 Platelet mean volume (Bld) [Entitic vol] 10.1 fL 6.2-12.0 [facility] Determination of erythrocyte mean corpuscular volume (MCV)Ordered By: Sharonda Fajardo on 04-23-2023 MCV (RBC) [Entitic vol] 93.9 fL 81-99 [facility] Direct bilirubinOrdered By: Sharonda Fajardo on 04-23-2023 Bilirubin.direct [Mass/Vol] 0.10 mg/dL 0.00-0.30 [facility] Hematocrit Auto (Bld) [Volum e fraction]Ordered By: Sharonda Fajardo on 04-23-2023 Hematocrit (Bld) [Volume fraction] 36.9 % 37-47 [facility] Laboratory - Chemistry and C hemistry - challengeOrdered By: Sharonda Fajardo on 04-23-2023 ALP [Catalytic activity/Vol] 59 U/L 45-117 [facility] ALT [Catalytic activity/Vol] 26 U/L 13-56 [facility] Free T4 [Mass/Vol] 1.15 ng/dL 0.76-1.46 [facility] Globulin (S) [Mass/Vol] 3.2 g/dL 2.2-4.2 [facility] Laboratory - Hematology and Cell countsOrdered By: Sharonda Fajardo on 04-23-2023 Erythrocyte distribution width (RBC) [Entitic vol] 43.2 fL 35.1-43.9 [facility] Erythrocyte distribution width (RBC) [Ratio] 12.4 % 11.6-14.6 [facility] MCH (RBC) [Entitic mass] 30.5 pg 27.0-32.0 [facility] MCHC Auto (RBC) [Mass/Vol]Or dered By: Sharonda Fajardo on 04-23-2023 MCHC (RBC) [Mass/Vol] 32.5 g/dL 32-36 [facility] No Panel InformationOrdered By: Sharonda Fajardo on 04-23-2023 Free Triiodothyronine (T3) pg/dL 2.7 pg/mL 2.18-3.98 [facility] Thyroid Stimulating Hormone (TSH) 0.93 uIU/mL 0.358-3.74 [facility] Platelets bldOrdered By: Malcolm Fajardo on 04-23-2023 Platelets (Bld) [#/Vol] 292 10*3/uL 150-450 [facility] Serum or plasma albumin john urement (mass/volume)Ordered By: Sharonda Fajardo on 04-23-2023 Albumin [Mass/Vol] 3.4 g/dL 3.2-5.0 [facility] Thin prep Papanicolaou smear with manual screeningOrdered By: Sharonda Fajardo on 04-23-2023 Thin prep Papanicolaou smear with manual screening 15 U/L 15-37 [facility] Iron measurement (mass/mass) Ordered By: Agustina Liu on 11-27-2022 Iron (Unsp spec) [Mass/Mass] 52 ug/dL 50-170 [facility] Laboratory - Chemistry and C hemistry - challengeOrdered By: Agustina Liu on 11-27-2022 Cobalamin (Vitamin B12) [Mass/Vol] 649 pg/mL 211-911 [facility] HCG ( test) Ql (U) Negative [facility] Comment on above: Very dilute urine sp ecimens, as indicated by a low specificgravity, may not contain termite control representative levels of hCG. If is still suspected, a first morning urinespecimen should be collected 48 hours later and tested. No Panel InformationOrdered By: Agustina Liu on 11-27-2022 Total Iron Binding Capacity 325 ug/dL 250-450 [facility] Serum or plasma ferritin nancy surement (mass/volume)Ordered By: Agustina Liu on 11-27-2022 Ferritin [Mass/Vol] 551 ng/mL 8-252 [facility] Serum or plasma folate measu rement (mass/volume)Ordered By: Agustina Liu on 11-27-2022 Folate [Mass/Vol] 47.60 ng/mL 3.1-55.4 [facility] Serum or plasma iron saturat ion measurement (mass fraction)Ordered By: Agustina Liu on 11-27-2022 Iron saturation [Mass fraction] 16.0 % 15.0-55.0 [facility] Absolute lymphocyte countOrd ered By: Agustina Liu on 11-05-2022 Lymphocytes Auto (Unsp spec) [#/Vol] 1.79 10*3/uL 0.83-4.51 [facility] Basophil percentageOrdered B y: Agustina Liu on 11-05-2022 Basophils/100 WBC (Bld) 0.6 % 0-1 [facility] Eosinophils/100 WBC (Bld) 1.4 % 0-5 [facility] Neutrophils (Bld) [#/Vol] 5.9 10*3/uL 2.0-7.7 [facility] Neutrophils/100 WBC (Bld) 69.7 % 47-70 [facility] Testosterone [Mass/Vol] 28 ng/dL 8-60 [facility] WBC (Bld) [#/Vol] 8.4 10*3/uL 4.4-11.0 [facility] Blood erythrocytes count (nu mber/volume)Ordered By: Agustina Liu on 11-05-2022 RBC (Bld) [#/Vol] 4.03 10*6/uL 4.2-5.4 [facility] Blood hemoglobin measurement (mass/volume)Ordered By: Agustina Liu on 11-05-2022 Hemoglobin (Bld) [Mass/Vol] 12.2 g/dL 12.0-15.0 [facility] Blood lymphocytes/100 leukoc ytesOrdered By: Agustina Liu on 11-05-2022 Lymphocytes/100 WBC (Bld) 21.3 % 19-41 [facility] Blood monocytes/100 leukocyt esOrdered By: Agustina Liu on 11-05-2022 Monocytes/100 WBC (Bld) 6.6 % 0-10 [facility] Blood platelet mean volumeOr dered By: Agustina Liu on 11-05-2022 Platelet mean volume (Bld) [Entitic vol] 10.0 fL 6.2-12.0 [facility] Determination of erythrocyte mean corpuscular volume (MCV)Ordered By: Agustina Liu on 11-05-2022 MCV (RBC) [Entitic vol] 92.8 fL 81-99 [facility] Free testosterone percentage Ordered By: Agustina Liu on 11-05-2022 Testosterone Free/Testosterone.total [Mass fraction] 1.62 % 0.50-2.80 [facility] Hematocrit Auto (Bld) [Volum e fraction]Ordered By: Agustina Liu on 11-05-2022 Hematocrit (Bld) [Volume fraction] 37.4 % 37-47 [facility] Laboratory - Hematology and Cell countsOrdered By: Agustina Liu on 11-05-2022 Erythrocyte distribution width (RBC) [Entitic vol] 42.5 fL 35.1-43.9 [facility] Erythrocyte distribution width (RBC) [Ratio] 12.4 % 11.6-14.6 [facility] Immature granulocytes/100 WBC (Bld) 0.400 % 0.0-0.9 [facility] Comment on above: IG% - Immature Granu locytes (promyelocytes, myelocytes and metamyelocytes) > 1% indicates that a LEFT SHIFT is Present. MCH (RBC) [Entitic mass] 30.3 pg 27.0-32.0 [facility] Nucleated RBC/100 WBC (Bld) [Ratio] 0 % 0-5 [facility] MCHC Auto (RBC) [Mass/Vol]Or dered By: Agustina Liu on 11-05-2022 MCHC (RBC) [Mass/Vol] 32.6 g/dL 32-36 [facility] No Panel InformationOrdered By: Agustina Liu on 11-05-2022 Dehydroepiandrosterone Sulfate 76.8 ug/dL 57.3-279.2 [facility] Comment on above: Performed at: [facility] [address] [id number] Director: Yobani Kirby PhD, Phone: [phone] at: [facility] [id number] Director: Raina Shelton MD, Phone: [phone] Follicle Stimulating Hormone 0.8 mIU/mL [facility] Comment on above: NORMAL REFERENCE RAN GES FEMALE FOLLICULAR 2.3 - 12.6 mIU/mL MID-CYCLE PEAK 5.2 - 17.5 mIU/mL LUTEAL 1.7 - 12.9 mIU/mL POST-MENOPAUSAL ON MHT 5.9 - 72.8 mIU/mL NOT ON MHT 12.7 - 132.2 mlU/mL MALE 0.7 - 10.8 mIU/mL Platelets bldOrdered By: Dank Liu on 11-05-2022 Platelets (Bld) [#/Vol] 338 10*3/uL 150-450 [facility] Serum or plasma estradiol (E 2) measurement (mass/volume)Ordered By: Agustina Liu on 11-05-2022 E2 [Mass/Vol] 47.3 pg/mL [facility] Comment on above: NORMAL REFERENCE RAN GES FEMALE FOLLICULAR 21.4 - 164.8 pg/mL MID-CYCLE PEAK 49.9 - 367.2 pg/mL LUTEAL 40.2 - 259.0 pg/mL POST-MENOPAUSAL ON MHT <11.0 - 462.1 pg/mL NOT ON MHT <11.0 - 58.3 pg/mL MALE <11.0 - 52.5 pg/mL NOTE:[employer] HAS CONFIRMED THE DRUG FULVETRANT (FASLODEX) MAY CAUSE FALSELY ELEVATED ESTRADIOL RESULTS WHEN USING THIS TEST METHOD. IF PATIENT IS TAKING FULVESTRANT AN ALTERNATIVE METHOD SHOULD BE USED TO DETERMINE ESTRADIOL CONCENTRATION. Serum or plasma testosterone free measurement (mass/volume)Ordered By: Agustina Liu on 11-05-2022 Testosterone Free [Mass/Vol] 0.45 ng/dL 0.10-0.85 [facility] No Panel InformationOrdered By: Dr. 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 : No [...] told norovirus. Patient had US done at [facility]- dilated bile duct. History of Present [...] Cervical pain (neck) (723.1) (M54.2) Cervicalgia of qvvgpwop-ovonlcq-fdnrw region (723.1) (M54.2) Chronic migraine without aura, [...] 1995 History of Endoscopic Retrograde Cholangiopancreatography (ERCP) 2010,1011 History of Foot Surgery Family History Mother [...] Oral Ta (more content not included)... Normal [facility] Basophil percentageOrdered B y: ED PROVIDER on 08-02-2022 Basophil percentage 0 SEEN /hpf 0-5 [facility] Bilirubin Test strip Ql (U)O rdered By: ED PROVIDER on 08-02-2022 Bilirubin Ql (U) Negative Negative [facility] Ketones Test strip Ql (U)Ord ered By: ED PROVIDER on 08-02-2022 Ketones Ql (U) Negative Negative [facility] Mucus LM Ql (Urine sed)Order ed By: ED PROVIDER on 08-02-2022 Mucus Ql (Urine sed) 0 SEEN /hpf [facility] Nitrite Test strip Ql (U)Ord ered By: ED PROVIDER on 08-02-2022 Nitrite Ql (U) Negative Negative [facility] Protein Test strip Ql (U)Ord ered By: ED PROVIDER on 08-02-2022 Protein Ql (U) 15 mg/dl Negative [facility] Squamous epithelial cells de tection in urine sediment by light microscopyOrdered By: ED PROVIDER on 08-02-2022 Epithelial cells.squamous LM Ql (Urine sed) 0 SEEN /hpf 5-10 [facility] Urine blood detectionOrdered By: ED PROVIDER on 08-02-2022 RBC Ql (U) 50 /ul Negative [facility] RBC Ql (U) 0 SEEN /hpf 0-5 [facility] Urine clarityOrdered By: ED PROVIDER on 08-02-2022 Clarity (U) Clear Clear [facility] Urine color determinationOrd ered By: ED PROVIDER on 08-02-2022 Color (U) Yellow Yellow [facility] Urine glucose detectionOrder ed By: ED PROVIDER on 08-02-2022 Glucose Ql (U) Normal mg/dl Normal [facility] Urine leukocyte esterase det ection by dipstickOrdered By: ED PROVIDER on 08-02-2022 Leukocyte esterase Test strip Ql (U) Negative Negative [facility] Urine pHOrdered By: ED PROVI DIANE on 08-02-2022 pH (U) 6.0 [pH] 5.0 - 8.0 [facility] Urine sediment bacteria coun t by microscopy (number/high power field)Ordered By: ED PROVIDER on 08-02-2022 Bacteria LM.HPF (Urine sed) [#/Area] 1 /[HPF] None Seen [facility] Urine specific gravity measu rementOrdered By: ED PROVIDER on 08-02-2022 Specific gravity (U) [Rel density] 1.010 1.002-1.03 0 [facility] Urobilinogen Auto test strip Ql (U)Ordered By: ED PROVIDER on 08-02-2022 Urobilinogen Ql (U) Normal mg/dl Normal [facility] Absolute lymphocyte countOrd ered By: ED PROVIDER on 08-01-2022 Lymphocytes Auto (Unsp spec) [#/Vol] 2.24 10*3/uL 0.83-4.51 [facility] Basophil percentageOrdered B y: ED PROVIDER on 08-01-2022 Basophils/100 WBC (Bld) 0.3 % 0-1 [facility] Bilirubin [Mass/Vol] 0.40 mg/dL 0.20-1.00 [facility] Comment on above: For patients on eltr ombopag therapy, use of Dimension [place] TBIL is not recommended. Chloride [Moles/Vol] 105 mmol/L 98-107 [facility] Eosinophils/100 WBC (Bld) 4.5 % 0-5 [facility] Glucose [Mass/Vol] 101 mg/dL 74-106 [facility] Comment on above: Fasting Glucose resu lt from 100 to 125 mg/dL suggests IMPAIRED HOMEOSTASIS per A.D.A. criteria. Neutrophils (Bld) [#/Vol] 9.5 10*3/uL 2.0-7.7 [facility] Neutrophils/100 WBC (Bld) 70.7 % 47-70 [facility] Potassium [Moles/Vol] 3.6 mmol/L 3.5-5.1 [facility] Protein [Mass/Vol] 7.7 g/dL 6.4-8.2 [facility] Sodium [Moles/Vol] 137 mmol/L 136-145 [facility] WBC (Bld) [#/Vol] 13.4 10*3/uL 4.4-11.0 [facility] Beta hCG serum qualOrdered B y: ED PROVIDER on 08-01-2022 Beta HCG ( test) Ql Negative [facility] Blood erythrocytes count (nu mber/volume)Ordered By: ED PROVIDER on 08-01-2022 RBC (Bld) [#/Vol] 4.64 10*6/uL 4.2-5.4 [facility] Blood hemoglobin measurement (mass/volume)Ordered By: ED PROVIDER on 08-01-2022 Hemoglobin (Bld) [Mass/Vol] 14.0 g/dL 12.0-15.0 [facility] Blood lymphocytes/100 leukoc ytesOrdered By: ED PROVIDER on 08-01-2022 Lymphocytes/100 WBC (Bld) 16.7 % 19-41 [facility] Blood monocytes/100 leukocyt esOrdered By: ED PROVIDER on 08-01-2022 Monocytes/100 WBC (Bld) 7.4 % 0-10 [facility] Blood platelet mean volumeOr dered By: ED PROVIDER on 08-01-2022 Platelet mean volume (Bld) [Entitic vol] 9.9 fL 6.2-12.0 [facility] Determination of erythrocyte mean corpuscular volume (MCV)Ordered By: ED PROVIDER on 08-01-2022 MCV (RBC) [Entitic vol] 94.4 fL 81-99 [facility] Hematocrit Auto (Bld) [Volum e fraction]Ordered By: ED PROVIDER on 08-01-2022 Hematocrit (Bld) [Volume fraction] 43.8 % 37-47 [facility] Laboratory - Chemistry and C hemistry - challengeOrdered By: ED PROVIDER on 08-01-2022 ALP [Catalytic activity/Vol] 60 U/L 45-117 [facility] ALT [Catalytic activity/Vol] 35 U/L 13-56 [facility] CO2 [Moles/Vol] 27.0 mmol/L 21.0-32.0 [facility] Globulin (S) [Mass/Vol] 4.0 g/dL 2.2-4.2 [facility] Urea nitrogen/Creatinine [Mass ratio] 25.5 mg/mg 10-20 [facility] Laboratory - Chemistry and C hemistry - challengeOrdered By: Dr. García on 08-01-2022 Lipase [Catalytic activity/Vol] 63 U/L 73-393 [facility] Laboratory - Hematology and Cell countsOrdered By: ED PROVIDER on 08-01-2022 Erythrocyte distribution width (RBC) [Entitic vol] 43.2 fL 35.1-43.9 [facility] Erythrocyte distribution width (RBC) [Ratio] 12.5 % 11.6-14.6 [facility] Immature granulocytes/100 WBC (Bld) 0.400 % 0.0-0.9 [facility] Comment on above: IG% - Immature Granu locytes (promyelocytes, myelocytes and metamyelocytes) > 1% indicates that a LEFT SHIFT is Present. MCH (RBC) [Entitic mass] 30.2 pg 27.0-32.0 [facility] Nucleated RBC/100 WBC (Bld) [Ratio] 0 % 0-5 [facility] MCHC Auto (RBC) [Mass/Vol]Or dered By: ED PROVIDER on 08-01-2022 MCHC (RBC) [Mass/Vol] 32.0 g/dL 32-36 [facility] No Panel InformationOrdered By: ED PROVIDER on 08-01-2022 Estimated Creatinine Clearance Calc 90.46 ml/min [facility] Estimated GFR (MDRD) Amer 99 mL/min >60 [facility] Comment on above: GFR Calc Estimated GFR (MDRD) Non-Af Amer 82 mL/min >60 [facility] Comment on above: Non- GFR Calc Platelets bldOrdered By: ED PROVIDER on 08-01-2022 Platelets (Bld) [#/Vol] 300 10*3/uL 150-450 [facility] Serum or plasma albumin john urement (mass/volume)Ordered By: ED PROVIDER on 08-01-2022 Albumin [Mass/Vol] 3.7 g/dL 3.2-5.0 [facility] Serum or plasma albumin/glob ulin mass ratioOrdered By: ED PROVIDER on 08-01-2022 Albumin/Globulin [Mass ratio] 0.9 {ratio} 0.9-2.4 [facility] Serum or plasma calcium john urement (mass/volume)Ordered By: ED PROVIDER on 08-01-2022 Calcium [Mass/Vol] 8.9 mg/dL 8.5-10.1 [facility] Serum or plasma creatinine m easurement (mass/volume)Ordered By: ED PROVIDER on 08-01-2022 Creatinine [Mass/Vol] 0.82 mg/dL 0.55-1.02 [facility] Comment on above: The validity of the calculated GFR & GFRAA in patients over 70 years has not been determined. Clinical correlation is essential. Serum or plasma urea nitroge n measurement (mass/volume)Ordered By: ED PROVIDER on 08-01-2022 Urea nitrogen [Mass/Vol] 21 mg/dL 7-18 [facility] Thin prep Papanicolaou smear with manual screeningOrdered By: ED PROVIDER on 08-01-2022 Thin prep Papanicolaou smear with manual screening 16 U/L 15-37 [facility] Thin prep Papanicolaou smear with manual screening 5 5-15 [facility] Laboratory - Chemistry and C hemistry - challengeOrdered By: Dr. Fajardo on 07-21-2022 Free T4 [Mass/Vol] 1.05 ng/dL 0.76-1.46 [facility] No Panel InformationOrdered By: Dr. 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 History of Present IllnessLarisa is a pleasant 36-year-old white female I [...] Cervical pain (neck) (723.1) (M54.2) Cervicalgia of qqxrgnuj-ktfjulz-pjxii region (723.1) (M54.2) Chronic migraine without aura, [...] 1995 History of Endoscopic Retrograde Cholangiopancreatography (ERCP) 2010,1011 History of Foot Surgery Family History Mother [...] TABLET DAILY DIRECTED. Vitamin D3 50 MCG (1999) Oral CapsuleTAKE 1 CAPSULE Daily Vitals Vital Signs Recorded: [id number] 09:43AM Zvhfchum635 Jxitldrah06 Height5 ft 7 in Mbeslk728 lb BMI Ozqfcktboi90.85 kg/m2 BSA Calculated2.33 Physical Exam (more content not included)... Normal [facility] Basophil percentageon 2021 WBC (Bld) [#/Vol] 7.4 10*3/uL 4.4-11.0 [facility] Work Phone: Blood erythrocytes count (nu mber/volume)on 03-24-2022 RBC (Bld) [#/Vol] 4.07 10*6/uL 4.2-5.4 [facility] Work Phone: Blood hemoglobin measurement (mass/volume)on 03-24-2022 Hemoglobin (Bld) [Mass/Vol] 12.7 g/dL 12.0-15.0 [facility] Work Phone: [phone] Blood platelet mean volumeon 03-24-2022 Platelet mean volume (Bld) [Entitic vol] 10.0 fL 6.2-12.0 [facility] Work Phone: [phone] Determination of erythrocyte mean corpuscular volume (MCV)on 03-24-2022 MCV (RBC) [Entitic vol] 94.8 fL 81-99 [facility] Work Phone: [phone] Hematocrit Auto (Bld) [Volum e fraction]on 03-24-2022 Hematocrit (Bld) [Volume fraction] 38.6 % 37-47 [facility] Work Phone: Iron measurement (mass/mass) on 03-24-2022 Iron (Unsp spec) [Mass/Mass] 84 ug/dL 50-170 [facility] Work Phone: Laboratory - Chemistry and C hemistry - challengeon 03-24-2022 Free T4 [Mass/Vol] 1.11 ng/dL 0.76-1.46 [facility] Work Phone: Laboratory - Hematology and Cell countson 03-24-2022 Erythrocyte distribution width (RBC) [Entitic vol] 43.7 fL 35.1-43.9 [facility] Work Phone: [phone] Erythrocyte distribution width (RBC) [Ratio] 12.5 % 11.6-14.6 [facility] Work Phone: [phone] MCH (RBC) [Entitic mass] 31.2 pg 27.0-32.0 [facility] Work Phone: MCHC Auto (RBC) [Mass/Vol]on 03-24-2022 MCHC (RBC) [Mass/Vol] 32.9 g/dL 32-36 [facility] Work Phone: No Panel Informationon 03-24 Free Triiodothyronine (T3) pg/dL 2.5 pg/mL 2.18-3.98 [facility] Work Phone: [phone] Thyroid Stimulating Hormone (TSH) 1.48 uIU/mL 0.358-3.74 [facility] Work Phone: Platelets bldon 03-24-2022 Platelets (Bld) [#/Vol] 292 10*3/uL 150-450 [facility] Work Phone: Basophil percentageon 2021 Bilirubin [Mass/Vol] 0.30 mg/dL 0.20-1.00 [facility] Work Phone: [phone] Comment on above: For patients on eltr ombopag therapy, use of Dimension [place] TBIL is not recommended. Chloride [Moles/Vol] 105 mmol/L 98-107 [facility] Work Phone: Cholesterol [Mass/Vol] 188 mg/dL <200 [place] [facility] Work Phone: Comment on above: <200 mg/dL Desirable 200-240 mg/dL Borderline >240 mg/dL High Risk Glucose [Mass/Vol] 94 mg/dL 74-106 [facility] Work Phone: Potassium [Moles/Vol] 3.9 mmol/L 3.5-5.[address] [facility] Work Phone: Protein [Mass/Vol] 7.3 g/dL 6.4-8.2 [facility] Work Phone: Sodium [Moles/Vol] 139 mmol/L 136-145 [facility] Work Phone: Triglyceride [Mass/Vol] 189 mg/dL <199 [facility] Work Phone: Comment on above: The drugs N-Acetylcy steine and Metamizole may falsely depress this assay.Serum Triglycerides Reference Interval Normal <150 mg/dL Borderline high 150 - 199 mg/dL High 200 - 499 mg/dL Very High > or = 500 mg/dL Laboratory - Chemistry and C hemistry - challengeon 12-18-2021 ALP [Catalytic activity/Vol] 67 U/L 45-117 [facility] Work Phone: ALT [Catalytic activity/Vol] 36 U/L 13-56 [facility] Work Phone: CO2 [Moles/Vol] 28.0 mmol/L 21.0-32.0 [facility] Work Phone: Free T4 [Mass/Vol] 1.11 ng/dL 0.76-1.46 [facility] Work Phone: Globulin (S) [Mass/Vol] 3.8 g/dL 2.2-4.2 [facility] Work Phone: Urea nitrogen/Creatinine [Mass ratio] 15.9 mg/mg 10-20 [facility] Work Phone: No Panel Informationon 12-18 Estimated GFR (MDRD) Amer 101 mL/min >60 [facility] Work Phone: Comment on above: GFR Calc Estimated GFR (MDRD) Non-Af Amer 83 mL/min >60 [facility] Work Phone: Comment on above: Non- GFR Calc Thyroid Stimulating Hormone (TSH) 1.48 uIU/mL 0.358-3.74 [facility] Work Phone: Serum or plasma albumin john urement (mass/volume)on 12-18-2021 Albumin [Mass/Vol] 3.5 g/dL 3.2-5.0 [facility] Work Phone: Serum or plasma albumin/glob ulin mass ratioon 12-18-2021 Albumin/Globulin [Mass ratio] 0.9 {ratio} 0.9-2.4 [facility] Work Phone: Serum or plasma calcium john urement (mass/volume)on 12-18-2021 Calcium [Mass/Vol] 9.1 mg/dL 8.5-10.1 [facility] Work Phone: Serum or plasma cholesterol in HDL measurement (mass/volume)on 12-18-2021 Cholesterol in HDL [Mass/Vol] 41 mg/dL >40 [facility] Work Phone: Comment on above: The drugs N-Acetylcy steine and Metamizole may falsely depress this assay. Reference Range HDL <40 mg/dL Low HDL Cholesterol HDL >or= 60 mg/dL High HDL Cholesterol Serum or plasma cholesterol in VLDL measurement (mass/volume)on 12-18-2021 Cholesterol in VLDL [Mass/Vol] 38 mg/dL 5-40 [facility] Work Phone: [phone] Serum or plasma creatinine m easurement (mass/volume)on 12-18-2021 Creatinine [Mass/Vol] 0.82 mg/dL 0.55-1.02 [facility] Work Phone: Comment on above: The validity of the calculated GFR & GFRAA in patients over 70 years has not been determined. Clinical correlation is essential. Serum or plasma low density lipoprotein (LDL) cholesterol measurement (mass/volume)on 12-18-2021 Cholesterol in LDL [Mass/Vol] 109 mg/dL 0-130 [facility] Work Phone: [phone] Serum or plasma urea nitroge n measurement (mass/volume)on 12-18-2021 Urea nitrogen [Mass/Vol] 13 mg/dL 7-18 [facility] Work Phone: [phone] Thin prep Papanicolaou smear with manual screeningon 12-18-2021 Thin prep Papanicolaou smear with manual screening 19 U/L 15-37 [facility] Work Phone: [phone] Thin prep Papanicolaou smear with manual screening 6 5-15 [facility] Work Phone: [phone] Whole blood hemoglobin A1c/t otal hemoglobin ratio (mass fraction)on 12-18-2021 HbA1c (Bld) [Mass fraction] 5.0 % 3.8-5.6 [facility] Work Phone: [phone] Comment on above: Normal < 5.7 % Predi abetic 5.7 - 6.4 % Diabetic >or= 6.5 % Please note range changes. Laboratory - Chemistry and C hemistry - challengeon 10-07-2021 Free T4 [Mass/Vol] 1.04 ng/dL 0.76-1.46 [facility] Work Phone: [phone] Panel Informationon 10-07 Free Triiodothyronine (T3) pg/dL 2.9 pg/mL 2.18-3.98 [facility] Work Phone: [phone] Thyroid Stimulating Hormone (TSH) 1.22 uIU/mL 0.358-3.74 [facility] Work Phone: [phone] Laboratory - Chemistry and C hemistry - challengeon 07-29-2021 Free T4 [Mass/Vol] 0.99 ng/dL 0.76-1.46 [facility] Work Phone: [phone] No Panel Informationon 07-29 Free Triiodothyronine (T3) pg/dL 2.7 pg/mL 2.18-3.98 [facility] Work Phone: Thyroid Stimulating Hormone (TSH) 1.58 uIU/mL 0.358-3.74 [facility] Work Phone: Laboratory - Chemistry and C hemistry - challengeon 06-03-2021 Free T4 [Mass/Vol] 0.96 ng/dL 0.76-1.46 [facility] Work Phone: No Panel Informationon 06-03 Thyroid Stimulating Hormone (TSH) 1.53 uIU/mL 0.358-3.74 [facility] Work Phone: Respirationon 02-22-2021 Heart Rate Regular -Neurology [facility] 170 DO Work Phone: Respiration Normal -Neurology [facility] 170 DO Work Phone: CYCLIC CITRULLINATED PEPTIDE ,*on 02-14-2021 CYCLIC CITRULL. PEPTIDE AB, IGG 0.5 U/mL Normal <3.0 [facility] [employer] [facility] Comment on above: Order Comment: Refer ence Range: Negative: < 3.0 U/mL Positive: > or = 3.0 U/mL NOTE: New Reference Range and Unit of Measure in use effective 08/28/2017. 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 Dr Rose Mary Mcdonald Neurology Adrian Actively planning second . Lower back pain- [...] ep (more content not included)... Normal The [employer] Authentication Interface Message Text 10:58 AM Patient was identified by name and date of . Melissa England Patient at risk for falls:No Falls Risk protocol implemented: No Normal [facility] [employer] [facility] RHEUMATOID FACTORon 02-15-20 21 RHEUMATOID FACTOR < 7 Normal <10 [facility] [employer] [facility] Comment on above: Performed By: #### R A #### [facility] [address] [place] [address], [phone] Estradiolon 05-11-2019 Estradiol 110.54 pg/ml Normal [facility] Comment on above: Result Comment: The drug fulvestrant(Faslodex) may cause FALSELY elevated estradiol results with this assay. If the patient is taking fulvestrant, confirmation by Liquid Chromatography-Mass Spectrometry(LC-MS)is required. Female: Follicular 19.5 to 144.2 Midcycle 63.9 to 356.7 Luteal 55.8 to 214.2 Postmenopausal None Detected to 32.2 Males: None Detected to 39.8 Performed By: #### E ST4 #### [place] [address] Progesteroneon 05-11-2019 Progesterone < 0.21 Normal [facility] Comment on above: Result Comment: Foll icular 0.15 to 1.40 Luteal 3.34 to 25.56 Mid Luteal 4.44 to 28.03 Postmenopausal 0.00 to 0.73 Males: 0.28 to 1.22 Performed By: #### P ROG3 #### [place] [address] Final Surgical Pathology Rep [facility] 11-19-2017 Final Surgical Pathology Report . Pathology ReportsAccession: Collected Date/Time: Received Date/Time: Pathologist:[id number] Ken[place] 11/15/2017 15:04 EDT 11/18/2017 10:20 EDT MD DORA SQUIRES Final Surgical Pathology ReportDIAGNOSIS:UTERINE CONTENTS: - FRAGMENTS OF DECIDUALIZED ENDOMETRIUM AND PLACENTAL VILLI DIAGNOSTIC OF PRODUCTS OF CONCEPTION.CLINICAL INFORMATION:_PROCEDURE: SUCTION DILATION AND CURETTAGEPRE-OP DIAGNOSIS: MISSED ABORTIONPOST-OP DIAGNOSIS: SAMESPECIMEN:A POC - PRODUCTS OF CONCEPTIONGROSS DESCRIPTION:_Received fresh labeled products of conception is a 3.5 x 3 x 1 cm aggregate of red soft tissue. 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 is submitted in transport media for cytogenetics and the remainder is submitted for permanent sections in one cassette.Dictated by Forest HUIZAR ([facility])MICROSCOPIC DESCRIPTION:Slides reviewed.Electronically Signed byPathology Report verified by [facility] signed by DORA Barroso out Date: 11/19/2017 12:28Performing Lab: [facility], [address] [place] [id number] [place] [address] Normal [facility] ([place]) Comment on above: Performed By: #### C BC, ADIFF, ANEU, BMP, GFR ####[address] [address] Discharge Summaryon 11-19-19 18 Discharge Summary Normal [facility]) Operative Noteon 11-18-2017 Operative Note Normal [facility] ([place]) Procedure Noteon 11-16-2017 Procedure Note Normal [facility]) .Auto Diffon 11-15-2017 Basophils Auto #/vol (Bld) 0.10 10 3/mcL Normal 0.00-0.27 [facility] ([place]) Comment on above: Performed By: #### C BC, ADIFF, ANEU, BMP, GFR ####[address] [address] Basophils/100 WBC Auto (Bld) 1.0 % Normal 0.0-2.5 [facility] ([place]) Comment on above: Performed By: #### C BC, ADIFF, ANEU, BMP, GFR ####[address] [address] Eosinophils 0.40 10 3/mcL Normal 0.00-0.65 [facility] ([place]) Comment on above: Performed By: #### C BC, ADIFF, ANEU, BMP, GFR ####[address] [address] Eosinophils/100 leukocytes 4.0 % Normal 0.0-6.0 [facility] ([place]) Comment on above: Performed By: #### C BC, ADIFF, ANEU, BMP, GFR ####[place] [address] Lymphocytes 2.50 10 3/mcL Normal 0.90-4.32 [facility] ([place]) Comment on above: Performed By: #### C BC, ADIFF, ANEU, BMP, GFR ####[address] [address] Lymphocytes/100 leukocytes 26.9 % Normal 20.0-40.0 [facility] ([place]) Comment on above: Performed By: #### C BC, ADIFF, ANEU, BMP, GFR ####[place] [address] Monocytes 0.60 10 3/mcL Normal 0.09-1.40 [facility] ([place]) Comment on above: Performed By: #### C BC, ADIFF, ANEU, BMP, GFR ####[place] [address] Monocytes/100 leukocytes 6.3 % Normal 2.0-13.0 [facility] ([place]) Comment on above: Performed By: #### C BC, ADIFF, ANEU, BMP, GFR ####[address] [address] Neutrophils/100 WBC Auto (Bld) 61.8 % Normal 50.0-75.0 [facility] ([place]) Comment on above: Performed By: #### C BC, ADIFF, ANEU, BMP, GFR ####[place] [address] .NEUABSon 11-15-2017 Neutrophil, Absolute 5.60 10 3/mcL Normal 2.25-8.10 [facility] ([place]) Comment on above: Performed By: #### C BC, ADIFF, ANEU, BMP, GFR ####[place] [address] Anesthesiology Consultationo n 11-15-2017 Anesthesiology Consultation Normal [facility] ([place]) Anesthesiology Consultation Normal [facility] ([place]) CBCon 11-15-2017 Erythrocyte distribution width Auto Ratio (RBC) 13.1 % Normal 11.5-15.5 [facility] ([place]) Comment on above: Performed By: #### C BC, ADIFF, ANEU, BMP, GFR ####[place] [address] Erythrocytes (RBC) 4.14 10 6/mcL Normal 4.10-5.30 [facility] ([place]) Comment on above: Performed By: #### C BC, ADIFF, ANEU, BMP, GFR ####[place] [address] Hematocrit (HCT) 37.1 % Normal 34.0-46.0 [facility] ([place]) Comment on above: Performed By: #### C BC, ADIFF, ANEU, BMP, GFR ####[place] [address] Hemoglobin mass conc (Bld) 12.6 G/dL Normal 12.0-16.0 [facility] ([place]) Comment on above: Performed By: #### C BC, ADIFF, ANEU, BMP, GFR ####[place] [address] MCH 30.5 pg Normal 27.0-33.0 [facility] ([place]) Comment on above: Performed By: #### C BC, ADIFF, ANEU, BMP, GFR ####[place] [address] MCHC mass conc (RBC) 33.9 G/dL Normal 32.0-36.0 [facility] ([place]) Comment on above: Performed By: #### C BC, ADIFF, ANEU, BMP, GFR ####[place] [address] MCV 89.8 fL Normal 80.0-99.0 [facility] ([place]) Comment on above: Performed By: #### C BC, ADIFF, ANEU, BMP, GFR ####[place] [address] Platelet mean volume (PMV) 8.2 fL Normal 6.6-10.5 [facility] ([place]) Comment on above: Performed By: #### C BC, ADIFF, ANEU, BMP, GFR ####[facility] [place] [address] Platelets 292 10 3/mcL Normal 150-450 [facility] ([place]) Comment on above: Performed By: #### C BC, ADIFF, ANEU, BMP, GFR ####[place] [id number] [place] [address] WBC (Leukocytes) 9.10 10 3/mcL Normal 4.50-10.80 [facility] ([place]) Comment on above: Performed By: #### C BC, ADIFF, ANEU, BMP, GFR ####[address] [address] Depart Summaryon 11-15-2017 Depart Summary Normal [facility] ([place]) Main OR Intraop Recordon Main OR Intraop Record Normal [facility]) Outpatient Patient Summaryon 11-15-2017 Outpatient Patient Summary Normal [facility] ([place]) TABOon 11-15-2017 ABO/Rh Interp Positive Invalid Interpretation Code [facility] ([place]) Comment on above: Performed By: #### C BC, ADIFF, ANEU, BMP, GFR ####[address] [address] TABSon 11-15-2017 Antibody Screen Tango Negative Normal [facility] ([place]) Comment on above: Performed By: #### C BC, ADIFF, ANEU, BMP, GFR ####[place] [address] Main Pretest Recordon 2017 Main Pretest Record Normal [facility] ([place]) Final Surgical Pathology Rep [facility] 08-19-2017 Final Surgical Pathology Report . Pathology ReportsAccession: Collected Date/Time: Received Date/Time: Pathologist:[id number] 08/16/2017 13:06 EDT 08/16/2017 14:24 EDT [...] tissue fragments. TS -1Dictated by FOREST HUIZAR ([facility])MICROSCOPIC DESCRIPTION:Slides reviewed.Electronically Signed byPathology Report verified by [facility] HospitalElectronically signed by ITZ JOHNSTONign out Date: 08/19/2017 14:30Performing Lab: [facility], [address] [place] [address] Normal [facility] ([place]) Comment on above: Performed By: #### C BC, ADIFF, ANEU, BMP, GFR ####[place] [address] .GFRon 08-16-2017 GFR >60 Normal [facility] ([place]) Comment on above: Result Comment: GFR Population [...] #### C BC, ADIFF, ANEU, BMP, GFR ####[place] [address] GFR Non- >60 Normal [facility] ([place]) Comment on above: Result Comment: GFR Population [...] #### C BC, ADIFF, ANEU, BMP, GFR ####[place] [address] Anesthesiology Consultationo n 08-16-2017 Anesthesiology Consultation Normal [facility] ([place]) BMPon 08-16-2017 BUN/Creatinine Ratio 23.6 ratio High 10.0-22.0 [facility] ([place]) Comment on above: Performed By: #### C BC, ADIFF, ANEU, BMP, GFR ####[place] [address] Calcium 8.9 mg/dL Normal 8.4-10.1 [facility] ([place]) Comment on above: Performed By: #### C BC, ADIFF, ANEU, BMP, GFR ####[place] [address] Chloride 109 mmol/L Normal 98-110 [facility] ([place]) Comment on above: Performed By: #### C BC, ADIFF, ANEU, BMP, GFR ####[place] [address] CO2 23 mmol/L Normal 22-32 [facility] ([place]) Comment on above: Performed By: #### C BC, ADIFF, ANEU, BMP, GFR ####[place] [address] Creatinine 0.72 mg/dL Normal 0.50-1.20 [facility] ([place]) Comment on above: Performed By: #### C BC, ADIFF, ANEU, BMP, GFR ####[place] [address] Electrolyte Balance 11.0 mEq/L Normal 4.0-15.0 [facility] ([place]) Comment on above: Performed By: #### C BC, ADIFF, ANEU, BMP, GFR ####[place] [address] Glucose mass conc 85 mg/dL Normal 70-110 [facility] ([place]) Comment on above: Performed By: #### C BC, ADIFF, ANEU, BMP, GFR ####[address] [address] Potassium molar conc 4.2 mmol/L Normal 3.5-5.0 [facility] ([place]) Comment on above: Performed By: #### C BC, ADIFF, ANEU, BMP, GFR ####[address] [address] Sodium 143 mmol/L Normal 136-145 [facility] ([place]) Comment on above: Performed By: #### C BC, ADIFF, ANEU, BMP, GFR ####[address] [address] Urea nitrogen 17.0 mg/dL Normal 8.0-22.0 [facility]) Comment on above: Performed By: #### C BC, ADIFF, ANEU, BMP, GFR ####[address] [address] Depart Summaryon 08-16-2017 Depart Summary Normal [facility] ([place]) Main OR Intraop Recordon Main OR Intraop Record Normal [facility] ([place]) Operative Noteon 08-16-2017 Operative Note Normal [facility] ([place]) Outpatient Patient Summaryon 08-16-2017 Outpatient Patient Summary Normal [facility] ([place]) Pat Eduon 08-16-2017 Pat Edu Normal [facility] ([place]) Procedure Noteon 08-16-2017 Procedure Note Normal [facility] ([place]) Main Pretest Recordon 2017 Main Pretest Record Normal [facility] ([place] Operative Noteon 05-09-2017 Operative Note Normal [facility] ([place]) Final Surgical Pathology Rep [facility] 05-07-2017 Final Surgical Pathology Report . Pathology ReportsAccession: Collected Date/Time: Received Date/Time: Pathologist:[id number] 05/03/2017 14:12 EST 05/06/2017 07:13 EST DO VIOLET GASCA Final Surgical Pathology ReportDIAGNOSIS:ENDOMETR IUM: - FRAGMENTS [...] fragments. A S -1Dictated by FOREST HUIZAR ([facility])MICROSCOPIC DESCRIPTION:Slides reviewed.Electronically Signed byPathology Report verified by [facility] HospitalElectronically signed by VIOLET Becerra out Date: 05/07/2017 09:50Performing Lab: [facility], [address] [place] [id number] [place] [address] Normal [facility] ([place]) Comment on above: Performed By: #### C BC, ADIFF, ANEU, BMP, GFR ####[place] [address] .Auto Diffon 05-03-2017 Basophils Auto #/vol (Bld) 0.10 10 3/mcL Normal 0.00-0.27 [facility] ([place]) Comment on above: Performed By: #### C BC, ADIFF, ANEU, BMP, GFR ####[place] [address] Basophils/100 WBC Auto (Bld) 0.6 % Normal 0.0-2.5 [facility] ([place]) Comment on above: Performed By: #### C BC, ADIFF, ANEU, BMP, GFR ####[address] [address] Eosinophils 0.10 10 3/mcL Normal 0.00-0.65 [facility] ([place]) Comment on above: Performed By: #### C BC, ADIFF, ANEU, BMP, GFR ####[place] [id number] Eosinophils/100 leukocytes 0.9 % Normal 0.0-6.0 [facility] ([place]) Comment on above: Performed By: #### C BC, ADIFF, ANEU, BMP, GFR ####[address] [address] Lymphocytes 2.20 10 3/mcL Normal 0.90-4.32 [facility] ([place]) Comment on above: Performed By: #### C BC, ADIFF, ANEU, BMP, GFR ####[address] [address] Lymphocytes/100 leukocytes 21.3 % Normal 20.0-40.0 [facility] ([place]) Comment on above: Performed By: #### C BC, ADIFF, ANEU, BMP, GFR ####[address] [address] Monocytes 0.60 10 3/mcL Normal 0.09-1.40 [facility] ([place]) Comment on above: Performed By: #### C BC, ADIFF, ANEU, BMP, GFR ####[address] [address] Monocytes/100 leukocytes 6.4 % Normal 2.0-13.0 [facility] ([place]) Comment on above: Performed By: #### C BC, ADIFF, ANEU, BMP, GFR ####[address] [address] Neutrophils/100 WBC Auto (Bld) 70.8 % Normal 50.0-75.0 [facility] ([place]) Comment on above: Performed By: #### C BC, ADIFF, ANEU, BMP, GFR ####[address] [address] .GFRon 05-03-2017 GFR Non- >60 Normal [facility] ([place]) Comment on above: Result Comment: GFR Population [...] #### C BC, ADIFF, ANEU, BMP, GFR ####[place] [address] GFR >60 Normal [facility] ([place]) Comment on above: Result Comment: GFR Population [...] #### C BC, ADIFF, ANEU, BMP, GFR ####[place] [address] .NEUABSon 05-03-2017 Neutrophil, Absolute 7.20 10 3/mcL Normal 2.25-8.10 [facility] ([place] Comment on above: Performed By: #### C BC, ADIFF, ANEU, BMP, GFR ####[place] [address] BMPon 05-03-2017 BUN/Creatinine Ratio 22.2 ratio High 10.0-22.0 [facility] ([place]) Comment on above: Performed By: #### C BC, ADIFF, ANEU, BMP, GFR ####[place] [address] Creatinine 0.72 mg/dL Normal 0.50-1.20 [facility] ([place]) Comment on above: Performed By: #### C BC, ADIFF, ANEU, BMP, GFR ####[place] [address] Calcium 8.8 mg/dL Normal 8.4-10.1 [facility] ([place]) Comment on above: Performed By: #### C BC, ADIFF, ANEU, BMP, GFR ####[address] [address] Chloride 106 mmol/L Normal 98-110 [facility] ([place]) Comment on above: Performed By: #### C BC, ADIFF, ANEU, BMP, GFR ####[address] [address] CO2 24 mmol/L Normal 22-32 [facility] ([place]) Comment on above: Performed By: #### C BC, ADIFF, ANEU, BMP, GFR ####[place] [address] Electrolyte Balance 11.0 mEq/L Normal 4.0-15.0 [facility] ([place]) Comment on above: Performed By: #### C BC, ADIFF, ANEU, BMP, GFR ####[place] [address] Glucose mass conc 85 mg/dL Normal 70-110 [facility] ([place]) Comment on above: Performed By: #### C BC, ADIFF, ANEU, BMP, GFR ####[place] [address] Potassium molar conc 4.3 mmol/L Normal 3.5-5.0 [facility] ([place]) Comment on above: Performed By: #### C BC, ADIFF, ANEU, BMP, GFR ####[place] [address] Sodium 141 mmol/L Normal 136-145 [facility] ([place]) Comment on above: Performed By: #### C BC, ADIFF, ANEU, BMP, GFR ####[place] [address] Urea nitrogen 16.0 mg/dL Normal 8.0-22.0 [facility] ([place]) Comment on above: Performed By: #### C BC, ADIFF, ANEU, BMP, GFR ####[address] [address] CBCon 05-03-2017 Erythrocyte distribution width Auto Ratio (RBC) 12.7 % Normal 11.5-15.5 [facility] ([place]) Comment on above: Performed By: #### C BC, ADIFF, ANEU, BMP, GFR ####[place] [address] Erythrocytes (RBC) 4.03 10 6/mcL Low 4.10-5.30 [facility] ([place]) Comment on above: Performed By: #### C BC, ADIFF, ANEU, BMP, GFR ####[place] [address] Hematocrit (HCT) 36.4 % Normal 34.0-46.0 [facility] ([place]) Comment on above: Performed By: #### C BC, ADIFF, ANEU, BMP, GFR ####[place] [address] Hemoglobin mass conc (Bld) 12.4 G/dL Normal 12.0-16.0 [facility] ([place]) Comment on above: Performed By: #### C BC, ADIFF, ANEU, BMP, GFR ####[place] [address] MCH 30.8 pg Normal 27.0-33.0 [facility] ([place]) Comment on above: Performed By: #### C BC, ADIFF, ANEU, BMP, GFR ####[place] [address] MCHC mass conc (RBC) 34.0 G/dL Normal 32.0-36.0 [facility] ([place]) Comment on above: Performed By: #### C BC, ADIFF, ANEU, BMP, GFR ####[place] [address] MCV 90.4 fL Normal 80.0-99.0 [facility] ([place]) Comment on above: Performed By: #### C BC, ADIFF, ANEU, BMP, GFR ####[place] [address] Platelet mean volume (PMV) 8.4 fL Normal 6.6-10.5 [facility] ([place]) Comment on above: Performed By: #### C BC, ADIFF, ANEU, BMP, GFR ####[place] [address] Platelets 260 10 3/mcL Normal 150-450 [facility] ([place]) Comment on above: Performed By: #### C BC, ADIFF, ANEU, BMP, GFR ####[place] [id number] [place] [address] WBC (Leukocytes) 10.10 10 3/mcL Normal 4.50-10.80 [facility] ([place]) Comment on above: Performed By: #### C BC, ADIFF, ANEU, BMP, GFR ####[address] [address] Depart Summaryon 05-03-2017 Depart Summary Normal [facility] ([place]) Discharge Summaryon 05-03-19 18 Discharge Summary Normal [facility] ([place]) Main OR Intraop Recordon Main OR Intraop Record Normal [facility] ([place]) Outpatient Patient Summaryon 05-03-2017 Outpatient Patient Summary Normal [facility]) Procedure Noteon 05-03-2017 Procedure Note Normal [facility] ([place]) Progress Note-Nurseon 2017 Progress Note-Nurse Normal [facility] ([place]) Vital Signs Date Time Vital Sign Value Performing Clinician Facility 10-15-2024 15:190400 Body height 170.2 cm Shelby Corey DO Work Phone: [facility] 10-15-2024 15:19-0400 Body mass index (BMI) [Ratio] 41.79 kg/m2 Shelby farmbuy DO Work Phone: [facility] 10-15-2024 [id number] Body weight 121.02 kg Shelby Corey DO Work Phone: [facility] 10-15-2024 15:19-0400 Diastolic blood pressure 94 mm[Hg] Shelby Corey DO Work Phone: [facility] 10-15-2024 15:19-0400 Heart rate 87 /min Shelby Corey DO Work Phone: [facility] 10-15-2024 15:19-0400 SaO2% (BldA) [Mass fraction] 96 % Shelby HopperAppies DO Work Phone: [facility] 10-15-2024 15:19-0400 Systolic blood pressure 161 mm[Hg] Shelby Thomae DO Work Phone: [facility] 03-05-2024 15:02-0500 Body height 170.2 cm Shelby Thomae DO Work Phone: [facility] 03-05-2024 15:02-0500 Body mass index (BMI) [Ratio] 40.82 kg/m2 Shelby Thomae DO Work Phone: [facility] 03-05-2024 15:02-0500 Body weight 118.21 kg Shelby Thomae DO Work Phone: [facility] 03-05-2024 15:02-0500 Diastolic blood pressure 97 mm[Hg] Shelby Thomae DO Work Phone: [phone] [place] [address] 03-05-2024 15:02-0500 Heart rate 90 /min Shelby Thomae DO Work Phone: [facility] 03-05-2024 15:02-0500 Respiratory rate 16 /min Shelby Thomae DO Work Phone: [facility] 03-05-2024 15:02-0500 SaO2% (BldA) [Mass fraction] 98 % Shelby Thomae DO Work Phone: [facility] 03-05-2024 15:02-0500 Systolic blood pressure 162 mm[Hg] Shelby Thomae DO Work Phone: [facility] 08-29-2023 15:47-0400 Body mass index (BMI) [Ratio] 39.94 kg/m2 Shelby Thomae DO Work Phone: [facility] 08-29-2023 15:47-0400 Body weight 115.67 kg Shelby Thomae DO Work Phone: 1(043)[phone] [place] [address] 07-02-2023 08:50-0500 Diastolic blood pressure 82 mm[Hg] Shelby Thomae DO Work Phone: [facility] 07-02-2023 08:50-0500 Heart rate 74 /min Shelby Corey DO Work Phone: [facility] 07-02-2023 08:50-0500 Respiratory rate 16 /min Shelby Hopperae DO Work Phone: [facility] 07-02-2023 08:50-0500 SaO2% (BldA) [Mass fraction] 95 % Shelby Thomae DO Work Phone: [facility] 07-02-2023 08:50-0500 Systolic blood pressure 135 mm[Hg] Shelby Hopperae DO Work Phone: [facility] 07-02-2023 08:08-0500 Body temperature 97.3 [degF] Shelby Hopperae DO Work Phone: [facility] 07-02-2023 07:28-0500 Body mass index (BMI) [Ratio] 40.06 kg/m2 Shelby Hopperae DO Work Phone: [facility] 07-02-2023 07:28-0500 Body weight 116.03 kg Shelby Hopperae DO Work Phone: [facility] 05-06-2023 13:58-0500 Body height 170.[address] Sharonda Fajardo Work Phone: [facility] 05-06-2023 13:51-0500 Body mass index (BMI) [Ratio] 41 kg/m2 Dr. Sharonda Fajardo Work Phone: [facility] 05-06-2023 13:51-0500 Body weight 118.[address] Sharonda Fajardo Work Phone: [facility] 05-06-2023 13:51-0500 Diastolic blood pressure 90 mm[Hg] Dr. Sharonda Fajardo Work Phone: [facility] 05-06-2023 13:51-0500 Systolic blood pressure 158 mm[Hg] Dr. Sharonda Fajardo Work Phone: [facility] 03-20-2023 14:04-0500 Body height 170.[address] Sharonda Fajardo Work Phone: [facility] 03-20-2023 13:57-0500 Body mass index (BMI) [Ratio] 41.6 kg/m2 Dr. Sharonda Fajardo Work Phone: [facility] 03-20-2023 13:57-0500 Body weight 120.[address] Sharonda Fajardo Work Phone: [facility] 03-20-2023 13:57-0500 Diastolic blood pressure 91 mm[Hg] Dr. Sharonda Fajardo Work Phone: [facility] 03-20-2023 13:57-0500 Heart rate 79 /min Dr. Sharonda Fajardo Work Phone: [facility] 03-20-2023 13:57-0500 Systolic blood pressure 148 mm[Hg] Dr. Sharonda Fajardo Work Phone: [facility] 03-07-2023 14:04-0500 Body mass index (BMI) [Ratio] 41.97 kg/m2 Shelby Corey DO Work Phone: [facility] 03-07-2023 14:04-0500 Body weight 121.56 kg Shelby Corey DO Work Phone: [facility] 03-07-2023 14:04-0500 Diastolic blood pressure 80 mm[Hg] Shelby Corey DO Work Phone: [facility] 03-07-2023 14:04-0500 Systolic blood pressure 136 mm[Hg] Shelby Corey DO Work Phone: [facility] 02-21-2023 08:45-0400 Body mass index (BMI) [Ratio] 41.8 kg/m2 Dr. Sharonda Fajardo Work Phone: [facility] 02-21-2023 08:45-0400 Body weight 121.[address] Sharonda Fajardo Work Phone: [facility] 02-21-2023 08:45-0400 Diastolic blood pressure 75 mm[Hg] Dr. Sharonda Fajardo Work Phone: [facility] 02-21-2023 08:45-0400 Heart rate 74 /min Dr. Sharonda Fajardo Work Phone: [facility] 02-21-2023 08:45-0400 Systolic blood pressure 123 mm[Hg] Dr. Sharonda Fajardo Work Phone: [facility] 01-22-2023 12:41-0400 Body height 170.[address] Sharonda Fajardo Work Phone: [facility] 01-22-2023 12:39-0400 Body mass index (BMI) [Ratio] 41.8 kg/m2 Dr. Sharonda Fajardo Work Phone: [facility] 01-22-2023 12:39-0400 Body weight 124.[address] Sharonda Fajardo Work Phone: [facility] 01-22-2023 12:39-0400 Diastolic blood pressure 88 mm[Hg] Dr. Sharonda Fajardo Work Phone: [facility] 01-22-2023 12:39-0400 Systolic blood pressure 133 mm[Hg] Dr. Sharonda Fajardo Work Phone: [facility] 12-20-2022 08:13-0400 Body mass index (BMI) [Ratio] 43 kg/m2 Dr. Sharonda Fajardo Work Phone: [facility] 12-20-2022 08:13-0400 Body weight 124.[address] Sharonda Fajardo Work Phone: [facility] 12-20-2022 08:13-0400 Diastolic blood pressure 85 mm[Hg] Dr. Sharonda Fajardo Work Phone: [facility] 12-20-2022 08:13-0400 Systolic blood pressure 137 mm[Hg] Dr. Sharonda Fajrado Work Phone: [facility] 11-27-2022 17:53-0400 Diastolic blood pressure 91 mm[Hg] Dr. Sharonda Fajardo Work Phone: [facility] 11-27-2022 17:53-0400 Heart rate 88 /min Dr. Sharonda Fajardo Work Phone: [facility] 11-27-2022 17:53-0400 Respiratory rate 16 /min Dr. Sharonda Fajardo Work Phone: [facility] 11-27-2022 17:53-0400 SaO2% (BldA) [Mass fraction] 98 % Dr. Sharonda Fajardo Work Phone: [facility] 11-27-2022 17:53-0400 Systolic blood pressure 170 mm[Hg] Dr. Sharonda Fajardo Work Phone: [facility] 11-27-2022 16:39-0400 Body temperature 97.9 [degF] Dr. Sharonda Fajardo Work Phone: [facility] 11-27-2022 14:28-0400 Body height 170.[address] Sharonda Fajardo Work Phone: [facility] 11-27-2022 14:28-0400 Body mass index (BMI) [Ratio] 42.7 kg/m2 Dr. Sharonda Fajardo Work Phone: [facility] 11-27-2022 14:28-0400 Body weight [address] Sharonda Fajardo Work Phone: [facility] 11-16-2022 11:20-0400 Body mass index (BMI) [Ratio] 41.8 kg/m2 Dr. Sharonda Fajardo Work Phone: [facility] 11-16-2022 11:20-0400 Body weight 124.[address] Sharonda Fajardo Work Phone: [facility] 11-16-2022 11:20-0400 Diastolic blood pressure 84 mm[Hg] Dr. Sharonda Fajardo Work Phone: [facility] 11-16-2022 11:20-0400 Heart rate 92 /min Dr. Sharonda Fajardo Work Phone: [facility] 11-16-2022 11:20-0400 Systolic blood pressure 137 mm[Hg] Dr. Sharonda Fajardo Work Phone: [facility] 08-27-2022 13:47-0400 Body height 170.18 cm Sharonda Fajardo Work Phone: [facility] [place] [facility] Work Phone: 08-27-2022 13:47-0400 Body mass index (BMI) [Ratio] 44.25 kg/m2 Sharonda Aldanasay Work Phone: [facility] [facility] Work Phone: 08-27-2022 13:47-0400 Body surface area Derived from formula 2.34 m2 Sharonda Fajardo Work Phone: [facility] [facility] Work Phone: 08-27-2022 13:47-0400 Body weight 128.14 kg Sharonda Clementey Work Phone: [facility] [facility] Work Phone: 08-20-2022 14:14-0400 Body height 170.2 cm Itz Jimenez MD Work Phone: [facility] 08-20-2022 14:14-0400 Body temperature 97.81 [degF] Itz Jimenez MD Work Phone: [facility] 08-20-2022 14:14-0400 Body weight 129.37 kg Itz Jimenez MD Work Phone: [facility] 08-20-2022 14:14-0400 Diastolic blood pressure 84 mm[Hg] Itz Jimenez MD Work Phone: [facility] 08-20-2022 14:14-0400 Heart rate 95 /min Itz Jimenez MD Work Phone: [facility] 08-20-2022 14:14-0400 SaO2% (BldA) [Mass fraction] 97 % Itz Jimenez MD Work Phone: [facility] 08-20-2022 14:14-0400 Systolic blood pressure 138 mm[Hg] Itz Jimenez MD Work Phone: [facility] 08-02-2022 00:33-0400 Diastolic blood pressure 85 mm[Hg] [facility] 08-02-2022 00:33-0400 Heart rate 80 /min [facility] 08-02-2022 00:33-0400 Respiratory rate 17 /min [facility] 08-02-2022 00:33-0400 SaO2% (BldA) [Mass fraction] 98 % [facility] 08-02-2022 00:33-0400 Systolic blood pressure 150 mm[Hg] [facility] 08-01-2022 22:17-0400 Body height 170.18 cm [facility] 08-01-2022 22:17-0400 Body mass index (BMI) [Ratio] 43.8 kg/m2 [facility] 08-01-2022 22:17-0400 Body temperature 98 [degF] [facility] 08-01-2022 22:17-0400 Body weight 127 kg [facility] 06-18-2022 09:43-0500 Body height 170.18 cm Sharonda Clementey Work Phone: [facility] [facility] Work Phone: 06-18-2022 09:43-0500 Body mass index (BMI) [Ratio] 43.85 kg/m2 Sharonda Adele Work Phone: [facility] [facility] Work Phone: 06-18-2022 09:43-0500 Body surface area Derived from formula 2.33 m2 Sharonda Fajardo Work Phone: [facility] [facility] Work Phone: 06-18-2022 09:43-0500 Body weight 127.01 kg Sharonda Fajardo Work Phone: [facility] [facility] Work Phone: 06-18-2022 09:43-0500 Diastolic blood pressure 70 mm[Hg] Sharonda Fajardo Work Phone: [facility] [facility] Work Phone: 06-18-2022 09:43-0500 Systolic blood pressure 130 mm[Hg] Sharonda Fajardo Work Phone: [facility] [facility] Work Phone: 12-18-2021 08:48-0400 Body height 170.[address] Sharonda Fajardo Work Phone: [facility] Work Phone: 12-18-2021 08:48-0400 Body mass index (BMI) [Ratio] 44.9 kg/m2 Dr. Sharonda Fajardo Work Phone: [facility] Work Phone: 12-18-2021 08:47-0400 Body weight [address] Sharonda Fajardo Work Phone: [facility] Work Phone: 12-18-2021 08:47-0400 Diastolic blood pressure 88 mm[Hg] Dr. Sharonda Fajardo Work Phone: [facility] Work Phone: 12-18-2021 08:47-0400 Systolic blood pressure 136 mm[Hg] Dr. Sharonda Fajardo Work Phone: [facility] Work Phone: 12-12-2021 08:52-0400 Body temperature 98.2 [degF] Yareli Mcdonaldr DPM Work Phone: [facility] 12-12-2021 08:52-0400 Diastolic blood pressure 74 mm[Hg] Yareliteodora Mcdonaldr DPM Work Phone: [facility] 12-12-2021 08:52-0400 Heart rate 82 /min Yareli Corie DPM Work Phone: [facility] 12-12-2021 08:52-0400 Systolic blood pressure 110 mm[Hg] Yareli Corie DPM Work Phone: [facility] 02-22-2021 11:27-0400 Body temperature 96.4 [degF] Sharonda Fajardo Work Phone: [facility][id number]Bqzaup 170 DO Work Phone: 02-22-2021 11:27-0400 Diastolic blood pressure 94 mm[Hg] Sharonda Fajardo Work Phone: [facility]Cwwnjbhrw-Beootj 170 DO Work Phone: 02-22-2021 11:27-0400 Heart rate 88 /min Sharonda Fajardo Work Phone: [facility]Ihrjtljrb[facility]Aljcyl 170 DO Work Phone: 02-22-2021 11:27-0400 Respiratory rate 16 /min Sharonda Fajardo Work Phone: LM-Njwqjtcbu-Wvpite 170 DO Work Phone: 02-22-2021 11:27-0400 Systolic blood pressure 160 mm[Hg] Sharonda Fajardo Work Phone: MT-Vdbdivpno-Nfxqok 170 DO Work Phone: 10-24-2020 08:40-0400 Body height 170.2 cm Yareli Alvo DPM Work Phone: [facility] 10-24-2020 08:40-0400 Body mass index (BMI) [Ratio] 43.07 kg/m2 Yareli Alvo DPM Work Phone: [facility] 10-24-2020 08:40-0400 Body temperature 97 [degF] Yareli Corie DPM Work Phone: [facility] 10-24-2020 08:40-0400 Body weight 124.74 kg Yareli Corie DPM Work Phone: [facility] 10-24-2020 08:40-0400 Diastolic blood pressure 101 mm[Hg] Yareli Alvo DPM Work Phone: [facility] 10-24-2020 08:40-0400 Heart rate 104 /min Yareli Corie DPM Work Phone: [facility] 10-24-2020 08:40-0400 Systolic blood pressure 159 mm[Hg] Yareli Croie DPM Work Phone: [facility] 07-25-2020 15:24-0400 Body height 170.2 cm Yareli Alvo DPM Work Phone: [facility] 07-25-2020 15:24-0400 Body mass index (BMI) [Ratio] 43.07 kg/m2 Yareli Alvo DPM Work Phone: [facility] 07-25-2020 15:24-0400 Body weight 124.74 kg Yareli Alvo DPM Work Phone: [facility] 01-25-2020 15:25-0400 Diastolic blood pressure 86 mm[Hg] Yareli Corie DPM Work Phone: [facility] 01-25-2020 15:25-0400 Systolic blood pressure 141 mm[Hg] Yareli Alvo DPM Work Phone: [facility] Encounters Encounter Date Encounter Type Care Provider Facility Start: 12-14-2024 ambulatory [facility] Facility :[facility] Start: 10-15-2024 End: 10-15-2024 Office outpatient visit 25 minutes Shelby Corey DO Work Phone: [facility] Comment on above: Bile reflux gastriti s (Primary Dx); Sphincter of Oddi dysfunction; Dilated bile duct Start: 10-15-2024 End: 10-15-2024 ambulatory [facility] Start: 10-03-2024 End: 10-03-2024 Letter encounter Marcella Galicia MD Work Phone: [facility] Start: 06-15-2024 End: 06-15-2024 ambulatory Sharonda Adele Facility:[facility] Start: 05-15-2024 End: 05-16-2024 ambulatory Rick Pat Facility:[facility] Start: 03-05-2024 End: 03-05-2024 Office outpatient visit 15 minutes Shelby R Wardae DO Work Phone: [facility] Comment on above: Sphincter of Oddi dy sfunction (Primary Dx); Dyspepsia Start: 03-05-2024 End: 03-05-2024 ambulatory [facility] Start: 02-24-2024 End: 02-24-[address] [facility] Facility:[facility] Start: 01-18-2024 End: 01-18-2024 ambulatory Gill Adele Facility:[facility] Start: 12-20-2023 End: 12-20-2023 ambulatory Sharonda Fajardo Facility:[facility] Start: 08-29-2023 End: 08-29-2023 Office outpatient visit 25 minutes Shelby R Thomae DO Work Phone: [facility] Comment on above: Sphincter of Oddi dy sfunction (Primary Dx); Bile reflux gastritis Start: 08-13-2023 End: 08-13-[address] Sharonda Fajardo Work Phone: [facility] Work Phone: Start: 08-13-2023 End: 08-13-[address] Sharonda Fajardo Work Phone: [facility]-Ultrasound, [facility] Work Phone: Start: 08-08-2023 End: 08-08-[address] Sharonda Fajardo Work Phone: [facility] Work Phone: Start: 08-08-2023 End: 08-08-[address] Sharonda Fajardo Work Phone: [facility]-Laboratory Work Phone: Start: 08-03-2023 End: 08-03-[address] Sharonda Fajardo Work Phone: [facility] Work Phone: Start: 08-03-2023 End: 08-03-[address] Sharonda Fajardo Work Phone: [facility]Laboratory Work Phone: Start: 07-02-2023 End: 07-03-2023 [facility] Start: 07-02-2023 End: 07-02-2023 Subsequent hospital visit by physician [facility] Work Phone: [facility] Comment on above: Dyspepsia (Primary D x); Epigastric abdominal pain Start: 05-06-2023 End: 05-06-[address] Sharonda Fajardo Work Phone: [facility] Work Phone: Start: 04-23-2023 End: 04-23-[address] Sharonda Fajardo Work Phone: [facility] Work Phone: Start: 04-23-2023 End: 04-23-[address] Sharonda Fajardo Work Phone: [facility]-Laboratory Work Phone: Start: 04-14-2023 Letter encounter Marcella goldberg MD Work Phone: [facility] Start: 04-12-2023 End: 04-12-[address] Sharonda Fajardo Work Phone: [facility] Work Phone: Start: 04-12-2023 End: 04-12-[address] Sharonda Fajardo Work Phone: [facility] Work Phone: Start: 03-20-2023 End: 03-20-[address] Sharonda Fajardo Work Phone: [facility] Work Phone: Start: 03-07-2023 End: 03-07-2023 Office outpatient visit 25 minutes Shelby Corey DO Work Phone: [facility] Comment on above: Dilated bile duct (P rimary Dx); Sphincter of Oddi dysfunction Start: 02-21-2023 End: 02-21-[address] Sharonda Fajardo Work Phone: [facility] Work Phone: Start: 02-09-2023 End: 02-09-[address] Sharonda Fajardo Work Phone: [facility] Work Phone: Start: 02-09-2023 End: 02-09-[address] Sharonda Fajardo Work Phone: [facility] Work Phone: Start: 01-22-2023 End: 01-22-[address] Sharonda Fajardo Work Phone: [facility] Work Phone: Start: 12-20-2022 End: 12-20-[address] Sharonda Fajardo Work Phone: [facility] Work Phone: Start: 11-27-2022 End: 11-27-2022 Admission to same day surgery center Dr. Sharonda Fajardo Work Phone: [facility] Start: 11-27-2022 End: 11-27-[address] Sharonda Fajardo Work Phone: [facility] Work Phone: Start: 11-27-2022 Non-patient / Non-visit Dr. Tamara Fajardo Work Phone: [facility] Start: 11-16-2022 End: 11-16-[address] Sharonda Fajardo Work Phone: [facility] Work Phone: Start: 11-16-2022 End: 11-16-[address] Sharonda Fajardo Work Phone: [facility] Work Phone: Start: 11-05-2022 End: 11-05-2022 ambulatory [facility] Work Phone: Start: 11-05-2022 End: 11-05-2022 Patient encounter procedure [facility]Laboratory Work Phone: Start: 09-25-2022 End: 09-25-2022 ambulatory [facility] Work Phone: Start: 09-25-2022 End: 09-25-2022 Patient encounter procedure [facility]Laboratory Start: 09-13-2022 End: 09-13-2022 Patient encounter procedure [facility] Start: 09-03-[address] Sharonda Fajardo Faci lity:[id number] Start: 08-27-2022 Office outpatient vi sit 15 minutes Sharonda Fajardo Work Phone: [facility] Work Phone: Start: 08-27-2022 ambulatory DO SHELBY Thompson [id number] Start: 08-20-2022 End: 08-20-2022 Patient encounter procedure Itz Jimenez MD Work Phone: [facility] Surgery Comment on above: Abnormal ultrasound of abdomen (Primary Dx); Diarrhea, unspecified type; Epigastric pain Start: 08-20-2022 End: 08-20-2022 ambulatory ITZ JIMENEZ Facility:[facility] Start: 08-13-2022 End: 08-13-2022 ambulatory [facility] Work Phone: Start: 08-13-2022 End: 08-13-2022 Patient encounter procedure [facility], [facility] Start: 08-01-2022 End: 08-02-2022 Emergency department patient visit [facility]Emergency Department Start: 07-21-2022 End: 07-21-2022 ambulatory [facility] Work Phone: Start: 07-21-2022 End: 07-21-2022 Patient encounter procedure [facility]Laboratory Start: 07-12-2022 Letter encounter Marcella goldberg MD Work Phone: [facility] Start: 06-18-2022 Office outpatient ne w 30 minutes Sharonda Fajardo Work Phone: [facility] Work Phone: Start: 06-18-2022 ambulatory DO SHELBY Pringle WARDADOLFO Johni [id number] Start: 04-10-2022 Letter encounter [facility] Start: 03-24-2022 End: 03-24-[address] Sharonda Fajardo Work Phone: [facility] Work Phone: Start: 03-24-2022 End: 03-24-[address] Sharonda Fajardo Work Phone: [facility]-Laboratory Start: 12-18-2021 End: 12-18-[address] Sharonda Fajardo Work Phone: [facility] Work Phone: Start: 12-18-2021 End: 12-18-[address] Sharonda Fajardo Work Phone: [facility] Start: 12-12-2021 End: 12-12-2021 Office outpatient visit 15 minutes Yareli BAUMM Work Phone: [facility] Comment on above: Arthritis of left fo ot (Primary Dx); Left foot pain Start: 10-07-2021 End: 10-07-2021 Patient encounter procedure [facility]Laboratory Start: 07-29-2021 End: 07-29-2021 Patient encounter procedure [facility] Start: 06-03-2021 End: 06-03-2021 [facility] Start: 02-22-2021 Office outpatient vi sit 40 minutes Sharonda Fajardo Work Phone: [id number]-Gpxplb 170 DO Work Phone: Start: 02-22-2021 Patient encounter procedure Sharonda Adele Work Phone: NS-Rpxplyrgv-Lidvqj 170 DO Work Phone: Start: 02-14-2021 End: 02-14-2021 ambulatory UNKNOWN PROVIDER Facility:[facility] Start: 10-24-2020 End: 10-24-2020 ambulatory YARELI BOB [facility] Start: 10-24-2020 End: 10-24-2020 Patient encounter procedure Yareli Bob DPM Work Phone: [facility] Comment on above: Arthritis of left fo ot (Primary Dx); Left foot pain Start: 10-16-2020 End: 10-16-2020 Chart abstracting Yareli Bob DPM Work Phone: [facility] Comment on above: Arthritis; Back problem; PCOS (polycystic ovarian syndrome); Thyroid disorder Start: 06-06-2018 Patient encounter procedure AGUSTINA LIU [facility] Start: 11-15-2017 End: 11-15-2017 Patient encounter RICK PAT Facility:A Start: 08-16-2017 End: 08-16-2017 Patient encounter RICK PAT Facility:A Start: 05-03-2017 End: 05-03-2017 Patient encounter RICK PAT Facility:[facility] Procedures Date Procedure Procedure Detail Performing Clinician Start: 03-05-2024 Follow-up visit Follow-up SHELBY COREY Start: 08-13-[address] Sharonda allen Work Phone: Start: 07-02-2023 DISCHARGE PATIENT SHELBY COREY Start: 07-02-2023 Esophagogastroduodenoscopy SHELBY COREY Start: 07-02-2023 SURGICAL PATHOLOGY EXAM SHELBY COREY Start: 07-02-2023 PLACE IN OUTPATIENT/HOSPITAL AMBULATORY SURGERY SHELBY COREY Start: 07-02-2023 Egd transoral biopsy single/multiple Shelby Corey DO Work Phone: Start: 04-12-2023 MRI of lower extremity Dr. Sharonda garcia Work Phone: Start: 02-09-2023 MRI of joint of lower extremity Dr. Nader Fajardo Work Phone: Start: 02-09-2023 MRI of lower extremity Dr. Sharonda garcia Work Phone: Start: 11-27-[address] Sharonda Fajardo Work Phone: Start: 11-16-[address] Sharonda Fajardo Work Phone: Start: 11-16-[address] Sharonda allen Work Phone: Start: 09-13-2022 Magnetic resonance cholangiopancreatography Start: 08-13-2022 Ultrasonography of abdomen Cholecystectomy Sharonda allen Work Phone: Comment on above: 1995; Endoscopic retrograd e cholangiopancreatography [ERCP] Sharonda Fajardo Work Phone: Comment on above: 2010,1011; Foot Surgery Sharonda Fajardo Work Phone: Comment on above: 2000,2011; Plan of Treatment Date Care Activity Detail Author Start: 10-01-2033 Shingles (RZV) Vaccine (1 of 2) Shingles (RZV) Vaccine (1 of 2) [facility] Start: 10-01-2033 Zoster Vaccines (1 of 2) Zoster Vaccines (1 of 2) [facility] Start: 07-29-2028 DTaP/Tdap/Td Vaccines (3 - Td or Tdap) DTaP/Tdap/Td Vaccines (3 - Td or Tdap) [facility] Start: 07-29-2028 Tetanus vaccination [facility] Start: 04-15-2025 End: 04-15-2025 Patient encounter procedure 04/15/2025 10:15 AM EST Office Visit [facility] [address] [facility] [address] [place] [address] Shelby Corey DO [address] [facility] [address] [place] [id number] [facility] Start: 12-28-2024 Influenza vaccination Influenza Vaccine (Season Ended) [facility] Start: 09-10-2024 End: 09-10-2024 Patient encounter procedure 09/10/2024 9:00 AM EDT Office Visit [facility] [address] [phone] Shelby Corey DO [address] [facility] [address] [place] [address] [facility] Start: 03-05-2024 End: 03-05-2024 Patient encounter procedure 03/05/2024 3:00 PM EST Office Visit [facility] [address] [phone] Shelby Corey DO [address] [facility] [address] [place] [address] [facility] Start: 12-29-2023 COVID-19 Vaccine ( season) COVID-19 Vaccine ( season) [facility] Start: 12-29-2023 Influenza vaccination [facility] Start: 2023 Screening for malignant neoplasm of breast [facility] Start: 03-07-2023 End: 03-07-2024 CBC panel - Blood by Automated count CBC Lab Routine Dilated bile duct Expected: 03/07/2023 (Approximate), Expires: 03/07/2024 [facility] Work Phone: Comment on above: Expected: 03/07/2023 (Approximate), Expi res: 03/07/2024 Start: 03-07-2023 End: 03-07-2024 Hepatic function 2000 panel - Serum or Plasma Hepatic Function Panel Lab Routine Dilated bile duct Expected: 03/07/2023 (Approximate), Expires: 03/07/2024 [facility] Service Area Work Phone: Comment on above: Expected: 03/07/2023 (Approximate), Expi res: 03/07/2024 Start: 12-28-2022 COVID-19 Vaccine ( season) COVID-19 Vaccine () [facility] Start: 12-28-2022 Influenza vaccination [facility] Start: 11-27-2022 Ambulation without limitation [facility] Start: 11-27-2022 Medical regimen orders management [facility] Start: 11-27-2022 Medication education [facility] Start: 11-27-2022 Patient discharge [facility] Start: 11-27-2022 Procedure discontinued [facility] Start: 11-27-2022 Taking patient vital signs [facility] Start: 11-27-2022 Vital signs measurements [facility] Start: 11-27-2022 [facility] Start: 11-27-2022 Anes hysteroscopy&/hysterosalpingog joanna w/bx ANESTH HYSTEROSCOPE/GRAPH [facility] Start: 11-27-2022 Hysteroscopy bx endometrium&/polypc w/wo d&c HYSTEROSCOPY BIOPSY [facility] Start: 09-20-2022 FUV, Provider: Shelby Corey, Status: Pen, Time: 9:00 AM FUV, Provider: Shelby Corey, Status: Pen, Time: 9:00 AM -[facility] [address] Work Phone: Start: 08-01-2022 Enteric precautions [facility] Start: 04-29-2022 DEPRESSION ASSESSMENT DEPRESSION ASSESSMENT [facility] Start: 01-27-2022 Influenza vaccination Influenza Vaccine (#1) [facility] Start: 12-28-2021 Influenza vaccination Sequential Influenza Vaccine (#1) [facility] Start: 10-24-2021 HPV TESTING HPV TESTING [facility] Start: 10-24-2021 PAP TESTING PAP TESTING [facility] Start: 12-28-2020 Influenza vaccination Sequential Influenza Vaccine (Season Ended) [facility] Start: 12-19-2020 End: 12-19-2020 Patient encounter procedure 12/19/2020 Office Visit Podiatry Yareli Bob DPM [address] [place] [address] [phone] [facility] Start: 10-24-2020 End: 10-24-2020 Patient encounter procedure 10/24/2020 Office Visit Podiatry Yareli Bob DPM [address] [place] [address] [phone] [facility] Start: 03-12-2020 Creatinine measurement Basic Metabolic Panel [facility] Start: 10-01-2010 HPV Vaccine (optional start 27-45 years) HPV Vaccine (optional start 27-45 years) [facility] Start: 04-29-2010 Urine microalbumin profile DTAP,TDAP,TD (2 - Tdap) [facility] Start: 10-01-2004 Screening for malignant neoplasm of cervix [facility] Start: 10-01-2002 Hepatitis A (HAV) Vaccine (optional start 19+ years) Hepatitis A (HAV) Vaccine (optional start 19+ years) [facility] Start: 10-01-2002 Hepatitis B vaccination Hepatitis B (HBV) Vaccine (1 of 3 - 19+ 3-dose series) [facility] Start: 10-01-2002 Hepatitis B Vaccines (1 of 3 - 19+ 3-dose series) Hepatitis B Vaccines (1 of 3 - 19+ 3-dose series) [facility] Start: 10-01-2001 ANNUAL PCP TEAM CHRONIC DISEASE VISIT ANNUAL PCP TEAM CHRONIC DISEASE VISIT [facility] Start: 10-01-2001 Diabetes mellitus screening Diabetes Screening [facility] Start: 10-01-2001 Hepatitis C screening [facility] Start: 10-01-1998 HIV screening [facility] Start: 10-01-1996 Varicella vaccination Varicella Vaccines (1 of 2 - 13+ 2-dose series) [facility] Start: 1995 COVID-19 Vaccine (1) COVID-19 Vaccine (1) [facility] Start: 1995 Depression screening using PHQ-9 (Patient Health Questionnaire 9) score [facility] Start: 10-01-1986 History and physical examination, annual for health maintenance Wellness Visit [facility] Start: 10-01-1984 MMR Vaccines (1 of 1 - Standard series) MMR Vaccines (1 of 1 - Standard series) [facility] Start: 10-01-1984 Varicella vaccination Varicella Vaccines (1 of 2 - 2-dose childhood series) [facility] Start: 04-02-1984 COVID-19 Vaccine (#1) COVID-19 Vaccine (#1) [facility] Start: 1983 Basic metabolic 2000 panel - Serum or Plasma Basic Metabolic Panel [facility] Start: 1983 Creatinine measurement Basic Metabolic Panel [facility] Start: 1983 HEPATITIS B (1 of 3 - 3-dose series) HEPATITIS B (1 of 3 - 3-dose series) [facility] Start: 1983 Hepatitis B Vaccines (1 of 3 - 3-dose series) Hepatitis B Vaccines (1 of 3 - 3-dose series) [facility] Start: 1983 HIV screening HIV Screening [facility] Start: 1983 Lipid panel Lipid Panel [facility] Start: 1983 Screening for malignant neoplasm of breast Mammography shared decision making (35 through 39 years) [facility] Start: 1983 Screening for malignant neoplasm of cervix Pap Smear [facility] Start: 1983 Tetanus vaccination Tetanus: Every 10yrs [facility] Start: 1983 Thyroid stimulating hormone measurement [facility] Start: 1983 Yearly Adult Physical Yearly Adult Physical [facility] 17-Hydroxyprogestero ne [Mass/volume] in Serum or Plasma [facility] Dehydroepiandrostero ne sulfate (DHEA-S) [Mass/volume] in Serum or Plasma [facility] Dehydroepiandrostero ne sulfate (DHEA-S) [Mass/volume] in Serum or Plasma [facility] Patient Education ED Vomiting an d Diarrhea ... [facility] Work Phone: Patient referral [facility] Work Phone: Surgical pathology study [facility] S Service Area Work Phone: Comment on above: Release Upon Ordering for 1 Occurrences starting 07/02/2023 Testosterone Free [Mass/volume] in Serum or Plasma [facility] Testosterone Free [Mass/volume] in Serum or Plasma [facility] Testosterone measurement [facility] Immunizations Immunization Date Immunization Notes Care Provider Kecia esteves 07-29-2018 diphtheria, tetanus toxoids and acellular pertussis vaccine, unspecified formulation [facility] Work Phone: 07-29-2018 tetanus toxoid, reduced diphtheria toxoid, and acellular pertussis vaccine, adsorbed [facility] 04-29-2000 diphtheria and tetan us toxoids, adsorbed for pediatric use Marcella Galicia MD Work Phone: [facility] Payers Date Payer Category Payer Self-pay [id number] 2018 [employer] Blue [employer] ANTH - BLUE CROSS [id number] 2018 Blue Cross [place] [facility] [id number] 2018 Unknown ANTHEM [employer] VELEZ/PREF/HMO/PPO [id number] 2018-Present [id number] 2018 Unknown 2016 Unknown [id number] 2016 Unknown [id number] 1983 Unknown [id number] [id number]. 2.479 1983 Unknown [id number] 2.840.1.288350.3.579. 2.903 1983 Unknown [id number] 2.840.1.304430.3.579. 2.732 1983 Unknown [id number] 2.840.1.080135.3.579. 2.356 1983 Unknown [id number] 2.16840.1.400219.3.579. 2.356 1983 Unknown [id number] 2.16840.1.796902.3.579. 2.1069 1983 Unknown [id number] 2.16840.1.832435.3.579. 2.1243 1983 Unknown [id number] 2.16840.1.392770.3.579. 2.1244 1983 Unknown [id number] 2.16840.1.235467.3.579. 2.1244 Unknown [id number] 2.16.840.1.541792.3.579. 2.462 Unknown [id number] 2.16.840.1.268998.3.579. 2.462 Unknown [id number] 2.16.840.1.921984.3.579. 2.462 Unknown [id number] 2.16.840.1.896994.3.579. 2.462 Unknown [id number] 2.16.840.1.028526.3.579. 2.462 Unknown [id number] 2.16.840.1.546311.3.579. 2.462 Unknown [id number] 2.16.840.1.515430.3.579. 2.462 Social History Date Type Detail Facility Start: 10-16-2020 End: 03-07-2023 Tobacco smoking status NHIS Never smoker [facility] Start: 10-16-2020 End: 10-15-2024 Alcohol intake Lifetime non-drinker (finding) [facility] Start: 1985 Sex Assigned At Not on file [facility] Start: 10-24-2020 End: 03-07-2023 Tobacco use and exposure Never used [facility] Start: 12-01-2021 End: 03-05-2024 Exposure to SARS-CoV-2 (event) Not sure [facility] Start: 03-07-2023 End: 10-15-2024 No alcohol use No alcohol use [facility] 170 DO Work Phone: Start: 12-12-2020 End: 05-06-2023 Tobacco smoking status MSIS Unknown if ever smoked [facility] Start: 10-09-2018 None [facility] Start: 1985 Sex Assigned At Female [facility] Start: 08-20-2022 Alcohol intake Current drinke r of alcohol (finding) [facility] Start: 03-07-2023 End: 10-15-2024 Tobacco use panel [facility] Work Phone: Start: 11-16-2020 Sex Female (finding) [facility] NEGATED: Highlighted row [facility] Medical Equipment Procedure Code Equipment Code Equipment Origin al Text Equipment Identifier Dates Hysteroscopy, with dilation and curettage of uterus Collagen haemostatic agent, non-antimicrobial [id number] FDA Start: 11-27-2022 Goals Date Patient Goal Desired Activity /State Functional Status Date Assessment Result Facility 11-27-2022 Functional status Ambulates [facility] Work Phone: Mental Status Date Assessment Result Facility 11-27-2022 Cognitive function Voice/Name [facility] Work Phone: Clinical Notes 10-24-2020 to 10-15-2024 Shebly Corey, DO - 10/15/2024 3:15 PM EDTShelby Corey, DO - 03/05/2024 3:00 PM ESTShelby Corey, DO - 08/29/2023 3:45 PM EDTDischarge InstructionsShelby Corey, DO - 07/02/2023 8:00 AM EST Note Date & Type Note Facility 10-15-2024 History of Present illness Narrative Subjective Patient ID: Larisa Marin is a 39 y.o. female who presents for Follow-up (Pt presents today as a 6 mo follow up for sphincter of robert and dyspepsia. Pt states since last visit she has had several flairs, one that lasted for about a week. Pt states she is currently experiencing symptoms, but they are not as bad as previous symptom flairs. ). 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 Typical symptoms right upper quadrant pain with cramping and this comfort occurring after eating greasy or highly acidic foods. Typical triggers are fried foods or red sauce. Most recent cruise had no symptoms typically averaging 1 episode per week. New episode occurred 1 month ago she had burning in her distal esophagus and epigastric region for a week after eating red sauce twice in the same week. She is currently on PPI therapy, Prilosec twice daily. Request change in therapy is not effective. Review of Systems Constitutional: Negative. HENT: Negative. Eyes: Negative. Respiratory: Negative. Cardiovascular: Negative. Gastrointestinal: Positive for abdominal pain and nausea. Endocrine: Negative. Genitourinary: Negative. Neurological: Negative. Hematological: Negative. Objective Physical Exam Constitutional: General: She is awake. Appearance: Normal appearance. HENT: Head: Normocephalic and atraumatic. Nose: Nose normal. Mouth/Throat: Mouth: Mucous membranes are moist. Eyes: Pupils: Pupils are equal, round, and reactive to light. Neck: Thyroid: No thyroid mass. Trachea: Phonation normal. Cardiovascular: Rate and Rhythm: Normal rate and regular rhythm. Heart sounds: Normal heart sounds. Pulmonary: Effort: Pulmonary effort is normal. No respiratory distress. Breath sounds: Normal air entry. No decreased breath sounds, wheezing, rhonchi or rales. Abdominal: General: Bowel sounds are normal. There is no distension. Palpations: Abdomen is soft. Tenderness: There is no abdominal tenderness. Musculoskeletal: Cervical back: Neck supple. Right lower leg: No edema. Left lower leg: No edema. Skin: General: Skin is warm. Capillary Refill: Capillary refill takes less than 2 seconds. Neurological: General: No focal deficit present. Mental Status: She is alert and oriented to person, place, and time. Mental status is at baseline. Cranial Nerves: Cranial nerves 2-12 are intact. Motor: Motor function is intact. Psychiatric: Attention and Perception: Attention and perception normal. Mood and Affect: Mood normal. Speech: Speech normal. Behavior: Behavior normal. Assessment/Plan Diagnoses and all orders for this visit: Bile reflux gastritis - dexlansoprazole (Dexilant) [address] capsule; Take 1 capsule (60 mg) by mouth once daily. Do not crush or chew. Sphincter of Oddi dysfunction Dilated bile duct Symptoms sound more like typical GERD. Advised to discontinue omeprazole, begin Dexilant 60 mg daily. Dose with evening meal. If recurrent symptoms of burning in epigastrium and distal esophagus occur again we will call and be given sucralfate. Shelby Corey DO 10/15/24 3:44 PM documented in this encounter [facility] Work Phone: 03-05-2024 History of Present illness Narrative Subjective Patient ID: Larisa Marin is a 38 y.o. female who presents for Follow-up (6 month follow up still having some n/v. Last episode pt reports that during her vomiting the palms of her hands became bright red and itchy. Epigastric pain. ). HPI Larisa is seen today in routine follow-up for sphincter of Oddi dysfunction. Had episode of vomiting with abdominal pain following eating out her friend's house. She is asymptomatic at this time. Blood work done during that episode showed no elevation of transaminases. She is concerned about her low persistent red blood cell mass I told that some measurement and not to be concerned with that as her hemoglobin is normal. From a GI point of view I advised her it might be best to take Bentyl before she goes to family meal or out to eat to try and prevent the symptoms from occurring. Review of Systems Constitutional: Negative. HENT: Negative. Eyes: Negative. Respiratory: Negative. Cardiovascular: Negative. Gastrointestinal: Positive for abdominal pain and nausea. Endocrine: Negative. Genitourinary: Negative. Neurological: Negative. Hematological: [...] for this visit: Sphincter of Oddi dysfunction Dyspepsia Recommend she continue Bentyl follow-up in 6 months Shelby Corey DO 03/05/24 3:08 PM documented in this encounter [facility] Work Phone: 08-29-2023 History of Present illness Narrative Subjective [...] 08/29/23 4:31 PM documented in this encounter [facility] Work Phone: 07-02-2023 Hospital Discharge instructions [...] having your procedure, call the [facility] to be advised whether a visit to [...] or looks infected. 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 Would prefer to have done in [place]. I did contact [facility], they do not perform ERCP at this time. Recommend [facility] or [facility]. Review of Systems Constitutional: Negative. HENT: Negative. [...] Orders Referral to Gastroenterology Referred Gonzalo to [facility] for sphincter of Oddi dysfunction documented in this encounter [facility] Work Phone: 11-27-2022 Discharge summary Note Date/Time November 27, 2022 2:59pm [facility] Medical Records Department [address] [place] [address] Instructions for Home/Discharge Instructions 11/27/22 1459 MR#: [id number] Acct: [id number] Name: LARISA MARIN Rep #:[id number] : 1985 37 From: Agustina piper MD PCP: Dr. Sharonda Fajardo DO Status:REG [facility] Discharge Instructions Diet Discharge Diet: No restrictions Activity Discharge Activity: Return to Normal Activity, May Shower and May Take a Tub Bath (after 1 week) May resume sexual activity in: 1-2 weeks Weight Bearing Status: Weight bearing as tolerated Lifting Restrictions: none Dressing / Incision Call your doctor if you observe: Fever of 101 or Higher, Using more than 1 pad per hour, Shortness of breath and Uncontrolled pain Follow Up Care Please Follow Up With: Agustina Liu MD When: Call [phone] to schedule appointment. Test Results: Test results from this visit will be discussed in further detail at your follow-up appointment, if applicable. Discharge Plan Admission Attending Provider: Agustina Liu Primary Care Provider: Sharonda Fajardo Discharge Orders/Prescriptions Prescriptions: No Action labetalol 200 mg tablet 200 mg PO BID famotidine [Pepcid] 40 mg tablet 40 mg PO BID PRN (Reason: acid reflux) lorazepam [Ativan] 0.5 mg tablet 0.5 mg PO QD-BID PRN (Reason: anxiety) Qty: 30 0RF levothyroxine 100 mcg tablet 150 mcg PO DAILY multivitamin Tablet 1 tab PO DAILY meloxicam 15 mg tablet 15 mg PO DAILY dicyclomine 20 mg tablet 20 mg PO TID PRN (Reason: abdominal discomfort) Qty: 20 0RF levothyroxine 75 mcg capsule 75 mcg PO .OTHER Rx Instructions: TAKE IN ADDITION WITH DAILY 150 MCG DOSE ON SATURDAY AND SATURDAY omeprazole 20 mg capsule,delayed release(DR/EC) 40 mg PO BID fexofenadine [Anika Allergy] 180 mg tablet 180 mg PO DAILY Savella 50 mg tablet 50 mg PO BID Naltrex 4.5 mg capsule 8 mg PO BID bupropion HCl [Wellbutrin XL] 300 mg tablet extended release 24 hr 450 mg PO QAM ferrous sulfate [Feosol] 325 mg (65 mg iron) tablet 975 mg PO DAILY norethindrone acetate [Aygestin] 5 mg tablet 5 mg PO DAILY Qty: 45 0RF Rx Instructions: take bid until bleeding stops for at least 3 days then take once daily until gone. Referrals / Follow Up: Sharonda Fajardo DO [Primary Care Provider] - Disposition Disposition (needs filled in before D/C Order can be placed): Home, Self Care 11/27/22 1600<Electronically signed by Agustina Liu MD>Agustina Liu MD CC: Dr. Sharonda Fajardo DO ~ Signed [facility] Work Phone: 1(337) 379-966308-01-2023 History and physical note Author Agustina Liu [facility] November 27, 2022 2:58pm Note Date/Time November 27, 2022 7:1 9am [facility] Medical Records Department [address] [place] [address] History & Physical Exam 11/27/22 0717 MR#: [id number] Acct: [id number] Name: LARISA MARIN Rep #:[id number] : 1985 37 From: Agustina piper MD PCP: Dr. Sharonda Fajardo, DO Status:[facility] Location: [place] [address] HPI - General HPI Narrative LARISA MARIN, is a 37 F who presents wit persistent AUB history of endometrial hyperplasia, signifciantly thickened lining on US suspcious of hyperplasia again. [facility] Medical History (Updated 11/26/22 @ 08:58 by Eryn Cain) Anemia Anxiety Anxiety disorder Arthritis Back problem Chronic headaches Depression Fibromyalgia Gallstones GERD (gastroesophageal reflux disease) GI problem History of IBS History of infertility History of ulceration Hypertension IBS (irritable bowel syndrome) Polycystic ovarian disease Seasonal allergies Thyroid disease Vision problem Wears glasses Home Medications famotidine 40 mg tablet (Pepcid) 40 mg PO BID PRN acid reflux 12/07/19 [History Last Taken Unknown] labetalol 200 mg tablet 200 mg PO BID 12/07/19 [History Last Taken Unknown] lorazepam 0.5 mg tablet (Ativan) 0.5 mg PO QD-BID PRN anxiety #30 tabs 12/13/20 [Rx Last Taken Unknown] multivitamin 1 tab PO DAILY 12/18/21 [History Last Taken Unknown] dicyclomine 20 mg tablet 20 mg PO TID PRN abdominal discomfort #20 tabs 08/02/22[Rx Last Taken Unknown] norethindrone acetate 5 mg tablet (Aygestin) 5 mg PO DAILY #45 tabs 11/02/22 [Rx Last Taken Unknown] levothyroxine 100 mcg tablet 150 mcg PO DAILY 11/16/22 [History Last Taken Unknown] meloxicam 15 mg tablet 15 mg PO DAILY 11/16/22 [History Last Taken Unknown] bupropion HCl 300 mg 24 hr tablet, extended release (Wellbutrin XL) 450 mg PO QAM 11/26/22 [History Last Taken Unknown] ferrous sulfate 325 mg (65 mg iron) tablet (Feosol) 975 mg PO DAILY 11/26/22 [History Last Taken Unknown] fexofenadine 180 mg tablet (Anika Allergy) 180 mg PO DAILY 11/26/22 [History Last Taken Unknown] levothyroxine 75 mcg capsule 75 mcg PO .OTHER 11/26/22 [History Last Taken Unknown] milnacipran 50 mg tablet (Savella) 50 mg PO BID 11/26/22 [History Last Taken Unknown] naltrexone 4.5 mg capsule (Naltrex) 8 mg PO BID 11/26/22 [History Last Taken Unknown] omeprazole 20 mg capsule,delayed release 40 mg PO BID 11/26/22 [History Last Taken Unknown] Allergy/AdvReac Type Severity Reaction Status Date / Time prednisone Allergy Mild Other Verified 11/26/22 08:41 Family History (Updated 11/16/22 @ 11:33 by Sanjuana Jurado) Sister Arthritis Asthma Thyroid disorder Mother Arthritis Heart disease Thyroid disorder Grandfather Diabetes Heart disease Thyroid disorder Cancer Hypertension Other Obesity Surgical History H/O colonoscopy H/O dilation and curettage History of hysteroscopy Hx of cholecystectomy ovarian surgery S/P ERCP S/P foot surgery, left S/P foot surgery, right Social History Smoking Status: Never smoker second hand exposure: No alcohol intake: never substance use type: does not use caffeine: Yes what type of physical activity do you participate in: walking seatbelt use: always do you feel safe at home: Yes additional social history: [employer]- 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 Constitutional Constitutional: Reports systems reviewed and no addt'l complaints, except as documented; Denies as per HPI, change in weight, fatigue, fever(s), malaise, weakness or other Eyes Eyes: Reports systems reviewed and no addt'l complaints, except as documented; Denies as per HPI, change in vision or other ENT HEENT: Reports systems reviewed and no addt'l complaints, except as documented Respiratory/Chest Respiratory/Chest: Reports systems reviewed and no addt'l complaints, except as documented Gastrointestinal Gastrointestinal: Reports systems reviewed and no addt'l complaints, except as documented and as per HPI Genitourinary Genitourinary: Reports as per HPI Musculoskeletal Musculoskeletal: Reports systems reviewed and no addt'l complaints, except as documented Neurologic Neurologic: Reports systems reviewed and no addt'l complaints, except as documented Psychiatric Psychiatric: Reports systems reviewed and no addt'l complaints, except as documented Endocrine Endocrinology: Reports systems reviewed and no addt'l complaints, except as documented Hematologic/Lymphatic Hematologic/Lymphatic: Reports systems reviewed and no addt'l complaints, exceptas documented Physical Exam Const alert, oriented x3 and no apparent distress HEENT normocephalic Head and Scalp: atraumatic Eyes EOMs intact bilaterally and conjunctivae normal Neck full ROM, no lymphadenopathy, supple and thyroid normal General: trachea midline Lymph Lymphatic: no lymphadenopathy noted Resp normal respiratory effort, no retractions, no use of accessory muscles and clearto auscultation bilaterally Cardio regular rhythm GI normal to inspection, nondistended, normoactive bowel sounds, soft to palpation,non-distended and no masses Inspection: Negative for abdominal distention Back/Spine no CVA tenderness Extremity normal to inspection Skin no rashes or lesions noted Neuro moves all extremities and deep tendon reflexes 2+ bilaterally Psych mental status grossly normal Assessment & Plan Assessment/Plan (1) Abnormal uterine bleeding: (2) Endometrial hyperplasia: PLAN: Plan After discussing the patient's diagnosis and treatment plan options, patient wishes to proceed with surgical management. I have discussed with the patient the risks, benefits, and alternatives of the procedure which include but are notlimited to risks of anesthesia, bleeding, infection, possible damage to bowel, bladder, or surrounding vasculature which could lead to additional surgery to evaluate any complications. Patient agrees to procedure and wishes to proceed. ACOG/uptodate references given for additional information regarding procedure. 11/27/22718 <Electronically signed by Agustina Liu MD> Cosigner Signature (if applicable): CC: Dr. Sharonda Fajardo DO; Dr. Agustina Liu MD~ Signed ADDENDUM by Dr. Agustina Liu MD on 11/27/22 at 1407 Addendum UPDATE- I have seen the patient and performed any clinically relevant updates to the history and physical exam. Agustina Liu MD 11/27/22 1407<Electronically signed by Agustina Liu MD> Cosigner Signature (if applicable): cc: Dr. Sharonda Fajardo DO; Dr. Agustina Liu MD ~* Signed ADDENDUM by Dr. Agustina Liu MD on 11/27/22 at 1455 Addendum UPDATE- I have seen the patient and performed any clinically relevant updates to the history and physical exam. Agustina Liu MD 11/27/22 [id number]<Electronically signed by Agustina Liu MD> Cosigner Signature (if applicable): cc: Dr. Sharonda Fajardo DO; Dr. Agustina Liu MD ~* Signed [facility] Work Phone: 1(150) 360-889608-01-2023 Procedure [facility] 08-20-2022 History of Present illness Narrative* Itz Jimenez MD - 08/20/2022 2:35 PM EDT HISTORY AND PHYSICAL Larisa Todd Tomas 1985 REFERRING PHYSICIAN: Sharonda Fajardo DO CHIEF COMPLAINT: Consult (Abdominal pain) HPI: The patient is a 36 year old female with a complaint of Abnormal ultrasound of abdomen (primary encounter diagnosis) Diarrhea, unspecified type Epigastric pain . Patient was seen in [place] emergency department on 08/02/2022. She was having [...] daily and Pepcid as needed for breakthrough heartburn.Actually saw her sales development manager in May of this year with similar complaints. The patient is being seen by me today at the request of Dr. Sharonda Fajardo DO for my opinion andadvice regarding Abnormal ultrasound of abdomen (primary encounter diagnosis) Diarrhea, unspecified type Epigastric pain. PAST MEDICAL HISTORY Diagnosis Date Abdominal pain, unspecified site Abnormal glandular Papanicolaou smear of cervix Abn. Pap smear (cervix) Enteritis due to [place] virus 08/25/06 Esophageal reflux Gastroesophageal reflux PMH - PAST MEDICAL HISTORY OF HEAVY LONG PERIODS Tachycardia - pulse PAST SURGICAL HISTORY Procedure Laterality Date CHOLECYSTECTOMY 1995 Cholecystectomy COLPOSCOPY CERVIX UPPER/ADJACENT VAGINA 08/09/2006 Colposcopy COLPOSCOPY CERVIX UPPER/ADJACENT VAGINA 10/22/2007 Colposcopy ERCP 03/2011, 05/2011 x 2 - [facility] EXTRACTION, ERUPTED TOOTH OR EXPOSED ROOT [...] needed. 2.5 mg at onset of headache, mayrepeat in 4 hours if needed FERROUS SULFATE [...] entered by the nurse and reviewed by me Nursing Notes: Mariah Hutton LPN 08/20/2022 2:27 [...] failure, other cardiac issues, denies claudication, denies coldfeet, denies peripheral arterial stent. Respiratory: The patient denies tuberculosis, denies pneumonia, denies frequent cough, denies pulmonary embolism, denies shortness of breath, and denies coughing up blood. Gastrointestinal: The patient denies difficulty swallowing, NOTES acid reflux, NOTES ulcers, deniesvomiting, denies jaundice/hepatitis, NOTES gallbladder problems, denies black [...] nourished, well hydrated in no acute distress. Thepatient is oriented to time, place, and person. VITALS: Blood pressure 138/84, pulse 95, temperature 36.6 C (97.8 F), height 170.2 cm (5' 7), weight 129.4 kg (285 lb 3.2 oz), last menstrual period 02/17/2021, SpO2 97 %. HEENT: Normal cephalic, ataumatic, pupils are equally round, sclera are anicteric, mucous membranesare moist, oropharynx is clear. Neck has no [...] department I do not think were missing anobvious blockage in her common bile duct. However with it being dilated I think she is going to have to have some form of further testing done whether that be a repeat ERCP or at least an MRCP I think is best that she get back to her sales development manager for further evaluation and a possible EGD. I do not think there is anything surgical for me to do here at this time. Diagnoses: (R93.5) Abnormal ultrasound of abdomen (primary encounter diagnosis) (R19.7) Diarrhea, unspecified type (R10.13) Epigastric pain A letter was sent to Dr. Sharonda Fajardo DO indicating the above finding for this patient. Return to Clinic: The patient is instructed to follow-up with me as needed. Itz Jimenez III, MD [facility]* Mariah Hutton, KATE - 08/20/2022 2:21 PM EDT REVIEW OF SYSTEMS: General: The patient NOTES [...] failure, other cardiac issues, denies claudication, denies coldfeet, denies peripheral arterial stent. Respiratory: The patient denies tuberculosis, denies pneumonia, denies frequent cough, denies pulmonary embolism, denies shortness of breath, and denies coughing up blood. Gastrointestinal: The patient denies difficulty swallowing, NOTES acid reflux, NOTES ulcers, deniesvomiting, denies jaundice/hepatitis, NOTES gallbladder problems, denies black [...] 01/2016 Mariah Hutton LPN [facility] History of Present illness Narrative* Larisa is seen today in follow-up. Initially [...] on a soft diet for 3 days. * She continues to feel epigastric discomfort which is not relieved by Carafate. An ultrasound her abdomen was done at that time revealing dilated common bile duct. She has had choledocholithiasis in the past which occurred 16 years after her cholecystectomy. She states these pains are similar in pattern to that event. [facility] [address] Work Phone: 1(800) 640-167008-16-2022 History of Present illness Narrative* Yareli Bob DPM - 12/12/2021 8:58 AM EDT Images from the original note were not [...] help her. Patient states that she is goingon vacation and would like another injection to help alleviate pain and discomfort with ambulation.No other pedal complaints at this time. Denies fevers, chills, nausea, vomiting, chest pain, shortness of breath, or any other constitutional symptoms. Physical Examination: BP 110/74 (BP Location: Left arm, Patient Position: Sitting, BP Cuff Size: Adult) Pulse 82 Temp98.2 F (36.8 C) (Infrared) LMP 11/26/2021 (Exact Date) General Appearance: Alert, cooperative, no distress, appears stated age. Podiatric Exam Vascular: DP and PT pulses are palpable 2/4 bilaterally. Capillary refill time is brisk to distal digits. No appreciable edema noted bilaterally. Hair growth present. Skin temperature is warm to warmfrom proximal tibial tuberosity to distal digits. Neuro: [...] range of motion is intact without pain orcrepitus. Muscle strength is 5/5 to all plantar [...] continue conservative measures including supportive stiff shoes, offloading,anti-inflammatories Recommended a steroid injection today to help [...] satisfaction. Patient understands to call with any questionsor concerns. Patient has elected to follow-up as needed. Yareli Bob DPM, MS Podiatric Physician & Surgeon documented in this [id number] History of Present illness Narrative* Experiencing 15-20 migraines per month. Will treat [...] blood pressure. Last was 1-2 weeks ago. [place] weird and checked BP and was increased. 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 [id number] 170 DO Work Phone: 1(559) [phone] History of Present illness Narrative* Yareli Bob DPM - 10/24/2020 8:30 AM EDT Images from the original note were not [...] that the injection did help for 2 months.She states that she continues to be in good supportive shoes. No other pedal complaints at this time . Denies fevers, chills, nausea, vomiting, chest pain, [...] growth present. Skin temperature is warm to warmfrom proximal tibial tuberosity to distal digits. Neuro: [...] range of motion is intact without pain orcrepitus. Muscle strength is 5/5 to all plantar [...] continue conservative measures including supportive stiff shoes, offloading,anti-inflammatories Recommended a steroid injection today to help [...] satisfaction. Patient understands to call with any questionsor concerns. Follow-up in 2 months for evaluation Yareli Bob DPM, MS Podiatric Physician & Surgeon documented in this encounterOhHealthChi complaint Narrative - Reported* Neurologic Evaluation. * Follow up migraine management [id number]-Dnvmma 170 DO Work Phone: Chiyu complaint Narrative - Reported* Neurologic Evaluation. * Follow up migraine management YN-Zxststlah-Zxduhr 170 DO Work Phone: chief complaint Narrative - Reported* Neurologic Evaluation. * Follow up migraine management [id number] 170 DO Work Phone: Evaluation note* Diagnosis Arthritis Unspecified arthropathy, site unspecified Back problem Other unspecified back disorder PCOS (polycystic ovarian syndrome) Polycystic ovaries Thyroid disorder Unspecified disorder of thyroid [facility] Arthritis of left foot- Primary Left foot pain Pain in soft tissues of limb documented [facility] this encounter [facility] noteNo assessment information availableWHock[facility] Work Phone: Evaluation note* Diagnosis Arthritis of left foot- Primary Left foot pain Pain in soft tissues of limb [facility]* Diagnosis Onset Date Resolution Status Depression acute Endometrial hyperplasia acut e 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 acute PCOS (polycystic ovarian syndrome) acute Thyromegaly acute Encounter for routine gynecological examination noneactive [facility] Work Phone: Evaluation note* Diagnosis Abnormal ultrasound of abdomen- Primary Nonspecific (abnormal) findings on radiological and other examination of abdominal area, including retroperitoneum Diarrhea, unspecified type Epigastric pain Abdominal pain, epigastric [facility] Diagnosis Onset Date Resolution Status Abnormal uterine bleeding ac [place] BMI 40.0-44.9, adult acute Depression acute Endometrial hyperplasia acut e 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 acute Hypothyroid acute Other obesity acute PCOS (polycystic ovarian syndrome) acute Sphincter of Oddi dysfunction acute Hypertension chronic Abnormal uterine bleeding ac [place] Endometrial hyperplasia acut e [facility] Work Phone: Evaluation note* Diagnosis Onset Date Resolution Status Abnormal uterine bleeding ac [place] BMI 40.0-44.9, adult acute Depression acute 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 acute Hypothyroid acute Other obesity acute PCOS (polycystic ovarian syndrome) acute Sphincter of Oddi dysfunction acute Hypertension chronic Endometrial hyperplasia reso lved Abnormal uterine bleeding ac [place] Endometrial hyperplasia reso lved Abnormal uterine bleeding ac [place] BMI 40.0-44.9, adult acute Depression acute Other obesity acute PCOS (polycystic ovarian syndrome) acute Abnormal uterine bleeding ac [place] BMI 40.0-44.9, adult acute Other obesity acute PCOS (polycystic ovarian syndrome) acute [facility] Work Phone: Evaluation note* Diagnosis Dilated bile duct- Primary 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 documented in this encounter [facility] Work Phone: Evaluation note* Diagnosis Onset Date Resolution Status Abnormal uterine bleeding ac [place] BMI 40.0-44.9, adult acute Depression acute Other obesity acute PCOS (polycystic ovarian syndrome) acute Abnormal uterine bleeding ac [place] BMI 40.0-44.9, adult acute Other obesity acute PCOS (polycystic ovarian syndrome) acute BMI 40.0-44.9, adult acute Other obesity acute PCOS (polycystic ovarian syndrome) acute Hypertension chronic BMI 40.0-44.9, adult acute Depression acute Hypothyroid acute Other obesity acute PCOS (polycystic ovarian syndrome) acute Hypertension chronic [facility] Work Phone: Evaluation note* Diagnosis Onset Date Resolution Status Abnormal uterine bleeding ac [place] BMI 40.0-44.9, adult acute Other obesity acute PCOS (polycystic ovarian syndrome) acute BMI 40.0-44.9, adult acute Other obesity acute PCOS (polycystic ovarian syndrome) acute Hypertension chronic BMI 40.0-44.9, adult acute Depression acute Hypothyroid acute Other obesity acute PCOS (polycystic ovarian syndrome) acute Hypertension chronic [facility] Work Phone: Evaluation note* Diagnosis Dyspepsia- Primary Dyspepsia and other specified disorders of function of stomach Epigastric abdominal pain Abdominal pain, epigastric documented in this encounter [facility] Work Phone: Evaluation note* Diagnosis Onset Date Resolution Status Abnormal uterine bleeding ac [place] BMI 40.0-44.9, adult acute Depression acute Hypothyroid acute Other obesity acute PCOS (polycystic ovarian syndrome) acute [facility] Work Phone: Evaluation note* Diagnosis Sphincter of Oddi dysfunction- Primary 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 Other specified gastritis without mention of hemorrhage documented in this encounter [facility] Work Phone: Evaluation note* Diagnosis Sphincter of Oddi dysfunction- Primary Spasm of sphincter of Oddi Dyspepsia Dyspepsia and other specified disorders of function of stomach documented in this encounter [facility] Work Phone: Evaluation note* Diagnosis Bile reflux gastritis- Primary Other specified gastritis without mention of hemorrhage 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 Last was 1-2 weeks ago. [place] weird and checked BP and was increased. 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 [facility] 170 DO Work Phone: History of Present [...] blood pressure. Last was 1-2 weeks ago. [place] weird and checked BP and was increased. 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 [facility] 170 DO Work Phone: History of Present [...] diarrhea pain is not reminiscent of her choledocholithiasis.-[facility]-[place] [address] Work Phone: Reason for referral (narrative)* Consultation (Routine) - Authorized Specialty Diagnoses / Procedures Referred By Peng sykes Referred To Contact Gastroenterology Diagnoses Dilated bile duct Sphincter of Oddi dysfunction Shelby Corey DO [address] [facility] [address] [place] [address] Gonzalo Sanderson DO [address] [facility] [address] [place] [address] Referral ID Status Reason Start Date Expiration Date Visits Requested Visits Authorized [id number] Authorized Specialty Services Required 03/07/2023 03/06/2024 1 1 [facility] Work Phone: Summary Purpose Family History No [...] migraine h eadaches: Mother, Sister(V17.2, Z82.0) Status:Active Relationship Condition Age at Onset Recorded Date/T sarahi sister Arthritis Unknown Asthma Unknown Disorder of thyroid Unknown mother Arthritis Unknown Cardiac disease Unknown grandfather Diabetes mellitus Unknown Malignant neoplasm Unknown Unknown Family Member Name Dates Details Family [...] migraine h eadaches: Mother, Sister(V17.2, Z82.0) Status:Active Relationship Condition Age at Onset Recorded Date/T sarahi Not Specified Obesity Unknown sister Arthritis Unknown Asthma Unknown Disorder of thyroid Unknown mother Arthritis Unknown Cardiac disease Unknown grandfather Diabetes mellitus Unknown Malignant neoplasm Unknown Hypertension Unknown Advance Directives No Advanced Directives Records FoundDocuments on File Type Date Recorded 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 Advance Directives and Livin g Will 10/08/2020 12:00 AM Documents on File Type Date Recorded 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 Advance Directives and Living Will Advance Directive Response Recorded Date/ Time Living Will No October 13, 2018 12:55pm Power of Digital Media Intern No October 13 9 12:55pm Advance Directive Response Recorded Date/ Time Living Will No October 13, 2018 11:55am Power of Digital Media Intern No October 13 9 11:55am Advance Directive Response Recorded Date/ Time Living Will No August 01, 2022 10:44pm Power of Digital Media Intern No August 01 10:44pm Advance Directive Response Recorded Date/ Time Name of Medical Power of Digital Media Intern - CHRISTIAN Stuart November 26, 2022 8:52am Living Will Yes November 26, 2022 8:52am Power of Digital Media Intern Yes November 26 8:52am Advance Directive Response Recorded Date/ Time Living Will Yes November 26, 2022 7:52am Power of Digital Media Intern Yes November 26 7:52am Advance Directive Response Recorded Date/ Time Living Will Yes November 26, 2022 8:52am Power of Digital Media Intern Yes November 26 8:52am Chief Complaint and Reason for Visit Chief Complaint NEED ORDER Chief Complaint 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 Reason for Visit Depression Endometrial hyperplasia 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 PCOS (polycystic ovarian syndrome) Thyromegaly Encounter for routine gynecological examination Chief Complaint ABDOMINAL PAIN ABD PAIN Chief Complaint ABDOMINAL PAIN ABD PAIN Other specified diseases of biliary tract Chief Complaint ABDOMINAL PAIN ABD PAIN Other specified diseases of biliary tract E-ORDER Chief Complaint ABDOMINAL PAIN ABD PAIN Other specified diseases of biliary tract E-ORDER ABNORMAL UTERINE BLEEDING Weight Management Consult Hysteroscopy,Dilation and Curettage Hysteroscopy,Dilation and Curettage Reason for Visit Abnormal uterine ble eding BMI 40.0-44.9, adult Depression Endometrial hyperplasia 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 Hypothyroid Other obesity PCOS (polycystic ovarian syndrome) Sphincter of Oddi dysfunction Hypertension Abnormal uterine bleeding Endometrial hyperplasia Chief Complaint E-ORDER ABNORMAL UTERINE BLEEDING Weight Management Consult Hysteroscopy,Dilation and Curettage Hysteroscopy,Dilation and Curettage 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 CHECK 1 M FU M89.8X7 M19.072//LT ANKLE Reason for Visit Abnormal uterine ble eding BMI 40.0-44.9, adult Depression 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 Hypothyroid Other obesity PCOS (polycystic ovarian syndrome) Sphincter of Oddi dysfunction Hypertension Endometrial hyperplasia Abnormal uterine bleeding Endometrial hyperplasia Abnormal uterine bleeding BMI 40.0-44.9, adult Depression Other obesity PCOS (polycystic ovarian syndrome) Abnormal uterine bleeding BMI 40.0-44.9, adult Other obesity PCOS (polycystic ovarian syndrome) Chief Complaint 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 1 M FU M89.8X7 M19.072//LT ANKLE WEIGHT/BP CHECK 1 M FU LEFT LOWER EXT M79.672 Reason for Visit Abnormal uterine ble eding BMI 40.0-44.9, adult Depression Other obesity PCOS (polycystic ovarian syndrome) Abnormal uterine bleeding BMI 40.0-44.9, adult Other obesity PCOS (polycystic ovarian syndrome) BMI 40.0-44.9, adult Other obesity PCOS (polycystic ovarian syndrome) Hypertension BMI 40.0-44.9, adult Depression Hypothyroid Other obesity PCOS (polycystic ovarian syndrome) Hypertension Chief Complaint 1 M FU M89.8X7 M19.072//LT ANKLE WEIGHT/BP CHECK 1 M FU LEFT LOWER EXT M79.672 Reason for Visit Abnormal uterine ble eding BMI 40.0-44.9, adult Other obesity PCOS (polycystic ovarian syndrome) BMI 40.0-44.9, adult Other obesity PCOS (polycystic ovarian syndrome) Hypertension BMI 40.0-44.9, adult Depression Hypothyroid Other obesity PCOS (polycystic ovarian syndrome) Hypertension Chief Complaint LEFT LOWER EXT M79.6 72 1 M FU Reason for Visit Abnormal uterine ble eding BMI 40.0-44.9, adult Depression Hypothyroid Other obesity PCOS (polycystic ovarian syndrome) Chief Complaint 1 M FU Reason for Visit Abnormal uterine ble eding BMI 40.0-44.9, adult Depression Hypothyroid Other obesity PCOS (polycystic ovarian syndrome) Chief Complaint 1 M FU Polycystic ovarian syndrome Reason for Visit Abnormal uterine ble eding BMI 40.0-44.9, adult Depression Hypothyroid Other obesity PCOS (polycystic ovarian syndrome) Chief Complaint NPV in office today for [...] told norovirus. Patient had US done at [facility]- dilated bile duct. Reason for Referral Specialty Diagnoses / Procedures Referred By Contact Referred To Contact Gastroenterology Diagnoses Dyspepsia Epigastric abdominal pain Procedures EGD WI ESOPHAGOGASTRODUODENOSCOPY TRANSORAL DIAGNOSTIC WI EGD TRANSORAL BIOPSY SINGLE/MULTIPLE Shelby Corey, DO [address] [facility] [address] [place] [address] Referral ID Status Reason Start Date Expiration Date V isits Requested Visits Authorized [id number] Authorized 05/29/2023 05/28/2024 1 1 Additional Source Comments INFORMATION SOURCE (unrecogn ized section and content) DATE CREATED AUTHOR 11/24/2017 [facility] ([place]) DATE CREATED AUTHOR AUTHOR'S ORGANIZ ATION 06/18/2018 [facility] DATE CREATED AUTHOR AUTHOR'S ORGANIZ ATION 05/25/2019 [facility] DATE CREATED AUTHOR AUTHOR'S ORGANIZ ATION 10/24/2020 [facility] DATE CREATED AUTHOR AUTHOR'S ORGANIZ ATION 06/06/2021 [facility] DATE CREATED AUTHOR AUTHOR'S ORGANIZ ATION 08/28/2022 [facility] DATE CREATED AUTHOR AUTHOR'S ORGANIZ ATION 08/28/2022 [employer] DATE CREATED AUTHOR AUTHOR'S ORGANIZ ATION 09/01/2022 [facility] DATE CREATED AUTHOR AUTHOR'S ORGANIZ ATION 05/11/2023 [facility] DATE CREATED AUTHOR AUTHOR'S ORGANIZ ATION 07/13/2023 [facility] DATE CREATED AUTHOR AUTHOR'S ORGANIZ ATION 09/28/2023 [facility] DATE CREATED AUTHOR AUTHOR'S ORGANIZ ATION 10/18/2024 [facility] DATE CREATED AUTHOR AUTHOR'S ORGANIZ ATION 12/15/2024 [facility] Reason for Visit (unrecogniz ed section [...] Specialty Diagnoses / Procedures Referred By Peng t Referred To Contact Diagnoses Epigastric pain Procedures WI ESOPHAGOGASTRODUODENOSCOPY TRANSORAL DIAGNOSTIC [place] EGD TRANSORAL BIOPSY SINGLE/MULTIPLE [id number] [address] [place] [address] [phone] Referral ID Status Reason Start Date Expiration Date Visits Re quested Visits Authorized [id number] 1 Reason Comments Follow-up Had EGD in June for dyspepsia, epigastric pain. Nausea Occasionally Reason Comments Follow-up [address] ill having some n/v. Last episode pt reports that during her vomiting the palms of her hands became bright red and itchy. Epigastric pain. Reason Comments Follow-up Pt presents today as a 6 mo follow up for sphincter of robert and dyspepsia. Pt states since last visit she has had several flairs, one that lasted for about a week. Pt states she is currently experiencing symptoms, but they are not as bad as previous symptom flairs. Goals (unrecognized section and content) Goals may be documented in a n alternate sectionGoals may be documented in an alternate sectionGoals may be documented in an alternate sectionGoals may be documented in an alternate sectionGoals may be documented in an alternate sectionGoals may be documented in an alternate sectionGoals may be documented in an alternate sectionGoals may be documented in an alternate sectionGoals may be documented in an alternate sectionGoals may be documented in an alternate sectionGoals may be documented in an alternate sectionGoals may be documented in an alternate sectionGoals may be documented in an alternate section Care Teams (unrecognized sec tion and content) [employer] Operator Relationship Specialty Start Date End Date Sharonda Fajardo DO [address] [place] [address] PCP - General Endocrinology/Metabolism 10/24/20 [employer] Operator Relationship Specialty Start Date End Date Marcella Galicia MD [address] [place] [address] Physician Rheumatology 03/03/21 Team Status: Active Member Role Status Dates Dr. Sharonda Fajardo DO Family Provider Active Dr. Sharonda Fajardo DO Primary Care Provider Active Team Status: Inactive Member Role Status Dates Dr. Sharonda Fajardo DO Primary Care Provider, Attendi ng Provider Active Team Status: Inactive Member Role Status Dates Dr. Sharonda Fajardo DO Primary Care Provider Active Dr. Lali García DO Attending Provider, Emergency Yazmin garcia Active [employer] Operator Relationship Specialty Start Date End Date Sharonda Fajardo DO PCP - General Family Medicine 06/28/16 Team Status: Inactive Member Role Status Dates Dr. Sharonda Fajardo DO Primary Care Provider Active Dr. Shelby Corey DO Attending Provider, Referring Pro vider Active Team Status: Inactive Member Role Status Dates Dr. Sharonda Fajardo DO Primary Care Provider Active Dr. Agustina Liu MD Attending Provider, Referr ing Provider Active Team Status: Inactive Member Role Status Dates Dr. Sharonda Fajardo DO Primary Care Provider, Referri ng Provider Active Dr. Agustina Liu MD Attending Provider Active Team Status: Active Member Role Status Dates Dr. Sharonda Fajardo DO Primary Care Provider Active Dr. Agustina Liu MD Attending Pr ovider, Referring Provider, Other Provider Active Team Status: Inactive Member Role Status Dates Dr. Sharonda Fajardo DO Primary Care Provider Active BAUTISTA CarcamoM Attending Provider, Referring Provider Active [employer] Operator Relationship Specialty Start Date End Date Sharonda Fajardo MD [address] [place] [address] PCP - General 04/29/19 [employer] Operator Relationship Specialty Start Date End Date Marcella Galicia MD [address] [place] [address] Physician Rheumatology 03/03/21 Team Status: Inactive Member Role Status Dates Dr. Sharonda Fajardo , DO Primary Care Pro vider, Attending Provider, Referring Provider Active Dr. Shelby Corey , DO Other Provider Active [employer] Operator Relationship Specialty Start Date End Date Sharonda Fajardo MD [address] [place], [place] [id number] PCP - General 04/29/19 [employer] Operator Relationship Specialty Start Date End Date Sharonda Fajardo MD [address] [place], [place] [id number] PCP - General 04/29/19 [employer] Operator Relationship Specialty Start Date End Date Marcella Galicia MD [address] [place] [address] Physician Rheumatology 03/03/21 [employer] Operator Relationship Specialty Start Date End Date Sharonda Fajardo MD [address] [place] [address] PCP - General 04/29/19 Source Comments (unrecognize d section and content) In the event this informatio n is protected by the Federal Confidentiality of Alcohol and Drug Abuse Patient Records regulations: The Federal rules restrict any use of the information to criminally investigate or prosecute any alcohol or drug abuse patient.[facility] FOR RECORDS PERTAINING TO PATIENTS WHO ARE [...] BE BASED ON THE PRIMARY CLINICAL RECORDS. [facility] [place] [facility]. provides no warranty or guarantee of the accuracy or completeness of information in this document.
[2024-12-19 10:38] LABS: Hematocrit 37.4 % (37-47); Hemoglobin 12.5 g/dL (12.0-15.0); Mean Corp Hgb Conc 33.4 g/dL (32-36); Mean Corpuscular Volume 92.3 fL (81-99); Mean Platelet Vol. 9.9 fl (6.2-12.0); Platelet Count 309 K/mm3 (150-450); RBC Distribution Width CV 12.3 % (11.6-14.6); RBC Distribution Width SD 41.6 fl (35.1-43.9); Red Blood Count 4.05 M/mm3 (4.2-5.4); White Blood Count 7.6 K/mm3 (4.4-11.0)
[2024-12-19 11:02] LABS: Creatinine, Urine (random) 163.00 mg/dL (28.00-217.00); Microalbumin,Random Urine 14.1 mg/L (<20 mg/L)
[2024-12-19 11:19] LABS: Cholesterol 190 mg/dL (<=200); Low Density Lipoprotein Calc. 111 mg/dL; Triglycerides 171 mg/dL; Very Low Density Lipoprotein 34 mg/dL (5-40); cholesterol:hdl ratio screen 4.25
[2024-12-19 11:21] LABS: AST(SGOT) 30 U/L (<=31); Alanine Aminotransfer ALT/SGPT 54 U/L (<=34); Albumin, Serum 4.1 g/dL (3.5-5.0); Alkaline Phosphatase 61 U/L (35-104); Anion Gap 12 (5-15); BUN 13 mg/dL (4-19); BUN/Creat Ratio 18.1 RATIO (10-20); Calcium,Total 8.8 mg/dL (7.6-11.0); Carbon Dioxide 26.6 mmol/L (21.0-32.0); Chloride 101 mmol/L (98-108); Free T3 2.8 pg/mL (2.18-3.98); Globulin 2.5 g/dL (2.2-4.2); Glucose 91 mg/dL (70-99); Iron 107 ug/dL (50-170); Potassium 4.1 mmol/L (3.3-5.1)
== END | disposition home or self-care (01) ==
LOC: LAB.FUTURE 09:22 → LAB 09:23
PROVIDERS: PCP Preventive Medicine Occupational Medicine; Referring Provider Nurse Practitioner Family; Visit Provider Nurse Practitioner Family
DX: I10 Essential (primary) hypertension (principal); D50.9 Iron deficiency anemia, unspecified; Z13.220 Encounter for screening for lipoid disorders; E03.8 Other specified hypothyroidism
CPT/HCPCS: 36415; 80053; 80061; 82043; 82570; 83540; 84439; 84443; 84481; 85027

== ENCOUNTER → 2025-01-23 | Outpatient (CLI) | payer BC, SELFPAY ==
--- OUTSIDE RECORDS SUMMARY | 2024-10-15 15:07 | XMS RPT_ITS ---
Author Name Auto Generated Organization [facility] Care Team Providers Care Desk Maker Name Role Phone SHELBY THOMSON Attending Unavailable SHARONDA FAJARDO Primary Care Unavailable SHELBY THOMSON Attending Unavailable SHARONDA FAJARDO Primary Care Unavailable PROBLEMS DATE TYPE CONDITION / CODE ATTENDING STATUS [facility] 03/05/2024 Admitting Diagnosis Follow-up / FREETEXT() SHELBY THOMSON Active [facility] Ambulatory PROCEDURES No Procedure Records Found RESULTS ALLERGIES DATE TYPE / CODE NAME / CODE REACTION SEVERITY SOURCE 03/07/2023 DRUG INGREDI/[id number](S NOMED CT) PREDNISONE Unknown [facility] Ambulatory ENCOUNTERS ADMIT/DISCHARGE ACCOUNT NUMBER ADMITTING ENCOUNTER CLASS LOCATION SOURCE 10/15/2024/ 5 [id number] Ambulatory Building:[address] Ambulatory 03/05/2024/ 4 [id number] Ambulatory Building:[address] Ambulatory PAYERS ENCOUNTER GUARANTOR PAYER SUBSCRIBER SOURCE 10/15/2024 DEREK MARINDOB: [place], [place] [address]Uum: () Primary Insurance:STACEY perez Number: [id number] tive Date:2018-05-30 DAREN MCPHERSONB: [id number] [place] [address]Iso: () [facility] 03/05/2024 DEREK GILBERT: [place], [place] [address]Rdg: () Primary Insurance:STACEY perez Number: [id number] tive Date:2018-05-30 DAREN GILBERT: [id number] [place] [address]Ozw: () [facility]
--- OUTSIDE RECORDS SUMMARY | 2024-10-15 15:07 | XMS RPT_ITS ---
Author Name Auto Generated Organization [facility] Care Team Providers Care Social Media Content Manager Name Role Phone SHELBY THOMSON Attending Unavailable SHARONDA FAJARDO Primary Care Unavailable SHELBY THOMSON Attending Unavailable SHARONDA FAJARDO Primary Care Unavailable PROBLEMS DATE TYPE CONDITION / CODE ATTENDING STATUS [facility] 03/05/2024 Admitting Diagnosis Follow-up / FREETEXT() SHELBY THOMSON Active [facility] Ambulatory PROCEDURES No Procedure Records Found RESULTS ALLERGIES DATE TYPE / CODE NAME / CODE REACTION SEVERITY SOURCE 03/07/2023 DRUG INGREDI/[id number](S NOMED CT) PREDNISONE Unknown [facility] Ambulatory ENCOUNTERS ADMIT/DISCHARGE ACCOUNT NUMBER ADMITTING ENCOUNTER CLASS LOCATION SOURCE 10/15/2024/ 5 [id number] Ambulatory Building:[address] Ambulatory 03/05/2024/ 4 [id number] Ambulatory Building:[address] Ambulatory PAYERS ENCOUNTER GUARANTOR PAYER SUBSCRIBER SOURCE 10/15/2024 DEREK MARINDOB: [place], [place] [address]Qpp: () Primary Insurance:STACEY perez Number: [id number] tive Date:2018-05-30 DAREN MCPHERSONB: [id number] [place] [address]Hyh: () [facility] 03/05/2024 DEREK GILBERT: [place], [place] [address]Eqe: () Primary Insurance:STACEY perez Number: [id number] tive Date:2018-05-30 DAREN GILBERT: [id number] [place] [address]Txg: () [facility]
[2025-01-23 10:43] LABS: AST(SGOT) 22 U/L (<=31); Alanine Aminotransfer ALT/SGPT 28 U/L (<=34); Albumin, Serum 4.1 g/dL (3.5-5.0); Alkaline Phosphatase 62 U/L (35-104); Anion Gap 10 (5-15); BUN 11 mg/dL (4-19); BUN/Creat Ratio 16.5 RATIO (10-20); Calcium,Total 8.8 mg/dL (7.6-11.0); Carbon Dioxide 26.4 mmol/L (21.0-32.0); Chloride 102 mmol/L (98-108); Ferritin 688 ng/mL (22-378); Follicle Stimulating Hormone 3.4 mIU/mL; Globulin 2.7 g/dL (2.2-4.2); Glucose 99 mg/dL (70-99); Iron 68 ug/dL (50-170); Iron Binding Capacity,Total 278 ug/dL (250-450); Iron Binding Capacity,Unsat 210 ug/dL (228-428); Potassium 3.9 mmol/L (3.3-5.1); Vitamin B12 1063 pg/mL (180-914)
[2025-01-29 01:07] LABS: Anti-Mullerian Hormone,Serum 1.44 ng/mL (.); Folate, Hemolysate Test 371.0 ng/mL (Not Estab.); Folate, RBC (Hct) Test 38.5 % (34.0-46.6); Folates, RBC Test 964 ng/mL (>498); PROLACTIN 13.9 ng/mL (4.8-33.4); Testosterone, % Free 1.82 % (0.50-2.80); Testosterone, Free 0.53 ng/dL (0.10-0.85)
== END | disposition home or self-care (01) ==
LOC: LAB 09:25
PROVIDERS: PCP Preventive Medicine Occupational Medicine; Referring Provider Obstetrics & Gynecology; Visit Provider Obstetrics & Gynecology
DX: N93.9 Abnormal uterine and vaginal bleeding, unspecified (principal); N97.8 Female infertility of other origin; I10 Essential (primary) hypertension; E28.2 Polycystic ovarian syndrome
CPT/HCPCS: 36415; 80053; 82607; 82627; 82670; 82728; 82747; 83001; 83002; 83516; 83525; 83540; 83550; 84146; 84402; 84403; 85014; 82626

== ENCOUNTER → 2025-01-29 | Outpatient (CLI) | payer BC, SELFPAY | END | disposition home or self-care (01) | LOC: LABSPEC 15:17 | PROVIDERS: PCP Preventive Medicine Occupational Medicine; Visit Provider Obstetrics & Gynecology | DX: N90.89 Other specified noninflammatory disorders of vulva and perineum (principal) | CPT/HCPCS: 87070; 87077; 87186; 87205 ==